=== PATIENT | female | born 1970 | race Caucasian/White ===

== ENCOUNTER 2016-06-15 09:48 | Emergency (ER) | payer OTHER ==
[~2016-06-15 09:48] MED LIST: BACT800T5 PO; CLIN1CAP5 PO; CLON1TAB PO; COUM6TAB PO; GABA-283 PO; NAPR500T2 PO; NEUR600T PO; NORCOTAB PO; PERCOCET PO
[2016-06-15 10:40] LABS: BASO % 0.7 % (0.0-1.0); EOS # 0.1 K/mm3 (0.0-0.50); EOS % 1.3 % (0.0-3.0); LARGE UNSTAINED CELL # 0.1 K/mm3 (0.0-0.4); LARGE UNSTAINED CELL % 0.7 % (0.0-4.0); LYMPH % 15.5 % (24.0-44.0); MEAN CORPUSCULAR HEMOGLOBIN 30.6 pg (27.0-33.0); MEAN CORPUSCULAR HGB CONC 33.5 g/dl (32.0-36.5); MEAN CORPUSCULAR VOLUME 91.4 fl (80.0-96.0); MONO # 0.3 K/mm3 (0.0-0.8); MONO % 4.2 % (0.0-5.0); NEUTROPHILS # 4.8 K/mm3 (1.8-7.7); NEUTROPHILS % 77.7 % (36.0-66.0); PLATELET COUNT, AUTOMATED 267 k/mm3 (150-450); RED CELL DISTRIBUTION WIDTH 14.5 % (11.5-14.5); WHITE BLOOD COUNT 6.2 K/mm3 (4.0-10.0)
[2016-06-15 11:04] LABS: INR 1.1
[2016-06-15 11:04] LABS: CONTROL LINE HCG INT CTR LINE PRESENT
[2016-06-15 11:13] LABS: ALKALINE PHOSPHATASE 87 U/L (45-117); ALT/SGPT 26 U/L (12-78); ANION GAP 9 MEQ/L (8-16); AST/SGOT 21 U/L (15-37); BILIRUBIN,DIRECT 0.1 MG/DL (0.0-0.2); BILIRUBIN,TOTAL 0.4 MG/DL (0.2-1.0); BLOOD UREA NITROGEN 9 MG/DL (7-18); CALCIUM LEVEL 9.5 MG/DL (8.5-10.1); CARBON DIOXIDE LEVEL 27 MEQ/L (21-32); CHLORIDE LEVEL 104 MEQ/L (98-107); CREATININE FOR GFR 0.85 MG/DL (0.55-1.02); GLOMERULAR FILTRATION RATE > 60.0 (>58); GLUCOSE, FASTING 106 MG/DL (70-105); POTASSIUM SERUM 3.8 MEQ/L (3.5-5.1); SODIUM LEVEL 140 MEQ/L (136-145)
[2016-06-15] MEDS ORDERED: ONDANSETRON 4MG/2ML VIAL (J2405) As Ordered ONE (11:34)
--- NOTE | 2016-06-15 11:43 | REP ---
PA and lateral chest 06/15/2016 Indication: Chest pain Comparison: PA and lateral chest 11 916 Findings: The cardiomediastinal silhouette is normal. The lungs are clear bilaterally. The bones and soft tissues are within normal limits. Impression no acute cardiopulmonary process or interval change Signed by Vilma Duval MD 06/15/2016 11:34 A
--- NOTE | 2016-06-15 12:11 | ECGEPIP ---
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
--- NOTE | 2016-06-15 12:27 | EDDOCDS ---
Physician Documentation [facility] Name: Becca Tatum Age: 45 yrs Sex: Female : 1970 Arrival Date: 06/15/2016 Time: 09:48 Bed 11 Private MD: NO PRIMARY PHYSICIAN, . Disposition: 06/15/16 12:10 Discharged to Home/Self Care. Impression: Epigastric pain. - Condition is Stable. - Discharge Instructions: Gastritis, Adult, [id number]-Ifka. - Prescriptions for Carafate 1 gram Oral Tablet - take 2 tablet by ORAL route every 12 hours take on an empty stomach, beginning on waking and last dose at bedtime; 100 tablet. - Medication Reconciliation, Local Pharmacy Hours form. - [facility]: [facility]; When: Call to arrange an appointment; Reason: Further diagnostic work-up, Recheck today's complaints, Continuance of care. - Problem is new. - Symptoms are unchanged. Historical: - Allergies: Toradol (Rash); Tramadol HCl (Unknown, Rash); - Home Meds: 1. Klonopin 1 mg Oral tab 1 tab 3 times per day (Last dose: 06/14/2016) 2. Neurontin 800 mg Oral tab 1 tab 3 times per day (Last dose: 06/14/2016) 3. [place] 5-325 mg Oral tab 1 tab every 4-6 hours as needed (Last dose: 06/14/2016) 4. Xarelto 20 mg oral tab 1 tab once daily (Last dose: 06/14/2016) - PMHx: Anxiety; DVT; Seizures; - PSHx: Tubal ligation; - Social history: Smoking status: Patient uses tobacco products, current every day smoker. No barriers to communication noted, The patient speaks fluent Congolese, Speaks appropriately for age. - : The pt / caregiver states he / she is on anticoagulants: Xarelto Home medication list is obtained from the patient. - Exposure Risk Screening:: None identified. 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 7 in. (170.18 cm) (R); Pain 4/10; 09:59 BP 121 / 81 (auto/); jjr 10:00 Pulse 88 MON; Pulse Ox 96% ; jjr 10:14 BP 103 / 62 (auto/); jjr 10:14 Pulse 70 MON; Pulse Ox 95% ; jjr 10:29 BP 126 / 78 (auto/); jjr 10:29 Pulse 62 MON; Resp 18; Pulse Ox 98% on R/A; jjr 10:59 BP 118 / 63 (auto/); jjr 10:59 Pulse 80 MON; Pulse Ox 98% ; jjr 11:34 BP 123 / 75 (auto/); jjr 11:34 Pulse 74 MON; Pulse Ox 97% ; jjr 11:39 Resp 18; Temp 98.2(O); jjr 12:24 BP 121 / 72; Pulse 68; Resp 18; Temp 98.4(O); Pulse Ox 98% on R/A; Pain 3/10; jjr 09:50 Body Mass Index 23.81 (68.95 kg, 170.18 cm) dem1 MDM: 09:54 ECG WITH READING ER PHYS+CARDIAG ordered. EDMS 10:19 If pt is female >10yo <50yo order UCG ordered. jjr 10:19 Undress patient appropriately for examination ordered. jjr 10:20 BMP Ordered. EDMS 10:20 CBC with Diff Ordered. EDMS 10:20 Lipase Ordered. EDMS 10:20 Liver Profile Ordered. EDMS 10:20 HCG,Serum Qualitative Ordered. EDMS 10:28 TROPONIN Ordered. EDMS 10:45 CBC with Diff Reviewed. btw 10:47 Chest, 2 View (pa\E\lat) Ordered. EDMS 10:48 Pt & Aptt Ordered. EDMS 10:53 CARDIAC INJURY PROFILE Ordered. EDMS 11:09 HCG,Serum Qualitative Reviewed. btw 11:09 Pt & Aptt Reviewed. btw 11:14 Financial registration complete. mm15 11:16 BMP Reviewed. btw 11:16 Lipase Reviewed. btw 11:16 Liver Profile Reviewed. btw 11:16 HCG,Serum Qualitative Reviewed. btw 11:16 TROPONIN Reviewed. btw 11:16 CARDIAC INJURY PROFILE Reviewed. btw 11:19 [facility] [place] Agreement was scanned into Lockbox and attached to record. mm15 11:32 Ondansetron 4 mg IVP once ordered. btw 12:09 Chest, 2 View (pa\E\lat) Reviewed. btw Administered Medications: 11:38 Drug: Ondansetron 4 mg [ondansetron HCl 2 mg/mL intravenous solution (2 mL)] Route: jjr IVP; Site: right antecubital; Signatures: Dispatcher MedHost EDMS Nelsy Granados RN RN jjr Wolfenden, Brandon, PA PA btw Kesha Stephenson RN RN dsDinora Sims mm15 The chart was reviewed and I authenticate all verbal orders and agree with the evaluation and treatment provided.Corrections: (The following items were deleted from the chart) 10:26 10:22 TROPONIN+LAB ordered. EDMS EDMS 10:53 10:47 CARDIAC INJURY PROFILE+LAB ordered. EDMS EDMS Attachments: 11:19 [facility] Payment Agreement mm15 MTDD
--- NOTE | 2016-06-15 12:27 | EDDOCDS ---
Nurse's Notes [facility] Name: Becca Tatum Age: 45 yrs Sex: Female : 1970 Arrival Date: 06/15/2016 Time: 09:48 Bed 11 Private MD: NO PRIMARY PHYSICIAN, . Diagnosis: Epigastric pain Presentation: 06/15 09:55 Presenting complaint: Patient states: epigastric pain that started this morning. Pt dsf also reports nausea no vomiting. Adult Sepsis Screening: The patient does not have new or worsening altered mentation. Patient's respiratory rate is less than 22. Systolic blood pressure is greater than 100. Patient has a qSOFA score of 0- Negative Sepsis Screen. Suicide/Homicide risk assessment- the patient denies having any suicidal and/or homicidal ideations and does not present with any other emotional, behavioral or mental health complaints. Status: Patient is not a service desk lead or dependent. Transition of care: patient was not received from another setting of care. 09:55 Acuity: CHARLY Level 3 dsf 09:55 Method Of Arrival: Walkin/Carried/Asstd dsf 10:30 Red Flag criteria, patient assessed and taken directly to a bed. kr3 Triage Assessment: 09:57 General: Appears in no apparent distress, Behavior is appropriate for age, cooperative. dsf Pain: Location: epigastric area Pain currently is 4 out of 10 on a pain scale. HIV screening NA for this visit Offered previously. GI: Reports epigastric pain, nausea. 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 Klonopin 1 mg Oral tab 1 tab 3 times per day (Last dose: 06/14/2016) 2. Neurontin 800 mg Oral tab 1 tab 3 times per day (Last dose: 06/14/2016) 3. [place] 5-325 mg Oral tab 1 tab every 4-6 hours as needed (Last dose: 06/14/2016) 4. Xarelto 20 mg oral tab 1 tab once daily (Last dose: 06/14/2016) - PMHx: Anxiety; DVT; Seizures; - PSHx: Tubal ligation; - Social history: Smoking status: Patient uses tobacco products, current every day smoker. No barriers to communication noted, The patient speaks fluent Lithuanian, Speaks appropriately for age. - : The pt / caregiver states he / she is on anticoagulants: Xarelto Home medication list is obtained from the patient. - Exposure Risk Screening:: None identified. Screenin:52 Infection Control. dem1 12:25 Screening information is obtained from the patient. Fall risk: No risks identified. jjr Assistance ADL's: requires no assistance with activities of daily living. Abuse/DV Screen: The patient / caregiver reports he/she is: not in a situation that causes fear, pain or injury. Nutritional screening: No deficits noted. Advance Directives: There is no active DNR order. home support is adequate. Assessment: 10:32 General: Appears in no apparent distress, well nourished, well groomed, Behavior is jjr appropriate for age, vague c/o chest pain to right anterior chest intermittent since yesterday, pain increases with deep breathing. General: Reports chills for 12-24 hours. Neurological: No deficits noted. Cardiovascular: Rhythm is sinus rhythm. Respiratory: Airway is patent Respiratory effort is even, unlabored, Respiratory pattern is regular, Breath sounds are clear bilaterally. GI: Abdomen is non- distended Bowel sounds present X 4 quads. Abd is soft and non tender X 4 quads. Reports nausea. Derm: No deficits noted. 11:39 General: Appears in no apparent distress, pt reports intermittent discomfort to right jjr anterior chest, "while I was breathing in xray it felt funny on my left side" pt's main complaint is nausea and fever/chills oral temp reassessed 98.2. 12:25 General: Appears in no apparent distress, rates right anterior chest discomfort 3/10, jjr nausea decreased tolerating sips of water. Vital Signs: 09:50 BP 135 / 91; Pulse 84; Resp 18; Temp 98.2(O); Pulse Ox 99% on R/A; Weight 68.95 kg (R); dem1 Height 5 ft. 7 in. (170.18 cm) (R); Pain 4/10; 09:59 BP 121 / 81 (auto/); jjr 10:00 Pulse 88 MON; Pulse Ox 96% ; jjr 10:14 BP 103 / 62 (auto/); jjr 10:14 Pulse 70 MON; Pulse Ox 95% ; jjr 10:29 BP 126 / 78 (auto/); jjr 10:29 Pulse 62 MON; Resp 18; Pulse Ox 98% on R/A; jjr 10:59 BP 118 / 63 (auto/); jjr 10:59 Pulse 80 MON; Pulse Ox 98% ; jjr 11:34 BP 123 / 75 (auto/); jjr 11:34 Pulse 74 MON; Pulse Ox 97% ; jjr 11:39 Resp 18; Temp 98.2(O); jjr 12:24 BP 121 / 72; Pulse 68; Resp 18; Temp 98.4(O); Pulse Ox 98% on R/A; Pain 3/10; jjr 09:50 Body Mass Index 23.81 (68.95 kg, 170.18 cm) dem1 Vitals: 09:50 Log In Time: June 15, 2016 at 09:48. RN notified that patient meets Red Flag dem1 criteria. ED Course: 09:50 Patient visited by Paola Mas. dem1 09:50 NO PRIMARY PHYSICIAN, . is Private Physician. dem1 09:50 Patient moved to Waiting dem1 09:51 Patient visited by Paola Mas. dem1 09:51 Patient moved to Pre RCE dem1 09:55 Patient moved to 11 dsf 09:56 Triage Initiated dsf 10:07 EKG done. (by ED staff). Reviewed by Maren Cuellar MD. jlf 10:08 Patient visited by Facundo Ariza PCA. jlf 10:09 Patient visited by Facundo Ariza PCA. jlf 10:26 Patient visited by Facundo Ariza PCA. jlf 10:32 Inserted saline lock: 20 gauge in right antecubital area and blood collected. Labs jjr drawn. (by ED staff). Sent per order to lab. 10:34 Patient visited by Nelsy Granados RN. jjr 10:34 TROPONIN Sent. jjr 10:34 HCG,Serum Qualitative Sent. jjr 10:34 BMP Sent. jjr 10:34 CBC with Diff Sent. jjr 10:34 Lipase Sent. jjr 10:34 Liver Profile Sent. jjr 10:37 Dominik Alcocer PA is PHCP. btw 10:37 Maren Cuellar MD is Attending Physician. btw 10:37 Patient visited by Dominik Alcocer PA. btw 10:51 Patient visited by Facundo Ariza PCA. jlf 11:16 Patient visited by Facundo Ariza PCA. jlf 11:19 [facility] Payment Agreement was scanned into [employer] and attached to record. mm15 11:40 Patient visited by Nelsy Granados RN. jjr 11:51 Chest, 2 View (pa\\E\\lat) Returned. EDMS 12:06 Patient visited by Facundo Ariza PCA. jlf 12:10 [facility] is Referral Physician. btw 12:25 Discontinued lock intact, bleeding controlled, pressure dressing applied, No jjr redness/swelling at site. No procedures done that require assistance. 12:26 The patient / caregiver is instructed regarding the plan of care and ED course. jjr Administered Medications: 11:38 Drug: Ondansetron 4 mg [ondansetron HCl 2 mg/mL intravenous solution (2 mL)] Route: jjr IVP; Site: right antecubital; Order Results: Lab Order: BMP; SPEC'M 06/15/16 10:31 Test: GLUCOSE, FASTING; Value: 106; Range: 70-105; Abnormal: Above high normal; Units: MG/DL; Status: F Test: BLOOD UREA NITROGEN; Value: 9; Range: 7-18; Units: MG/DL; Status: F Test: CREATININE FOR GFR; Value: 0.85; Range: 0.55-1.02; Units: MG/DL; Status: F Test: SODIUM LEVEL; Range: 136-145; Units: MEQ/L; Status: I Test: POTASSIUM SERUM; Range: 3.5-5.1; Units: MEQ/L; Status: I Test: CHLORIDE LEVEL; Range: 98-107; Units: MEQ/L; Status: I Test: CARBON DIOXIDE LEVEL; Range: 21-32; Units: MEQ/L; Status: I Test: ANION GAP; Range: 8-16; Units: MEQ/L; Status: I Test: CALCIUM LEVEL; Range: 8.5-10.1; Units: MG/DL; Status: I Test: GLOMERULAR FILTRATION RATE; Value: > 60.0; Range: >58; Status: F Test: SODIUM LEVEL; Value: 140; Range: 136-145; Units: MEQ/L; Status: F Test: POTASSIUM SERUM; Value: 3.8; Range: 3.5-5.1; Units: MEQ/L; Status: F Test: CHLORIDE LEVEL; Value: 104; Range: 98-107; Units: MEQ/L; Status: F Test: CARBON DIOXIDE LEVEL; Value: 27; Range: 21-32; Units: MEQ/L; Status: F Test: ANION GAP; Value: 9; Range: 8-16; Units: MEQ/L; Status: F Test: CALCIUM LEVEL; Value: 9.5; Range: 8.5-10.1; Units: MG/DL; Status: F Test Note: ; Units are mL/min/1.73 m2 Chronic Kidney Disease Staging per NKF: Stage I & II GFR >=60 Normal to Mildly Decreased Stage III GFR 30-59 Moderately Decreased Stage IV GFR 15-29 Severely Decreased Stage V GFR <15 Very Little GFR Left ESRD GFR <15 on MOCCASIN SEWER Lab Order: CBC with Diff; SPEC'M 06/15/16 10:31 Test: WHITE BLOOD COUNT; Value: 6.2; Range: 4.0-10.0; Units: K/mm3; Status: F Test: RED BLOOD COUNT; Value: 4.82; Range: 4.00-5.40; Units: M/mm3; Status: F Test: HEMOGLOBIN; Value: 14.8; Range: 12.0-16.0; Units: g/dl; Status: F Test: HEMATOCRIT; Value: 44.1; Range: 36.0-47.0; Units: %; Status: F Test: MEAN CORPUSCULAR VOLUME; Value: 91.4; Range: 80.0-96.0; Units: fl; Status: F Test: MEAN CORPUSCULAR HEMOGLOBIN; Value: 30.6; Range: 27.0-33.0; Units: pg; Status: F Test: MEAN CORPUSCULAR HGB CONC; Value: 33.5; Range: 32.0-36.5; Units: g/dl; Status: F Test: RED CELL DISTRIBUTION WIDTH; Value: 14.5; Range: 11.5-14.5; Units: %; Status: F Test: PLATELET COUNT, AUTOMATED; Value: 267; Range: 150-450; Units: k/mm3; Status: F Test: NEUTROPHILS %; Value: 77.7; Range: 36.0-66.0; Abnormal: Above high normal; Units: %; Status: F Test: LYMPH %; Value: 15.5; Range: 24.0-44.0; Abnormal: Below low normal; Units: %; Status: F Test: MONO %; Value: 4.2; Range: 0.0-5.0; Units: %; Status: F Test: EOS %; Value: 1.3; Range: 0.0-3.0; Units: %; Status: F Test: BASO %; Value: 0.7; Range: 0.0-1.0; Units: %; Status: F Test: LARGE UNSTAINED CELL %; Value: 0.7; Range: 0.0-4.0; Units: %; Status: F Test: NEUTROPHILS #; Value: 4.8; Range: 1.8-7.7; Units: K/mm3; Status: F Test: LYMPH #; Value: 1.0; Range: 1.5-4.5; Abnormal: Below low normal; Units: K/mm3; Status: F Test: MONO #; Value: 0.3; Range: 0.0-0.8; Units: K/mm3; Status: F Test: EOS #; Value: 0.1; Range: 0.0-0.50; Units: K/mm3; Status: F Test: BASO #; Value: 0.0; Range: 0.0-0.2; Units: K/mm3; Status: F Test: LARGE UNSTAINED CELL #; Value: 0.1; Range: 0.0-0.4; Units: K/mm3; Status: F Lab Order: Lipase; SPEC'M 06/15/16 10:31 Test: LIPASE; Value: 152; Range: 73-393; Units: U/L; Status: F Lab Order: Liver Profile; SPEC'M 06/15/16 10:31 Test: AST/SGOT; Value: 21; Range: 15-37; Units: U/L; Status: F Test: ALT/SGPT; Value: 26; Range: 12-78; Units: U/L; Status: F Test: ALKALINE PHOSPHATASE; Value: 87; Range: 45-117; Units: U/L; Status: F Test: BILIRUBIN,TOTAL; Value: 0.4; Range: 0.2-1.0; Units: MG/DL; Status: F Test: BILIRUBIN,DIRECT; Value: 0.1; Range: 0.0-0.2; Units: MG/DL; Status: F Test: TOTAL PROTEIN; Value: 8.0; Range: 6.4-8.2; Units: GM/DL; Status: F Test: ALBUMIN; Value: 4.0; Range: 3.2-5.2; Units: GM/DL; Status: F Test: ALBUMIN/GLOBULIN RATIO; Value: 1.00; Range: 1.00-1.93; Status: F Lab Order: HCG,Serum Qualitative; SPEC'M 06/15/16 10:31 Test: HCG, SERUM QUALITATIVE; Value: NEGATIVE; Range: NEGATIVE; Status: F Lab Order: TROPONIN; SPEC'M 06/15/16 10:31 Test: TROPONIN I; Value: < 0.02; Range: < 0.10; Units: NG/ML; Status: F Test Note: ; Troponin I Reference Interval for Favorite Words LOCI: 99th Percentile= 0.00-0.045 ng/ml Risk Stratification: <= 0.10 ng/ml Decreased Risk for Adverse Clinical Events. 0.10-1.50 ng/ml Increased Risk for Adverse Clinical Events. Evaluation of additional criterion and/or repeat testing in 2-6 hours is suggested to rule out myocardial damage. >= 1.50 ng/ml Indicative of Myocardial Injury. Lab Order: Pt & Aptt; SPEC'M 06/15/16 10:30 Test: PROTHROMBIN TIME; Value: 14.3; Range: 12.3-14.5; Units: SECONDS; Status: F Test: INR; Value: 1.10; Status: F Test: PARTIAL THROMBOPLASTIN TIME; Value: 28.1; Range: 26.6-37.1; Units: SECONDS; Status: F Test Note: ; THERAPUTIC HUMAN INR VALUES INDICATIONS NORMAL RANGES PROPHYLAXIS/TREATMENT OF: VENOUS THROMBOSIS 2.0-3.0 PULMONARY EMBOLISM 2.0-3.0 PREVENTION OF SYSTEMIC EMBOLISM FROM: TISSUE HEART VALVES 2.0-3.0 ACUTE MYOCARDIAL INFARCTION 2.0-3.0 VALVULAR HEART DISEASE 2.0-3.0 ATRIAL FIBRILLATION 2.0-3.0 MECHANICAL VALVES(HIGH RISK) 2.5-3.5 RECURRENT MYOCARDIAL INFARCTION 2.5-3.5 Lab Order: CARDIAC INJURY PROFILE; SPEC'M 06/15/16 10:31 Test: CPK CREATINE PHOSPHOKINASE; Value: 64; Range: 26-192; Units: U/L; Status: F Test: CK-MB VALUE MASS; Value: 1.0; Range: 0.0-3.6; Units: NG/ML; Status: F Test: MB/CK RELATIVE INDEX; Value: 1.56; Range: < OR =4; Status: F Test Note: ; DIAGNOSIS CRITERIA MMB ng/ml Relative Index (RI) NON-AMI < or = 5 N/A [place] > 5 < or = 4 AMI > 5 > 4 Radiology Order: Chest, 2 View (pa\\E\\lat) Test: Chest, 2 View (pa\\E\\lat) REASON FOR EXAMINATION: Chest Pain; PA and lateral chest 06/15/2016; ; Indication: Chest pain; ; Comparison: PA and lateral chest 11 916; ; Findings: The cardiomediastinal silhouette is normal. The lungs are clear; bilaterally. The bones and soft tissues are within normal limits.; ; Impression no acute cardiopulmonary process or interval change; ; ; Signed by; Vilma Duval MD 06/15/2016 11:34 A; Outcome: 12:10 Discharge ordered by Provider. btw 12:25 Discharge Assessment: patient administered narcotics - no. The following High Risk jjr Discharge criteria are identified: None. Discharged to home ambulatory. Condition: stable. Discharge instructions given to patient, Instructed on discharge instructions, follow up and referral plans. medication usage, diet, Demonstrated understanding of instructions, medications, Prescriptions given X 1. No special radiology studies were completed. Property sent home with patient. 12:26 Patient left the ED. jjr Signatures: Dispatcher MedHost EDMS eNli RickettsRN RN kr3 Nelsy Granados RN RN jjr Wolfenden, Brandon, PA PA alexw Kesha Stephenson RN RN dsf Mack, Demeishia dem1 Dinora Herr mm15 Facundo Ariza, CROSS TIE MAKER CROSS TIE MAKER jlf MTDD
--- NOTE | 2016-06-17 13:27 | EDDOCDS ---
Physician Documentation [facility] Name: Becca Tatum Age: 45 yrs Sex: Female : 1970 Arrival Date: 06/15/2016 Time: 09:48 Bed 11 Private MD: NO PRIMARY PHYSICIAN, . Disposition: 06/15/16 12:10 Discharged to Home/Self Care. Impression: Epigastric pain. - Condition is Stable. - Discharge Instructions: Gastritis, Adult, [id number]-Ghio. - Prescriptions for Carafate 1 gram Oral Tablet - take 2 tablet by ORAL route every 12 hours take on an empty stomach, beginning on waking and last dose at bedtime; 100 tablet. - Medication Reconciliation, Local Pharmacy Hours form. - [facility]; When: Call to arrange an appointment; Reason: Further diagnostic work-up, Recheck today's complaints, Continuance of care. - Problem is new. - Symptoms are unchanged. Historical: - Allergies: Toradol (Rash); Tramadol HCl (Unknown, Rash); - Home Meds: 1. Klonopin 1 mg Oral tab 1 tab 3 times per day (Last dose: 06/14/2016) 2. Neurontin 800 mg Oral tab 1 tab 3 times per day (Last dose: 06/14/2016) 3. [place] 5-325 mg Oral tab 1 tab every 4-6 hours as needed (Last dose: 06/14/2016) 4. Xarelto 20 mg oral tab 1 tab once daily (Last dose: 06/14/2016) - PMHx: Anxiety; DVT; Seizures; - PSHx: Tubal ligation; - Social history: Smoking status: Patient uses tobacco products, current every day smoker. No barriers to communication noted, The patient speaks fluent Colombian, Speaks appropriately for age. - : The pt / caregiver states he / she is on anticoagulants: Xarelto Home medication list is obtained from the patient. - Exposure Risk Screening:: None identified. 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 7 in. (170.18 cm) (R); Pain 4/10; 09:59 BP 121 / 81 (auto/); jjr 10:00 Pulse 88 MON; Pulse Ox 96% ; jjr 10:14 BP 103 / 62 (auto/); jjr 10:14 Pulse 70 MON; Pulse Ox 95% ; jjr 10:29 BP 126 / 78 (auto/); jjr 10:29 Pulse 62 MON; Resp 18; Pulse Ox 98% on R/A; jjr 10:59 BP 118 / 63 (auto/); jjr 10:59 Pulse 80 MON; Pulse Ox 98% ; jjr 11:34 BP 123 / 75 (auto/); jjr 11:34 Pulse 74 MON; Pulse Ox 97% ; jjr 11:39 Resp 18; Temp 98.2(O); jjr 12:24 BP 121 / 72; Pulse 68; Resp 18; Temp 98.4(O); Pulse Ox 98% on R/A; Pain 3/10; jjr 09:50 Body Mass Index 23.81 (68.95 kg, 170.18 cm) dem1 MDM: 09:54 ECG WITH READING ER PHYS+CARDIAG ordered. EDMS 10:19 If pt is female >10yo <50yo order UCG ordered. jjr 10:19 Undress patient appropriately for examination ordered. jjr 10:20 BMP Ordered. EDMS 10:20 CBC with Diff Ordered. EDMS 10:20 Lipase Ordered. EDMS 10:20 Liver Profile Ordered. EDMS 10:20 HCG,Serum Qualitative Ordered. EDMS 10:28 TROPONIN Ordered. EDMS 10:45 CBC with Diff Reviewed. btw 10:47 Chest, 2 View (pa\E\lat) Ordered. EDMS 10:48 Pt & Aptt Ordered. EDMS 10:53 CARDIAC INJURY PROFILE Ordered. EDMS 11:09 HCG,Serum Qualitative Reviewed. btw 11:09 Pt & Aptt Reviewed. btw 11:14 Financial registration complete. mm15 11:16 BMP Reviewed. btw 11:16 Lipase Reviewed. btw 11:16 Liver Profile Reviewed. btw 11:16 HCG,Serum Qualitative Reviewed. btw 11:16 TROPONIN Reviewed. btw 11:16 CARDIAC INJURY PROFILE Reviewed. btw 11:19 [facility] Payment Agreement was scanned into linkedü and attached to record. mm15 11:32 Ondansetron 4 mg IVP once ordered. btw 12:09 Chest, 2 View (pa\E\lat) Reviewed. btw 06/16 08:01 T-Sheet-- Draft Copy was scanned into linkedü and attached to record. gb 13:04 ECG/EKG was scanned into [employer] and attached to record. gb Administered Medications: 06/15 11:38 Drug: Ondansetron 4 mg [ondansetron HCl 2 mg/mL intravenous solution (2 mL)] Route: jjr IVP; Site: right antecubital; Signatures: Dispatcher [employer] EDMS Renate Miner, Jasvir Reg Nelsy Morel RN RN jjr Wolfenden, Brandon, PA PA btw Kesha StephensonRN RN dsf Dinora Herr mm15 The chart was reviewed and I authenticate all verbal orders and agree with the evaluation and treatment provided.Corrections: (The following items were deleted from the chart) 10:26 10:22 TROPONIN+LAB ordered. EDMS EDMS 10:53 10:47 CARDIAC INJURY PROFILE+LAB ordered. EDMS EDMS Attachments: 11:19 [facility] Payment Agreement mm15 06/16 08:01 T-Sheet-- Draft Copy gb 13:04 ECG/EKG gb Chart Complete MTDD
--- NOTE | 2016-06-17 13:27 | EDDOCDS ---
Physician Documentation [facility] Name: Becca Tatum Age: 45 yrs Sex: Female : 1970 Arrival Date: 06/15/2016 Time: 09:48 Bed 11 Private MD: NO PRIMARY PHYSICIAN, . Disposition: 06/15/16 12:10 Discharged to Home/Self Care. Impression: Epigastric pain. - Condition is Stable. - Discharge Instructions: Gastritis, Adult, [id number]. - Prescriptions for Carafate 1 gram Oral Tablet - take 2 tablet by ORAL route every 12 hours take on an empty stomach, beginning on waking and last dose at bedtime; 100 tablet. - Medication Reconciliation, Local Pharmacy Hours form. - [facility] up: [facility]; When: Call to arrange an appointment; Reason: Further diagnostic work-up, Recheck today's complaints, Continuance of care. - Problem is new. - Symptoms are unchanged. Historical: - Allergies: Toradol (Rash); Tramadol HCl (Unknown, Rash); - Home Meds: 1. Klonopin 1 mg Oral tab 1 tab 3 times per day (Last dose: 06/14/2016) 2. Neurontin 800 mg Oral tab 1 tab 3 times per day (Last dose: 06/14/2016) 3. [place] 5-325 mg Oral tab 1 tab every 4-6 hours as needed (Last dose: 06/14/2016) 4. Xarelto 20 mg oral tab 1 tab once daily (Last dose: 06/14/2016) - PMHx: Anxiety; DVT; Seizures; - PSHx: Tubal ligation; - Social history: Smoking status: Patient uses tobacco products, current every day smoker. No barriers to communication noted, The patient speaks fluent Indian, Speaks appropriately for age. - : The pt / caregiver states he / she is on anticoagulants: Xarelto Home medication list is obtained from the patient. - Exposure Risk Screening:: None identified. 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 7 in. (170.18 cm) (R); Pain 4/10; 09:59 BP 121 / 81 (auto/); jjr 10:00 Pulse 88 MON; Pulse Ox 96% ; jjr 10:14 BP 103 / 62 (auto/); jjr 10:14 Pulse 70 MON; Pulse Ox 95% ; jjr 10:29 BP 126 / 78 (auto/); jjr 10:29 Pulse 62 MON; Resp 18; Pulse Ox 98% on R/A; jjr 10:59 BP 118 / 63 (auto/); jjr 10:59 Pulse 80 MON; Pulse Ox 98% ; jjr 11:34 BP 123 / 75 (auto/); jjr 11:34 Pulse 74 MON; Pulse Ox 97% ; jjr 11:39 Resp 18; Temp 98.2(O); jjr 12:24 BP 121 / 72; Pulse 68; Resp 18; Temp 98.4(O); Pulse Ox 98% on R/A; Pain 3/10; jjr 09:50 Body Mass Index 23.81 (68.95 kg, 170.18 cm) dem1 MDM: 09:54 ECG WITH READING ER PHYS+CARDIAG ordered. EDMS 10:19 If pt is female >10yo <50yo order UCG ordered. jjr 10:19 Undress patient appropriately for examination ordered. jjr 10:20 BMP Ordered. EDMS 10:20 CBC with Diff Ordered. EDMS 10:20 Lipase Ordered. EDMS 10:20 Liver Profile Ordered. EDMS 10:20 HCG,Serum Qualitative Ordered. EDMS 10:28 TROPONIN Ordered. EDMS 10:45 CBC with Diff Reviewed. btw 10:47 Chest, 2 View (pa\E\lat) Ordered. EDMS 10:48 Pt & Aptt Ordered. EDMS 10:53 CARDIAC INJURY PROFILE Ordered. EDMS 11:09 HCG,Serum Qualitative Reviewed. btw 11:09 Pt & Aptt Reviewed. btw 11:14 Financial registration complete. mm15 11:16 BMP Reviewed. btw 11:16 Lipase Reviewed. btw 11:16 Liver Profile Reviewed. btw 11:16 HCG,Serum Qualitative Reviewed. btw 11:16 TROPONIN Reviewed. btw 11:16 CARDIAC INJURY PROFILE Reviewed. btw 11:19 [facility] [place] Agreement was scanned into [employer] and attached to record. mm15 11:32 Ondansetron 4 mg IVP once ordered. btw 12:09 Chest, 2 View (pa\E\lat) Reviewed. btw 06/16 08:01 T-Sheet-- Draft Copy was scanned into [employer] and attached to record. gb 13:04 ECG/EKG was scanned into [employer] and attached to record. gb Administered Medications: 06/15 11:38 Drug: Ondansetron 4 mg [ondansetron HCl 2 mg/mL intravenous solution (2 mL)] Route: jjr IVP; Site: right antecubital; Signatures: Dispatcher [employer] EDMS Renate Miner, Jasvir Reg Nelsy Morel RN RN jjr Wolfenden, Brandon, PA PA btw Kesha StephensonRN RN dsf Dinora Herr mm15 The chart was reviewed and I authenticate all verbal orders and agree with the evaluation and treatment provided.Corrections: (The following items were deleted from the chart) 10:26 10:22 TROPONIN+LAB ordered. EDMS EDMS 10:53 10:47 CARDIAC INJURY PROFILE+LAB ordered. EDMS EDMS Attachments: 11:19 [facility] [place] Agreement mm15 06/16 08:01 T-Sheet-- Draft Copy gb 13:04 ECG/EKG gb Chart Complete MTDD
--- NOTE | 2016-06-17 13:28 | EDDOCDS ---
Nurse's Notes [facility] Name: Olivia Tatum Age: 45 yrs Sex: Female : 1970 Arrival Date: 06/15/2016 Time: 09:48 Bed 11 Private MD: NO PRIMARY PHYSICIAN, . Diagnosis: Epigastric pain Presentation: 06/15 09:55 Presenting complaint: Patient states: epigastric pain that started this morning. Pt dsf also reports nausea no vomiting. Adult Sepsis Screening: The patient does not have new or worsening altered mentation. Patient's respiratory rate is less than 22. Systolic blood pressure is greater than 100. Patient has a qSOFA score of 0- Negative Sepsis Screen. Suicide/Homicide risk assessment- the patient denies having any suicidal and/or homicidal ideations and does not present with any other emotional, behavioral or mental health complaints. Status: Patient is not a central service supply distributor or dependent. Transition of care: patient was not received from another setting of care. 09:55 Acuity: CHARLY Level 3 dsf 09:55 Method Of Arrival: Walkin/Carried/Asstd dsf 10:30 Red Flag criteria, patient assessed and taken directly to a bed. kr3 Triage Assessment: 09:57 General: Appears in no apparent distress, Behavior is appropriate for age, cooperative. dsf Pain: Location: epigastric area Pain currently is 4 out of 10 on a pain scale. HIV screening NA for this visit Offered previously. GI: Reports epigastric pain, nausea. 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 Klonopin 1 mg Oral tab 1 tab 3 times per day (Last dose: 06/14/2016) 2. Neurontin 800 mg Oral tab 1 tab 3 times per day (Last dose: 06/14/2016) 3. [place] 5-325 mg Oral tab 1 tab every 4-6 hours as needed (Last dose: 06/14/2016) 4. Xarelto 20 mg oral tab 1 tab once daily (Last dose: 06/14/2016) - PMHx: Anxiety; DVT; Seizures; - PSHx: Tubal ligation; - Social history: Smoking status: Patient uses tobacco products, current every day smoker. No barriers to communication noted, The patient speaks fluent Swedish, Speaks appropriately for age. - : The pt / caregiver states he / she is on anticoagulants: Xarelto Home medication list is obtained from the patient. - Exposure Risk Screening:: None identified. Screenin:52 Infection Control. dem1 12:25 Screening information is obtained from the patient. Fall risk: No risks identified. jjr Assistance ADL's: requires no assistance with activities of daily living. Abuse/DV Screen: The patient / caregiver reports he/she is: not in a situation that causes fear, pain or injury. Nutritional screening: No deficits noted. Advance Directives: There is no active DNR order. home support is adequate. Assessment: 10:32 General: Appears in no apparent distress, well nourished, well groomed, Behavior is jjr appropriate for age, vague c/o chest pain to right anterior chest intermittent since yesterday, pain increases with deep breathing. General: Reports chills for 12-24 hours. Neurological: No deficits noted. Cardiovascular: Rhythm is sinus rhythm. Respiratory: Airway is patent Respiratory effort is even, unlabored, Respiratory pattern is regular, Breath sounds are clear bilaterally. GI: Abdomen is non- distended Bowel sounds present X 4 quads. Abd is soft and non tender X 4 quads. Reports nausea. Derm: No deficits noted. 11:39 General: Appears in no apparent distress, pt reports intermittent discomfort to right jjr anterior chest, "while I was breathing in xray it felt funny on my left side" pt's main complaint is nausea and fever/chills oral temp reassessed 98.2. 12:25 General: Appears in no apparent distress, rates right anterior chest discomfort 3/10, jjr nausea decreased tolerating sips of water. Vital Signs: 09:50 BP 135 / 91; Pulse 84; Resp 18; Temp 98.2(O); Pulse Ox 99% on R/A; Weight 68.95 kg (R); dem1 Height 5 ft. 7 in. (170.18 cm) (R); Pain 4/10; 09:59 BP 121 / 81 (auto/); jjr 10:00 Pulse 88 MON; Pulse Ox 96% ; jjr 10:14 BP 103 / 62 (auto/); jjr 10:14 Pulse 70 MON; Pulse Ox 95% ; jjr 10:29 BP 126 / 78 (auto/); jjr 10:29 Pulse 62 MON; Resp 18; Pulse Ox 98% on R/A; jjr 10:59 BP 118 / 63 (auto/); jjr 10:59 Pulse 80 MON; Pulse Ox 98% ; jjr 11:34 BP 123 / 75 (auto/); jjr 11:34 Pulse 74 MON; Pulse Ox 97% ; jjr 11:39 Resp 18; Temp 98.2(O); jjr 12:24 BP 121 / 72; Pulse 68; Resp 18; Temp 98.4(O); Pulse Ox 98% on R/A; Pain 3/10; jjr 09:50 Body Mass Index 23.81 (68.95 kg, 170.18 cm) dem1 Vitals: 09:50 Log In Time: June 15, 2016 at 09:48. RN notified that patient meets Red Flag dem1 criteria. ED Course: 09:50 Patient visited by Paola Mas. dem1 09:50 NO PRIMARY PHYSICIAN, . is Private Physician. dem1 09:50 Patient moved to Waiting dem1 09:51 Patient visited by Paola Mas. dem1 09:51 Patient moved to Pre RCE dem1 09:55 Patient moved to 11 dsf 09:56 Triage Initiated dsf 10:07 EKG done. (by ED staff). Reviewed by Maren Cuellar MD. jlf 10:08 Patient visited by Facundo Ariza PCA. jlf 10:09 Patient visited by Facundo Ariza PCA. jlf 10:26 Patient visited by Facundo Ariza PCA. jlf 10:32 Inserted saline lock: 20 gauge in right antecubital area and blood collected. Labs jjr drawn. (by ED staff). Sent per order to lab. 10:34 Patient visited by Nelsy Granados RN. jjr 10:34 TROPONIN Sent. jjr 10:34 HCG,Serum Qualitative Sent. jjr 10:34 BMP Sent. jjr 10:34 CBC with Diff Sent. jjr 10:34 Lipase Sent. jjr 10:34 Liver Profile Sent. jjr 10:37 Dominik Alcocer PA is PHCP. btw 10:37 Maren Cuellar MD is Attending Physician. btw 10:37 Patient visited by Dominik Alcocer PA. btw 10:51 Patient visited by Facundo Ariza PCA. jlf 11:16 Patient visited by Facundo Ariza PCA. jlf 11:19 [facility] Payment Agreement was scanned into [employer] and attached to record. mm15 11:40 Patient visited by Nelsy Granados RN. jjr 11:51 Chest, 2 View (pa\\E\\lat) Returned. EDMS 12:06 Patient visited by Facundo Ariza PCA. jlf 12:10 [facility] is Referral Physician. btw 12:25 Discontinued lock intact, bleeding controlled, pressure dressing applied, No jjr redness/swelling at site. No procedures done that require assistance. 12:26 The patient / caregiver is instructed regarding the plan of care and ED course. jjr 12:30 EKG-ADULT Returned. EDMS 06/16 08:01 T-Sheet-- Draft Copy was scanned into [employer] and attached to record. gb 13:04 ECG/EKG was scanned into [employer] and attached to record. gb Administered Medications: 06/15 11:38 Drug: Ondansetron 4 mg [ondansetron HCl 2 mg/mL intravenous solution (2 mL)] Route: jjr IVP; Site: right antecubital; Order Results: Lab Order: BMP; SPEC'M 06/15/16 10:31 Test: GLUCOSE, FASTING; Value: 106; Range: 70-105; Abnormal: Above high normal; Units: MG/DL; Status: F Test: BLOOD UREA NITROGEN; Value: 9; Range: 7-18; Units: MG/DL; Status: F Test: CREATININE FOR GFR; Value: 0.85; Range: 0.55-1.02; Units: MG/DL; Status: F Test: SODIUM LEVEL; Range: 136-145; Units: MEQ/L; Status: I Test: POTASSIUM SERUM; Range: 3.5-5.1; Units: MEQ/L; Status: I Test: CHLORIDE LEVEL; Range: 98-107; Units: MEQ/L; Status: I Test: CARBON DIOXIDE LEVEL; Range: 21-32; Units: MEQ/L; Status: I Test: ANION GAP; Range: 8-16; Units: MEQ/L; Status: I Test: CALCIUM LEVEL; Range: 8.5-10.1; Units: MG/DL; Status: I Test: GLOMERULAR FILTRATION RATE; Value: > 60.0; Range: >58; Status: F Test: SODIUM LEVEL; Value: 140; Range: 136-145; Units: MEQ/L; Status: F Test: POTASSIUM SERUM; Value: 3.8; Range: 3.5-5.1; Units: MEQ/L; Status: F Test: CHLORIDE LEVEL; Value: 104; Range: 98-107; Units: MEQ/L; Status: F Test: CARBON DIOXIDE LEVEL; Value: 27; Range: 21-32; Units: MEQ/L; Status: F Test: ANION GAP; Value: 9; Range: 8-16; Units: MEQ/L; Status: F Test: CALCIUM LEVEL; Value: 9.5; Range: 8.5-10.1; Units: MG/DL; Status: F Test Note: ; Units are mL/min/1.73 m2 Chronic Kidney Disease Staging per NKF: Stage I & II GFR >=60 Normal to Mildly Decreased Stage III GFR 30-59 Moderately Decreased Stage IV GFR 15-29 Severely Decreased Stage V GFR <15 Very Little GFR Left ESRD GFR <15 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 Lab Order: CBC with Diff; SPEC'M 06/15/16 10:31 Test: WHITE BLOOD COUNT; Value: 6.2; Range: 4.0-10.0; Units: K/mm3; Status: F Test: RED BLOOD COUNT; Value: 4.82; Range: 4.00-5.40; Units: M/mm3; Status: F Test: HEMOGLOBIN; Value: 14.8; Range: 12.0-16.0; Units: g/dl; Status: F Test: HEMATOCRIT; Value: 44.1; Range: 36.0-47.0; Units: %; Status: F Test: MEAN CORPUSCULAR VOLUME; Value: 91.4; Range: 80.0-96.0; Units: fl; Status: F Test: MEAN CORPUSCULAR HEMOGLOBIN; Value: 30.6; Range: 27.0-33.0; Units: pg; Status: F Test: MEAN CORPUSCULAR HGB CONC; Value: 33.5; Range: 32.0-36.5; Units: g/dl; Status: F Test: RED CELL DISTRIBUTION WIDTH; Value: 14.5; Range: 11.5-14.5; Units: %; Status: F Test: PLATELET COUNT, AUTOMATED; Value: 267; Range: 150-450; Units: k/mm3; Status: F Test: NEUTROPHILS %; Value: 77.7; Range: 36.0-66.0; Abnormal: Above high normal; Units: %; Status: F Test: LYMPH %; Value: 15.5; Range: 24.0-44.0; Abnormal: Below low normal; Units: %; Status: F Test: MONO %; Value: 4.2; Range: 0.0-5.0; Units: %; Status: F Test: EOS %; Value: 1.3; Range: 0.0-3.0; Units: %; Status: F Test: BASO %; Value: 0.7; Range: 0.0-1.0; Units: %; Status: F Test: LARGE UNSTAINED CELL %; Value: 0.7; Range: 0.0-4.0; Units: %; Status: F Test: NEUTROPHILS #; Value: 4.8; Range: 1.8-7.7; Units: K/mm3; Status: F Test: LYMPH #; Value: 1.0; Range: 1.5-4.5; Abnormal: Below low normal; Units: K/mm3; Status: F Test: MONO #; Value: 0.3; Range: 0.0-0.8; Units: K/mm3; Status: F Test: EOS #; Value: 0.1; Range: 0.0-0.50; Units: K/mm3; Status: F Test: BASO #; Value: 0.0; Range: 0.0-0.2; Units: K/mm3; Status: F Test: LARGE UNSTAINED CELL #; Value: 0.1; Range: 0.0-0.4; Units: K/mm3; Status: F Lab Order: Lipase; SPEC'M 06/15/16 10:31 Test: LIPASE; Value: 152; Range: 73-393; Units: U/L; Status: F Lab Order: Liver Profile; SPEC'M 06/15/16 10:31 Test: AST/SGOT; Value: 21; Range: 15-37; Units: U/L; Status: F Test: ALT/SGPT; Value: 26; Range: 12-78; Units: U/L; Status: F Test: ALKALINE PHOSPHATASE; Value: 87; Range: 45-117; Units: U/L; Status: F Test: BILIRUBIN,TOTAL; Value: 0.4; Range: 0.2-1.0; Units: MG/DL; Status: F Test: BILIRUBIN,DIRECT; Value: 0.1; Range: 0.0-0.2; Units: MG/DL; Status: F Test: TOTAL PROTEIN; Value: 8.0; Range: 6.4-8.2; Units: GM/DL; Status: F Test: ALBUMIN; Value: 4.0; Range: 3.2-5.2; Units: GM/DL; Status: F Test: ALBUMIN/GLOBULIN RATIO; Value: 1.00; Range: 1.00-1.93; Status: F Lab Order: HCG,Serum Qualitative; SPEC'M 06/15/16 10:31 Test: HCG, SERUM QUALITATIVE; Value: NEGATIVE; Range: NEGATIVE; Status: F Lab Order: TROPONIN; SPEC'M 06/15/16 10:31 Test: TROPONIN I; Value: < 0.02; Range: < 0.10; Units: NG/ML; Status: F Test Note: ; Troponin I Reference Interval for Idea2 LOCI: 99th Percentile= 0.00-0.045 ng/ml Risk Stratification: <= 0.10 ng/ml Decreased Risk for Adverse Clinical Events. 0.10-1.50 ng/ml Increased Risk for Adverse Clinical Events. Evaluation of additional criterion and/or repeat testing in 2-6 hours is suggested to rule out myocardial damage. >= 1.50 ng/ml Indicative of Myocardial Injury. Lab Order: Pt & Aptt; SPEC'M 06/15/16 10:30 Test: PROTHROMBIN TIME; Value: 14.3; Range: 12.3-14.5; Units: SECONDS; Status: F Test: INR; Value: 1.10; Status: F Test: PARTIAL THROMBOPLASTIN TIME; Value: 28.1; Range: 26.6-37.1; Units: SECONDS; Status: F Test Note: ; THERAPUTIC HUMAN INR VALUES INDICATIONS NORMAL RANGES PROPHYLAXIS/TREATMENT OF: VENOUS THROMBOSIS 2.0-3.0 PULMONARY EMBOLISM 2.0-3.0 PREVENTION OF SYSTEMIC EMBOLISM FROM: TISSUE HEART VALVES 2.0-3.0 ACUTE MYOCARDIAL INFARCTION 2.0-3.0 VALVULAR HEART DISEASE 2.0-3.0 ATRIAL FIBRILLATION 2.0-3.0 MECHANICAL VALVES(HIGH RISK) 2.5-3.5 RECURRENT MYOCARDIAL INFARCTION 2.5-3.5 Lab Order: CARDIAC INJURY PROFILE; SPEC'M 06/15/16 10:31 Test: CPK CREATINE PHOSPHOKINASE; Value: 64; Range: 26-192; Units: U/L; Status: F Test: CK-MB VALUE MASS; Value: 1.0; Range: 0.0-3.6; Units: NG/ML; Status: F Test: MB/CK RELATIVE INDEX; Value: 1.56; Range: < OR =4; Status: F Test Note: ; DIAGNOSIS CRITERIA MMB ng/ml Relative Index (RI) NON-AMI < or = 5 N/A [place]ONE > 5 < or = 4 AMI > 5 > 4 Radiology Order: EKG-ADULT Test: EKG-ADULT REASON FOR EXAMINATION: Chest Pain; Stationary ECG Study; [facility] - ED; ; Test Date: 2016-06-15; Pat Name: OLIVIA TATUM Department:; Room: -; 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 The lungs are clear; bilaterally. The bones and soft tissues are within normal limits.; ; Impression no acute cardiopulmonary process or interval change; ; ; Signed by; Vilma Duval MD 06/15/2016 11:34 A; Outcome: 12:10 Discharge ordered by Provider. bt 12:25 Discharge Assessment: patient administered narcotics - no. The following High Risk jjr Discharge criteria are identified: None. Discharged to home ambulatory. Condition: stable. Discharge instructions given to patient, Instructed on discharge instructions, follow up and referral plans. medication usage, diet, Demonstrated understanding of instructions, medications, Prescriptions given X 1. No special radiology studies were completed. Property sent home with patient. 12:26 Patient left the ED. jjr Signatures: Dispatcher [employer] EDMS Renate Miner, Neli Herzog,RN RN kr3 Nelsy Granados, RN RN jjDominik Multani PA PA btw Kesha StephensonRN RN Paola Arizmendi1 Dinora Herr mm15 Facundo Ariza, CLINICAL INFORMATICS DIRECTOR CLINICAL INFORMATICS DIRECTOR jlf Chart Complete MTDD
== END 2016-06-15 12:26 | disposition home or self-care (01) ==
LOC: M ED 09:48
DX: K29.70 Gastritis, unspecified, without bleeding (principal); R10.13 Epigastric pain; F41.9 Anxiety disorder, unspecified; R56.9 Unspecified convulsions; Z86.718 Personal history of other venous thrombosis and embolism; Z72.0 Tobacco use; Z79.01 Long term (current) use of anticoagulants; Z79.899 Other long term (current) drug therapy; Z88.5 Allergy status to narcotic agent

== ENCOUNTER 2016-06-20 14:52 | Emergency (ER) | payer OTHER ==
--- NOTE | 2016-06-20 15:54 | REP ---
Clinical: Acute abdominal pain. Comparison: 11/04/2015. Findings: Lung bases clear. Liver, spleen, pancreas, collapsed gallbladder, bilateral adrenal glands and kidneys are normal. The enteric system is without obstruction or acute inflammatory process and a normal terminal ileum and appendix are identified in the right lower quadrant. Pelvis demonstrates normal bladder and age-appropriate uterus/adnexa. No intraperitoneal or retroperitoneal adenopathy. No pelvic fluid or ascites. No free air. Abdominal aorta without aneurysm. Surrounding musculoskeletal structures appear intact. Impression: No acute intra-abdominal or pelvic pathology appreciated. Signed by Everett Taveras MD 06/20/2016 03:46 P
[2016-06-20] MEDS ORDERED: ONDANSETRON 4MG/2ML VIAL (J2405) As Ordered ONE (15:56)
[2016-06-20 16:07] LABS: BASO # 0.1 K/mm3 (0.0-0.2); BASO % 2.1 % (0.0-1.0); EOS # 0.1 K/mm3 (0.0-0.50); LARGE UNSTAINED CELL # 0.1 K/mm3 (0.0-0.4); LARGE UNSTAINED CELL % 1.3 % (0.0-4.0); LYMPH # 2.3 K/mm3 (1.5-4.5); LYMPH % 33.2 % (24.0-44.0); MEAN CORPUSCULAR HEMOGLOBIN 30.9 pg (27.0-33.0); MEAN CORPUSCULAR HGB CONC 33.9 g/dl (32.0-36.5); MEAN CORPUSCULAR VOLUME 91.2 fl (80.0-96.0); MONO # 0.4 K/mm3 (0.0-0.8); NEUTROPHILS # 3.7 K/mm3 (1.8-7.7); NEUTROPHILS % 55.4 % (36.0-66.0); PLATELET COUNT, AUTOMATED 221 k/mm3 (150-450); RED CELL DISTRIBUTION WIDTH 14.5 % (11.5-14.5); WHITE BLOOD COUNT 6.6 K/mm3 (4.0-10.0)
[2016-06-20 16:18] LABS: INR 0.98
[2016-06-20 16:29] LABS: ALBUMIN 3.7 GM/DL (3.2-5.2); ALBUMIN/GLOBULIN RATIO 1.03 (1.00-1.93); ALKALINE PHOSPHATASE 77 U/L (45-117); ALT/SGPT 21 U/L (12-78); AMYLASE 69 U/L (25-115); ANION GAP 8 MEQ/L (8-16); AST/SGOT 12 U/L (15-37); BILIRUBIN,DIRECT < 0.1 MG/DL (0.0-0.2); BILIRUBIN,TOTAL 0.3 MG/DL (0.2-1.0); BLOOD UREA NITROGEN 9 MG/DL (7-18); CALCIUM LEVEL 9.3 MG/DL (8.5-10.1); CARBON DIOXIDE LEVEL 30 MEQ/L (21-32); CHLORIDE LEVEL 106 MEQ/L (98-107); CREATININE FOR GFR 0.82 MG/DL (0.55-1.02); GLOMERULAR FILTRATION RATE > 60.0 (>58); GLUCOSE, FASTING 99 MG/DL (70-105); POTASSIUM SERUM 3.8 MEQ/L (3.5-5.1); SODIUM LEVEL 144 MEQ/L (136-145); TOTAL PROTEIN 7.3 GM/DL (6.4-8.2)
--- NOTE | 2016-06-20 17:00 | EDDOCDS ---
Nurse's Notes [facility] Name: Becca Tatum Age: 46 yrs Sex: Female : 1970 Arrival Date: 06/20/2016 Time: 14:52 Bed I3 / M3 Private MD: Unknown Pcp Diagnosis: Malaise and fatigue;Abdominal and pelvic pain Presentation: 06/20 14:57 Presenting complaint: Patient states: Patient states was here on the 5th and patient hs1 states that she feels a lot sicker and that she doesn't feel right and that something is wrong. Patient states she didn't follow up with [facility] and is concerned now that because she "over did it" on New Years and drank a lot and is on Xarelto and now is having bloody stool this morning. Adult Sepsis Screening: The patient does not have new or worsening altered mentation. Patient's respiratory rate is less than 22. Systolic blood pressure is greater than 100. Patient has a qSOFA score of 0- Negative Sepsis Screen. Suicide/Homicide risk assessment- the patient denies having any suicidal and/or homicidal ideations and does not present with any other emotional, behavioral or mental health complaints. Status: Patient is not a consulting services associate or dependent. Transition of care: patient was not received from another setting of care. 14:57 Acuity: CHARLY Level 3 hs1 14:57 Method Of Arrival: Walkin/Carried/Asstd hs1 Triage Assessment: 15:01 General: Appears in no apparent distress, Behavior is cooperative. Pain: Location: hs1 back, diaphragm and xyphoid area Pain currently is 3 out of 10 on a pain scale. HIV screening NA for this visit Offered previously. Neurological: No deficits noted. GI: Reports bloody stools Denies nausea. Derm: Skin is pink, warm & dry. normal. 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 acetaminophen 500 mg Oral tab 2 tabs every 6 hours (Last dose: 06/20/2016 09:00) 2. Xarelto 20 mg oral tab 1 tab once daily (Last dose: 06/20/2016 14:00) 3. Klonopin 1 mg Oral tab 1 tab 3 times per day (Last dose: 06/19/2016 15:00) 4. Neurontin 800 mg Oral tab 1 tab 3 times per day (Last dose: 06/20/2016 08:00) 5. [place] 5-325 mg Oral tab 1 tab every 4-6 hours as needed (Last dose: 06/18/2016) 6. Carafate 1 gram Oral tab (Last dose: 06/20/2016 07:00) - PMHx: Anxiety; DVT; Seizures; - PSHx: Tubal ligation; - Social history: Smoking status: Patient uses tobacco products, light tobacco smoker. No barriers to communication noted, The patient speaks fluent Namibian, Speaks appropriately for age. - Family history: Not pertinent. - : The pt / caregiver states he / she is not on anticoagulants. Home medication list is obtained from the patient, Unable to Verify Home Med List with the patient / caregiver. - Exposure Risk Screening:: None identified. Screenin:09 Screening information is obtained from the patient. Fall risk: No risks identified. mcp Assistance ADL's: requires no assistance with activities of daily living. Abuse/DV Screen: The patient / caregiver reports he/she is: not in a situation that causes fear, pain or injury. Nutritional screening: No deficits noted. Advance Directives: There is no active DNR order. home support is adequate. Assessment: 16:08 General: Appears uncomfortable, Behavior is cooperative. Pain: Location: epigastric mcp area Pain currently is 4 out of 10 on a pain scale. Neurological: No deficits noted. Respiratory: Airway is patent Respiratory effort is even, unlabored. GI: Abdomen is flat, non- distended Bowel sounds present X 4 quads. Abd is soft X 4 quads Reports bloody stools epigastric pain. Derm: Skin is pink, warm & dry. 16:40 General: Appears in no apparent distress, Behavior is appropriate for age, cooperative. jmb Neurological: Level of Consciousness is awake, alert, obeys commands, Oriented to person, place, time. Respiratory: Airway is patent Respiratory effort is even, unlabored, Respiratory pattern is regular, symmetrical. 16:57 General: Patient instructed on discharge instructions. Patient asked if there were any jmb questions regarding discharge, patient stated no. IV discontinued per hospital policy. Patient signed discharge instructions. Patient discharged in stable condition. . Vital Signs: 14:54 BP 100 / 68; Pulse 101; Resp 18 S; Temp 97.3(O); Pulse Ox 99% on R/A; Weight 68.04 kg dd6 (R); Height 5 ft. 7 in. (170.18 cm) (R); 16:57 BP 106 / 58; Pulse 88; Resp 18; Temp 98.2(O); Pulse Ox 98% on R/A; Pain 3/10; jmb 14:54 Body Mass Index 23.49 (68.04 kg, 170.18 cm) dd6 Vitals: 14:54 Log In Time: June 20, 2016 at 14:52. dd6 ED Course: 14:53 Patient visited by Inocencio Salguero PCA. dd6 14:53 Patient moved to Waiting dd6 14:54 Unknown Pcp is Private Physician. dd6 14:54 Patient moved to Pre RCE dd6 14:59 Triage Initiated hs1 15:04 Patient moved to Triage 2 ms18 15:11 [facility] ke 15:11 Patient visited by Cezar Conway FNP. ke 15:11 Patient visited by Cezar Conway FNP. ke 15:30 Patient moved to I3 / M3 ms18 15:42 Patient visited by Cezar Conway FNP. 15:55 Amylase Sent. [facility] 15:55 Basic Metabolic Profile Sent. [facility] 15:55 CBC with Diff Sent. mcp 15:55 Lipase Sent. mcp 15:55 Liver Profile Sent. mcp 15:55 Prothrombin Time Profile\\E\\INR Sent. [facility] 15:57 [facility] Payment Agreement was scanned into [employer] and attached to record. gjb 16:04 Patient visited by Cezar Conway FNP. ke 16:09 The patient / caregiver is instructed regarding the plan of care and ED course. Patient mcp has correct armband on for positive identification. Placed in gown. Bed in low position. Call light in reach. 16:09 Warm blanket given. [facility] 16:10 Patient visited by Mirian Barron RN. [facility] 16:10 Inserted saline lock: 20 gauge in right antecubital area and blood collected. The [facility] patient tolerated the procedure well. Labs drawn. (by ED staff). Sent per order to lab. 16:13 CT ABD & PELVIS: No Contrast Returned. EDMS 16:40 Patient visited by Lance England RN. jmb 16:42 [facility] is Referral Physician. ke 16:57 Discontinued lock intact, bleeding controlled, pressure dressing applied, No jmb redness/swelling at site. No procedures done that require assistance. Administered Medications: 16:00 Drug: NS 0.9% 1000 ml [sodium chloride 0.9 % intravenous solution] Route: IV; Rate: mcp bolus; Site: right antecubital; 16:00 Drug: Ondansetron 4 mg [ondansetron HCl 2 mg/mL intravenous solution (2 mL)] Route: mcp IVP; Site: right antecubital; Order Results: Lab Order: Amylase; SPEC'M 06/20/16 15:45 Test: AMYLASE; Value: 69; Range: 25-115; Units: U/L; Status: F Lab Order: Basic Metabolic Profile; SPEC'M 06/20/16 15:45 Test: GLUCOSE, FASTING; Value: 99; Range: 70-105; Units: MG/DL; Status: F Test: BLOOD UREA NITROGEN; Value: 9; Range: 7-18; Units: MG/DL; Status: F Test: CREATININE FOR GFR; Value: 0.82; Range: 0.55-1.02; Units: MG/DL; Status: F Test: GLOMERULAR FILTRATION RATE; Value: > 60.0; Range: >58; Status: F Test: SODIUM LEVEL; Value: 144; Range: 136-145; Units: MEQ/L; Status: F Test: POTASSIUM SERUM; Value: 3.8; Range: 3.5-5.1; Units: MEQ/L; Status: F Test: CHLORIDE LEVEL; Value: 106; Range: 98-107; Units: MEQ/L; Status: F Test: CARBON DIOXIDE LEVEL; Value: 30; Range: 21-32; Units: MEQ/L; Status: F Test: ANION GAP; Value: 8; Range: 8-16; Units: MEQ/L; Status: F Test: CALCIUM LEVEL; Value: 9.3; Range: 8.5-10.1; Units: MG/DL; Status: F Test Note: ; Units are mL/min/1.73 m2 Chronic Kidney Disease Staging per NKF: Stage I & II GFR >=60 Normal to Mildly Decreased Stage III GFR 30-59 Moderately Decreased Stage IV GFR 15-29 Severely Decreased Stage V GFR <15 Very Little GFR Left ESRD GFR <15 on CERTIFIED PERSONAL FINANCE COUNSELOR Lab Order: CBC with Diff; SPEC'M 06/20/16 15:45 Test: WHITE BLOOD COUNT; Value: 6.6; Range: 4.0-10.0; Units: K/mm3; Status: F Test: RED BLOOD COUNT; Value: 4.46; Range: 4.00-5.40; Units: M/mm3; Status: F Test: HEMOGLOBIN; Value: 13.8; Range: 12.0-16.0; Units: g/dl; Status: F Test: HEMATOCRIT; Value: 40.7; Range: 36.0-47.0; Units: %; Status: F Test: MEAN CORPUSCULAR VOLUME; Value: 91.2; Range: 80.0-96.0; Units: fl; Status: F Test: MEAN CORPUSCULAR HEMOGLOBIN; Value: 30.9; Range: 27.0-33.0; Units: pg; Status: F Test: MEAN CORPUSCULAR HGB CONC; Value: 33.9; Range: 32.0-36.5; Units: g/dl; Status: F Test: RED CELL DISTRIBUTION WIDTH; Value: 14.5; Range: 11.5-14.5; Units: %; Status: F Test: PLATELET COUNT, AUTOMATED; Value: 221; Range: 150-450; Units: k/mm3; Status: F Test: NEUTROPHILS %; Value: 55.4; Range: 36.0-66.0; Units: %; Status: F Test: LYMPH %; Value: 33.2; Range: 24.0-44.0; Units: %; Status: F Test: MONO %; Value: 6.0; Range: 0.0-5.0; Abnormal: Above high normal; Units: %; Status: F Test: EOS %; Value: 2.0; Range: 0.0-3.0; Units: %; Status: F Test: BASO %; Value: 2.1; Range: 0.0-1.0; Abnormal: Above high normal; Units: %; Status: F Test: LARGE UNSTAINED CELL %; Value: 1.3; Range: 0.0-4.0; Units: %; Status: F Test: NEUTROPHILS #; Value: 3.7; Range: 1.8-7.7; Units: K/mm3; Status: F Test: LYMPH #; Value: 2.3; Range: 1.5-4.5; Units: K/mm3; Status: F Test: MONO #; Value: 0.4; Range: 0.0-0.8; Units: K/mm3; Status: F Test: EOS #; Value: 0.1; Range: 0.0-0.50; Units: K/mm3; Status: F Test: BASO #; Value: 0.1; Range: 0.0-0.2; Units: K/mm3; Status: F Test: LARGE UNSTAINED CELL #; Value: 0.1; Range: 0.0-0.4; Units: K/mm3; Status: F Lab Order: Lipase; SPEC' 06/20/16 15:45 Test: LIPASE; Value: 195; Range: 73-393; Units: U/L; Status: F Lab Order: Liver Profile; [facility]' 06/20/16 15:45 Test: AST/SGOT; Value: 12; Range: 15-37; Abnormal: Below low normal; Units: U/L; Status: F Test: ALT/SGPT; Value: 21; Range: 12-78; Units: U/L; Status: F Test: ALKALINE PHOSPHATASE; Value: 77; Range: 45-117; Units: U/L; Status: F Test: BILIRUBIN,TOTAL; Value: 0.3; Range: 0.2-1.0; Units: MG/DL; Status: F Test: BILIRUBIN,DIRECT; Value: < 0.1; Range: 0.0-0.2; Units: MG/DL; Status: F Test: TOTAL PROTEIN; Value: 7.3; Range: 6.4-8.2; Units: GM/DL; Status: F Test: ALBUMIN; Value: 3.7; Range: 3.2-5.2; Units: GM/DL; Status: F Test: ALBUMIN/GLOBULIN RATIO; Value: 1.03; Range: 1.00-1.93; Status: F Lab Order: Prothrombin Time Profile\\E\\INR; SPEC' 06/20/16 15:45 Test: PROTHROMBIN TIME; Value: 13.1; Range: 12.3-14.5; Units: SECONDS; Status: F Test: INR; Value: 0.98; Status: F Test Note: ; THERAPUTIC HUMAN INR VALUES INDICATIONS NORMAL RANGES PROPHYLAXIS/TREATMENT OF: VENOUS THROMBOSIS 2.0-3.0 PULMONARY EMBOLISM 2.0-3.0 PREVENTION OF SYSTEMIC EMBOLISM FROM: TISSUE HEART VALVES 2.0-3.0 ACUTE MYOCARDIAL INFARCTION 2.0-3.0 VALVULAR HEART DISEASE 2.0-3.0 ATRIAL FIBRILLATION 2.0-3.0 MECHANICAL VALVES(HIGH RISK) 2.5-3.5 RECURRENT MYOCARDIAL INFARCTION 2.5-3.5 Radiology Order: CT ABD & PELVIS: No Contrast Test: CT ABD & PELVIS: No Contrast REASON FOR EXAMINATION: Abdomen Pain; Clinical: Acute abdominal pain.; ; Comparison: 11/04/2015.; ; Findings:; Lung bases clear.; ; Liver, spleen, pancreas, collapsed gallbladder, bilateral adrenal glands and; kidneys are normal. The enteric system is without obstruction or acute; inflammatory process and a normal terminal ileum and appendix are identified in; the right lower quadrant. Pelvis demonstrates normal bladder and age-appropriate; uterus/adnexa. No intraperitoneal or retroperitoneal adenopathy. No pelvic; fluid or ascites. No free air. Abdominal aorta without aneurysm. Surrounding; musculoskeletal structures appear intact.; ; Impression:; No acute intra-abdominal or pelvic pathology appreciated.; ; ; Signed by; Everett Taveras MD 06/20/2016 03:46 P; Outcome: 16:42 Discharge ordered by Provider. ke 16:57 Discharge Assessment: Patient awake, alert and oriented x 3. No cognitive and/or jmb functional deficits noted. Patient verbalized understanding of disposition instructions. Patient awake and alert. obeys commands, Oriented to person, place and time. Patient verbalized understanding of disposition instructions. Patient has no functional deficits. patient administered narcotics - no. The following High Risk Discharge criteria are identified: None. Discharged to home ambulatory. Condition: stable Condition: improved. Discharge instructions given to patient, Instructed on discharge instructions, follow up and referral plans. medication usage, Demonstrated understanding of instructions, medications, Pt was receptive of discharge instructions/ teaching. Prescriptions given X 1. CT Study completed. Property sent home with patient. 16:59 Patient left the ED. jmb Signatures: Dispatcher [employer] Mirian Cole, RN RN mcp Cezar Conway, FUR GRADER FUR GRADER ke Inocencio Salguero, ARMATURE INSPECTOR ARMATURE INSPECTOR dd6 Lorin Guzmán, RN RN hs1 Lance England,RN RN lumab Lilly WashingtonRN RN ms18 Nia Salomon MTDD
--- NOTE | 2016-06-20 17:00 | EDDOCDS ---
Physician Documentation [facility] Name: Becca Tatum Age: 46 yrs Sex: Female : 1970 Arrival Date: 06/20/2016 Time: 14:52 Bed I3 / M3 Private MD: Unknown Pcp Disposition: 06/20/16 16:42 Discharged to Home/Self Care. Impression: Malaise and fatigue, Abdominal and pelvic pain. - Condition is Stable. - Discharge Instructions: Abdominal Pain, Adult, Fatigue. - Prescriptions for Zofran 4 mg Oral Tablet - take 1 tablet by ORAL route 4 times per day As needed; 10 tablet. - Medication Reconciliation, Local Pharmacy Hours form. - [facility]; When: Call to arrange an appointment; Reason: Continuance of care. - Problem is an ongoing problem. - Symptoms are unchanged. Historical: - Allergies: Toradol (Rash); Tramadol HCl (Unknown, Rash); - Home Meds: 1. acetaminophen 500 mg Oral tab 2 tabs every 6 hours (Last dose: 06/20/2016 09:00) 2. Xarelto 20 mg oral tab 1 tab once daily (Last dose: 06/20/2016 14:00) 3. Klonopin 1 mg Oral tab 1 tab 3 times per day (Last dose: 06/19/2016 15:00) 4. Neurontin 800 mg Oral tab 1 tab 3 times per day (Last dose: 06/20/2016 08:00) 5. [place] 5-325 mg Oral tab 1 tab every 4-6 hours as needed (Last dose: 06/18/2016) 6. Carafate 1 gram Oral tab (Last dose: 06/20/2016 07:00) - PMHx: Anxiety; DVT; Seizures; - PSHx: Tubal ligation; - Social history: Smoking status: Patient uses tobacco products, light tobacco smoker. No barriers to communication noted, The patient speaks fluent Cambodian, Speaks appropriately for age. - Family history: Not pertinent. - : The pt / caregiver states he / she is not on anticoagulants. Home medication list is obtained from the patient, Unable to Verify Home Med List with the patient / caregiver. - Exposure Risk Screening:: None identified. 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 7 in. (170.18 cm) (R); 16:57 BP 106 / 58; Pulse 88; Resp 18; Temp 98.2(O); Pulse Ox 98% on R/A; Pain 3/10; jmb 14:54 Body Mass Index 23.49 (68.04 kg, 170.18 cm) dd6 MDM: 15:27 NS 0.9% 1000 ml IV at bolus once ordered. ke 15:27 Ondansetron 4 mg IVP once ordered. ke 15:27 IV Saline Lock ordered. ke 15:27 Undress patient appropriately for examination ordered. ke 15:28 Amylase Ordered. EDMS 15:28 Basic Metabolic Profile Ordered. EDMS 15:28 CBC with Diff Ordered. EDMS 15:28 Lipase Ordered. EDMS 15:28 Liver Profile Ordered. EDMS 15:28 Prothrombin Time Profile\E\INR Ordered. EDMS 15:29 CT ABD & PELVIS: No Contrast Ordered. EDMS 15:29 NOTHING BY MOUTH+DIET ordered. EDMS 15:56 Financial registration complete. gjb 15:57 [facility] [place] Payment Agreement was scanned into [employer] and attached to record. gjb 16:40 CBC with Diff Reviewed. ke 16:40 Liver Profile Reviewed. ke 16:40 Amylase Reviewed. ke 16:40 Basic Metabolic Profile Reviewed. ke 16:40 Lipase Reviewed. ke 16:40 Prothrombin Time Profile\E\INR Reviewed. ke 16:40 CT ABD & PELVIS: No Contrast Reviewed. ke Administered Medications: 16:00 Drug: NS 0.9% 1000 ml [sodium chloride 0.9 % intravenous solution] Route: IV; Rate: mcp bolus; Site: right antecubital; 16:00 Drug: Ondansetron 4 mg [ondansetron HCl 2 mg/mL intravenous solution (2 mL)] Route: mcp IVP; Site: right antecubital; Signatures: Dispatcher [employer] EDMS Cezar Conway, PROFESSOR OF FOREST PLANNING PROFESSOR OF FOREST PLANNING Lorin Andino RN RN hsLance Bragg RN RN jmb Beck, Gabriela gjb Peters, Mary RN mcp The chart was reviewed and I authenticate all verbal orders and agree with the evaluation and treatment provided.Attachments: 15:57 [facility] [place] Payment Agreement gjb MTDD
--- NOTE | 2016-06-22 18:00 | EDDOCDS ---
Physician Documentation [facility] Name: Becca Tatum Age: 46 yrs Sex: Female : 1970 Arrival Date: 06/20/2016 Time: 14:52 Bed I3 / M3 Private MD: Unknown Pcp Disposition: 06/20/16 16:42 Discharged to Home/Self Care. Impression: Malaise and fatigue, Abdominal and pelvic pain. - Condition is Stable. - Discharge Instructions: Abdominal Pain, Adult, Fatigue. - Prescriptions for Zofran 4 mg Oral Tablet - take 1 tablet by ORAL route 4 times per day As needed; 10 tablet. - Medication Reconciliation, Local Pharmacy Hours form. - [facility]; When: Call to arrange an appointment; Reason: Continuance of care. - Problem is an ongoing problem. - Symptoms are unchanged. Historical: - Allergies: Toradol (Rash); Tramadol HCl (Unknown, Rash); - Home Meds: 1. acetaminophen 500 mg Oral tab 2 tabs every 6 hours (Last dose: 06/20/2016 09:00) 2. Xarelto 20 mg oral tab 1 tab once daily (Last dose: 06/20/2016 14:00) 3. Klonopin 1 mg Oral tab 1 tab 3 times per day (Last dose: 06/19/2016 15:00) 4. Neurontin 800 mg Oral tab 1 tab 3 times per day (Last dose: 06/20/2016 08:00) 5. [place] 5-325 mg Oral tab 1 tab every 4-6 hours as needed (Last dose: 06/18/2016) 6. Carafate 1 gram Oral tab (Last dose: 06/20/2016 07:00) - PMHx: Anxiety; DVT; Seizures; - PSHx: Tubal ligation; - Social history: Smoking status: Patient uses tobacco products, light tobacco smoker. No barriers to communication noted, The patient speaks fluent Liberian, Speaks appropriately for age. - Family history: Not pertinent. - : The pt / caregiver states he / she is not on anticoagulants. Home medication list is obtained from the patient, Unable to Verify Home Med List with the patient / caregiver. - Exposure Risk Screening:: None identified. 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 7 in. (170.18 cm) (R); 16:57 BP 106 / 58; Pulse 88; Resp 18; Temp 98.2(O); Pulse Ox 98% on R/A; Pain 3/10; jmb 14:54 Body Mass Index 23.49 (68.04 kg, 170.18 cm) dd6 MDM: 15:27 NS 0.9% 1000 ml IV at bolus once ordered. ke 15:27 Ondansetron 4 mg IVP once ordered. ke 15:27 IV Saline Lock ordered. ke 15:27 Undress patient appropriately for examination ordered. ke 15:28 Amylase Ordered. EDMS 15:28 Basic Metabolic Profile Ordered. EDMS 15:28 CBC with Diff Ordered. EDMS 15:28 Lipase Ordered. EDMS 15:28 Liver Profile Ordered. EDMS 15:28 Prothrombin Time Profile\E\INR Ordered. EDMS 15:29 CT ABD & PELVIS: No Contrast Ordered. EDMS 15:29 NOTHING BY MOUTH+DIET ordered. EDMS 15:56 Financial registration complete. b 15:57 [facility] Payment Agreement was scanned into [employer] and attached to record. gjb 16:40 CBC with Diff Reviewed. ke 16:40 Liver Profile Reviewed. ke 16:40 Amylase Reviewed. ke 16:40 Basic Metabolic Profile Reviewed. ke 16:40 Lipase Reviewed. ke 16:40 Prothrombin Time Profile\E\INR Reviewed. ke 16:40 CT ABD & PELVIS: No Contrast Reviewed. ke 06/21 11:53 T-Sheet-- Draft Copy was scanned into [employer] and attached to record. gb Administered Medications: 06/20 16:00 Drug: NS 0.9% 1000 ml [sodium chloride 0.9 % intravenous solution] Route: IV; Rate: mcp bolus; Site: right antecubital; 16:00 Drug: Ondansetron 4 mg [ondansetron HCl 2 mg/mL intravenous solution (2 mL)] Route: mcp IVP; Site: right antecubital; Signatures: Dispatcher [employer] EDMS Renate Miner, Reg Reg Cezar Ibarra, [employer]BILE PLANT OPERATORS Lorin Payne RN RN hs1 Lance England RN RN Nia Morgan Mary RN mcp The chart was reviewed and I authenticate all verbal orders and agree with the evaluation and treatment provided.Attachments: 15:57 [facility] Payment Agreement gjb 06/21 11:53 T-Sheet-- Draft Copy gb Chart Complete MTDD
--- NOTE | 2016-06-22 18:00 | EDDOCDS ---
Nurse's Notes [facility] Name: Becca Tatum Age: 46 yrs Sex: Female : 1970 Arrival Date: 06/20/2016 Time: 14:52 Bed I3 / M3 Private MD: Unknown Pcp Diagnosis: Malaise and fatigue;Abdominal and pelvic pain Presentation: 06/20 14:57 Presenting complaint: Patient states: Patient states was here on the 5th and patient hs1 states that she feels a lot sicker and that she doesn't feel right and that something is wrong. Patient states she didn't follow up with [facility] and is concerned now that because she "over did it" on New Years and drank a lot and is on Xarelto and now is having bloody stool this morning. Adult Sepsis Screening: The patient does not have new or worsening altered mentation. Patient's respiratory rate is less than 22. Systolic blood pressure is greater than 100. Patient has a qSOFA score of 0- Negative Sepsis Screen. Suicide/Homicide risk assessment- the patient denies having any suicidal and/or homicidal ideations and does not present with any other emotional, behavioral or mental health complaints. Status: Patient is not a family service caseworker or dependent. Transition of care: patient was not received from another setting of care. 14:57 Acuity: CHARLY Level 3 hs1 14:57 Method Of Arrival: Walkin/Carried/Asstd hs1 Triage Assessment: 15:01 General: Appears in no apparent distress, Behavior is cooperative. Pain: Location: hs1 back, diaphragm and xyphoid area Pain currently is 3 out of 10 on a pain scale. HIV screening NA for this visit Offered previously. Neurological: No deficits noted. GI: Reports bloody stools Denies nausea. Derm: Skin is pink, warm & dry. normal. 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 acetaminophen 500 mg Oral tab 2 tabs every 6 hours (Last dose: 06/20/2016 09:00) 2. Xarelto 20 mg oral tab 1 tab once daily (Last dose: 06/20/2016 14:00) 3. Klonopin 1 mg Oral tab 1 tab 3 times per day (Last dose: 06/19/2016 15:00) 4. Neurontin 800 mg Oral tab 1 tab 3 times per day (Last dose: 06/20/2016 08:00) 5. [place] 5-325 mg Oral tab 1 tab every 4-6 hours as needed (Last dose: 06/18/2016) 6. Carafate 1 gram Oral tab (Last dose: 06/20/2016 07:00) - PMHx: Anxiety; DVT; Seizures; - PSHx: Tubal ligation; - Social history: Smoking status: Patient uses tobacco products, light tobacco smoker. No barriers to communication noted, The patient speaks fluent Slovak, Speaks appropriately for age. - Family history: Not pertinent. - : The pt / caregiver states he / she is not on anticoagulants. Home medication list is obtained from the patient, Unable to Verify Home Med List with the patient / caregiver. - Exposure Risk Screening:: None identified. Screenin:09 Screening information is obtained from the patient. Fall risk: No risks identified. mcp Assistance ADL's: requires no assistance with activities of daily living. Abuse/DV Screen: The patient / caregiver reports he/she is: not in a situation that causes fear, pain or injury. Nutritional screening: No deficits noted. Advance Directives: There is no active DNR order. home support is adequate. Assessment: 16:08 General: Appears uncomfortable, Behavior is cooperative. Pain: Location: epigastric mcp area Pain currently is 4 out of 10 on a pain scale. Neurological: No deficits noted. Respiratory: Airway is patent Respiratory effort is even, unlabored. GI: Abdomen is flat, non- distended Bowel sounds present X 4 quads. Abd is soft X 4 quads Reports bloody stools epigastric pain. Derm: Skin is pink, warm & dry. 16:40 General: Appears in no apparent distress, Behavior is appropriate for age, cooperative. jmb Neurological: Level of Consciousness is awake, alert, obeys commands, Oriented to person, place, time. Respiratory: Airway is patent Respiratory effort is even, unlabored, Respiratory pattern is regular, symmetrical. 16:57 General: Patient instructed on discharge instructions. Patient asked if there were any jmb questions regarding discharge, patient stated no. IV discontinued per hospital policy. Patient signed discharge instructions. Patient discharged in stable condition. . Vital Signs: 14:54 BP 100 / 68; Pulse 101; Resp 18 S; Temp 97.3(O); Pulse Ox 99% on R/A; Weight 68.04 kg dd6 (R); Height 5 ft. 7 in. (170.18 cm) (R); 16:57 BP 106 / 58; Pulse 88; Resp 18; Temp 98.2(O); Pulse Ox 98% on R/A; Pain 3/10; jmb 14:54 Body Mass Index 23.49 (68.04 kg, 170.18 cm) dd6 Vitals: 14:54 Log In Time: June 20, 2016 at 14:52. dd6 ED Course: 14:53 Patient visited by Inocencio Salguero PCA. dd6 14:53 Patient moved to Waiting dd6 14:54 Unknown Pcp is Private Physician. dd6 14:54 Patient moved to Pre RCE dd6 14:59 Triage Initiated hs1 15:04 Patient moved to Triage 2 ms18 15:11 [facility] Conway F[facility]. ke 15:11 Patient visited by Cezar Conway FNP. ke 15:11 Patient visited by Cezar Conway FNP. ke 15:30 Patient moved to I3 / M3 ms18 15:42 Patient visited by Cezar Conway FNP. 15:55 Amylase Sent. [facility] 15:55 Basic Metabolic Profile Sent. [facility] 15:55 CBC with Diff Sent. mcp 15:55 Lipase Sent. mcp 15:55 Liver Profile Sent. mcp 15:55 Prothrombin Time Profile\\E\\INR Sent. [facility] 15:57 [facility] [place] Payment Agreement was scanned into [employer] and attached to record. gjb 16:04 Patient visited by Cezar Conway FNP. ke 16:09 The patient / caregiver is instructed regarding the plan of care and ED course. Patient mcp has correct armband on for positive identification. Placed in gown. Bed in low position. Call light in reach. 16:09 Warm blanket given. [facility] 16:10 Patient visited by Mirian Barron RN. [facility] 16:10 Inserted saline lock: 20 gauge in right antecubital area and blood collected. The [facility] patient tolerated the procedure well. Labs drawn. (by ED staff). Sent per order to lab. 16:13 CT ABD & PELVIS: No Contrast Returned. EDMS 16:40 Patient visited by Lance England RN. jmb 16:42 [facility] is Referral Physician. ke 16:57 Discontinued lock intact, bleeding controlled, pressure dressing applied, No jmb redness/swelling at site. No procedures done that require assistance. 06/21 11:53 T-Sheet-- Draft Copy was scanned into [employer] and attached to record. gb Administered Medications: 06/20 16:00 Drug: NS 0.9% 1000 ml [sodium chloride 0.9 % intravenous solution] Route: IV; Rate: mcp bolus; Site: right antecubital; 16:00 Drug: Ondansetron 4 mg [ondansetron HCl 2 mg/mL intravenous solution (2 mL)] Route: mcp IVP; Site: right antecubital; Order Results: Lab Order: Amylase; SPEC'M 06/20/16 15:45 Test: AMYLASE; Value: 69; Range: 25-115; Units: U/L; Status: F Lab Order: Basic Metabolic Profile; SPEC'M 06/20/16 15:45 Test: GLUCOSE, FASTING; Value: 99; Range: 70-105; Units: MG/DL; Status: F Test: BLOOD UREA NITROGEN; Value: 9; Range: 7-18; Units: MG/DL; Status: F Test: CREATININE FOR GFR; Value: 0.82; Range: 0.55-1.02; Units: MG/DL; Status: F Test: GLOMERULAR FILTRATION RATE; Value: > 60.0; Range: >58; Status: F Test: SODIUM LEVEL; Value: 144; Range: 136-145; Units: MEQ/L; Status: F Test: POTASSIUM SERUM; Value: 3.8; Range: 3.5-5.1; Units: MEQ/L; Status: F Test: CHLORIDE LEVEL; Value: 106; Range: 98-107; Units: MEQ/L; Status: F Test: CARBON DIOXIDE LEVEL; Value: 30; Range: 21-32; Units: MEQ/L; Status: F Test: ANION GAP; Value: 8; Range: 8-16; Units: MEQ/L; Status: F Test: CALCIUM LEVEL; Value: 9.3; Range: 8.5-10.1; Units: MG/DL; Status: F Test Note: ; Units are mL/min/1.73 m2 Chronic Kidney Disease Staging per NKF: Stage I & II GFR >=60 Normal to Mildly Decreased Stage III GFR 30-59 Moderately Decreased Stage IV GFR 15-29 Severely Decreased Stage V GFR <15 Very Little GFR Left ESRD GFR <15 on OFFSET LITHOGRAPHIC PRESS SETTER Lab Order: CBC with Diff; MONIE 06/20/16 15:45 Test: WHITE BLOOD COUNT; Value: 6.6; Range: 4.0-10.0; Units: K/mm3; Status: F Test: RED BLOOD COUNT; Value: 4.46; Range: 4.00-5.40; Units: M/mm3; Status: F Test: HEMOGLOBIN; Value: 13.8; Range: 12.0-16.0; Units: g/dl; Status: F Test: HEMATOCRIT; Value: 40.7; Range: 36.0-47.0; Units: %; Status: F Test: MEAN CORPUSCULAR VOLUME; Value: 91.2; Range: 80.0-96.0; Units: fl; Status: F Test: MEAN CORPUSCULAR HEMOGLOBIN; Value: 30.9; Range: 27.0-33.0; Units: pg; Status: F Test: MEAN CORPUSCULAR HGB CONC; Value: 33.9; Range: 32.0-36.5; Units: g/dl; Status: F Test: RED CELL DISTRIBUTION WIDTH; Value: 14.5; Range: 11.5-14.5; Units: %; Status: F Test: PLATELET COUNT, AUTOMATED; Value: 221; Range: 150-450; Units: k/mm3; Status: F Test: NEUTROPHILS %; Value: 55.4; Range: 36.0-66.0; Units: %; Status: F Test: LYMPH %; Value: 33.2; Range: 24.0-44.0; Units: %; Status: F Test: MONO %; Value: 6.0; Range: 0.0-5.0; Abnormal: Above high normal; Units: %; Status: F Test: EOS %; Value: 2.0; Range: 0.0-3.0; Units: %; Status: F Test: BASO %; Value: 2.1; Range: 0.0-1.0; Abnormal: Above high normal; Units: %; Status: F Test: LARGE UNSTAINED CELL %; Value: 1.3; Range: 0.0-4.0; Units: %; Status: F Test: NEUTROPHILS #; Value: 3.7; Range: 1.8-7.7; Units: K/mm3; Status: F Test: LYMPH #; Value: 2.3; Range: 1.5-4.5; Units: K/mm3; Status: F Test: MONO #; Value: 0.4; Range: 0.0-0.8; Units: K/mm3; Status: F Test: EOS #; Value: 0.1; Range: 0.0-0.50; Units: K/mm3; Status: F Test: BASO #; Value: 0.1; Range: 0.0-0.2; Units: K/mm3; Status: F Test: LARGE UNSTAINED CELL #; Value: 0.1; Range: 0.0-0.4; Units: K/mm3; Status: F Lab Order: Lipase; SPEC'M 06/20/16 15:45 Test: LIPASE; Value: 195; Range: 73-393; Units: U/L; Status: F Lab Order: Liver Profile; SPEC'M 06/20/16 15:45 Test: AST/SGOT; Value: 12; Range: 15-37; Abnormal: Below low normal; Units: U/L; Status: F Test: ALT/SGPT; Value: 21; Range: 12-78; Units: U/L; Status: F Test: ALKALINE PHOSPHATASE; Value: 77; Range: 45-117; Units: U/L; Status: F Test: BILIRUBIN,TOTAL; Value: 0.3; Range: 0.2-1.0; Units: MG/DL; Status: F Test: BILIRUBIN,DIRECT; Value: < 0.1; Range: 0.0-0.2; Units: MG/DL; Status: F Test: TOTAL PROTEIN; Value: 7.3; Range: 6.4-8.2; Units: GM/DL; Status: F Test: ALBUMIN; Value: 3.7; Range: 3.2-5.2; Units: GM/DL; Status: F Test: ALBUMIN/GLOBULIN RATIO; Value: 1.03; Range: 1.00-1.93; Status: F Lab Order: Prothrombin Time Profile\\E\\INR; SPEC'M 06/20/16 15:45 Test: PROTHROMBIN TIME; Value: 13.1; Range: 12.3-14.5; Units: SECONDS; Status: F Test: INR; Value: 0.98; Status: F Test Note: ; THERAPUTIC HUMAN INR VALUES INDICATIONS NORMAL RANGES PROPHYLAXIS/TREATMENT OF: VENOUS THROMBOSIS 2.0-3.0 PULMONARY EMBOLISM 2.0-3.0 PREVENTION OF SYSTEMIC EMBOLISM FROM: TISSUE HEART VALVES 2.0-3.0 ACUTE MYOCARDIAL INFARCTION 2.0-3.0 VALVULAR HEART DISEASE 2.0-3.0 ATRIAL FIBRILLATION 2.0-3.0 MECHANICAL VALVES(HIGH RISK) 2.5-3.5 RECURRENT MYOCARDIAL INFARCTION 2.5-3.5 Radiology Order: CT ABD & PELVIS: No Contrast Test: CT ABD & PELVIS: No Contrast REASON FOR EXAMINATION: Abdomen Pain; Clinical: Acute abdominal pain.; ; Comparison: 11/04/2015.; ; Findings:; Lung bases clear.; ; Liver, spleen, pancreas, collapsed gallbladder, bilateral adrenal glands and; kidneys are normal. The enteric system is without obstruction or acute; inflammatory process and a normal terminal ileum and appendix are identified in; the right lower quadrant. Pelvis demonstrates normal bladder and age-appropriate; uterus/adnexa. No intraperitoneal or retroperitoneal adenopathy. No pelvic; fluid or ascites. No free air. Abdominal aorta without aneurysm. Surrounding; musculoskeletal structures appear intact.; ; Impression:; No acute intra-abdominal or pelvic pathology appreciated.; ; ; Signed by; Everett Taveras MD 06/20/2016 03:46 P; Outcome: 16:42 Discharge ordered by Provider. ke 16:57 Discharge Assessment: Patient awake, alert and oriented x 3. No cognitive and/or jmb functional deficits noted. Patient verbalized understanding of disposition instructions. Patient awake and alert. obeys commands, Oriented to person, place and time. Patient verbalized understanding of disposition instructions. Patient has no functional deficits. patient administered narcotics - no. The following High Risk Discharge criteria are identified: None. Discharged to home ambulatory. Condition: stable Condition: improved. Discharge instructions given to patient, Instructed on discharge instructions, follow up and referral plans. medication usage, Demonstrated understanding of instructions, medications, Pt was receptive of discharge instructions/ teaching. Prescriptions given X 1. CT Study completed. Property sent home with patient. 16:59 Patient left the ED. christiane Signatures: Dispatcher [employer] EDMirian Triana, RN RN Renate Forrest, Jasvir Reg Cezar Ibarra, CORN HUSKER MACHINE OPERATOR CORN HUSKER MACHINE OPERATOR Inocencio Oconnor, PAWEL CAN TOP SETTER dd6 Lorin Guzmán RN RN hs1 Lance EnglandRN RN Lilly Marshall RN RN ms18 Nia Salomon Chart Complete MTDD
--- NOTE | 2016-06-22 18:00 | EDDOCDS ---
Physician Documentation [facility] Name: Becca Tatum Age: 46 yrs Sex: Female : 1970 Arrival Date: 06/20/2016 Time: 14:52 Bed I3 / M3 Private MD: Unknown Pcp Disposition: 06/20/16 16:42 Discharged to Home/Self Care. Impression: Malaise and fatigue, Abdominal and pelvic pain. - Condition is Stable. - Discharge Instructions: Abdominal Pain, Adult, Fatigue. - Prescriptions for Zofran 4 mg Oral Tablet - take 1 tablet by ORAL route 4 times per day As needed; 10 tablet. - Medication Reconciliation, Local Pharmacy Hours form. - [facility]; When: Call to arrange an appointment; Reason: Continuance of care. - Problem is an ongoing problem. - Symptoms are unchanged. Historical: - Allergies: Toradol (Rash); Tramadol HCl (Unknown, Rash); - Home Meds: 1. acetaminophen 500 mg Oral tab 2 tabs every 6 hours (Last dose: 06/20/2016 09:00) 2. Xarelto 20 mg oral tab 1 tab once daily (Last dose: 06/20/2016 14:00) 3. Klonopin 1 mg Oral tab 1 tab 3 times per day (Last dose: 06/19/2016 15:00) 4. Neurontin 800 mg Oral tab 1 tab 3 times per day (Last dose: 06/20/2016 08:00) 5. [place] 5-325 mg Oral tab 1 tab every 4-6 hours as needed (Last dose: 06/18/2016) 6. Carafate 1 gram Oral tab (Last dose: 06/20/2016 07:00) - PMHx: Anxiety; DVT; Seizures; - PSHx: Tubal ligation; - Social history: Smoking status: Patient uses tobacco products, light tobacco smoker. No barriers to communication noted, The patient speaks fluent Portuguese, Speaks appropriately for age. - Family history: Not pertinent. - : The pt / caregiver states he / she is not on anticoagulants. Home medication list is obtained from the patient, Unable to Verify Home Med List with the patient / caregiver. - Exposure Risk Screening:: None identified. 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 7 in. (170.18 cm) (R); 16:57 BP 106 / 58; Pulse 88; Resp 18; Temp 98.2(O); Pulse Ox 98% on R/A; Pain 3/10; jmb 14:54 Body Mass Index 23.49 (68.04 kg, 170.18 cm) dd6 MDM: 15:27 NS 0.9% 1000 ml IV at bolus once ordered. ke 15:27 Ondansetron 4 mg IVP once ordered. ke 15:27 IV Saline Lock ordered. ke 15:27 Undress patient appropriately for examination ordered. ke 15:28 Amylase Ordered. EDMS 15:28 Basic Metabolic Profile Ordered. EDMS 15:28 CBC with Diff Ordered. EDMS 15:28 Lipase Ordered. EDMS 15:28 Liver Profile Ordered. EDMS 15:28 Prothrombin Time Profile\E\INR Ordered. EDMS 15:29 CT ABD & PELVIS: No Contrast Ordered. EDMS 15:29 NOTHING BY MOUTH+DIET ordered. EDMS 15:56 Financial registration complete. b 15:57 [facility] Payment Agreement was scanned into [employer] and attached to record. gjb 16:40 CBC with Diff Reviewed. ke 16:40 Liver Profile Reviewed. ke 16:40 Amylase Reviewed. ke 16:40 Basic Metabolic Profile Reviewed. ke 16:40 Lipase Reviewed. ke 16:40 Prothrombin Time Profile\E\INR Reviewed. ke 16:40 CT ABD & PELVIS: No Contrast Reviewed. ke 06/21 11:53 T-Sheet-- Draft Copy was scanned into [employer] and attached to record. gb Administered Medications: 06/20 16:00 Drug: NS 0.9% 1000 ml [sodium chloride 0.9 % intravenous solution] Route: IV; Rate: mcp bolus; Site: right antecubital; 16:00 Drug: Ondansetron 4 mg [ondansetron HCl 2 mg/mL intravenous solution (2 mL)] Route: mcp IVP; Site: right antecubital; Signatures: Dispatcher [employer] EDMS Renate Miner, Reg Reg Cezar Ibarra, LEAD MILITARY ANALYST Lorin Payne RN RN hs1 Lance England RN RN Nia Morgan Mary RN mcp The chart was reviewed and I authenticate all verbal orders and agree with the evaluation and treatment provided.Attachments: 15:57 [facility] Payment Agreement gjb 06/21 11:53 T-Sheet-- Draft Copy gb Chart Complete MTDD
== END 2016-06-20 16:59 | disposition home or self-care (01) ==
LOC: M ED 14:52
DX: R53.81 Other malaise (principal); R53.83 Other fatigue; R10.9 Unspecified abdominal pain; F41.9 Anxiety disorder, unspecified; G40.909 Epilepsy, unspecified, not intractable, without status epilepticus; Z86.718 Personal history of other venous thrombosis and embolism; F17.210 Nicotine dependence, cigarettes, uncomplicated; Z79.01 Long term (current) use of anticoagulants; Z79.899 Other long term (current) drug therapy; Z79.1 Long term (current) use of non-steroidal anti-inflammatories (NSAID); Z88.8 Allergy status to other drugs, medicaments and biological substances

== ENCOUNTER → 2016-07-13 | Outpatient (REF) | payer OTHER | LOC: M SFHCPLAZ 16:51 | PROVIDERS: ATTEND Student in an Organized Health Care Education/Training Program | DX: R30.0 Dysuria (principal) ==

== ENCOUNTER 2016-07-17 16:56 | Emergency (ER) | payer OTHER ==
--- NOTE | 2016-07-17 17:48 | EDDOCDS ---
Nurse's Notes [facility] Name: Becca Tatum Age: 46 yrs Sex: Female : 1970 Arrival Date: 07/17/2016 Time: 16:56 Bed TR7 Private MD: NO PRIMARY PHYSICIAN, . Diagnosis: Fall (on) (from) other stairs and steps;Contusion of right knee;Contusion of left forearm;Encounter for issue of repeat prescription Presentation: 07/17 17:08 Presenting complaint: Patient states: states "I had an anxiety seizure and fell down ml6 the steps 2 days ago", c/o pain in right knee and left forearm. Adult Sepsis Screening: The patient does not have new or worsening altered mentation. Patient's respiratory rate is less than 22. Systolic blood pressure is greater than 100. Patient has a qSOFA score of 0- Negative Sepsis Screen. Suicide/Homicide risk assessment- the patient denies having any suicidal and/or homicidal ideations and does not present with any other emotional, behavioral or mental health complaints. Status: Patient is not a human services professional or dependent. Transition of care: patient was not received from another setting of care. 17:08 Acuity: CHARLY Level 4 ml6 17:08 Method Of Arrival: Walkin/Carried/Asstd ml6 Triage Assessment: 17:12 General: Appears in no apparent distress, Behavior is flat. Pain: Location: right knee ml6 Pain currently is 5 out of 10 on a pain scale. Pain does not radiate. HIV screening NA for this visit Offered previously. Neurological: No deficits noted. Cardiovascular: No deficits noted. Capillary refill < 3 seconds is brisk in bilateral fingers toes. Respiratory: No deficits noted. GI: No deficits noted. 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 Klonopin 1 mg Oral tab 1 tab 3 times per day ran out 1.5 weeks ORAL THERAPIST 2. [place] 5-325 mg Oral tab 1 tab every 4-6 hours as needed (Last dose: 07/15/2016) 3. acetaminophen 500 mg Oral tab 2 tabs every 6 hours (Last dose: 07/17/2016 15:00) 4. Carafate 1 gram Oral tab (Last dose: 07/17/2016 07:00) 5. Neurontin 800 mg Oral tab 1 tab 3 times per day (Last dose: 07/17/2016 15:00) 6. Xarelto 20 mg oral tab 1 tab once daily (Last dose: 07/17/2016 08:00) - PMHx: Anxiety; DVT; anxiety seizures; - PSHx: Tubal ligation; - Social history: Smoking status: Patient uses tobacco products, heavy tobacco smoker. No barriers to communication noted, Speaks appropriately for age. - Family history: Not pertinent. - : The pt / caregiver states he / she is not on anticoagulants. Home medication list is obtained from the patient. - Exposure Risk Screening:: None identified. Screenin:59 Infection Control. dem1 17:23 Screening information is obtained from the patient. Fall risk: No risks identified. js13 Assistance ADL's: requires no assistance with activities of daily living. Abuse/DV Screen: The patient / caregiver reports he/she is: not in a situation that causes fear, pain or injury. Nutritional screening: No deficits noted. Advance Directives: There is no active DNR order. home support is adequate. Vital Signs: 16:57 BP 112 / 70; Pulse 87; Resp 18; Temp 97.8(T); Pulse Ox 99% on R/A; Weight 70.76 kg; dem1 Height 5 ft. 7 in. (170.18 cm); Pain 0/10; 16:57 Body Mass Index 24.43 (70.76 kg, 170.18 cm) [facility] Vitals: 16:57 Log In Time: July 17, 2016 at 16:50. [facility] ED Course: 16:56 Patient visited by Paola Mas. dem1 16:56 Patient moved to Waiting dem1 16:57 NO PRIMARY PHYSICIAN, . is Private Physician. dem1 16:59 Patient visited by Paola Mas. dem1 16:59 Patient moved to Pre RCE dem1 17:10 Triage Initiated ml6 17:20 Patient moved to Triage 2 js13 17:23 The patient / caregiver is instructed regarding the plan of care and ED course. js13 17:33 Harjit Riley PA-C is PHCP. cc10 17:33 Tres Gaviria MD is Attending Physician. cc10 17:33 Patient visited by Harjit Riley PA-C. cc10 17:33 Patient visited by Harjit Riley PA-C. cc10 17:38 No IV's were initiated during this patient's visit. No procedures done that require kiel assistance. 17:39 [facility] is Referral Physician. cc10 17:47 Patient moved to TR7 ar3 Order Results: There are currently no results for this order. Outcome: 17:38 Discharge Assessment: Patient awake, alert and oriented x 3. No cognitive and/or [facility] functional deficits noted. Patient verbalized understanding of disposition instructions. patient administered narcotics - no. The following High Risk Discharge criteria are identified: None. Discharged to home ambulatory. Condition: stable Condition: improved. Discharge instructions given to patient, Instructed on discharge instructions, follow up and referral plans. medication usage, Demonstrated understanding of instructions, medications, Pt was receptive of discharge instructions/ teaching. Prescriptions given X 1. No special radiology studies were completed. Property :Personal belongings accompany Pt. 17:40 Discharge ordered by Provider. cc10 17:47 Patient left the ED. js13 Signatures: Christian Smith, RN RN ml6 Shasha Lira, DRYCLEANER DRYCLEANER ar3 Paola Mas dem1 Kavya Galindo,RN RN js13 Harjit Riley PA-C PA-C cc MTDD
--- NOTE | 2016-07-17 17:48 | EDDOCDS ---
Physician Documentation [facility] Name: Becca Tatum Age: 46 yrs Sex: Female : 1970 Arrival Date: 07/17/2016 Time: 16:56 Bed TR7 Private MD: NO PRIMARY PHYSICIAN, . Disposition: 07/17/16 17:40 Discharged to Home/Self Care. Impression: Fall (on) (from) other stairs and steps, Contusion of right knee, Contusion of left forearm, Encounter for issue of repeat prescription. - Condition is Stable. - Discharge Instructions: Contusion, Medicine Refill at the Emergency Department. - Prescriptions for Klonopin 1 mg Oral Tablet - take 1 tablet by ORAL route 3 times per day As needed MDD: 3 tabs; 18 tablet. - Medication Reconciliation, Local Pharmacy Hours form. - [facility] up: [facility]; When: Call to arrange an appointment; Reason: Recheck today's complaints, Continuance of care, To establish care. - Problem is an ongoing problem. - Symptoms are unchanged. Historical: - Allergies: Toradol (Rash); Tramadol HCl (Unknown, Rash); - Home Meds: 1. 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 [place] 5-325 mg Oral tab 1 tab every 4-6 hours as needed (Last dose: 07/15/2016) 3. acetaminophen 500 mg Oral tab 2 tabs every 6 hours (Last dose: 07/17/2016 15:00) 4. Carafate 1 gram Oral tab (Last dose: 07/17/2016 07:00) 5. Neurontin 800 mg Oral tab 1 tab 3 times per day (Last dose: 07/17/2016 15:00) 6. Xarelto 20 mg oral tab 1 tab once daily (Last dose: 07/17/2016 08:00) - PMHx: Anxiety; DVT; anxiety seizures; - PSHx: Tubal ligation; - Social history: Smoking status: Patient uses tobacco products, heavy tobacco smoker. No barriers to communication noted, Speaks appropriately for age. - Family history: Not pertinent. - : The pt / caregiver states he / she is not on anticoagulants. Home medication list is obtained from the patient. - Exposure Risk Screening:: None identified. 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 7 in. (170.18 cm); Pain 0/10; 16:57 Body Mass Index 24.43 (70.76 kg, 170.18 cm) dem1 Signatures: Christian Smith RN RN ml6 Kavya Galindo RN RN js13 Harjit Riley, PA-C PA-C cc10 MTDD
[2016-07-18] MEDS ORDERED: METAL LOCK LOOP XX ONE (04:39)
--- NOTE | 2016-07-19 18:48 | EDDOCDS ---
Nurse's Notes [facility] Name: Becca Tatum Age: 46 yrs Sex: Female : 1970 Arrival Date: 07/17/2016 Time: 16:56 Bed TR7 Private MD: NO PRIMARY PHYSICIAN, . Diagnosis: Fall (on) (from) other stairs and steps;Contusion of right knee;Contusion of left forearm;Encounter for issue of repeat prescription Presentation: 07/17 17:08 Presenting complaint: Patient states: states "I had an anxiety seizure and fell down ml6 the steps 2 days ago", c/o pain in right knee and left forearm. Adult Sepsis Screening: The patient does not have new or worsening altered mentation. Patient's respiratory rate is less than 22. Systolic blood pressure is greater than 100. Patient has a qSOFA score of 0- Negative Sepsis Screen. Suicide/Homicide risk assessment- the patient denies having any suicidal and/or homicidal ideations and does not present with any other emotional, behavioral or mental health complaints. Status: Patient is not a field services manager or dependent. Transition of care: patient was not received from another setting of care. 17:08 Acuity: CHARLY Level 4 ml6 17:08 Method Of Arrival: Walkin/Carried/Asstd ml6 Triage Assessment: 17:12 General: Appears in no apparent distress, Behavior is flat. Pain: Location: right knee ml6 Pain currently is 5 out of 10 on a pain scale. Pain does not radiate. HIV screening NA for this visit Offered previously. Neurological: No deficits noted. Cardiovascular: No deficits noted. Capillary refill < 3 seconds is brisk in bilateral fingers toes. Respiratory: No deficits noted. GI: No deficits noted. 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 [place] 5-325 mg Oral tab 1 tab every 4-6 hours as needed (Last dose: 07/15/2016) 3. acetaminophen 500 mg Oral tab 2 tabs every 6 hours (Last dose: 07/17/2016 15:00) 4. Carafate 1 gram Oral tab (Last dose: 07/17/2016 07:00) 5. Neurontin 800 mg Oral tab 1 tab 3 times per day (Last dose: 07/17/2016 15:00) 6. Xarelto 20 mg oral tab 1 tab once daily (Last dose: 07/17/2016 08:00) - PMHx: Anxiety; DVT; anxiety seizures; - PSHx: Tubal ligation; - Social history: Smoking status: Patient uses tobacco products, heavy tobacco smoker. No barriers to communication noted, Speaks appropriately for age. - Family history: Not pertinent. - : The pt / caregiver states he / she is not on anticoagulants. Home medication list is obtained from the patient. - Exposure Risk Screening:: None identified. Screenin:59 Infection Control. dem1 17:23 Screening information is obtained from the patient. Fall risk: No risks identified. js13 Assistance ADL's: requires no assistance with activities of daily living. Abuse/DV Screen: The patient / caregiver reports he/she is: not in a situation that causes fear, pain or injury. Nutritional screening: No deficits noted. Advance Directives: There is no active DNR order. home support is adequate. Vital Signs: 16:57 BP 112 / 70; Pulse 87; Resp 18; Temp 97.8(T); Pulse Ox 99% on R/A; Weight 70.76 kg; dem1 Height 5 ft. 7 in. (170.18 cm); Pain 0/10; 16:57 Body Mass Index 24.43 (70.76 kg, 170.18 cm) [facility] Vitals: 16:57 Log In Time: July 17, 2016 at 16:50. [facility] ED Course: 16:56 Patient visited by Paola Mas. dem1 16:56 Patient moved to Waiting dem1 16:57 NO PRIMARY PHYSICIAN, . is Private Physician. dem1 16:59 Patient visited by Paola Mas. dem1 16:59 Patient moved to Pre RCE dem1 17:10 Triage Initiated ml6 17:20 Patient moved to Triage 2 js13 17:23 The patient / caregiver is instructed regarding the plan of care and ED course. js13 17:33 Harjit Riley PA-C is PHCP. cc10 17:33 Ters Gaviria MD is Attending Physician. cc10 17:33 Patient visited by Harjit Riley PA-C. cc10 17:33 Patient visited by Harjit Riley PA-C. [facility] 17:38 No IV's were initiated during this patient's visit. No procedures done that require citlalli assistance. 17:39 [facility] is Referral Physician. cc10 17:47 Patient moved to 7 ar3 18:07 [facility] Payment Agreement was scanned into [employer] and attached to record. nikko 07/18 12:31 T-Sheet-- Draft Copy was scanned into [employer] and attached to record. gb Order Results: There are currently no results for this order. Outcome: 02 17:38 Discharge Assessment: Patient awake, alert and oriented x 3. No cognitive and/or js13 functional deficits noted. Patient verbalized understanding of disposition instructions. patient administered narcotics - no. The following High Risk Discharge criteria are identified: None. Discharged to home ambulatory. Condition: stable Condition: improved. Discharge instructions given to patient, Instructed on discharge instructions, follow up and referral plans. medication usage, Demonstrated understanding of instructions, medications, Pt was receptive of discharge instructions/ teaching. Prescriptions given X 1. No special radiology studies were completed. Property :Personal belongings accompany Pt. 17:40 Discharge ordered by Provider. cc 17:47 Patient left the ED. js13 Signatures: Renate Miner, Reg Reg Christian Coello, RN RN ml6 Shasha Lira, IT SECURITY CONSULTING DIRECTOR IT SECURITY CONSULTING DIRECTOR ar3 Chace, Carmeloia dem1 Kavya Galindo RN RN js13 Harjit Riley PA-C PA-C [facility] Nia Salomon [facility] Chart Complete MTDD
--- NOTE | 2016-07-19 18:48 | EDDOCDS ---
Physician Documentation [facility] Name: Becca Tatum Age: 46 yrs Sex: Female : 1970 Arrival Date: 07/17/2016 Time: 16:56 Bed TR7 Private MD: NO PRIMARY PHYSICIAN, . Disposition: 07/17/16 17:40 Discharged to Home/Self Care. Impression: Fall (on) (from) other stairs and steps, Contusion of right knee, Contusion of left forearm, Encounter for issue of repeat prescription. - Condition is Stable. - Discharge Instructions: Contusion, Medicine Refill at the Emergency Department. - Prescriptions for Klonopin 1 mg Oral Tablet - take 1 tablet by ORAL route 3 times per day As needed MDD: 3 tabs; 18 tablet. - Medication Reconciliation, Local Pharmacy Hours form. - Follow up: [facility]; When: Call to arrange an appointment; Reason: Recheck today's complaints, Continuance of care, To establish care. - Problem is an ongoing problem. - Symptoms are unchanged. Historical: - Allergies: Toradol (Rash); Tramadol HCl (Unknown, Rash); - Home Meds: 1. 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 [place] 5-325 mg Oral tab 1 tab every 4-6 hours as needed (Last dose: 07/15/2016) 3. acetaminophen 500 mg Oral tab 2 tabs every 6 hours (Last dose: 07/17/2016 15:00) 4. Carafate 1 gram Oral tab (Last dose: 07/17/2016 07:00) 5. Neurontin 800 mg Oral tab 1 tab 3 times per day (Last dose: 07/17/2016 15:00) 6. Xarelto 20 mg oral tab 1 tab once daily (Last dose: 07/17/2016 08:00) - PMHx: Anxiety; DVT; anxiety seizures; - PSHx: Tubal ligation; - Social history: Smoking status: Patient uses tobacco products, heavy tobacco smoker. No barriers to communication noted, Speaks appropriately for age. - Family history: Not pertinent. - : The pt / caregiver states he / she is not on anticoagulants. Home medication list is obtained from the patient. - Exposure Risk Screening:: None identified. 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 7 in. (170.18 cm); Pain 0/10; 16:57 Body Mass Index 24.43 (70.76 kg, 170.18 cm) dem1 MDM: 18:07 [facility] Payment Agreement was scanned into [employer] and attached to record. [facility] 18: Financial registration complete. gjb 07/18 12:31 T-Sheet-- Draft Copy was scanned into [employer] and attached to record. gb Signatures: Renate Miner, Reg Reg gb Christian Smith, RN RN ml6 Kavya GalindoRN RN js13 Harjit Riley, PA-C PA-C cc10 Nia Salomon [facility] The chart was reviewed and I authenticate all verbal orders and agree with the evaluation and treatment provided.Attachments: 07/17 18:07 [facility] Payment Agreement [facility] 07/18 12:31 T-Sheet-- Draft Copy gb Chart Complete MTDD
--- NOTE | 2016-07-19 18:48 | EDDOCDS ---
Physician Documentation [facility] Name: Becca Tatum Age: 46 yrs Sex: Female : 1970 Arrival Date: 07/17/2016 Time: 16:56 Bed TR7 Private MD: NO PRIMARY PHYSICIAN, . Disposition: 07/17/16 17:40 Discharged to Home/Self Care. Impression: Fall (on) (from) other stairs and steps, Contusion of right knee, Contusion of left forearm, Encounter for issue of repeat prescription. - Condition is Stable. - Discharge Instructions: Contusion, Medicine Refill at the Emergency Department. - Prescriptions for Klonopin 1 mg Oral Tablet - take 1 tablet by ORAL route 3 times per day As needed MDD: 3 tabs; 18 tablet. - Medication Reconciliation, Local Pharmacy Hours form. - Follow up: [facility]; When: Call to arrange an appointment; Reason: Recheck today's complaints, Continuance of care, To establish care. - Problem is an ongoing problem. - Symptoms are unchanged. Historical: - Allergies: Toradol (Rash); Tramadol HCl (Unknown, Rash); - Home Meds: 1. 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 [place] 5-325 mg Oral tab 1 tab every 4-6 hours as needed (Last dose: 07/15/2016) 3. acetaminophen 500 mg Oral tab 2 tabs every 6 hours (Last dose: 07/17/2016 15:00) 4. Carafate 1 gram Oral tab (Last dose: 07/17/2016 07:00) 5. Neurontin 800 mg Oral tab 1 tab 3 times per day (Last dose: 07/17/2016 15:00) 6. Xarelto 20 mg oral tab 1 tab once daily (Last dose: 07/17/2016 08:00) - PMHx: Anxiety; DVT; anxiety seizures; - PSHx: Tubal ligation; - Social history: Smoking status: Patient uses tobacco products, heavy tobacco smoker. No barriers to communication noted, Speaks appropriately for age. - Family history: Not pertinent. - : The pt / caregiver states he / she is not on anticoagulants. Home medication list is obtained from the patient. - Exposure Risk Screening:: None identified. 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 7 in. (170.18 cm); Pain 0/10; 16:57 Body Mass Index 24.43 (70.76 kg, 170.18 cm) dem1 MDM: 18:07 [facility] Payment Agreement was scanned into [employer] and attached to record. [facility] 18: Financial registration complete. gjb 07/18 12:31 T-Sheet-- Draft Copy was scanned into [employer] and attached to record. gb Signatures: Renate Miner, Reg Reg gb Christian Smith, RN RN ml6 Kavya GalindoRN RN js13 Harjit Riley, PA-C PA-C cc10 Nia Salomon [facility] The chart was reviewed and I authenticate all verbal orders and agree with the evaluation and treatment provided.Attachments: 07/17 18:07 [facility] Payment Agreement [facility] 07/18 12:31 T-Sheet-- Draft Copy gb Chart Complete MTDD
== END 2016-07-17 17:47 | disposition home or self-care (01) ==
LOC: M ED 16:56
DX: S50.12XA Contusion of left forearm, initial encounter (principal); S80.01XA Contusion of right knee, initial encounter; Z76.0 Encounter for issue of repeat prescription; W10.9XXA Fall (on) (from) unspecified stairs and steps, initial encounter; Y92.9 Unspecified place or not applicable; Y93.9 Activity, unspecified; Y99.9 Unspecified external cause status; F41.9 Anxiety disorder, unspecified; F44.5 Conversion disorder with seizures or convulsions; I82.90 Acute embolism and thrombosis of unspecified vein; Z72.0 Tobacco use; Z79.02 Long term (current) use of antithrombotics/antiplatelets; Z79.899 Other long term (current) drug therapy; Z88.5 Allergy status to narcotic agent; Z88.6 Allergy status to analgesic agent

== ENCOUNTER 2016-07-25 12:47 | Emergency (ER) | payer OTHER ==
--- NOTE | 2016-07-25 14:56 | EDDOCDS ---
Physician Documentation [facility] Name: Becca Tatum Age: 46 yrs Sex: Female : 1970 Arrival Date: 07/25/2016 Time: 12:47 Bed TR7 Private MD: [facility] Disposition: 07/25/16 14:36 Discharged to Home/Self Care. Impression: Pain in right knee - chronic, Encounter for issue of repeat prescription. - Condition is Stable. - Discharge Instructions: Medicine Refill at the Emergency Department, Knee Pain. - Prescriptions for Klonopin 1 mg Oral Tablet - take 1 tablet by ORAL route 3 times per day As needed MDD: 3 tabs; 15 tablet. - Medication Reconciliation form. - Follow up: [facility]; When: Call to arrange an appointment; Reason: Recheck today's complaints, Continuance of care. Follow up: [facility]; When: Call to arrange an appointment; Reason: Wound/Symptom Recheck, Recheck today's complaints, Continuance of care. - Problem is chronic. - Symptoms are unchanged. Historical: - Allergies: Toradol (Rash); Tramadol HCl (Unknown, Rash); - Home Meds: 1. Klonopin 1 mg Oral tab 1 tab 3 times per day needs refill 2. Xarelto 20 mg oral tab 1 tab once daily 3. Neurontin 800 mg Oral tab 1 tab 3 times per day 4. [place] 5-325 mg Oral tab 1 tab twice a day as needed - PMHx: Anxiety; anxiety seizures; DVT; - PSHx: Tubal ligation; - Social history: Smoking status: Patient uses tobacco products, current every day smoker. No barriers to communication noted, The patient speaks fluent Maltese, Speaks appropriately for age. - Family history: Not pertinent. - : The pt / caregiver states he / she is on anticoagulants: Xarelto Home medication list is obtained from the patient. - Exposure Risk Screening:: None identified. 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 7 in. (170.18 cm) (R); Pain 02/18; 12:49 Body Mass Index 24.12 (69.85 kg, 170.18 cm) ct3 MDM: 14:33 Financial registration complete. Signatures: Sheila Juan, RN RN [facility] Rolando Squires, Reg Reg Chacha Lee RN RN [facility] Harjit Riley, PA-C PA-C cc10 MTDD
--- NOTE | 2016-07-25 14:56 | EDDOCDS ---
Nurse's Notes [facility] Name: Becca Tatum Age: 46 yrs Sex: Female : 1970 Arrival Date: 07/25/2016 Time: 12:47 Bed TR7 Private MD: [facility] Diagnosis: Pain in right knee-chronic;Encounter for issue of repeat prescription Presentation: 07/25 12:52 Presenting complaint: Patient states: seen here last week for knee pain- getting worse. srm lump is getting bigger pain going up her leg. harder to bend her knee. has appt august 14 with PMD. Presenting complaint: Patient states: no injury. Adult Sepsis Screening: The patient does not have new or worsening altered mentation. Patient's respiratory rate is less than 22. Systolic blood pressure is greater than 100. Patient has a qSOFA score of 0- Negative Sepsis Screen. Suicide/Homicide risk assessment- the patient denies having any suicidal and/or homicidal ideations and does not present with any other emotional, behavioral or mental health complaints. 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 Transition of care: patient was not received from another setting of care. 12:52 Acuity: CHARLY Level 4 srm 12:52 Method Of Arrival: Walkin/Carried/Asstd srm 12:57 Presenting complaint: Patient states: needs refill of clonazepam. srm Triage Assessment: 12:56 General: Appears in no apparent distress, Behavior is appropriate for age, cooperative. srm Pain: Pain currently is 8 out of 10 on a pain scale. HIV screening NA for this visit Offered previously. 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 Klonopin 1 mg Oral tab 1 tab 3 times per day needs refill 2. Xarelto 20 mg oral tab 1 tab once daily 3. Neurontin 800 mg Oral tab 1 tab 3 times per day 4. [place] 5-325 mg Oral tab 1 tab twice a day as needed - PMHx: Anxiety; anxiety seizures; DVT; - PSHx: Tubal ligation; - Social history: Smoking status: Patient uses tobacco products, current every day smoker. No barriers to communication noted, The patient speaks fluent Pashto, Speaks appropriately for age. - Family history: Not pertinent. - : The pt / caregiver states he / she is on anticoagulants: Xarelto Home medication list is obtained from the patient. - Exposure Risk Screening:: None identified. Screenin:51 Infection Control. ct3 14:50 Screening information is obtained from the patient. Fall risk: No risks identified. [facility] Assistance ADL's: requires no assistance with activities of daily living. Abuse/DV Screen: The patient / caregiver reports he/she is: not in a situation that causes fear, pain or injury. Nutritional screening: No deficits noted. Advance Directives: There is no active DNR order. home support is adequate. Assessment: 14:47 General: Appears in no apparent distress, comfortable, Behavior is appropriate for age, cjh cooperative, reviewed discharge instructions, encouraged and answered questions, denies further needs. 14:50 Pain: Location: right knee. Respiratory: Airway is patent Respiratory effort is even, cjh unlabored, Respiratory pattern is regular, symmetrical. Musculoskeletal: Range of motion intact in all extremities. Vital Signs: 12:49 BP 109 / 75; Pulse 96; Resp 18; Temp 98.5(O); Pulse Ox 97% on R/A; Weight 69.85 kg (R); ct3 Height 5 ft. 7 in. (170.18 cm) (R); Pain 9/10; 12:49 Body Mass Index 24.12 (69.85 kg, 170.18 cm) ct3 Vitals: 12:49 Log In Time: July 25, 2016 at 12:47. ct3 ED Course: 12:48 Patient visited by Adriana Hicks PCA. ct3 12:48 Patient moved to Waiting ct3 12:49 [facility] is Private Physician. ct3 12:50 Patient moved to Pre RCE ct3 12:54 Triage Initiated srm 13:39 Chacha Lee,RN is Primary Nurse. ar3 13:39 Neli Ricketts,[place] is Primary Nurse. ar3 13:39 Patient moved to Triage 3 ar3 14:25 [facility]. cc10 14:25 Stewart Oliver MD is Attending Physician. cc10 14:27 Patient visited by Harjit Riley PA-C. cc10 14:27 Patient visited by Harjit Riley PA-C. cc10 14:35 [facility] is Referral Physician. cc10 14:35 [facility] is Referral Physician. cc10 14:42 Patient moved to TR7 ar3 14:50 The patient / caregiver is instructed regarding the plan of care and ED course. [facility] Order Results: There are currently no results for this order. Outcome: 14:36 Discharge ordered by Provider. cc10 14:50 Discharge Assessment: Patient awake, alert and oriented x 3. No cognitive and/or [facility] functional deficits noted. Patient verbalized understanding of disposition instructions. patient administered narcotics - no. The following High Risk Discharge criteria are identified: None. Discharged to home ambulatory. Condition: good Condition: stable Condition: improved. Discharge instructions given to patient, Instructed on discharge instructions, follow up and referral plans. medication usage, Demonstrated understanding of instructions, medications, Pt was receptive of discharge instructions/ teaching. Prescriptions given X 1. No special radiology studies were completed. Property :Personal belongings accompany Pt. 14:55 Patient left the ED. [facility] Signatures: Sheila Juan, RN RN [facility] Shasha Lira, SHOTGUN SHELL REPRINTING UNIT OPERATOR SHOTGUN SHELL REPRINTING UNIT OPERATOR ar3 Adriana Hicks, SHOTGUN SHELL REPRINTING UNIT OPERATOR SHOTGUN SHELL REPRINTING UNIT OPERATOR ct3 Chacha Lee RN RN [facility] Harjit Riley PA-C PA-C [facility] Corrections: (The following items were deleted from the chart) 14:52 14:47 General: Appears in no apparent distress, comfortable, Behavior is appropriate [facility] for age, cooperative, [facility] MTDD
--- NOTE | 2016-07-27 15:56 | EDDOCDS ---
Physician Documentation [facility] Name: Becca Tatum Age: 46 yrs Sex: Female : 1970 Arrival Date: 07/25/2016 Time: 12:47 Bed TR7 Private [facility]: [facility] Disposition: 07/25/16 14:36 Discharged to Home/Self Care. Impression: Pain in right knee - chronic, Encounter for issue of repeat prescription. - Condition is Stable. - Discharge Instructions: Medicine Refill at the Emergency Department, Knee Pain. - Prescriptions for Klonopin 1 mg Oral Tablet - take 1 tablet by ORAL route 3 times per day As needed MDD: 3 tabs; 15 tablet. - Medication Reconciliation form. - [facility]; When: Call to arrange an appointment; Reason: Recheck today's complaints, Continuance of care. Follow up: [facility]; When: Call to arrange an appointment; Reason: Wound/Symptom Recheck, Recheck today's complaints, Continuance of care. - Problem is chronic. - Symptoms are unchanged. Historical: - Allergies: Toradol (Rash); Tramadol HCl (Unknown, Rash); - Home Meds: 1. Klonopin 1 mg Oral tab 1 tab 3 times per day needs refill 2. Xarelto 20 mg oral tab 1 tab once daily 3. Neurontin 800 mg Oral tab 1 tab 3 times per day 4. [place] 5-325 mg Oral tab 1 tab twice a day as needed - PMHx: Anxiety; anxiety seizures; DVT; - PSHx: Tubal ligation; - Social history: Smoking status: Patient uses tobacco products, current every day smoker. No barriers to communication noted, The patient speaks fluent [place], Speaks appropriately for age. - Family history: Not pertinent. - : The pt / caregiver states he / she is on anticoagulants: Xarelto Home medication list is obtained from the patient. - Exposure Risk Screening:: None identified. 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 7 in. (170.18 cm) (R); Pain 02/18; 12:49 Body Mass Index 24.12 (69.85 kg, 170.18 cm) ct3 MDM: 14:33 Financial registration complete. lg 15:46 [facility] Payment Agreement was scanned into [employer] and attached to record. lg 07/26 13:06 T-Sheet-- Draft Copy was scanned into [employer] and attached to record. gb Signatures: Sheila Juan, RN RN [facility] Renate Miner, Reg Reg gb Rolando Squires, Reg Reg lg Chacha Lee RN RN [facility] Harjit Riley, PA-C PA-C cc10 The chart was reviewed and I authenticate all verbal orders and agree with the evaluation and treatment provided.Attachments: 07/25 15:46 [facility] Payment Agreement lg 07/26 13:06 T-Sheet-- Draft Copy gb Chart Complete MTDD
--- NOTE | 2016-07-27 15:56 | EDDOCDS ---
Nurse's Notes [facility] Name: Becca Tatum Age: 46 yrs Sex: Female : 1970 Arrival Date: 07/25/2016 Time: 12:47 Bed TR7 Private [facility]: [facility] Diagnosis: Pain in right knee-chronic;Encounter for issue of repeat prescription Presentation: 07/25 12:52 Presenting complaint: Patient states: seen here last week for knee pain- getting worse. srm lump is getting bigger pain going up her leg. harder to bend her knee. has appt august 14 with PMD. Presenting complaint: Patient states: no injury. Adult Sepsis Screening: The patient does not have new or worsening altered mentation. Patient's respiratory rate is less than 22. Systolic blood pressure is greater than 100. Patient has a qSOFA score of 0- Negative Sepsis Screen. Suicide/Homicide risk assessment- the patient denies having any suicidal and/or homicidal ideations and does not present with any other emotional, behavioral or mental health complaints. Status: Patient is not a resident service coordinator or dependent. Transition of care: patient was not received from another setting of care. 12:52 Acuity: CHARLY Level 4 srm 12:52 Method Of Arrival: Walkin/Carried/Asstd srm 12:57 Presenting complaint: Patient states: needs refill of clonazepam. srm Triage Assessment: 12:56 General: Appears in no apparent distress, Behavior is appropriate for age, cooperative. srm Pain: Pain currently is 8 out of 10 on a pain scale. HIV screening NA for this visit Offered previously. 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 Klonopin 1 mg Oral tab 1 tab 3 times per day needs refill 2. Xarelto 20 mg oral tab 1 tab once daily 3. Neurontin 800 mg Oral tab 1 tab 3 times per day 4. [place] 5-325 mg Oral tab 1 tab twice a day as needed - PMHx: Anxiety; anxiety seizures; DVT; - PSHx: Tubal ligation; - Social history: Smoking status: Patient uses tobacco products, current every day smoker. No barriers to communication noted, The patient speaks fluent Slovenian, Speaks appropriately for age. - Family history: Not pertinent. - : The pt / caregiver states he / she is on anticoagulants: Xarelto Home medication list is obtained from the patient. - Exposure Risk Screening:: None identified. Screenin:51 Infection Control. ct3 14:50 Screening information is obtained from the patient. Fall risk: No risks identified. [facility] Assistance ADL's: requires no assistance with activities of daily living. Abuse/DV Screen: The patient / caregiver reports he/she is: not in a situation that causes fear, pain or injury. Nutritional screening: No deficits noted. Advance Directives: There is no active DNR order. home support is adequate. Assessment: 14:47 General: Appears in no apparent distress, comfortable, Behavior is appropriate for age, cjh cooperative, reviewed discharge instructions, encouraged and answered questions, denies further needs. 14:50 Pain: Location: right knee. Respiratory: Airway is patent Respiratory effort is even, cjh unlabored, Respiratory pattern is regular, symmetrical. Musculoskeletal: Range of motion intact in all extremities. Vital Signs: 12:49 BP 109 / 75; Pulse 96; Resp 18; Temp 98.5(O); Pulse Ox 97% on R/A; Weight 69.85 kg (R); ct3 Height 5 ft. 7 in. (170.18 cm) (R); Pain 9/10; 12:49 Body Mass Index 24.12 (69.85 kg, 170.18 cm) ct3 Vitals: 12:49 Log In Time: July 25, 2016 at 12:47. ct3 ED Course: 12:48 Patient visited by Adriana Hicks PCA. ct3 12:48 Patient moved to Waiting ct3 12:49 [facility] is Private Physician. ct3 12:50 Patient moved to Pre RCE ct3 12:54 Triage Initiated srm 13:39 Chacha Lee,RN is Primary Nurse. ar3 13:39 Neli Ricketts,[place] is Primary Nurse. ar3 13:39 Patient moved to Triage 3 ar3 14:25 Harjit Riley [facility] cc10 14:25 Stewart Oliver MD is Attending Physician. cc10 14:27 Patient visited by Harjit Riley PA-C. cc10 14:27 Patient visited by Harjit Riley PA-C. cc10 14:35 [facility] is Referral Physician. cc10 14:35 [facility] is Referral Physician. cc10 14:42 Patient moved to TR7 ar3 14:50 The patient / caregiver is instructed regarding the plan of care and ED course. [facility] 15:46 [facility] Payment Agreement was scanned into [employer] and attached to record. 07/26 13:06 T-Sheet-- Draft Copy was scanned into [employer] and attached to record. Order Results: There are currently no results for this order. Outcome: 07/25 14:36 Discharge ordered by Provider. [facility] 14:50 Discharge Assessment: Patient awake, alert and oriented x 3. No cognitive and/or [facility] functional deficits noted. Patient verbalized understanding of disposition instructions. patient administered narcotics - no. The following High Risk Discharge criteria are identified: None. Discharged to home ambulatory. Condition: good Condition: stable Condition: improved. Discharge instructions given to patient, Instructed on discharge instructions, follow up and referral plans. medication usage, Demonstrated understanding of instructions, medications, Pt was receptive of discharge instructions/ teaching. Prescriptions given X 1. No special radiology studies were completed. Property :Personal belongings accompany Pt. 14:55 Patient left the ED. [facility] Signatures: Sheila Juan, RN RN [facility] Renate Miner, Reg Reg gb Rolando Squires, Reg Reg lg Shasha Lira, MILIEU COORDINATOR MILIEU COORDINATOR ar3 Adriana Hicks, MILIEU COORDINATOR MILIEU COORDINATOR ct3 Chacha Lee RN RN [facility] Harjit Riley PA-C PA-C [facility] Corrections: (The following items were deleted from the chart) 14:52 14:47 General: Appears in no apparent distress, comfortable, Behavior is appropriate [facility] for age, cooperative, cjh Chart Complete MTDD
--- NOTE | 2016-07-27 15:56 | EDDOCDS ---
Physician Documentation [facility] Name: Becca Tatum Age: 46 yrs Sex: Female : 1970 Arrival Date: 07/25/2016 Time: 12:47 Bed TR7 Private [facility]: [facility] Disposition: 07/25/16 14:36 Discharged to Home/Self Care. Impression: Pain in right knee - chronic, Encounter for issue of repeat prescription. - Condition is Stable. - Discharge Instructions: Medicine Refill at the Emergency Department, Knee Pain. - Prescriptions for Klonopin 1 mg Oral Tablet - take 1 tablet by ORAL route 3 times per day As needed MDD: 3 tabs; 15 tablet. - Medication Reconciliation form. - Follow up: [facility]; When: Call to arrange an appointment; Reason: Recheck today's complaints, Continuance of care. Follow up: [facility]; When: Call to arrange an appointment; Reason: Wound/Symptom Recheck, Recheck today's complaints, Continuance of care. - Problem is chronic. - Symptoms are unchanged. Historical: - Allergies: Toradol (Rash); Tramadol HCl (Unknown, Rash); - Home Meds: 1. Klonopin 1 mg Oral tab 1 tab 3 times per day needs refill 2. Xarelto 20 mg oral tab 1 tab once daily 3. Neurontin 800 mg Oral tab 1 tab 3 times per day 4. [place] 5-325 mg Oral tab 1 tab twice a day as needed - PMHx: Anxiety; anxiety seizures; DVT; - PSHx: Tubal ligation; - Social history: Smoking status: Patient uses tobacco products, current every day smoker. No barriers to communication noted, The patient speaks fluent Bulgarian, Speaks appropriately for age. - Family history: Not pertinent. - : The pt / caregiver states he / she is on anticoagulants: Xarelto Home medication list is obtained from the patient. - Exposure Risk Screening:: None identified. 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 7 in. (170.18 cm) (R); Pain 02/18; 12:49 Body Mass Index 24.12 (69.85 kg, 170.18 cm) ct3 MDM: 14:33 Financial registration complete. lg 15:46 [facility] Payment Agreement was scanned into [employer] and attached to record. lg 07/26 13:06 T-Sheet-- Draft Copy was scanned into [employer] and attached to record. gb Signatures: Sheila Juan, RN RN [facility] Renate Miner, Reg Reg gb Rolando Squires, Reg Reg lg Chacha Lee RN RN [facility] Harjit Riley, PA-C PA-C cc10 The chart was reviewed and I authenticate all verbal orders and agree with the evaluation and treatment provided.Attachments: 07/25 15:46 [facility] Payment Agreement lg 07/26 13:06 T-Sheet-- Draft Copy gb Chart Complete MTDD
== END 2016-07-25 14:55 | disposition home or self-care (01) ==
LOC: M ED 12:47
DX: Z76.0 Encounter for issue of repeat prescription (principal); M25.561 Pain in right knee; F41.9 Anxiety disorder, unspecified; R56.9 Unspecified convulsions; Z86.718 Personal history of other venous thrombosis and embolism; Z79.899 Other long term (current) drug therapy; Z88.5 Allergy status to narcotic agent; F17.210 Nicotine dependence, cigarettes, uncomplicated

== ENCOUNTER 2016-07-28 13:37 | Emergency (ER) | payer OTHER ==
--- NOTE | 2016-07-28 15:45 | EDDOCDS ---
Physician Documentation [facility] Name: Becca Tatum Age: 46 yrs Sex: Female : 1970 Arrival Date: 07/28/2016 Time: 13:37 Bed TR8 Private MD: [facility] [place] - Adults Disposition: 07/28/16 15:29 Discharged to Home/Self Care. Impression: Pain in right knee - chronic, NO REFILLS GIVEN ON OPIATE MEDICATIONS, Anxiety disorder due to known physiological condition - NO REFILLS GIVEN ON CONTROLLED SUBSTANCES REQUESTED. - Condition is Stable. - Discharge Instructions: Chronic Pain, Generalized Anxiety Disorder. - Prescriptions for Hydroxyzine HCl 50 mg Oral Tablet - take 1 tablet by ORAL route every 8 hours As needed; 20 tablet. Medrol (Jesús) 4 mg Oral Tablets, Dose Pack - take 1 Pack by ORAL route as directed - follow package instructions; 1 packet. - Medication Reconciliation, Local Pharmacy Hours form. - Follow up: [facility]; When: Call to arrange an appointment; Reason: Further diagnostic work-up, Recheck today's complaints, Continuance of care. - Problem is chronic. - Symptoms are unchanged. Historical: - Allergies: Tramadol HCl (Unknown, Rash); Toradol (Rash); - Home Meds: 1. Klonopin 1 mg Oral tab 1 tab 3 times per day needs refill 2. Neurontin 800 mg Oral tab 1 tab 3 times per day 3. [place] 5-325 mg Oral tab 1 tab three times a day as needed (Last dose: 07/28/2016 09:00) 4. Xarelto 20 mg oral tab 1 tab once daily 5. Tylenol 500 mg Oral three times a day - PMHx: Anxiety; anxiety seizures; DVT; - PSHx: Tubal ligation; - Social history: Smoking status: Patient uses tobacco products, heavy tobacco smoker. No barriers to communication noted, The patient speaks fluent Sinhala, Speaks appropriately for age. - Family history: Not pertinent. - : The pt / caregiver states he / she is on anticoagulants: Xarelto Home medication list is obtained from [employer] import data. - Exposure Risk Screening:: None identified. Vital Signs: 07/28 13:40 BP 126 / 79; Pulse 86; Resp 18 S; Temp 97.6(O); Pulse Ox 100% on R/A; Weight 70.76 kg / gr2 156 lbs (R); Height 5 ft. 7 in. (170.18 cm) (R); Pain 4/10; 15:30 BP 125 / 90; Pulse 68; Resp 18; Temp 98.; Pulse Ox 98% ; ttb 13:40 Body Mass Index 24.43 (70.76 kg, 170.18 cm) gr2 MDM: 14:17 Financial registration complete. 14:45 [facility] Payment Agreement was scanned into [employer] and attached to record. Signatures: Rolando Squires, Reg Reg lg Ana Garcia,RN RN ck1 Dominik Alcocer PA PA btw Adalgisa Norton, RN RN ttb The chart was reviewed and I authenticate all verbal orders and agree with the evaluation and treatment provided.Attachments: 14:45 [facility] Payment Agreement lg MTDD
--- NOTE | 2016-07-28 15:45 | EDDOCDS ---
Nurse's Notes [facility] Name: Becca Tatum Age: 46 yrs Sex: Female : 1970 Arrival Date: 07/28/2016 Time: 13:37 Bed TR8 Private MD: [facility] - [facility] Diagnosis: Pain in right knee-chronic, NO REFILLS GIVEN ON OPIATE MEDICATIONS;Anxiety disorder due to known physiological condition-NO REFILLS GIVEN ON CONTROLLED SUBSTANCES REQUESTED Presentation: 07/28 13:46 Presenting complaint: Patient states: Here for recheck of urine because it was ck1 "contaminated" at Dr. Curran's office, chronic right knee pain, needs refill of pain medication. Adult Sepsis Screening: The patient does not have new or worsening altered mentation. Patient's respiratory rate is less than 22. Systolic blood pressure is greater than 100. Patient has a qSOFA score of 0- Negative Sepsis Screen. Suicide/Homicide risk assessment- the patient denies having any suicidal and/or homicidal ideations and does not present with any other emotional, behavioral or mental health complaints. 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 Transition of care: patient was received from a primary care office; Dr. Curran. 13:46 Method Of Arrival: Walkin/Carried/Asstd ck1 13:46 Acuity: CHARLY Level 4 ck1 Triage Assessment: 13:50 General: Appears in no apparent distress, comfortable, Behavior is appropriate for age, ck1 cooperative. Pain: Location: right knee Pain currently is 8 out of 10 on a pain scale. HIV screening NA for this visit Offered previously. Neurological: Level of Consciousness is awake, alert, obeys commands, Oriented to person, place, time. Respiratory: Respiratory effort is unlabored, Respiratory pattern is regular, symmetrical. Derm: Skin is intact, is healthy with good turgor, Skin is pink, warm & dry. Musculoskeletal: Circulation, motion, and sensation intact Range of motion intact in all extremities. Historical: - Allergies: Tramadol HCl (Unknown, Rash); Toradol (Rash); - Home Meds: 1. Klonopin 1 mg Oral tab 1 tab 3 times per day needs refill 2. Neurontin 800 mg Oral tab 1 tab 3 times per day 3. [place] 5-325 mg Oral tab 1 tab three times a day as needed (Last dose: 07/28/2016 09:00) 4. Xarelto 20 mg oral tab 1 tab once daily 5. Tylenol 500 mg Oral three times a day - PMHx: Anxiety; anxiety seizures; DVT; - PSHx: Tubal ligation; - Social history: Smoking status: Patient uses tobacco products, heavy tobacco smoker. No barriers to communication noted, The patient speaks fluent Albanian, Speaks appropriately for age. - Family history: Not pertinent. - : The pt / caregiver states he / she is on anticoagulants: Xarelto Home medication list is obtained from [employer] import data. - Exposure Risk Screening:: None identified. Screenin:43 Screening information is obtained from the patient. Fall risk: No risks identified. ttb Assistance ADL's: requires no assistance with activities of daily living. Abuse/DV Screen: The patient / caregiver reports he/she is: not in a situation that causes fear, pain or injury. Nutritional screening: No deficits noted. Advance Directives: Currently, there is no health care proxy. home support is adequate. Assessment: 15:04 General: Appears in no apparent distress, slender, Behavior is drowsy, quiet. ttb Neurological: Level of Consciousness is awake, alert. Musculoskeletal: Range of motion intact in all extremities. pt able to ambulate without diff. 15:43 General: Appears in no apparent distress, well nourished, well groomed, Behavior is ttb cooperative, pleasant, quiet. Neurological: Level of Consciousness is awake, alert, Oriented to person, place, time. Cardiovascular: Chest pain is denied. Respiratory: No deficits noted. Airway is patent Denies cough, shortness of breath. Vital Signs: 13:40 BP 126 / 79; Pulse 86; Resp 18 S; Temp 97.6(O); Pulse Ox 100% on R/A; Weight 70.76 kg gr2 (R); Height 5 ft. 7 in. (170.18 cm) (R); Pain 4/10; 15:30 BP 125 / 90; Pulse 68; Resp 18; Temp 98.; Pulse Ox 98% ; ttb 13:40 Body Mass Index 24.43 (70.76 kg, 170.18 cm) gr2 Vitals: 13:40 Log In Time: July 28, 2016 at 13:40. gr2 ED Course: 13:39 Patient visited by Evelina Granados. gr2 13:39 Patient moved to Waiting gr2 13:40 [facility] is Private Physician. gr2 13:42 Patient visited by Evelina Granados. gr2 13:42 Patient moved to Pre RCE gr2 13:48 Triage Initiated ck1 13:58 Patient moved to Triage 1 ck1 14:03 Dominik Alcocer PA is PHCP. btw 14:03 Maren Cuellar MD is Attending Physician. btw 14:03 Patient visited by Dominik Alcocer PA. btw 14:45 [facility] Payment Agreement was scanned into [employer] and attached to record. lg 14:56 Patient moved to PR1 / 25 ttb 15:04 Patient visited by Adalgisa Norton RN. ttb 15:27 [facility] is Referral Physician. btw 15:41 Patient moved to TR8 ttb 15:43 The patient / caregiver is instructed regarding the plan of care and ED course. Patient ttb has correct armband on for positive identification. 15:43 No IV's were initiated during this patient's visit. No procedures done that require ttb assistance. Order Results: There are currently no results for this order. Outcome: 15:29 Discharge ordered by Provider. btw 15:43 Discharge Assessment: Patient awake, alert and oriented x 3. No cognitive and/or ttb functional deficits noted. Patient verbalized understanding of disposition instructions. Patient awake and alert. patient administered narcotics - no. The following High Risk Discharge criteria are identified: None. Discharged to home ambulatory. Condition: good Condition: stable Condition: improved. Discharge instructions given to patient, Instructed on discharge instructions, follow up and referral plans. medication usage, Demonstrated understanding of instructions, medications, Pt was receptive of discharge instructions/ teaching. Prescriptions given X 2. No special radiology studies were completed. Property :Personal belongings accompany Pt. 15:44 Patient left the ED. ttb Signatures: Rolando Squires, Jasvir Reg Ana Carpenter RN RN ck1 Dominik Alcocer PA PA btw Adalgisa Norton RN RN ttb Evelina Granados gr2 MTDD
--- NOTE | 2016-07-30 16:45 | EDDOCDS ---
Nurse's Notes [facility] Name: Becca Tatum Age: 46 yrs Sex: Female : 1970 Arrival Date: 07/28/2016 Time: 13:37 Bed TR8 Private MD: [facility] - Adults Diagnosis: Pain in right knee-chronic, NO REFILLS GIVEN ON OPIATE MEDICATIONS;Anxiety disorder due to known physiological condition-NO REFILLS GIVEN ON CONTROLLED SUBSTANCES REQUESTED Presentation: 07/28 13:46 Presenting complaint: Patient states: Here for recheck of urine because it was ck1 "contaminated" at Dr. Curran's office, chronic right knee pain, needs refill of pain medication. Adult Sepsis Screening: The patient does not have new or worsening altered mentation. Patient's respiratory rate is less than 22. Systolic blood pressure is greater than 100. Patient has a qSOFA score of 0- Negative Sepsis Screen. Suicide/Homicide risk assessment- the patient denies having any suicidal and/or homicidal ideations and does not present with any other emotional, behavioral or mental health complaints. 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 Transition of care: patient was received from a primary care office; Dr. Curran. 13:46 Method Of Arrival: Walkin/Carried/Asstd ck1 13:46 Acuity: CHARLY Level 4 ck1 Triage Assessment: 13:50 General: Appears in no apparent distress, comfortable, Behavior is appropriate for age, ck1 cooperative. Pain: Location: right knee Pain currently is 8 out of 10 on a pain scale. HIV screening NA for this visit Offered previously. Neurological: Level of Consciousness is awake, alert, obeys commands, Oriented to person, place, time. Respiratory: Respiratory effort is unlabored, Respiratory pattern is regular, symmetrical. Derm: Skin is intact, is healthy with good turgor, Skin is pink, warm & dry. Musculoskeletal: Circulation, motion, and sensation intact Range of motion intact in all extremities. Historical: - Allergies: Tramadol HCl (Unknown, Rash); Toradol (Rash); - Home Meds: 1. Klonopin 1 mg Oral tab 1 tab 3 times per day needs refill 2. Neurontin 800 mg Oral tab 1 tab 3 times per day 3. Sharon 5-325 mg Oral tab 1 tab three times a day as needed (Last dose: 07/28/2016 09:00) 4. Xarelto 20 mg oral tab 1 tab once daily 5. Tylenol 500 mg Oral three times a day - PMHx: Anxiety; anxiety seizures; DVT; - PSHx: Tubal ligation; - Social history: Smoking status: Patient uses tobacco products, heavy tobacco smoker. No barriers to communication noted, The patient speaks fluent Lao, Speaks appropriately for age. - Family history: Not pertinent. - : The pt / caregiver states he / she is on anticoagulants: Xarelto Home medication list is obtained from [employer] import data. - Exposure Risk Screening:: None identified. Screenin:43 Screening information is obtained from the patient. Fall risk: No risks identified. ttb Assistance ADL's: requires no assistance with activities of daily living. Abuse/DV Screen: The patient / caregiver reports he/she is: not in a situation that causes fear, pain or injury. Nutritional screening: No deficits noted. Advance Directives: Currently, there is no health care proxy. home support is adequate. Assessment: 15:04 General: Appears in no apparent distress, slender, Behavior is drowsy, quiet. ttb Neurological: Level of Consciousness is awake, alert. Musculoskeletal: Range of motion intact in all extremities. pt able to ambulate without diff. 15:43 General: Appears in no apparent distress, well nourished, well groomed, Behavior is ttb cooperative, pleasant, quiet. Neurological: Level of Consciousness is awake, alert, Oriented to person, place, time. Cardiovascular: Chest pain is denied. Respiratory: No deficits noted. Airway is patent Denies cough, shortness of breath. Vital Signs: 13:40 BP 126 / 79; Pulse 86; Resp 18 S; Temp 97.6(O); Pulse Ox 100% on R/A; Weight 70.76 kg gr2 (R); Height 5 ft. 7 in. (170.18 cm) (R); Pain 4/10; 15:30 BP 125 / 90; Pulse 68; Resp 18; Temp 98.; Pulse Ox 98% ; ttb 13:40 Body Mass Index 24.43 (70.76 kg, 170.18 cm) gr2 Vitals: 13:40 Log In Time: July 28, 2016 at 13:40. gr2 ED Course: 13:39 Patient visited by Evelina Granados. gr2 13:39 Patient moved to Waiting gr2 13:40 [facility] is Private Physician. gr2 13:42 Patient visited by Evelina Granados. gr2 13:42 Patient moved to Pre RCE gr2 13:48 Triage Initiated ck1 13:58 Patient moved to Triage 1 ck1 14:03 Dominik Alcocer PA is PHCP. btw 14:03 Maren Cuellar MD is Attending Physician. btw 14:03 Patient visited by Dominik Alcocer PA. btw 14:45 [facility] Payment Agreement was scanned into [employer] and attached to record. lg 14:56 Patient moved to PR1 / 25 ttb 15:04 Patient visited by Adalgisa Norton RN. ttb 15:27 [facility] is Referral Physician. btw 15:41 Patient moved to TR8 ttb 15:43 The patient / caregiver is instructed regarding the plan of care and ED course. Patient ttb has correct armband on for positive identification. 15:43 No IV's were initiated during this patient's visit. No procedures done that require ttb assistance. 07/29 11:04 T-Sheet-- Draft Copy was scanned into [employer] and attached to record. gb 11:04 Other: DRUG UTILIZATION REPORT was scanned into [employer] and attached to record. gb Order Results: There are currently no results for this order. Outcome: 07/28 15:29 Discharge ordered by Provider. btw 15:43 Discharge Assessment: Patient awake, alert and oriented x 3. No cognitive and/or ttb functional deficits noted. Patient verbalized understanding of disposition instructions. Patient awake and alert. patient administered narcotics - no. The following High Risk Discharge criteria are identified: None. Discharged to home ambulatory. Condition: good Condition: stable Condition: improved. Discharge instructions given to patient, Instructed on discharge instructions, follow up and referral plans. medication usage, Demonstrated understanding of instructions, medications, Pt was receptive of discharge instructions/ teaching. Prescriptions given X 2. No special radiology studies were completed. Property :Personal belongings accompany Pt. 15:44 Patient left the ED. ttb Signatures: Renate Miner, Reg Reg gb Rolando Squires, Reg Reg lg Ana Garcia RN RN ck1 Dominik Alcocer PA PA btw Adalgisa Norton RN RN ttb Evelina Granados gr2 Chart Complete MTDD
--- NOTE | 2016-07-30 16:45 | EDDOCDS ---
Physician Documentation [facility] Name: Becca Tatum Age: 46 yrs Sex: Female : 1970 Arrival Date: 07/28/2016 Time: 13:37 Bed TR8 Private MD: [facility] [place] - Adults Disposition: 07/28/16 15:29 Discharged to Home/Self Care. Impression: Pain in right knee - chronic, NO REFILLS GIVEN ON OPIATE MEDICATIONS, Anxiety disorder due to known physiological condition - NO REFILLS GIVEN ON CONTROLLED SUBSTANCES REQUESTED. - Condition is Stable. - Discharge Instructions: Chronic Pain, Generalized Anxiety Disorder. - Prescriptions for Hydroxyzine HCl 50 mg Oral Tablet - take 1 tablet by ORAL route every 8 hours As needed; 20 tablet. Medrol (Jesús) 4 mg Oral Tablets, Dose Pack - take 1 Pack by ORAL route as directed - follow package instructions; 1 packet. - Medication Reconciliation, Local Pharmacy Hours form. - Follow up: [facility]; When: Call to arrange an appointment; Reason: Further diagnostic work-up, Recheck today's complaints, Continuance of care. - Problem is chronic. - Symptoms are unchanged. Historical: - Allergies: Tramadol HCl (Unknown, Rash); Toradol (Rash); - Home Meds: 1. Klonopin 1 mg Oral tab 1 tab 3 times per day needs refill 2. Neurontin 800 mg Oral tab 1 tab 3 times per day 3. [place] 5-325 mg Oral tab 1 tab three times a day as needed (Last dose: 07/28/2016 09:00) 4. Xarelto 20 mg oral tab 1 tab once daily 5. Tylenol 500 mg Oral three times a day - PMHx: Anxiety; anxiety seizures; DVT; - PSHx: Tubal ligation; - Social history: Smoking status: Patient uses tobacco products, heavy tobacco smoker. No barriers to communication noted, The patient speaks fluent Ukrainian, Speaks appropriately for age. - Family history: Not pertinent. - : The pt / caregiver states he / she is on anticoagulants: Xarelto Home medication list is obtained from [employer] import data. - Exposure Risk Screening:: None identified. Vital Signs: 07/28 13:40 BP 126 / 79; Pulse 86; Resp 18 S; Temp 97.6(O); Pulse Ox 100% on R/A; Weight 70.76 kg / gr2 156 lbs (R); Height 5 ft. 7 in. (170.18 cm) (R); Pain 4/10; 15:30 BP 125 / 90; Pulse 68; Resp 18; Temp 98.; Pulse Ox 98% ; ttb 13:40 Body Mass Index 24.43 (70.76 kg, 170.18 cm) gr2 MDM: 14:17 Financial registration complete. lg 14:45 [facility] Payment Agreement was scanned into [employer] and attached to record. lg 07/29 11:04 T-Sheet-- Draft Copy was scanned into [employer] and attached to record. gb 11:04 Other: DRUG UTILIZATION REPORT was scanned into [employer] and attached to record. gb Signatures: Renate Miner, Reg Reg gb Rolando Squires, Reg Reg lg Ana Garcia,RN RN ck1 Dominik Alcocer PA PA btw Adalgisa Norton, RN RN ttb The chart was reviewed and I authenticate all verbal orders and agree with the evaluation and treatment provided.Attachments: 07/28 14:45 [facility] Payment Agreement lg 07/29 11:04 T-Sheet-- Draft Copy gb Chart Complete MTDD
--- NOTE | 2016-07-30 16:45 | EDDOCDS ---
Physician Documentation [facility] Name: Becca Tatum Age: 46 yrs Sex: Female : 1970 Arrival Date: 07/28/2016 Time: 13:37 Bed TR8 Private MD: [facility] [place] - Adults Disposition: 07/28/16 15:29 Discharged to Home/Self Care. Impression: Pain in right knee - chronic, NO REFILLS GIVEN ON OPIATE MEDICATIONS, Anxiety disorder due to known physiological condition - NO REFILLS GIVEN ON CONTROLLED SUBSTANCES REQUESTED. - Condition is Stable. - Discharge Instructions: Chronic Pain, Generalized Anxiety Disorder. - Prescriptions for Hydroxyzine HCl 50 mg Oral Tablet - take 1 tablet by ORAL route every 8 hours As needed; 20 tablet. Medrol (Jesús) 4 mg Oral Tablets, Dose Pack - take 1 Pack by ORAL route as directed - follow package instructions; 1 packet. - Medication Reconciliation, Local Pharmacy Hours form. - Follow up: [facility]; When: Call to arrange an appointment; Reason: Further diagnostic work-up, Recheck today's complaints, Continuance of care. - Problem is chronic. - Symptoms are unchanged. Historical: - Allergies: Tramadol HCl (Unknown, Rash); Toradol (Rash); - Home Meds: 1. Klonopin 1 mg Oral tab 1 tab 3 times per day needs refill 2. Neurontin 800 mg Oral tab 1 tab 3 times per day 3. [place] 5-325 mg Oral tab 1 tab three times a day as needed (Last dose: 07/28/2016 09:00) 4. Xarelto 20 mg oral tab 1 tab once daily 5. Tylenol 500 mg Oral three times a day - PMHx: Anxiety; anxiety seizures; DVT; - PSHx: Tubal ligation; - Social history: Smoking status: Patient uses tobacco products, heavy tobacco smoker. No barriers to communication noted, The patient speaks fluent Chinese, Speaks appropriately for age. - Family history: Not pertinent. - : The pt / caregiver states he / she is on anticoagulants: Xarelto Home medication list is obtained from [employer] import data. - Exposure Risk Screening:: None identified. Vital Signs: 07/28 13:40 BP 126 / 79; Pulse 86; Resp 18 S; Temp 97.6(O); Pulse Ox 100% on R/A; Weight 70.76 kg / gr2 156 lbs (R); Height 5 ft. 7 in. (170.18 cm) (R); Pain 4/10; 15:30 BP 125 / 90; Pulse 68; Resp 18; Temp 98.; Pulse Ox 98% ; ttb 13:40 Body Mass Index 24.43 (70.76 kg, 170.18 cm) gr2 MDM: 14:17 Financial registration complete. lg 14:45 [facility] Payment Agreement was scanned into [employer] and attached to record. lg 07/29 11:04 T-Sheet-- Draft Copy was scanned into [employer] and attached to record. gb 11:04 Other: DRUG UTILIZATION REPORT was scanned into [employer] and attached to record. gb Signatures: Renate Miner, Reg Reg gb Rolando Squires, Reg Reg lg Ana Garcia,RN RN ck1 Dominik Alcocer PA PA btw Adalgisa Norton, RN RN ttb The chart was reviewed and I authenticate all verbal orders and agree with the evaluation and treatment provided.Attachments: 07/28 14:45 [facility] Payment Agreement lg 07/29 11:04 T-Sheet-- Draft Copy gb Chart Complete MTDD
== END 2016-07-28 15:44 | disposition home or self-care (01) ==
LOC: M ED 13:37
DX: G89.29 Other chronic pain (principal); F41.9 Anxiety disorder, unspecified; Z72.0 Tobacco use; Z79.01 Long term (current) use of anticoagulants; Z86.718 Personal history of other venous thrombosis and embolism; Z79.891 Long term (current) use of opiate analgesic; Z79.899 Other long term (current) drug therapy; Z88.5 Allergy status to narcotic agent

== ENCOUNTER → 2016-08-14 | Outpatient (REF) | payer OTHER | LOC: M LAB REF 16:36 | PROVIDERS: ATTEND Nurse Practitioner Family | DX: R39.11 Hesitancy of micturition (principal); Z13.9 Encounter for screening, unspecified ==

== ENCOUNTER → 2016-08-15 | Outpatient (CLI) | payer OTHER ==
[2016-08-15 13:41] LABS: BASO % 0.6 % (0.0-1.0); EOS # 0.2 K/mm3 (0.0-0.50); EOS % 3.7 % (0.0-3.0); LARGE UNSTAINED CELL # 0.1 K/mm3 (0.0-0.4); LARGE UNSTAINED CELL % 2.4 % (0.0-4.0); LYMPH # 2.1 K/mm3 (1.5-4.5); LYMPH % 34.8 % (24.0-44.0); MEAN CORPUSCULAR HEMOGLOBIN 31.1 pg (27.0-33.0); MEAN CORPUSCULAR HGB CONC 33.4 g/dl (32.0-36.5); MONO # 0.3 K/mm3 (0.0-0.8); MONO % 4.6 % (0.0-5.0); NEUTROPHILS # 3.2 K/mm3 (1.8-7.7); NEUTROPHILS % 53.8 % (36.0-66.0); PLATELET COUNT, AUTOMATED 265 k/mm3 (150-450); RED CELL DISTRIBUTION WIDTH 13.6 % (11.5-14.5); WHITE BLOOD COUNT 5.9 K/mm3 (4.0-10.0)
[2016-08-15 14:18] LABS: ALBUMIN 3.5 GM/DL (3.2-5.2); ALBUMIN/GLOBULIN RATIO 0.95 (1.00-1.93); ALKALINE PHOSPHATASE 106 U/L (45-117); ALT/SGPT 22 U/L (12-78); ANION GAP 8 MEQ/L (8-16); AST/SGOT 24 U/L (15-37); BILIRUBIN,TOTAL 0.3 MG/DL (0.2-1.0); BLOOD UREA NITROGEN 7 MG/DL (7-18); CALCIUM LEVEL 8.8 MG/DL (8.5-10.1); CARBON DIOXIDE LEVEL 25 MEQ/L (21-32); CHLORIDE LEVEL 106 MEQ/L (98-107); CHOLESTEROL LEVEL 200 MG/DL (<200); CREATININE FOR GFR 0.85 MG/DL (0.55-1.02); GLOMERULAR FILTRATION RATE > 60.0 (>58); GLUCOSE, FASTING 125 MG/DL (70-105); POTASSIUM SERUM 4.2 MEQ/L (3.5-5.1); SODIUM LEVEL 139 MEQ/L (136-145); TOTAL PROTEIN 7.2 GM/DL (6.4-8.2); TRIGLYCERIDES LEVEL 137 MG/DL (<150)
[2016-08-15 14:26] LABS: HIV SCRN NEGATIVE (NEGATIVE)
[2016-08-15 14:27] LABS: CONTROL LINE INT CTR LINE PRESENT; HIV SCRN1 NEGATIVE (NEGATIVE)
== END ==
LOC: M LAB 13:00
PROVIDERS: ATTEND Nurse Practitioner Family
DX: Z13.9 Encounter for screening, unspecified (principal); Z13.29 Encounter for screening for other suspected endocrine disorder; F41.1 Generalized anxiety disorder; I27.82 Chronic pulmonary embolism; R39.11 Hesitancy of micturition

== ENCOUNTER → 2016-09-04 | Outpatient (REF) | payer OTHER | LOC: M SMT 17:17 | PROVIDERS: ATTEND Nurse Practitioner Women's Health | DX: R31.29 Other microscopic hematuria (principal) ==

== ENCOUNTER 2016-09-15 20:34 | Observation (INO) | payer OTHER ==
[~2016-09-15] VITALS: Ht 165.1 cm; Wt 71.3 kg
[2016-09-15] MEDS ORDERED: XARE20TA PO (20:44)
[2016-09-15] MEDS ORDERED: NS 1,000 ML IV ONE (21:00)
[2016-09-15 21:05] LABS: BASO % 0.4 % (0.0-1.0); EOS # 0.2 K/mm3 (0.0-0.50); LARGE UNSTAINED CELL # 0.2 K/mm3 (0.0-0.4); LYMPH # 2.5 K/mm3 (1.5-4.5); LYMPH % 33.6 % (24.0-44.0); MEAN CORPUSCULAR HEMOGLOBIN 31.7 pg (27.0-33.0); MEAN CORPUSCULAR HGB CONC 32.8 g/dl (32.0-36.5); MEAN CORPUSCULAR VOLUME 96.5 fl (80.0-96.0); MONO # 0.4 K/mm3 (0.0-0.8); MONO % 4.8 % (0.0-5.0); NEUTROPHILS # 4.2 K/mm3 (1.8-7.7); NEUTROPHILS % 56.2 % (36.0-66.0); PLATELET COUNT, AUTOMATED 217 k/mm3 (150-450); WHITE BLOOD COUNT 7.6 K/mm3 (4.0-10.0)
[2016-09-15 21:09] LABS: CONTROL LINE HCG INT CTR LINE PRESENT
[2016-09-15 21:17] LABS: ALBUMIN 3.6 GM/DL (3.2-5.2); ALBUMIN/GLOBULIN RATIO 1.09 (1.00-1.93); ALKALINE PHOSPHATASE 96 U/L (45-117); ALT/SGPT 23 U/L (12-78); ANION GAP 3 MEQ/L (8-16); AST/SGOT 24 U/L (15-37); BILIRUBIN,DIRECT < 0.1 MG/DL (0.0-0.2); BILIRUBIN,TOTAL 0.1 MG/DL (0.2-1.0); BLOOD UREA NITROGEN 12 MG/DL (7-18); CALCIUM LEVEL 8.7 MG/DL (8.5-10.1); CARBON DIOXIDE LEVEL 32 MEQ/L (21-32); CHLORIDE LEVEL 105 MEQ/L (98-107); CREATININE FOR GFR 0.77 MG/DL (0.55-1.02); GLOMERULAR FILTRATION RATE > 60.0 (>58); GLUCOSE, FASTING 143 MG/DL (70-105); POTASSIUM SERUM 3.9 MEQ/L (3.5-5.1); SODIUM LEVEL 140 MEQ/L (136-145); TOTAL PROTEIN 6.9 GM/DL (6.4-8.2)
[2016-09-15 21:23] LABS: ABG BASE EXCESS 1.4 (-2.0-2.0); ABG HCO3 26.4 MEQ/L (22.0-26.0); ABG PARTIAL PRESSURE CO2 43.1 mmHg (35.0-45.0); ABG STANDARD HCO3 25.6 MEQ/L (22.0-26.0); ABG TOTAL CO2 27.7 MEQ/L (22.0-29.0); ABG pH (ARTERIAL) 7.405 UNITS (7.350-7.450)
[2016-09-15] MEDS ORDERED: BISACODYL 10 MG SUPP PR PRN (23:30)
[2016-09-15] MEDS ORDERED: ONDANSETRON 4MG/2ML VIAL (J2405) IV PRN (23:30)
[2016-09-15] MEDS ORDERED: ACETAMINOPHEN 500 MG TAB PO PRN (23:45)
[2016-09-15] MEDS ORDERED: CLON1TAB PO (23:55)
[2016-09-15] MEDS ORDERED: HYDR-3713 PO (23:55)
[2016-09-16] VITALS: BP 115/56
[2016-09-16 00:05] LABS: METHADONE URINE NEGATIVE (NEGATIVE)
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
[2016-09-16 04:00] VITALS: BP 99/58
[2016-09-16 06:21] LABS: BASO % 0.3 % (0.0-1.0); EOS # 0.2 K/mm3 (0.0-0.50); EOS % 3.2 % (0.0-3.0); LARGE UNSTAINED CELL # 0.1 K/mm3 (0.0-0.4); LARGE UNSTAINED CELL % 1.5 % (0.0-4.0); LYMPH # 2.3 K/mm3 (1.5-4.5); LYMPH % 34.4 % (24.0-44.0); MEAN CORPUSCULAR HEMOGLOBIN 31.8 pg (27.0-33.0); MEAN CORPUSCULAR HGB CONC 33.3 g/dl (32.0-36.5); MEAN CORPUSCULAR VOLUME 95.5 fl (80.0-96.0); MONO # 0.5 K/mm3 (0.0-0.8); MONO % 7.4 % (0.0-5.0); NEUTROPHILS # 3.4 K/mm3 (1.8-7.7); NEUTROPHILS % 53.1 % (36.0-66.0); PLATELET COUNT, AUTOMATED 214 k/mm3 (150-450); RED CELL DISTRIBUTION WIDTH 13.4 % (11.5-14.5); WHITE BLOOD COUNT 6.4 K/mm3 (4.0-10.0)
[2016-09-16 07:04] LABS: ALBUMIN 2.9 GM/DL (3.2-5.2); ALKALINE PHOSPHATASE 80 U/L (45-117); ALT/SGPT 22 U/L (12-78); ANION GAP 6 MEQ/L (8-16); AST/SGOT 20 U/L (15-37); BILIRUBIN,TOTAL 0.2 MG/DL (0.2-1.0); BLOOD UREA NITROGEN 10 MG/DL (7-18); CALCIUM LEVEL 8.2 MG/DL (8.5-10.1); CARBON DIOXIDE LEVEL 27 MEQ/L (21-32); CHLORIDE LEVEL 111 MEQ/L (98-107); CREATININE FOR GFR 0.75 MG/DL (0.55-1.02); GLOMERULAR FILTRATION RATE > 60.0 (>58); GLUCOSE, FASTING 114 MG/DL (70-105); POTASSIUM SERUM 3.8 MEQ/L (3.5-5.1); SODIUM LEVEL 144 MEQ/L (136-145); TOTAL PROTEIN 5.8 GM/DL (6.4-8.2)
[2016-09-16 08:00] VITALS: BP 102/62
--- NOTE | 2016-09-16 08:38 | ECGEPIP ---
Stationary ECG Study [facility] - ED Test Date: 2016-09-15 Pat Name: OLIVIA DUMAS Department: Room: [place] [address] Gender: F Professional Services Specialist: gabby : 1970 Requested By: ONEIL Vizcaino Order Number: [id number] Reading MD: June Pedroza Measurements Intervals [place] Rate: 50 P: MT: 0 QRS: 1 QRSD: 93 T: 53 QT: 459 QTc: 420 Interpretive Statements SUPRAVENTRICULAR BRADYCARDIA ABNORMAL RHYTHM ECG NSTTW ABNORMALITY INCREASED RATE 06/15/16 Electronically Signed On 09-16-2016 8:38:27 EDT by June Pedroza
[2016-09-16] MEDS: SENOKOT S TAB PO SCH ×2 (08:44→20:46)
[2016-09-16] MEDS: PANTOPRAZOLE 40MG TAB (PROTONIX) PO SCH (08:44)
--- NOTE | 2016-09-16 08:54 | REP ---
AP PORTABLE CHEST: 09/15/2016. Comparison: 06/15/2016. Clinical history: Drug overdose. Findings. Lungs are well inflated and without infiltrate, effusion, atelectasis or mass. The heart, mediastinal and hilar contours are normal. Airway intact. The bony thorax shows no focal lesion. Impression: 1. Negative portable chest for any acute finding. Signed by Emerson Bush MD 09/16/2016 08:17 P
[2016-09-16] MEDS ORDERED: GABAPENTIN 300 MG CAP PO SCH (09:00)
[2016-09-16 12:00] VITALS: BP 114/61
--- NOTE | 2016-09-16 12:15 | IPNPDOC ---
Text Note Date of Service The patient was seen on 09/16/16. NOTE Subjective: States she feels well once to go home. Denies chest pain/possible/ palpitations. Objective: Vitals: (see below) General: No acute distress, laying comfortably in bed. HEENT: Moist mucous membranes. Neck: No JVD or lymphadenopathy Cardiac: RRR, No murmurs Pulm: Clear to auscultation b/l. No wheezing, rhonchi Abd: NT/ND + BS Ext: No edema or cyanosis Neuro: Strength 5/5 BUE and BLE. CN 2-12 intact. AAO x 3 Not suicidal or homicidal. No hallucinations. Labs (see below) Images: CXR 09/15/16 Impression: 1. Negative portable chest for any acute finding. Assessment/Plan 1. Drug overdose- Klonopin, approximately 50 tablets from Sunday to Sunday. Questionable intentional suicide. We'll have psychiatric evaluation. Patient is less lethargic today, is answering questions appropriately. We'll continue one-to-one observation until cleared by psychiatry. 2. Sinus bradycardia- likely secondary to recent overdose. We'll continue to monitor in telemetry. 3. History of DVT on Xarelto 4. History of anxiety/depression 5. History of alcohol and opiate abuse 6. History of neuropathy 7. History of seizures 8. History of psoriasis 9. History of overactive bladder DVT prophy: Xarelto VS,Fishbone, I+O VS, Fishbone, I+O Laboratory Tests 09/15/16 20:42 Red Blood Count 4.25, Mean Corpuscular Volume 96.5 H, Mean Corpuscular Hemoglobin 31.7, Mean Corpuscular Hemoglobin Concent 32.8, Red Cell Distribution Width 13.0, Neutrophils (%) (Auto) 56.2, Lymphocytes (%) (Auto) 33.6, Monocytes (%) (Auto) 4.8, Eosinophils (%) (Auto) 3.0, Basophils (%) (Auto ) 0.4, Neutrophils # (Auto) 4.2, Lymphocytes # (Auto) 2.5, Monocytes # (Auto) 0.4, Eosinophils # (Auto) 0.2, Basophils # (Auto) 0.0 09/16/16 06:13 Red Blood Count 3.83 L, Mean Corpuscular Volume 95.5, Mean Corpuscular Hemoglobin 31.8, Mean Corpuscular Hemoglobin Concent 33.3, Red Cell Distribution Width 13.4, Neutrophils (%) (Auto) 53.1, Lymphocytes (%) (Auto) 34.4, Monocytes (%) (Auto) 7.4 H, Eosinophils (%) (Auto) 3.2 H, Basophils (%) ( Auto) 0.3, Neutrophils # (Auto) 3.4, Lymphocytes # (Auto) 2.3, Monocytes # (Auto ) 0.5, Eosinophils # (Auto) 0.2, Basophils # (Auto) 0.0, Calcium Level 8.2 L, Aspartate Amino Transf (AST/SGOT) 20, Alanine Aminotransferase (ALT/SGPT) 22, Alkaline Phosphatase 80, Total Bilirubin 0.2 #, Total Protein 5.8 L, Albumin 2.9 L Vital Signs Date Time Temp Pulse Resp B/P Pulse Ox O2 Delivery O2 Flow Rate FiO2 09/16/16 08:00 97.3 60 16 102/62 99 Room Air I&O- Last 24 Hours up to 6 AM 09/16/16 06:00 Intake Total 240 ml Balance 240 ml HANNAH COULTER MD Sep 16, 2016 12:15
[2016-09-16 14:45] VITALS: BP 128/71
[2016-09-16] MEDS ORDERED: RIVAROXABAN 20 MG TAB (XARELTO) PO SCH (18:00)
[2016-09-16 20:00] VITALS: BP 131/72
[2016-09-17] VITALS: BP 120/65
[2016-09-17 04:00] VITALS: BP 109/66
[2016-09-17 06:01] LABS: BASO % 0.5 % (0.0-1.0); EOS # 0.2 K/mm3 (0.0-0.50); EOS % 2.9 % (0.0-3.0); LARGE UNSTAINED CELL # 0.1 K/mm3 (0.0-0.4); LARGE UNSTAINED CELL % 2.1 % (0.0-4.0); LYMPH # 2.3 K/mm3 (1.5-4.5); LYMPH % 41.3 % (24.0-44.0); MEAN CORPUSCULAR HEMOGLOBIN 31.7 pg (27.0-33.0); MEAN CORPUSCULAR HGB CONC 32.7 g/dl (32.0-36.5); MEAN CORPUSCULAR VOLUME 96.8 fl (80.0-96.0); MONO # 0.4 K/mm3 (0.0-0.8); MONO % 6.7 % (0.0-5.0); NEUTROPHILS # 2.5 K/mm3 (1.8-7.7); NEUTROPHILS % 46.5 % (36.0-66.0); PLATELET COUNT, AUTOMATED 211 k/mm3 (150-450); RED CELL DISTRIBUTION WIDTH 13.5 % (11.5-14.5); WHITE BLOOD COUNT 5.4 K/mm3 (4.0-10.0)
[2016-09-17 06:17] LABS: ALBUMIN 3.2 GM/DL (3.2-5.2); ALBUMIN/GLOBULIN RATIO 0.84 (1.00-1.93); ALKALINE PHOSPHATASE 87 U/L (45-117); ALT/SGPT 24 U/L (12-78); ANION GAP 5 MEQ/L (8-16); AST/SGOT 29 U/L (15-37); BILIRUBIN,TOTAL 0.3 MG/DL (0.2-1.0); BLOOD UREA NITROGEN 8 MG/DL (7-18); CARBON DIOXIDE LEVEL 30 MEQ/L (21-32); CHLORIDE LEVEL 107 MEQ/L (98-107); CREATININE FOR GFR 0.83 MG/DL (0.55-1.02); GLOMERULAR FILTRATION RATE > 60.0 (>58); GLUCOSE, FASTING 90 MG/DL (70-105); POTASSIUM SERUM 4.1 MEQ/L (3.5-5.1); SODIUM LEVEL 142 MEQ/L (136-145)
--- NOTE | 2016-09-17 08:30 | CR ---
DATE OF CONSULTATION: 09/16/2016 HISTORY OF PRESENT ILLNESS: I was asked to see this 46-year-old woman who was admitted after she presented to the emergency room stating that she was not feeling well for a couple of days and she decided to take 50 to 60 Klonopin pills 1 mg each and she stated, "to make myself feel better." The patient was denying that it was a suicidal attempt; however, Dr. Walter informed me that he spoke with the patient's mother. The patient's mother was concerned because apparently the patient's boyfriend told her that her overdose of Klonopin was a suicidal attempt, this what the patient had told him. The patient is very angry and tells me that this person is not even her boyfriend and she says that it was not a suicidal attempt. However, she is not able to explain to me how her taking 50 to 60 pills of Klonopin was not a dangerous act, whether it was an intentional suicidal attempt or not. She is not very cooperative with the interview and basically keeps interjecting that it was not a suicidal attempt and that she cannot understand why I feel she needs to go to the psychiatric unit. She was denying that she is feeling depressed. She is denying any stressors and at this point I feel she is just minimizing everything and not a reliable historian. PAST PSYCHIATRIC HISTORY: She did say that she has never been in a psychiatric unit before and that she has never done outpatient psychiatric treatment. She told me that the Klonopin is prescribed by her primary care provider. Apparently, she is supposed to be on Klonopin 1 mg three times a day. She says that it is prescribed for anxiety. Actually, she stated, "it is for my anxiety seizures." The patient does have a history of seizures. She says that she has never made any suicidal attempts in the past. FAMILY HISTORY: She denies any psychiatric history or suicides in the family. ABUSE HISTORY: She denies any history of any physical or sexual abuse. SUBSTANCE ABUSE HISTORY: She really minimizes how much she drinks. She does not think that this is a problem for her. She does say that 10 to 12 years ago she had been abusing opiates and she states that it took awhile, but she denies using any drugs at this point. Her toxicology was negative for any drugs other than benzodiazepine. MEDICAL HISTORY: The patient has a history of hepatitis C, seizure disorder, neuropathy, psoriasis, overactive bladder or urinary tract symptoms. MENTAL STATUS EXAMINATION: She is alert and oriented times three. She is sitting in bed. She was pretty irritated and angry throughout. She was guarded. She is not a good historian. There is no formal thought disorder noted. She stated that her mood was fine. Affect was labile. She is not psychotic. She is denying being suicidal, but I think that she is minimizing her symptoms. She is denying being homicidal. Concentration is fair. Memory intact. Insight and judgment poor. DIAGNOSES: 1. Suicidal attempt. 2. Unspecified anxiety disorder. 3. Rule out unspecified depressive disorder. 4. Status post overdose on Klonopin. 5. History of opioid use disorder, severe, in remission. 6. Rule out alcohol abuse disorder. TREATMENT RECOMMENDATIONS: At this point, although the patient denies it, I suspect that her overdose of Klonopin, which was very severe based on the number of pills that she took that this was indeed a suicidal attempt. Therefore, once the patient is medically stable, she should be transferred to the psychiatric unit for further evaluation and stabilization.
[2016-09-17] MEDS: SENOKOT S TAB PO SCH (09:00)
[2016-09-17] MEDS: PANTOPRAZOLE 40MG TAB (PROTONIX) PO SCH (09:00)
[2016-09-17] MEDS ORDERED: GABA-283 PO (12:20)
[2016-09-17] MEDS ORDERED: HYDR-3719 PO (12:20)
[2016-09-17] MEDS ORDERED: CLON1TAB PO (12:20)
--- NOTE | 2016-09-17 14:31 | DS.PDOC ---
Discharge Summary General Date of Admission Sep 15, 2016 at 23:24 Date of Discharge Sep 17, 2016 at 11:30 Attending Physician: HANNAH COULTER MD Specialist/Consultants Involve: Shirlene Ramirez Discharge Summary PROCEDURES PERFORMED DURING STAY: None. ADMITTING/DISCHARGE DIAGNOSES: 1. Klonopin overdose; suicide attempt 2. Sinus bradycardia 3. History of DVT on Xarelto 4. History of anxiety/depression 5. History of alcohol and opiate abuse 6. History of neuropathy 7. History of seizures 8. History of psoriasis 9. History of overactive bladder COMPLICATIONS/CHIEF COMPLAINT: Benzodiazepine O/D Of Undetermined Intent. HISTORY OF PRESENT ILLNESS/HOSPITAL COURSE: . Is a 46-year-old female past medical history of anxiety, depression, alcohol and opiate abuse who presents after being found unresponsive by EMS. Patient states she was having myalgias, malaise, nasal congestion, chills and feeling as if she had the flow and states that she was taking Klonopin for that. Apparently she had taken 50-60 Klonopin pills in less than 48 hours. Her friend states that says she went to sleep the day before and was okay, and believed that she had gone to sleep. The history was initially incomplete, as the patient was very lethargic upon presentation. Patient was also noted to be bradycardic. When the patient's became more alert, she denied any suicide attempt, however I did speak to the patient's mother who states that she had told her boyfriend that she wanted to . The nurses had noted that the patient was also hiding pills from home while coming up to the telemetry unit. I spoke to the patient' s mother and she is in agrees that the patient needs help, and agrees that the patient needs to be admitted to the inpatient mental health unit given her suicide attempt. Dr. Fernandes has evaluated the patient and noted that the patient did have a suicide attempt, and will be taking care to the inpatient mental health unit for further evaluation. The patient's did have a few episodes of sinus bradycardia while sleeping however the patient is asymptomatic. CE were negative. The patient's heart rate has significantly improved since her admission. This may be secondary to a combination of the Klonopin as well as the gabapentin that the patient had taken. These have both since been discontinued. DISCHARGE MEDICATIONS: Please see below. ALLERGIES: Please see below. PHYSICAL EXAMINATION ON DISCHARGE: General: No acute distress, laying comfortably in bed. HEENT: Moist mucous membranes. Neck: No JVD or lymphadenopathy Cardiac: RRR, No murmurs Pulm: Clear to auscultation b/l. No wheezing, rhonchi Abd: NT/ND + BS Ext: No edema or cyanosis Neuro: Strength 5/5 BUE and BLE. CN 2-12 intact. AAO x 3 No hallucinations. LABORATORY DATA: Please see below. IMAGING: CXR 09/17/16 Impression: 1. Negative portable chest for any acute finding. PROGNOSIS: Good ACTIVITY: As tolerated. DIET: As tolerated DISCHARGE PLAN/DISPOSITION: [facility] [place]. DISCHARGE INSTRUCTIONS: 1. Follow-up with PCP in 1-2 weeks after being discharged from [facility]. DISCHARGE CONDITION: Stable. TIME SPENT ON DISCHARGE: Greater than 30 minutes. Vital Signs/I&Os Vital Signs Date Time Temp Pulse Resp B/P Pulse Ox O2 Delivery O2 Flow Rate FiO2 09/17/16 04:00 98.7 53 20 109/66 95 Room Air I&O- Last 24 Hours up to 6 AM 09/17/16 06:00 Intake Total 960 ml Output Total 1375 ml Balance -415 ml Laboratory Data Labs 24H Laboratory Tests 2 09/17/16 05:22: Blood Urea Nitrogen 8, Creatinine 0.83, Sodium Level 142, Potassium Level 4.1, Chloride Level 107, Carbon Dioxide Level 30, Calcium Level 9.0, Aspartate Amino Transf (AST/SGOT) 29, Alanine Aminotransferase (ALT/SGPT) 24, Alkaline Phosphatase 87, Total Bilirubin 0.3, Total Protein 7.0#, Albumin 3.2, Albumin/ Globulin Ratio 0.84L, Anion Gap 5L, White Blood Count 5.4, Red Blood Count 4.05 , Hemoglobin 12.8, Hematocrit 39.2, Mean Corpuscular Volume 96.8H, Mean Corpuscular Hemoglobin 31.7, Mean Corpuscular Hemoglobin Concent 32.7, Red Cell Distribution Width 13.5, Platelet Count 211, Neutrophils (%) (Auto) 46.5, Lymphocytes (%) (Auto) 41.3, Monocytes (%) (Auto) 6.7H, Eosinophils (%) (Auto) 2.9, Basophils (%) (Auto) 0.5, Neutrophils # (Auto) 2.5, Lymphocytes # (Auto) 2.3, Monocytes # (Auto) 0.4, Eosinophils # (Auto) 0.2, Basophils # (Auto) 0.0, Glomerular Filtration Rate > 60.0, Large Unclassified Cells # 0.1, Large Unclassified Cells % 2.1 09/17/16 10:18: Creatine Kinase MB 1.0, Creatine Kinase MB Relative Index 1.61, Total Creatine Kinase 62, Troponin I < 0.02 CBC/BMP Laboratory Tests 09/17/16 05:22 Calcium Level 9.0, Aspartate Amino Transf (AST/SGOT) 29, Alanine Aminotransferase (ALT/SGPT) 24, Alkaline Phosphatase 87, Total Bilirubin 0.3, Total Protein 7.0 #, Albumin 3.2, Red Blood Count 4.05, Mean Corpuscular Volume 96.8 H, Mean Corpuscular Hemoglobin 31.7, Mean Corpuscular Hemoglobin Concent 32.7, Red Cell Distribution Width 13.5, Neutrophils (%) (Auto) 46.5, Lymphocytes (%) (Auto) 41.3, Monocytes (%) (Auto) 6.7 H, Eosinophils (%) (Auto) 2.9, Basophils (%) (Auto) 0.5, Neutrophils # (Auto) 2.5, Lymphocytes # (Auto) 2.3, Monocytes # (Auto) 0.4, Eosinophils # (Auto) 0.2, Basophils # (Auto) 0.0 Microbiology Microbiology 09/17/16 Respiratory Virus Panel (PCR) ([facility]) - Final, Complete 09/16/16 Influenza Virus Type A Antigen - Final, Complete 09/16/16 Influenza Virus Type B Antigen - Final, Complete Discharge Medications Scheduled Clonazepam (Clonazepam) 1 Mg Tab 1 MG PO TID ANXIETY (Reported) Gabapentin (Gabapentin) 400 Mg Cap 600 MG PO QID SEIZURES (Reported) Rivaroxaban (Xarelto) 20 Mg Tab 20 MG PO DAILY (Reported) Scheduled PRN Acetaminophen/Hydrocodone (Hydrocodone/Acetaminophen 10-325 mg) 1 Tab Tab 1 TAB PO TIDP PRN PRN PAIN (Reported) Allergies Coded Allergies: Ketorolac Tromethamine (Verified Allergy, Mild, rash, 02/03/15) Tramadol (Verified Allergy, Unknown, 09/15/16) HANNAH COULTER MD Sep 17, 2016 14:31
--- NOTE | 2016-09-17 20:25 | ECGEPIP ---
Stationary ECG Study [facility] Test Date: 2016-09-16 Pat Name: OLIVIA DUMAS Department: Room: [place] [address] Gender: F Abstract Manager: verónica : 1970 Requested By: HANNAH COULTER Order Number: [id number] Reading MD: Mingo Pierre Measurements Intervals Clements Rate: 54 P: 32 SC: 199 QRS: -4 QRSD: 87 T: 51 QT: 442 QTc: 421 Interpretive Statements SINUS BRADYCARDIA LOW QRS VOLTAGE IN PRECORDIAL LEADS SIMILAR 09/15/16 BUT FOR LOWER VOLTAGE Electronically Signed On 09-17-2016 20:25:32 EDT by Mingo Pierre
== END 2016-09-17 11:30 ==
LOC: EDBD 20:34 → M ED 21:20 → M ED INP 23:24 → M PCU 09-16 14:42
PROVIDERS: ADMIT Internal Medicine Nephrology; ATTEND Internal Medicine
DX: T42.4X2A Poisoning by benzodiazepines, intentional self-harm, initial encounter (principal); T14.91 Suicide attempt; R00.1 Bradycardia, unspecified; B18.2 Chronic viral hepatitis C; Z86.73 Personal history of transient ischemic attack (TIA), and cerebral infarction without residual deficits; Z79.02 Long term (current) use of antithrombotics/antiplatelets; F41.9 Anxiety disorder, unspecified; F32.9 Major depressive disorder, single episode, unspecified; F10.10 Alcohol abuse, uncomplicated; F11.10 Opioid abuse, uncomplicated; N32.81 Overactive bladder; G40.909 Epilepsy, unspecified, not intractable, without status epilepticus; L40.8 Other psoriasis; F17.210 Nicotine dependence, cigarettes, uncomplicated; Z79.899 Other long term (current) drug therapy; Z88.8 Allergy status to other drugs, medicaments and biological substances

== ENCOUNTER 2016-09-17 11:38 | Inpatient (IN) | payer OTHER ==
[~2016-09-17] VITALS: Ht 167.6 cm; Wt 68.9 kg
[~2016-09-17 11:38] MED LIST changes: +HYDR-3713 PO; +XARE20TA PO
[2016-09-17 11:57] VITALS: BP 122/64
[2016-09-17] MEDS ORDERED: GABA-283 PO (12:20)
[2016-09-17] MEDS ORDERED: CLON1TAB PO (12:20)
[2016-09-17] MEDS ORDERED: HYDR-3719 PO (12:20)
[2016-09-17] MEDS ORDERED: MOM 30ML SUSPENSION UDC PO PRN (13:15)
[2016-09-17] MEDS ORDERED: ACETAMINOPHEN TAB 650MG DOSE (2X325MG) PO PRN (13:15)
[2016-09-17] MEDS ORDERED: MAALOX 30 ML SUSP *UDC PO PRN (13:15)
[2016-09-17] MEDS ORDERED: traZODone 50 MG TAB PO PRN (13:15)
[2016-09-17] MEDS: NORCO, ANEXSIA 5/325MG TABLET (HYDROcodone/ACETAMINOPHEN) PO PRN ×2 (14:13→21:44)
[2016-09-17] MEDS: FLUoxetine 20 MG CAP PO SCH (15:17)
[2016-09-17] MEDS: clonazePAM 0.5 MG TAB PO SCH ×2 (15:17→21:44)
[2016-09-17] MEDS: GABAPENTIN 300 MG CAP PO SCH ×2 (17:23→21:43)
[2016-09-17 18:00] VITALS: BP 117/62
[2016-09-17] MEDS: RIVAROXABAN 20 MG TAB (XARELTO) PO SCH (18:01)
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
[2016-09-18 06:36] VITALS: BP 100/50
[2016-09-18] MEDS: NORCO, ANEXSIA 5/325MG TABLET (HYDROcodone/ACETAMINOPHEN) PO PRN ×3 (07:05→20:41)
[2016-09-18] MEDS: NICOTINE 21MG/24HR 1 EA TRANSDERMAL TD SCH (07:52)
[2016-09-18] MEDS: GABAPENTIN 300 MG CAP PO SCH ×4 (07:55→20:40)
[2016-09-18] MEDS: clonazePAM 0.5 MG TAB PO SCH ×3 (07:55→20:40)
[2016-09-18] MEDS: FLUoxetine 20 MG CAP PO SCH (07:55)
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
[2016-09-18] MEDS: RIVAROXABAN 20 MG TAB (XARELTO) PO SCH (17:53)
[2016-09-18 18:00] VITALS: BP 113/71
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
[2016-09-19] MEDS: NORCO, ANEXSIA 5/325MG TABLET (HYDROcodone/ACETAMINOPHEN) PO PRN ×3 (06:05→20:44)
[2016-09-19 06:11] VITALS: BP 113/66
[2016-09-19] MEDS: NICOTINE 21MG/24HR 1 EA TRANSDERMAL TD SCH (08:10)
[2016-09-19] MEDS: GABAPENTIN 300 MG CAP PO SCH ×4 (08:10→20:34)
[2016-09-19] MEDS: clonazePAM 0.5 MG TAB PO SCH ×2 (08:10→20:34)
[2016-09-19] MEDS: FLUoxetine 20 MG CAP PO SCH (08:10)
--- NOTE | 2016-09-19 12:57 | IPNPDOC ---
[facility] Progress Note Progress Note DATE OF SERVICE: 09/19/16 HISTORY: Patient was transferred from the medical floor after receiving treatment post overdose on 50-60 Klonopin tablets, patient denies ever experiencing suicidal ideation, denies that overdose was a suicide attempt. Patient reports improvement in symptoms of anxiety and depression, denies suicidal and homicidal ideation, denies audiovisual hallucinations, and denies urge to engage in self-injurious behavior. Patient has been taking Prozac which was recently restarted and indicates medication is helping to lower anxiety and improve mood, denies medication side effects. Patient denies increased anxiety as a result of Klonopin taper and states she remains in agreement with tapering off medication in preparation for discharge. Patient indicates she was being prescribed Klonopin for symptoms of anxiety, notes she restarted Klonopin approximately 30 days ago and had not been taking Klonopin for 7 months prior to restart. Patient states, "I have not been taking Klonopin for any medical reason, it had nothing to do with my seizures and I haven't had a seizure in over a year even when I wasn't taking the Klonopin." Patient adds she has abruptly discontinued klonopin in the past with no adverse effects. Patient states she is being prescribed gabapentin to address seizure disorder. Patient denies challenges with sleep, indicates appetite, concentration and focus are normal. Patient reports energy level remains low. Patient has been attending groups, denies physical pain and presents with no signs of acute distress at time of interaction. I-Stop review completed 09/19/16 VITAL SIGNS: See below. NEW TEST RESULTS: No new results. PAST MEDICAL/SURGICAL HISTORY: History of deep vein thrombosis of the upper extremity, currently on Xarelto, chronic hepatitis, history of seizure disorder I'm a history of neuropathy, history of psoriasis, overactive bladder. Tubal ligation 1999, section 2, left knee surgery. Labs on admission indicate low anion gap, AGR, elevated MCV, mono %, basophils, LDL cholesterol, hep C index, HCV RNA 09/17/16 EKG sinus bradycardia low QRS voltage in precordial leads similar 09/15/16 but for lower voltage, sinus bradycardia at a rate of 54. UDS positive for benzodiazepines on admission to medical floor HCV negative CURRENT MEDICATIONS: See below. MENTAL STATUS EXAMINATION: General appearance: Patient is a 46-year-old, mother of 6 children, who is dressed in hospital clothing, exhibits adequate personal hygiene, is engageable but evasive, ambulates with steady gait, appears stated age. Speech: Of normal rate, rhythm, volume, spontaneous. Thought processes: Linear, logical, clear, goal-directed. Thought content: Logical, no paranoia noted. Abstract reasoning and computation: Requires further evaluation. Description of associations: Intact. Description of abnormal or psychotic thoughts: Denies suicidal or homicidal ideation, denies audiovisual hallucinations, does not appear to be responding to internal stimuli, exhibits no bizarre or paranoid ideation, denies preoccupation with violence or obsessions. Judgment: Poor. Insight: Limited Orientation: 3. Recent and remote memory: Appears intact. Attention span and concentration: Within normal limits. Fund of knowledge: Adequate. Mood: "Okay, I really wasn't trying to kill myself." Patient appears less anxious and less depressed, no mood lability noted Affect: Blunted, brightens 2, congruent. DIAGNOSES: Unspecified mood disorder, alcohol use disorder, rule out anxiety disorder, rule out depressive disorder, history of opioid use disorder, severe, in remission, status post suicide attempt ASSESSMENT: Patient is 46-year-old female who is a transfer from the medical floor status post overdose on Klonopin. Patient continues to minimize events which led to current hospitalization, denies that she has ever been suicidal and that overdose on Klonopin was intentional or suicide attempt. Patient remains evasive, superficially compliant, minimizes symptoms. Patient is visible at times, is observed to be resting in room at other times, has been attending unit programming, engaging with select peers. Patient has been restarted on Prozac, indicates she has taken in past with good effect, indicates she feels her mood is improving. Patient remains in agreement with benzodiazepine taper, adds she has taken hydroxyzine in the past to address symptoms of anxiety with good effect, states she is being prescribed gabapentin for seizure. Will monitor patient response to medications and monitor for side effects, will evaluate patient safety and discharge readiness. Patient remains on seizure precautions. Patient today states she plans to discharge to home with mother, is agreeable to participating in outpatient behavioral health services including psychotherapy and medication management through [facility]. MANAGEMENT PLAN: Continue Prozac 20 mg po q am. Initiate med trial hydroxyzine 25 mg po q 6 hours PRN anxiety. Continue Klonopin taper and reduce to 0.5 mg po BID with plan to discontinue med Maintain safety precautions Patient to attend groups and participate in unit programming to develop coping strategies Engage patient in discharge planning process and arrange meeting with support system to ensure safe discharge planning when appropriate Patient to follow up with PCM upon discharge TIME SPENT: 35 minutes. Vital Signs Vital Signs Date Time Temp Pulse Resp B/P Pulse Ox O2 Delivery O2 Flow Rate FiO2 09/19/16 06:35 18 09/19/16 06:11 98.2 77 113/66 09/17/16 11:57 99 Room Air Current Medications Current Medications Acetaminophen (Tylenol Tab) 650 mg Q6HP PRN PO HEADACHE or DISCOMFORT; Start at 13:15; Stop 10/17/16 at 13:14 Acetaminophen/ Hydrocodone Bitart ([place], Anexsia 5/325) 1 tab TIDP PRN PO PAIN Last administered on 09/19/16 06:05; Start 09/17/16 at 13:15; Stop at 13:14 Al Hydrox/Mg Hydrox/Simethicone (Mylanta) 30 ml Q4HP PRN PO HEARTBURN/ INDIGESTION; Start 09/17/16 at 13:15; Stop 10/17/16 at 13:14 Clonazepam (KlonoPIN) 0.5 mg BID PO Last administered on 09/19/16 08:10; Start 09/18/16 at 21:00; Stop 09/25/16 at 20:59 Clonazepam (KlonoPIN) 0.5 mg TID PO Last administered on 09/18/16 16:13; Start 09/17/16 at 16:00; Stop 09/18/16 at 20:34; Status DC Duloxetine HCl (Cymbalta) 30 mg QHS PO ; Start 09/19/16 at 21:00; Stop 10/19/16 at 20:59; Status Cancel Fluoxetine HCl (PROzac) 20 mg QAM PO Last administered on 09/19/16 08:10; Start 09/19/16 at 09:00; Stop 10/19/16 at 08:59 Fluoxetine HCl (PROzac) 20 mg QAM PO Last administered on 09/18/16 07:55; Start 09/17/16 at 09:00; Stop 09/18/16 at 15:42; Status DC Gabapentin (Neurontin) 600 mg QID PO Last administered on 09/19/16 12:10; Start 09/17/16 at 17:00; Stop 10/17/16 at 16:59 Magnesium Hydroxide (Milk Of Magnesia) 30 ml DAILYPRN PRN PO CONSTIPATION; Start 09/17/16 at 13:15; Stop 10/17/16 at 13:14 Nicotine (Nicoderm Cq 21mg) 1 patch DAILY TD Last administered on 09/19/16 08: 10; Start 09/18/16 at 09:00; Stop 10/18/16 at 08:59 Rivaroxaban (Xarelto) 20 mg DAILY@18 PO Last administered on 09/18/16 17:53; Start 09/17/16 at 18:00; Stop 09/24/16 at 17:59 Trazodone HCl (Desyrel) 50 mg QHSP PRN PO INSOMNIA; Start 09/17/16 at 13:15; Stop 10/17/16 at 13:14 Allergies Coded Allergies: Ketorolac Tromethamine (Verified Allergy, Mild, rash, 02/03/15) Tramadol (Verified Allergy, Unknown, 09/15/16) Carmela Bishop Sep 19, 2016 12:57
[2016-09-19] MEDS: hydrOXYzine 25 MG TAB PO PRN ×2 (16:10→23:45)
[2016-09-19] MEDS: RIVAROXABAN 20 MG TAB (XARELTO) PO SCH (17:40)
[2016-09-19 18:00] VITALS: BP 110/70
[2016-09-19] MEDS ORDERED: DULoxetine 30 MG CAP (CYMBALTA) PO SCH (21:00)
[2016-09-19] MEDS ORDERED: clonazePAM 0.5 MG TAB PO SCH (21:00)
[2016-09-20 06:31] VITALS: BP 110/61
[2016-09-20] MEDS: GABAPENTIN 300 MG CAP PO SCH ×4 (08:14→20:35)
[2016-09-20] MEDS: FLUoxetine 20 MG CAP PO SCH (08:14)
[2016-09-20] MEDS: NICOTINE 21MG/24HR 1 EA TRANSDERMAL TD SCH (08:15)
[2016-09-20] MEDS: NORCO, ANEXSIA 5/325MG TABLET (HYDROcodone/ACETAMINOPHEN) PO PRN ×2 (08:20→16:11)
[2016-09-20] MEDS: hydrOXYzine 25 MG TAB PO PRN (16:10)
[2016-09-20] MEDS: RIVAROXABAN 20 MG TAB (XARELTO) PO SCH (17:47)
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
[2016-09-20] MEDS: clonazePAM 0.5 MG TAB PO SCH (20:35)
[2016-09-21] MEDS: hydrOXYzine 25 MG TAB PO PRN (00:02)
[2016-09-21 06:26] VITALS: BP 111/67
[2016-09-21] MEDS: NORCO, ANEXSIA 5/325MG TABLET (HYDROcodone/ACETAMINOPHEN) PO PRN ×3 (08:28→20:17)
[2016-09-21] MEDS: FLUoxetine 20 MG CAP PO SCH (08:29)
[2016-09-21] MEDS: NICOTINE 21MG/24HR 1 EA TRANSDERMAL TD SCH (08:29)
[2016-09-21] MEDS: GABAPENTIN 300 MG CAP PO SCH ×4 (08:29→20:16)
[2016-09-21] MEDS ORDERED: FLUO20CA9 PO (13:22)
[2016-09-21] MEDS ORDERED: HYDR25T PO (13:22)
[2016-09-21] MEDS: RIVAROXABAN 20 MG TAB (XARELTO) PO SCH (17:46)
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
[2016-09-21 18:00] VITALS: BP 120/78
[2016-09-22 06:11] VITALS: BP 109/56
[2016-09-22] MEDS: FLUoxetine 20 MG CAP PO SCH (07:37)
[2016-09-22] MEDS: GABAPENTIN 300 MG CAP PO SCH (07:37)
[2016-09-22] MEDS: NORCO, ANEXSIA 5/325MG TABLET (HYDROcodone/ACETAMINOPHEN) PO PRN (07:38)
[2016-09-22] MEDS: NICOTINE 21MG/24HR 1 EA TRANSDERMAL TD SCH (07:39)
[2016-09-22] MEDS ORDERED: HYDR-3713 PO (08:57)
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
== END 2016-09-22 09:30 | disposition home or self-care (01) | DRG 753 ==
LOC: M PSY 11:38
PROVIDERS: ADMIT Psychiatry & Neurology Psychiatry; ATTEND Psychiatry & Neurology Psychiatry
DX: F39 Unspecified mood [affective] disorder (principal); G40.909 Epilepsy, unspecified, not intractable, without status epilepticus; K73.9 Chronic hepatitis, unspecified; F41.9 Anxiety disorder, unspecified; Z79.899 Other long term (current) drug therapy; Z88.8 Allergy status to other drugs, medicaments and biological substances; F10.10 Alcohol abuse, uncomplicated; L40.8 Other psoriasis; Z86.718 Personal history of other venous thrombosis and embolism; G60.9 Hereditary and idiopathic neuropathy, unspecified

== ENCOUNTER → 2016-11-08 | Outpatient (REF) | payer OTHER ==
[~2016-11-08] MED LIST changes: +FLUO20CA9 PO; +HYDR-3719 PO; +HYDR25T PO
== END ==
LOC: M LAB REF 12:46
PROVIDERS: ATTEND Nurse Practitioner Family
DX: F11.20 Opioid dependence, uncomplicated (principal)

== ENCOUNTER 2016-11-21 21:29 | Emergency (ER) | payer OTHER ==
[~2016-11-21] VITALS: Ht 170.2 cm; Wt 74.5 kg
[2016-11-21 21:30] VITALS: BP 133/90
[2016-11-21] MEDS ORDERED: KLON1TAB PO ×2 (21:39→23:53)
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
[2016-11-21] MEDS ORDERED: XARE20TA PO (23:58)
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
== END 2016-11-22 | disposition home or self-care (01) ==
LOC: M ED 22:50
DX: S09.90XA Unspecified injury of head, initial encounter (principal); Y04.0XXA Assault by unarmed brawl or fight, initial encounter; Y92.019 Unspecified place in single-family (private) house as the place of occurrence of the external cause; Y93.9 Activity, unspecified; Y99.9 Unspecified external cause status; F44.5 Conversion disorder with seizures or convulsions; F17.200 Nicotine dependence, unspecified, uncomplicated; Z86.718 Personal history of other venous thrombosis and embolism; Z79.01 Long term (current) use of anticoagulants

== ENCOUNTER 2017-01-13 12:37 | Emergency (ER) | payer OTHER ==
[~2017-01-13] VITALS: Ht 170.2 cm; Wt 71.8 kg
[2017-01-13 12:37] VITALS: BP 153/82
[~2017-01-13 12:37] MED LIST changes: +CLIN150C14 PO; -CLIN1CAP5 PO; +FLUO20CA19 PO; -FLUO20CA9 PO; +HYDR-3363 PO; -HYDR25T PO; +KLON1TAB PO; -NAPR500T2 PO; +NAPR500T3 PO
[2017-01-13 15:07] LABS: INR 0.91
[2017-01-13] MEDS ORDERED: ZOLO25TA PO (16:00)
[2017-04-17] MEDS ORDERED: SUBO8MIS SL (14:20)
[2017-04-17] MEDS ORDERED: GABA-283 PO (14:20)
== END 2017-01-13 16:09 | disposition left against medical advice (07) ==
LOC: M ED 12:37
DX: Z76.0 Encounter for issue of repeat prescription (principal); Z53.21 Procedure and treatment not carried out due to patient leaving prior to being seen by health care provider; F44.5 Conversion disorder with seizures or convulsions; F41.9 Anxiety disorder, unspecified; Z86.718 Personal history of other venous thrombosis and embolism; F17.200 Nicotine dependence, unspecified, uncomplicated; K92.9 Disease of digestive system, unspecified; N93.9 Abnormal uterine and vaginal bleeding, unspecified; Z86.19 Personal history of other infectious and parasitic diseases; M79.9 Soft tissue disorder, unspecified; F32.9 Major depressive disorder, single episode, unspecified; Z86.14 Personal history of Methicillin resistant Staphylococcus aureus infection; Z79.02 Long term (current) use of antithrombotics/antiplatelets; Z79.899 Other long term (current) drug therapy; Z88.6 Allergy status to analgesic agent; Z88.5 Allergy status to narcotic agent

== ENCOUNTER 2017-01-21 16:12 | Emergency (ER) | payer OTHER ==
[~2017-01-21] VITALS: Ht 167.6 cm; Wt 70.6 kg
[~2017-01-21 16:12] MED LIST changes: +ZOLO25TA PO
[2017-01-21 16:13] VITALS: BP 113/67
[2017-01-21] MEDS ORDERED: KLON1TAB PO (17:03)
[2017-01-21] MEDS ORDERED: XARE20TA PO (17:03)
[2017-04-17] MEDS ORDERED: SUBO8MIS SL (14:20)
[2017-04-17] MEDS ORDERED: GABA-283 PO (14:20)
[2017-04-19] MEDS ORDERED: CELE20TA PO (12:39)
[2017-04-19] MEDS ORDERED: TRAZO50TA PO (12:39)
[2017-04-19] MEDS ORDERED: CLON1TAB PO ×2 (13:15→14:49)
[2017-04-19] MEDS ORDERED: NEUR800T PO (13:21)
[2017-04-19] MEDS ORDERED: HYDR-3713 PO ×2 (13:27→14:55)
[2017-04-19] MEDS ORDERED: CITA20TA4 PO (14:47)
[2017-04-19] MEDS ORDERED: GABA800T PO (14:51)
[2017-04-19] MEDS ORDERED: TRAZ50TA11 PO (14:53)
== END 2017-01-21 17:10 | disposition home or self-care (01) ==
LOC: M ED 16:12
DX: F41.9 Anxiety disorder, unspecified (principal); Z76.0 Encounter for issue of repeat prescription; R56.9 Unspecified convulsions; Z86.718 Personal history of other venous thrombosis and embolism; F17.200 Nicotine dependence, unspecified, uncomplicated; Z79.899 Other long term (current) drug therapy; Z88.5 Allergy status to narcotic agent; Z88.6 Allergy status to analgesic agent

== ENCOUNTER 2017-01-24 20:39 | Emergency (ER) | payer OTHER ==
[~2017-01-24] VITALS: Ht 170.2 cm; Wt 71.3 kg
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
[2017-01-25 00:25] VITALS: BP 124/68
[2017-04-17] MEDS ORDERED: SUBO8MIS SL (14:20)
[2017-04-17] MEDS ORDERED: GABA-283 PO (14:20)
[2017-04-19] MEDS ORDERED: TRAZO50TA PO (12:39)
[2017-04-19] MEDS ORDERED: CELE20TA PO (12:39)
[2017-04-19] MEDS ORDERED: CLON1TAB PO ×2 (13:15→14:49)
[2017-04-19] MEDS ORDERED: NEUR800T PO (13:21)
[2017-04-19] MEDS ORDERED: HYDR-3713 PO ×2 (13:27→14:55)
[2017-04-19] MEDS ORDERED: CITA20TA4 PO (14:47)
[2017-04-19] MEDS ORDERED: GABA800T PO (14:51)
[2017-04-19] MEDS ORDERED: TRAZ50TA11 PO (14:53)
== END 2017-01-25 00:24 | disposition home or self-care (01) ==
LOC: EDBD 20:39 → M ED 20:39
DX: S00.93XA Contusion of unspecified part of head, initial encounter (principal); F32.9 Major depressive disorder, single episode, unspecified; W50.0XXA Accidental hit or strike by another person, initial encounter; Y92.9 Unspecified place or not applicable; Y99.9 Unspecified external cause status; Y93.9 Activity, unspecified; Z86.718 Personal history of other venous thrombosis and embolism; Z88.8 Allergy status to other drugs, medicaments and biological substances; Z79.899 Other long term (current) drug therapy

== ENCOUNTER 2017-01-28 16:53 | Emergency (ER) | payer OTHER ==
[~2017-01-28] VITALS: Ht 170.2 cm; Wt 70.9 kg
[2017-01-28] MEDS ORDERED: ACETAMINOPHEN 325 MG TAB PO ONE (18:30)
[2017-01-28] MEDS ORDERED: ONDANSETRON 4 MG ORAL DISINTEGRATING TAB (S0181) PO ONE (18:30)
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
[2017-01-28 19:24] VITALS: BP 116/72
[2017-01-28] MEDS ORDERED: KEFL500C17 PO (19:25)
[2017-01-28] MEDS ORDERED: ZOFR4TAB3 PO (19:25)
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
[2017-04-17] MEDS ORDERED: GABA-283 PO (14:20)
[2017-04-17] MEDS ORDERED: SUBO8MIS SL (14:20)
[2017-04-19] MEDS ORDERED: TRAZO50TA PO (12:39)
[2017-04-19] MEDS ORDERED: CELE20TA PO (12:39)
[2017-04-19] MEDS ORDERED: CLON1TAB PO ×2 (13:15→14:49)
[2017-04-19] MEDS ORDERED: NEUR800T PO (13:21)
[2017-04-19] MEDS ORDERED: HYDR-3713 PO ×2 (13:27→14:55)
[2017-04-19] MEDS ORDERED: CITA20TA4 PO (14:47)
[2017-04-19] MEDS ORDERED: GABA800T PO (14:51)
[2017-04-19] MEDS ORDERED: TRAZ50TA11 PO (14:53)
== END 2017-01-28 19:46 | disposition home or self-care (01) ==
LOC: M ED 16:53
DX: S00.93XA Contusion of unspecified part of head, initial encounter (principal); S80.212A Abrasion, left knee, initial encounter; S00.91XA Abrasion of unspecified part of head, initial encounter; F17.210 Nicotine dependence, cigarettes, uncomplicated; Y04.2XXA Assault by strike against or bumped into by another person, initial encounter; Y92.410 Unspecified street and highway as the place of occurrence of the external cause; Y99.9 Unspecified external cause status; Y93.9 Activity, unspecified; Z88.5 Allergy status to narcotic agent; Z88.8 Allergy status to other drugs, medicaments and biological substances; Z79.899 Other long term (current) drug therapy

== ENCOUNTER 2017-04-29 20:56 | Emergency (ER) | payer OTHER ==
[~2017-04-29] VITALS: Ht 170.2 cm; Wt 66.4 kg
[~2017-04-29 20:56] MED LIST changes: +CELE20TA PO; +CITA20TA4 PO; +GABA800T PO; +KEFL500C17 PO; +NEUR800T PO; +SUBO8MIS SL; +TRAZ50TA11 PO; +TRAZO50TA PO; +ZOFR4TAB3 PO
[2017-04-29 20:57] VITALS: BP 112/67
[2017-04-29] MEDS ORDERED: XARE20TA PO (21:05)
[2017-04-29] MEDS ORDERED: LIDOCAINE 1% MDV 20ML VIAL SC ONE (22:30)
[2017-04-29] MEDS ORDERED: KEFL500C17 PO (23:13)
[2017-04-29] MEDS ORDERED: CEPHALEXIN 500 MG CAP PO ONE (23:15)
== END 2017-04-29 23:42 | disposition home or self-care (01) ==
LOC: M ED 20:56
DX: S61.211A Laceration without foreign body of left index finger without damage to nail, initial encounter (principal); Z72.0 Tobacco use; W26.0XXA Contact with knife, initial encounter; Y92.099 Unspecified place in other non-institutional residence as the place of occurrence of the external cause; Y93.89 Activity, other specified; Y99.9 Unspecified external cause status

== ENCOUNTER → 2017-05-14 | Outpatient (CLI) | payer OTHER ==
[2017-05-14 19:57] LABS: ALBUMIN/GLOBULIN RATIO 0.91 (1.00-1.93); ALKALINE PHOSPHATASE 118 U/L (45-117); ALT/SGPT 34 U/L (12-78); ANION GAP 6 MEQ/L (8-16); AST/SGOT 25 U/L (7-37); BILIRUBIN,TOTAL 0.3 MG/DL (0.2-1.0); BLOOD UREA NITROGEN 9 MG/DL (7-18); CARBON DIOXIDE LEVEL 30 MEQ/L (21-32); CHLORIDE LEVEL 102 MEQ/L (98-107); CREATININE FOR GFR 0.82 MG/DL (0.55-1.02); GLOMERULAR FILTRATION RATE > 60.0 (>58); GLUCOSE, FASTING 96 MG/DL (70-105); POTASSIUM SERUM 4.7 MEQ/L (3.5-5.1); SODIUM LEVEL 138 MEQ/L (136-145); TOTAL PROTEIN 8.4 GM/DL (6.4-8.2)
[2017-05-14 20:02] LABS: MEAN CORPUSCULAR HEMOGLOBIN 30.8 pg (27.0-33.0); MEAN CORPUSCULAR HGB CONC 34.1 g/dl (32.0-36.5); MEAN CORPUSCULAR VOLUME 90.2 fl (80.0-96.0); PLATELET COUNT, AUTOMATED 275 10^3/uL (150-450); RED CELL DISTRIBUTION WIDTH 14.2 % (11.5-14.5); WHITE BLOOD COUNT 9.1 10^3/uL (4.0-10.0)
--- NOTE | 2017-05-15 08:41 | ECGEPIP ---
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 Leftward axis. Within normal limits Electronically Signed On 05-15-2017 8:41:26 EST by Gerhard Deleon
== END ==
LOC: M LAB 18:17
PROVIDERS: ATTEND Family Medicine
DX: F11.20 Opioid dependence, uncomplicated (principal)

== ENCOUNTER 2017-08-27 13:13 | Emergency (ER) | payer OTHER | END 2017-08-27 15:45 | disposition home or self-care (01) | LOC: M ED 13:13 | DX: Z76.0 Encounter for issue of repeat prescription (principal); R56.9 Unspecified convulsions; H61.22 Impacted cerumen, left ear; B19.20 Unspecified viral hepatitis C without hepatic coma; F41.9 Anxiety disorder, unspecified; F32.9 Major depressive disorder, single episode, unspecified; Z86.718 Personal history of other venous thrombosis and embolism; F19.10 Other psychoactive substance abuse, uncomplicated; Z88.5 Allergy status to narcotic agent; Z79.899 Other long term (current) drug therapy | CPT/HCPCS: 99283 ==

== ENCOUNTER 2017-09-03 15:19 | Emergency (ER) | payer OTHER | END 2017-09-03 18:18 | disposition home or self-care (01) | LOC: M ED 15:19 | DX: Z76.0 Encounter for issue of repeat prescription (principal); S80.01XA Contusion of right knee, initial encounter; W19.XXXA Unspecified fall, initial encounter; Y92.89 Other specified places as the place of occurrence of the external cause; G40.909 Epilepsy, unspecified, not intractable, without status epilepticus; F17.210 Nicotine dependence, cigarettes, uncomplicated; Z88.5 Allergy status to narcotic agent; Z79.899 Other long term (current) drug therapy | CPT/HCPCS: 99283 ==

== ENCOUNTER 2017-09-05 15:24 | Emergency (ER) | payer OTHER ==
[2017-09-05] MEDS: NS 1,000 ML IV (15:37)
[2017-09-05 15:47] LABS: BEDSIDE GLUCOSE 155 MG/DL (70-105)
[2017-09-05 16:07] LABS: VENOUS BASE EXCESS 0.9 (-2.0-2.0); VENOUS HCO3 27.2 MEQ/L (23.0-27.0); VENOUS O2 SATURATION 96.9 % (60.0-80.0); VENOUS PARTIAL PRESSURE CO2 49.7 mmHg (38.0-50.0); VENOUS PARTIAL PRESSURE O2 90.3 mmHg (30.0-50.0); VENOUS PH 7.356 UNITS (7.330-7.430); VENOUS STANDARD HCO3 25.3 MEQ/L; VENOUS TOTAL CO2 28.7 MEQ/L (24.0-28.0)
[2017-09-05 16:13] LABS: BASO % 0.4 % (0.0-1.0); EOS # 0.3 10^3/uL (0.0-0.50); EOS % 3.3 % (0.0-3.0); HEMATOCRIT 37.7 % (36.0-47.0); HEMOGLOBIN 12.8 g/dl (12.0-16.0); IMMATURE GRANULOCYTE % 0.8 % (0-3.0); LYMPH # 2.8 10^3/uL (1.5-4.5); LYMPH % 29.2 % (24.0-44.0); MEAN CORPUSCULAR HEMOGLOBIN 31.9 pg (27.0-33.0); MONO # 0.6 10^3/uL (0.0-0.8); MONO % 6.3 % (0.0-5.0); NEUTROPHILS # 5.8 10^3/uL (1.8-7.7); PLATELET COUNT, AUTOMATED 252 10^3/uL (150-450); RED BLOOD COUNT 4.01 10^6/uL (4.00-5.40); RED CELL DISTRIBUTION WIDTH 14.2 % (11.5-14.5); WHITE BLOOD COUNT 9.7 10^3/uL (4.0-10.0)
[2017-09-05 16:28] LABS: CONTROL LINE HCG INT CTR LINE PRESENT; HCG, SERUM QUALITATIVE NEGATIVE (NEGATIVE)
[2017-09-05 16:33] LABS: OSMOLALITY SERUM 294 MOSM/KG (275-295)
[2017-09-05 16:44] LABS: ALBUMIN 3.4 GM/DL (3.2-5.2); ALBUMIN/GLOBULIN RATIO 0.89 (1.00-1.93); ALKALINE PHOSPHATASE 109 U/L (45-117); ALT/SGPT 34 U/L (12-78); ANION GAP 6 MEQ/L (8-16); AST/SGOT 34 U/L (7-37); BILIRUBIN,DIRECT < 0.1 MG/DL (0.0-0.2); BILIRUBIN,TOTAL 0.2 MG/DL (0.2-1.0); BLOOD UREA NITROGEN 9 MG/DL (7-18); CALCIUM LEVEL 8.7 MG/DL (8.5-10.1); CARBON DIOXIDE LEVEL 28 MEQ/L (21-32); CHLORIDE LEVEL 107 MEQ/L (98-107); CPK CREATINE PHOSPHOKINASE 94 U/L (26-192); CREATININE FOR GFR 0.77 MG/DL (0.55-1.30); GLOMERULAR FILTRATION RATE > 60.0 (>58); GLUCOSE, FASTING 124 MG/DL (70-100); SODIUM LEVEL 141 MEQ/L (136-145); THYROID STIMULATING HORMONE 0.655 uIU/ML (0.358-3.740); TOTAL PROTEIN 7.2 GM/DL (6.4-8.2)
[2017-09-05 16:53] LABS: ACETAMINOPHEN LEVEL < 2.0 UG/ML (10.0-30.0); ETHYL ALCOHOL (ETHANOL) < 0.003 % (0.000-0.010)
[2017-09-05 17:05] LABS: AMPHETAMINES LEVEL URINE NEGATIVE (NEGATIVE); BARBITURATES URINE NEGATIVE (NEGATIVE); BENZODIAZEPINES URINE POSITIVE (NEGATIVE); CANNABINOIDS URINE NEGATIVE (NEGATIVE); COCAINE METABOLITE URINE NEGATIVE (NEGATIVE); METHADONE URINE POSITIVE (NEGATIVE); OPIATES URINE NEGATIVE (NEGATIVE); PHENCYCLIDINE URINE NEGATIVE (NEGATIVE)
== END 2017-09-05 22:05 | disposition home or self-care (01) ==
LOC: M ED 15:24
DX: R41.82 Altered mental status, unspecified (principal); F32.9 Major depressive disorder, single episode, unspecified; F19.10 Other psychoactive substance abuse, uncomplicated; Z86.718 Personal history of other venous thrombosis and embolism; Z86.19 Personal history of other infectious and parasitic diseases; Z79.899 Other long term (current) drug therapy; Z88.5 Allergy status to narcotic agent
CPT/HCPCS: 70450

== ENCOUNTER 2017-09-25 16:25 | Emergency (ER) | payer OTHER | END 2017-09-25 18:16 | disposition home or self-care (01) | LOC: M ED 16:25 | DX: Z76.0 Encounter for issue of repeat prescription (principal); S50.02XA Contusion of left elbow, initial encounter; W19.XXXA Unspecified fall, initial encounter; Y92.89 Other specified places as the place of occurrence of the external cause; F41.9 Anxiety disorder, unspecified; F44.5 Conversion disorder with seizures or convulsions; F19.10 Other psychoactive substance abuse, uncomplicated; F32.9 Major depressive disorder, single episode, unspecified; K75.9 Inflammatory liver disease, unspecified; Z86.718 Personal history of other venous thrombosis and embolism; F17.200 Nicotine dependence, unspecified, uncomplicated; Z88.5 Allergy status to narcotic agent; Z79.899 Other long term (current) drug therapy | CPT/HCPCS: 99283 ==

== ENCOUNTER 2017-10-25 11:30 | Emergency (ER) | payer OTHER | END 2017-10-25 14:00 | disposition home or self-care (01) | LOC: M ED 11:30 | DX: Z76.0 Encounter for issue of repeat prescription (principal); F41.9 Anxiety disorder, unspecified; F17.200 Nicotine dependence, unspecified, uncomplicated; Z88.5 Allergy status to narcotic agent; Z79.899 Other long term (current) drug therapy | CPT/HCPCS: 99283 ==

== ENCOUNTER 2017-12-28 19:30 | Emergency (ER) | payer OTHER | END 2017-12-28 21:10 | disposition home or self-care (01) | LOC: M ED 19:30 | DX: Z76.5 Malingerer [conscious simulation] (principal); F11.23 Opioid dependence with withdrawal; B19.20 Unspecified viral hepatitis C without hepatic coma; Z79.899 Other long term (current) drug therapy; Z88.5 Allergy status to narcotic agent; F17.210 Nicotine dependence, cigarettes, uncomplicated | CPT/HCPCS: 99282 ==

== ENCOUNTER 2018-03-20 14:36 | Emergency (ER) | payer MEDICAID, SELFPAY, OTHER ==
[2018-03-20] MEDS: NORCO, ANEXSIA 5/325MG TABLET (HYDROcodone/ACETAMINOPHEN) PO (16:12)
== END 2018-03-20 16:55 | disposition home or self-care (01) ==
LOC: M ED 14:36
DX: Z76.0 Encounter for issue of repeat prescription (principal); S20.212A Contusion of left front wall of thorax, initial encounter; W01.198A Fall on same level from slipping, tripping and stumbling with subsequent striking against other object, initial encounter; Y92.89 Other specified places as the place of occurrence of the external cause; R56.9 Unspecified convulsions; F33.9 Major depressive disorder, recurrent, unspecified; Z79.899 Other long term (current) drug therapy; Z88.5 Allergy status to narcotic agent; F17.210 Nicotine dependence, cigarettes, uncomplicated
CPT/HCPCS: 71101

== ENCOUNTER 2018-04-22 10:11 | Emergency (ER) | payer MEDICAID ==
[2018-04-22 11:16] LABS: BASO % 0.5 % (0.0-1.0); EOS # 0.1 10^3/uL (0.0-0.50); EOS % 1.2 % (0.0-3.0); HEMOGLOBIN 14.7 g/dl (12.0-15.5); IMMATURE GRANULOCYTE % 0.5 % (0-3.0); LYMPH # 1.8 10^3/uL (1.5-4.5); LYMPH % 20.5 % (24.0-44.0); MEAN CORPUSCULAR HEMOGLOBIN 31.9 pg (27.0-33.0); MEAN CORPUSCULAR HGB CONC 34.2 g/dl (32.0-36.5); MEAN CORPUSCULAR VOLUME 93.3 fl (80.0-96.0); MONO # 0.4 10^3/uL (0.0-0.8); MONO % 4.4 % (0.0-5.0); NEUTROPHILS # 6.3 10^3/uL (1.8-7.7); NEUTROPHILS % 72.9 % (36.0-66.0); PLATELET COUNT, AUTOMATED 227 10^3/uL (150-450); RED BLOOD COUNT 4.61 10^6/uL (4.00-5.40); RED CELL DISTRIBUTION WIDTH 13.3 % (11.5-14.5); WHITE BLOOD COUNT 8.6 10^3/uL (4.0-10.0)
[2018-04-22 11:33] LABS: ERYTHROCYTE SEDIMENTATION RATE 12 mm/hr (0-20)
[2018-04-22 11:44] LABS: ALBUMIN 3.4 GM/DL (3.2-5.2); ALBUMIN/GLOBULIN RATIO 0.85 (1.00-1.93); ALKALINE PHOSPHATASE 127 U/L (45-117); ALT/SGPT 49 U/L (12-78); ANION GAP 7 MEQ/L (8-16); AST/SGOT 45 U/L (7-37); BILIRUBIN,DIRECT 0.1 MG/DL (0.0-0.2); BILIRUBIN,TOTAL 0.3 MG/DL (0.2-1.0); BLOOD UREA NITROGEN 6 MG/DL (7-18); C REACTIVE PROTEIN QUANTITATIV 0.32 MG/DL (0.00-0.30); CALCIUM LEVEL 8.5 MG/DL (8.5-10.1); CARBON DIOXIDE LEVEL 27 MEQ/L (21-32); CHLORIDE LEVEL 103 MEQ/L (98-107); GLOMERULAR FILTRATION RATE > 60.0 (>58); GLUCOSE, FASTING 119 MG/DL (70-100); POTASSIUM SERUM 3.9 MEQ/L (3.5-5.1); SODIUM LEVEL 137 MEQ/L (136-145); TOTAL PROTEIN 7.4 GM/DL (6.4-8.2)
== END 2018-04-22 12:40 | disposition home or self-care (01) ==
LOC: M ED 10:11
DX: Z76.0 Encounter for issue of repeat prescription (principal); I80.8 Phlebitis and thrombophlebitis of other sites; F44.5 Conversion disorder with seizures or convulsions; F41.9 Anxiety disorder, unspecified; F32.9 Major depressive disorder, single episode, unspecified; F19.10 Other psychoactive substance abuse, uncomplicated; R91.8 Other nonspecific abnormal finding of lung field; Z86.718 Personal history of other venous thrombosis and embolism; Z72.0 Tobacco use; Z79.899 Other long term (current) drug therapy; Z88.5 Allergy status to narcotic agent
CPT/HCPCS: 93971

== ENCOUNTER 2018-05-15 18:44 | Emergency (ER) | payer OTHER, MEDICAID ==
[2018-05-15 19:36] LABS: BEDSIDE GLUCOSE 137 MG/DL (70-105)
[2018-05-15 19:42] LABS: BASO % 0.3 % (0.0-1.0); EOS # 0.3 10^3/uL (0.0-0.50); EOS % 2.9 % (0.0-3.0); HEMATOCRIT 39.4 % (36.0-47.0); HEMOGLOBIN 13.4 g/dl (12.0-15.5); IMMATURE GRANULOCYTE % 0.6 % (0-3.0); LYMPH # 3.1 10^3/uL (1.5-4.5); LYMPH % 35.5 % (24.0-44.0); MEAN CORPUSCULAR HEMOGLOBIN 32.1 pg (27.0-33.0); MEAN CORPUSCULAR VOLUME 94.3 fl (80.0-96.0); MONO # 0.7 10^3/uL (0.0-0.8); MONO % 7.7 % (0.0-5.0); NEUTROPHILS # 4.7 10^3/uL (1.8-7.7); PLATELET COUNT, AUTOMATED 195 10^3/uL (150-450); RED BLOOD COUNT 4.18 10^6/uL (4.00-5.40); RED CELL DISTRIBUTION WIDTH 13.2 % (11.5-14.5); WHITE BLOOD COUNT 8.8 10^3/uL (4.0-10.0)
[2018-05-15 20:01] LABS: AMMONIA 33 uMOL/L (<32)
[2018-05-15 20:12] LABS: ALBUMIN 3.3 GM/DL (3.2-5.2); ALBUMIN/GLOBULIN RATIO 0.92 (1.00-1.93); ALKALINE PHOSPHATASE 109 U/L (45-117); ALT/SGPT 48 U/L (12-78); ANION GAP 6 MEQ/L (8-16); AST/SGOT 48 U/L (7-37); BILIRUBIN,DIRECT < 0.1 MG/DL (0.0-0.2); BILIRUBIN,TOTAL 0.2 MG/DL (0.2-1.0); BLOOD UREA NITROGEN 5 MG/DL (7-18); CALCIUM LEVEL 8.6 MG/DL (8.5-10.1); CARBON DIOXIDE LEVEL 28 MEQ/L (21-32); CHLORIDE LEVEL 105 MEQ/L (98-107); CPK CREATINE PHOSPHOKINASE 125 U/L (26-192); CREATININE FOR GFR 0.75 MG/DL (0.55-1.30); GLOMERULAR FILTRATION RATE > 60.0 (>58); GLUCOSE, FASTING 123 MG/DL (70-100); MB/CK RELATIVE INDEX 1.36 (< OR =4); POTASSIUM SERUM 4.1 MEQ/L (3.5-5.1); SODIUM LEVEL 139 MEQ/L (136-145); THYROID STIMULATING HORMONE 0.883 uIU/ML (0.358-3.740); TOTAL PROTEIN 6.9 GM/DL (6.4-8.2); TROPONIN I < 0.02 NG/ML (< 0.10)
== END 2018-05-15 21:12 | disposition home or self-care (01) ==
LOC: M ED 18:44
DX: F44.5 Conversion disorder with seizures or convulsions (principal); Z88.5 Allergy status to narcotic agent; Z79.891 Long term (current) use of opiate analgesic; Z79.899 Other long term (current) drug therapy
CPT/HCPCS: 71045

== ENCOUNTER 2018-05-30 17:56 | Emergency (ER) | payer MEDICAID | END 2018-05-30 22:14 | disposition home or self-care (01) | LOC: M ED 17:56 | DX: M25.522 Pain in left elbow (principal); F41.1 Generalized anxiety disorder; Z86.718 Personal history of other venous thrombosis and embolism | CPT/HCPCS: 93971 ==

== ENCOUNTER 2018-06-07 13:28 | Emergency (ER) | payer MEDICAID ==
[~2018-06-07] VITALS: Ht 170.2 cm; Wt 77.3 kg
[2018-06-07 13:28] VITALS: BP 128/71
[~2018-06-07 13:28] MED LIST changes: -CLON1TAB PO; +CLON1TAB8 PO; +CLON2TAB7 PO; +DEBR6.5S4 AS; -GABA-283 PO; +GABA-843; +GABA-845 PO; +GABA600T4 PO; -GABA800T PO; +GABA800T4 PO; +METH10CO PO; +METH40TA PO; +NAPR-885 PO; -NAPR500T3 PO; +TRAZ-160 PO; -TRAZ50TA11 PO; +ZOFR4TAB14 PO; -ZOFR4TAB3 PO; +methadone
== END 2018-06-07 15:40 | disposition left against medical advice (07) ==
LOC: M ED 13:28
DX: Z53.29 Procedure and treatment not carried out because of patient's decision for other reasons (principal)

== ENCOUNTER 2018-06-12 11:57 | Emergency (ER) | payer MEDICAID ==
[2018-06-12] MEDS ORDERED: SUBO8MIS (12:07)
[2018-06-12] MEDS ORDERED: CLON1TAB8 (12:07)
[2018-06-12] MEDS ORDERED: NS 1,000 ML IV ONE (12:30)
[2018-06-12 13:32] LABS: VENOUS BASE EXCESS 0.7 (-2.0-2.0); VENOUS HCO3 27.3 MEQ/L (23.0-27.0); VENOUS O2 SATURATION 97.9 % (60.0-80.0); VENOUS PARTIAL PRESSURE CO2 51.9 mmHg (38.0-50.0); VENOUS PARTIAL PRESSURE O2 110.5 mmHg (30.0-50.0); VENOUS PH 7.339 UNITS (7.330-7.430); VENOUS STANDARD HCO3 25.1 MEQ/L; VENOUS TOTAL CO2 28.9 MEQ/L (24.0-28.0)
[2018-06-12 13:42] LABS: BASO % 0.6 % (0.0-1.0); EOS # 0.3 10^3/uL (0.0-0.50); EOS % 4.4 % (0.0-3.0); HEMATOCRIT 35.7 % (36.0-47.0); LYMPH # 2.6 10^3/uL (1.5-4.5); LYMPH % 36.5 % (24.0-44.0); MEAN CORPUSCULAR HEMOGLOBIN 32.1 pg (27.0-33.0); MEAN CORPUSCULAR HGB CONC 33.6 g/dl (32.0-36.5); MEAN CORPUSCULAR VOLUME 95.5 fl (80.0-96.0); MONO # 0.8 10^3/uL (0.0-0.8); MONO % 11.6 % (0.0-5.0); NEUTROPHILS # 3.2 10^3/uL (1.8-7.7); NEUTROPHILS % 46.5 % (36.0-66.0); PLATELET COUNT, AUTOMATED 211 10^3/uL (150-450); RED BLOOD COUNT 3.74 10^6/uL (4.00-5.40)
[2018-06-12 14:06] LABS: OSMOLALITY SERUM 293 MOSM/KG (275-295)
[2018-06-12 14:12] LABS: ACETAMINOPHEN LEVEL < 2.0 UG/ML (10.0-30.0); ALBUMIN 2.8 GM/DL (3.2-5.2); ALT/SGPT 43 U/L (12-78); BILIRUBIN,DIRECT < 0.1 MG/DL (0.0-0.2); BILIRUBIN,TOTAL 0.1 MG/DL (0.2-1.0); BLOOD UREA NITROGEN 8 MG/DL (7-18); CALCIUM LEVEL 7.6 MG/DL (8.5-10.1); CARBON DIOXIDE LEVEL 29 MEQ/L (21-32); CHLORIDE LEVEL 108 MEQ/L (98-107); CPK CREATINE PHOSPHOKINASE 92 U/L (26-192); CREATININE FOR GFR 0.69 MG/DL (0.55-1.30); ETHYL ALCOHOL (ETHANOL) < 0.003 % (0.000-0.010); GLOMERULAR FILTRATION RATE > 60.0 (>58); GLUCOSE, FASTING 93 MG/DL (70-100); POTASSIUM SERUM 4.5 MEQ/L (3.5-5.1); SALICYLATE LEVEL 2.5 MG/DL (5.0-30.0); SODIUM LEVEL 141 MEQ/L (136-145); THYROID STIMULATING HORMONE 0.735 uIU/ML (0.358-3.740); TOTAL PROTEIN 6.1 GM/DL (6.4-8.2)
[2018-06-12 14:26] LABS: HCG, SERUM QUALITATIVE NEGATIVE (NEGATIVE)
[2018-06-12 15:24] LABS: AMPHETAMINES LEVEL URINE NEGATIVE (NEGATIVE); BARBITURATES URINE NEGATIVE (NEGATIVE); BENZODIAZEPINES URINE POSITIVE (NEGATIVE); CANNABINOIDS URINE NEGATIVE (NEGATIVE); COCAINE METABOLITE URINE NEGATIVE (NEGATIVE); METHADONE URINE POSITIVE (NEGATIVE); OPIATES URINE NEGATIVE (NEGATIVE); PHENCYCLIDINE URINE NEGATIVE (NEGATIVE)
[2018-06-12 19:00] VITALS: BP 127/80
--- NOTE | 2018-06-12 20:22 | ECGEPIP ---
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
--- NOTE | 2018-06-12 20:27 | ECGEPIP ---
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
== END 2018-06-12 19:15 | disposition home or self-care (01) ==
LOC: M ED 11:57 → EDBD 11:57 → M ED 19:15
DX: F19.10 Other psychoactive substance abuse, uncomplicated (principal); F32.9 Major depressive disorder, single episode, unspecified; F41.9 Anxiety disorder, unspecified; B19.20 Unspecified viral hepatitis C without hepatic coma; Z86.718 Personal history of other venous thrombosis and embolism; F17.200 Nicotine dependence, unspecified, uncomplicated; Z88.5 Allergy status to narcotic agent; Z79.899 Other long term (current) drug therapy
CPT/HCPCS: 36415; 80048; 80076; 80307; 82550; 82803; 83930; 84443; 84703; 85025; 93005; 93041; 96360; 96361; 99285; G0480

== ENCOUNTER → 2018-06-26 | Outpatient (CLI) | payer MEDICAID ==
[~2018-06-26] MED LIST changes: +CLON1TAB8; +SUBO8MIS
[2018-06-26 11:32] LABS: HEMOGLOBIN 13.6 g/dl (12.0-15.5); MEAN CORPUSCULAR VOLUME 94.1 fl (80.0-96.0); PLATELET COUNT, AUTOMATED 199 10^3/uL (150-450); RED BLOOD COUNT 4.25 10^6/uL (4.00-5.40); WHITE BLOOD COUNT 7.5 10^3/uL (4.0-10.0)
[2018-06-26 12:34] LABS: ALBUMIN 3.4 GM/DL (3.2-5.2); ALT/SGPT 54 U/L (12-78); BILIRUBIN,TOTAL 0.2 MG/DL (0.2-1.0); BLOOD UREA NITROGEN 11 MG/DL (7-18); CALCIUM LEVEL 8.9 MG/DL (8.5-10.1); CARBON DIOXIDE LEVEL 27 MEQ/L (21-32); CHLORIDE LEVEL 104 MEQ/L (98-107); CHOLESTEROL LEVEL 180 MG/DL (<200); CREATININE FOR GFR 0.93 MG/DL (0.55-1.30); GLOMERULAR FILTRATION RATE > 60.0 (>51); GLUCOSE, FASTING 82 MG/DL (70-100); HDL CHOLESTEROL 48 MG/DL (>40); LDL CHOLESTEROL 107 MG/DL (<100); NON-HDL-C 132 MG/DL; POTASSIUM SERUM 4.4 MEQ/L (3.5-5.1); SODIUM LEVEL 140 MEQ/L (136-145); TOTAL PROTEIN 7.3 GM/DL (6.4-8.2); TRIGLYCERIDES LEVEL 127 MG/DL (<150)
== END ==
LOC: M LAB 10:58
DX: F41.9 Anxiety disorder, unspecified (principal)

== ENCOUNTER 2018-07-19 15:35 | Emergency (ER) | payer MEDICAID, OTHER ==
[~2018-07-19] VITALS: Ht 170.2 cm; Wt 81.8 kg
[~2018-07-19 15:35] MED LIST changes: -SUBO8MIS
[2018-07-19 15:36] VITALS: BP 133/63
[2018-07-19] MEDS ORDERED: CYCLOBENZAPRINE 10 MG TAB PO ONE (16:15)
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
[2018-07-19] MEDS ORDERED: CYCL10TA PO ×2 (17:10→17:34)
== END 2018-07-19 17:37 | disposition home or self-care (01) ==
LOC: M ED 15:35
DX: S80.01XA Contusion of right knee, initial encounter (principal); X58.XXXA Exposure to other specified factors, initial encounter; Y92.9 Unspecified place or not applicable; Y93.9 Activity, unspecified; Y99.9 Unspecified external cause status; M62.830 Muscle spasm of back; Z86.718 Personal history of other venous thrombosis and embolism; Z72.0 Tobacco use; Z79.899 Other long term (current) drug therapy; Z88.5 Allergy status to narcotic agent

== ENCOUNTER 2018-08-09 23:35 | Emergency (ER) | payer MEDICAID, OTHER ==
[~2018-08-09] VITALS: Ht 170.2 cm; Wt 77.3 kg
[~2018-08-09 23:35] MED LIST changes: +CYCL10TA PO; +SUBO8MIS
[2018-08-10] MEDS ORDERED: NORCO, ANEXSIA 5/325MG TABLET (HYDROcodone/ACETAMINOPHEN) PO ONE (00:30)
[2018-08-10 04:42] VITALS: BP 101/60
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
== END 2018-08-10 04:50 | disposition home or self-care (01) ==
LOC: M ED 23:35
DX: S10.93XA Contusion of unspecified part of neck, initial encounter (principal); Y04.8XXA Assault by other bodily force, initial encounter; Y07.03 Male partner, perpetrator of maltreatment and neglect; Y92.018 Other place in single-family (private) house as the place of occurrence of the external cause; Z79.891 Long term (current) use of opiate analgesic; Z88.5 Allergy status to narcotic agent; F17.210 Nicotine dependence, cigarettes, uncomplicated

== ENCOUNTER → 2018-08-22 | Outpatient (REF) | payer OTHER ==
[2018-08-23 11:14] LABS: HEPATITIS B SURFACE ANTIBODY NEGATIVE (POSITIVE); HEPATITIS B SURFACE ANTIGEN NEGATIVE (NEGATIVE); HIV 1&2 SCREEN CENTAUR NEGATIVE (NEGATIVE)
[2018-08-27 08:06] LABS: HEPATITIS A IgG TOTAL Positive (Negative); HEPATITIS B CORE ANTIBODY IGG Negative (Negative)
[2018-08-28 00:07] LABS: HEPATITIS C QUANTITATION 87090 IU/mL (.); HEPATITIS C VIRUS GENOTYPE 1b (.)
== END ==
LOC: M SFHCPLAZ 08:39
PROVIDERS: ATTEND Internal Medicine Infectious Disease
DX: B18.2 Chronic viral hepatitis C (principal)

== ENCOUNTER 2018-08-28 14:45 | Outpatient (RCR) | payer OTHER ==
[~2018-08-28 14:45] MED LIST changes: -SUBO8MIS
[2018-09-05] MEDS ORDERED: GABA800T4 PO (12:10)
[2018-09-05] MEDS ORDERED: CLON1TAB8 PO (12:10)
[2018-09-05] MEDS ORDERED: SUBO8MIS SL (20:19)
[2018-09-05] MEDS ORDERED: MAVY1TAB PO (20:19)
[2018-09-05] MEDS ORDERED: IBUP1TAB6 PO (20:19)
[2018-09-09] MEDS ORDERED: NICO14PA TD (10:47)
[2018-09-09] MEDS ORDERED: CLON1TAB8 PO (10:47)
[2018-09-09] MEDS ORDERED: GABA-845 PO (10:47)
[2018-09-09] MEDS ORDERED: MIRT15TA3 PO (10:47)
== END 2018-09-08 | disposition home or self-care (01) ==
LOC: M PT 14:45
PROVIDERS: ATTEND Obstetrics & Gynecology
DX: R68.84 Jaw pain (principal); Z87.898 Personal history of other specified conditions

== ENCOUNTER 2018-09-05 12:03 | Inpatient (IN) | payer OTHER ==
[~2018-09-05] VITALS: Ht 170.2 cm; Wt 77.7 kg
[2018-09-05] MEDS ORDERED: CLON1TAB8 PO (12:10)
[2018-09-05] MEDS ORDERED: GABA800T4 PO (12:10)
[2018-09-05 13:49] LABS: HEMATOCRIT 41.4 % (36.0-47.0); HEMOGLOBIN 14.4 g/dl (12.0-15.5); MEAN CORPUSCULAR HEMOGLOBIN 32.2 pg (27.0-33.0); MEAN CORPUSCULAR HGB CONC 34.8 g/dl (32.0-36.5); MEAN CORPUSCULAR VOLUME 92.6 fl (80.0-96.0); PLATELET COUNT, AUTOMATED 237 10^3/uL (150-450); RED BLOOD COUNT 4.47 10^6/uL (4.00-5.40); WHITE BLOOD COUNT 7.5 10^3/uL (4.0-10.0)
[2018-09-05 14:22] LABS: ALBUMIN 3.7 GM/DL (3.2-5.2); ALT/SGPT 23 U/L (12-78); BILIRUBIN,DIRECT 0.1 MG/DL (0.0-0.2); BILIRUBIN,TOTAL 0.4 MG/DL (0.2-1.0); BLOOD UREA NITROGEN 9 MG/DL (7-18); CALCIUM LEVEL 9.2 MG/DL (8.5-10.1); CARBON DIOXIDE LEVEL 27 MEQ/L (21-32); CHLORIDE LEVEL 105 MEQ/L (98-107); CREATININE FOR GFR 0.88 MG/DL (0.55-1.30); GLOMERULAR FILTRATION RATE > 60.0 (>51); GLUCOSE, FASTING 96 MG/DL (70-100); POTASSIUM SERUM 4.3 MEQ/L (3.5-5.1); SALICYLATE LEVEL 4.6 MG/DL (5.0-30.0); SODIUM LEVEL 138 MEQ/L (136-145); THYROID STIMULATING HORMONE 0.624 uIU/ML (0.358-3.740); TOTAL PROTEIN 7.5 GM/DL (6.4-8.2)
[2018-09-05 14:23] LABS: ACETAMINOPHEN LEVEL < 2.0 UG/ML (10.0-30.0); ETHYL ALCOHOL (ETHANOL) < 0.003 % (0.000-0.010)
[2018-09-05 14:23] LABS: AMPHETAMINES LEVEL URINE NEGATIVE (NEGATIVE); BARBITURATES URINE NEGATIVE (NEGATIVE); BENZODIAZEPINES URINE POSITIVE (NEGATIVE); CANNABINOIDS URINE NEGATIVE (NEGATIVE); COCAINE METABOLITE URINE NEGATIVE (NEGATIVE); METHADONE URINE NEGATIVE (NEGATIVE); OPIATES URINE NEGATIVE (NEGATIVE); PHENCYCLIDINE URINE NEGATIVE (NEGATIVE)
[2018-09-05 14:33] LABS: HCG, SERUM QUALITATIVE NEGATIVE (NEGATIVE)
[2018-09-05] MEDS ORDERED: BUPRENORPHINE/NALOXONE 8-2MG SUBLINGUAL TABLET(SUBOXONE) SL ONE (15:00)
[2018-09-05] MEDS ORDERED: clonazePAM 1 MG TAB PO ONE (15:00)
[2018-09-05] MEDS ORDERED: GABAPENTIN 400 MG CAP PO ONE (15:00)
[2018-09-05] MEDS ORDERED: traZODone 50 MG TAB PO PRN (18:00)
[2018-09-05] MEDS ORDERED: ACETAMINOPHEN TAB 650MG DOSE (2X325MG) PO PRN (18:00)
[2018-09-05] MEDS ORDERED: MOM 30ML SUSPENSION UDC PO PRN (18:00)
[2018-09-05] MEDS ORDERED: MAALOX 30 ML SUSP *UDC PO PRN (18:00)
[2018-09-05] MEDS ORDERED: IBUP1TAB6 PO (20:19)
[2018-09-05] MEDS ORDERED: MAVY1TAB PO (20:19)
[2018-09-05] MEDS ORDERED: SUBO8MIS SL (20:19)
[2018-09-05 23:38] VITALS: BP 122/65
[2018-09-06 06:35] VITALS: BP 124/71
[2018-09-06] MEDS: clonazePAM 1 MG TAB PO SCH ×3 (09:00→21:35)
[2018-09-06] MEDS: GABAPENTIN 400 MG CAP PO SCH ×3 (09:00→21:36)
[2018-09-06] MEDS: BUPRENORPHINE/NALOXONE 8-2MG SUBLINGUAL TABLET(SUBOXONE) SL SCH ×2 (09:00→16:35)
[2018-09-06] MEDS ORDERED: IBUPROFEN 600 MG TAB PO PRN (09:45)
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
[2018-09-06 18:00] VITALS: BP 107/61
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
[2018-09-07 06:31] VITALS: BP 119/70
[2018-09-07] MEDS: clonazePAM 1 MG TAB PO SCH ×3 (08:40→20:23)
[2018-09-07] MEDS: GABAPENTIN 400 MG CAP PO SCH ×3 (08:40→20:23)
[2018-09-07] MEDS: BUPRENORPHINE/NALOXONE 8-2MG SUBLINGUAL TABLET(SUBOXONE) SL SCH ×2 (09:10→16:54)
--- NOTE | 2018-09-07 13:22 | MHIPNPDOC ---
[facility] Progress Note Progress Note DATE OF SERVICE: 09/07/18 HISTORY: See HPI. Interval history: Agrees to have EKG. Today patient states that she is physically and mentally "okay" and more "stable", more "energetic". She has been socializing on the unit and going to groups. Says that she wakes up in the middle of the night and has trouble sleeping through the night. Says trazodone and Seroquel have not worked for her in the past, agreeable to trying mirtazapine 15 mg PO nightly for sleep/mood. Says she has an appointment with Dr. Galindo on the 09 of September for Suboxone, and PCP appointment with Dr. Greene September 12. Has been going to groups and appetite is "good'. Says she is able to eat okay despite jaw pain 10/18. Denies side effects of medications. VITAL SIGNS: See below. NEW TEST RESULTS: see below CURRENT MEDICATIONS: See below. MENTAL STATUS EXAMINATION: Patient is a 48-year old female, who is in nad, a/ox4, in casual clothes, dark hair, calm, collected. Speech: Is normal Language skills are intact Thought processes including: linear, logical Thought content: poor sleep. Abstract reasoning, and computation: intact Description of associations: intact Description of abnormal or psychotic thoughts: Denies Judgment: improving Insight: improving Orientation: x4 Recent and remote memory: intact Attention span and concentration: good Language: kyrgyz Fund of knowledge: average Mood: "okay, stable"Affect: euthymic, full range, does smile DIAGNOSES: 1. Unspecified Depressive Disorder 2. Acute stress disorder 2. Opiate use disorder 3. Cocaine use disorder by history 4. Benzodiazepine use disorder ASSESSMENT: Denies SI/HI/AVH. Denies side effects of her medications. Reports feels safe on unit, mood is "okay". MANAGEMENT PLAN: Continue medications including gabapentin 800 tid for anxiety, clonazepam 1 mg TID (plan to taper down if agreeable), suboxone 8/2mg SL 1x daily. Started mirtazapine 15 PO QHS for sleep/mood. Ordered EKG to screen. TIME SPENT: 10 minutes. Vital Signs Vital Signs Date Time Temp Pulse Resp B/P (MAP) Pulse Ox O2 Delivery O2 Flow Rate FiO2 09/07/18 06:31 98.5 58 12 119/70 (86) 3/28/19 12:04 96 Room Air Current Medications Current Medications Acetaminophen (Tylenol Tab) 650 mg Q6HP PRN PO HEADACHE or DISCOMFORT; Start 09/05/18 at 18:00 Al Hydrox/Mg Hydrox/Simethicone (Mylanta) 30 ml Q4HP PRN PO HEARTBURN/INDIGESTION; Start 09/05/18 at 18:00 Buprenorphine/ Naloxone (Suboxone 8/2mg) 1 tab DAILY@1700 SL Last administered on 09/06/18at 16:35; Start 09/06/18 at 17:00 Buprenorphine/ Naloxone (Suboxone 8/2mg) 1.5 tab DAILY SL Last administered on 09/07/18at 09:10; Start 09/06/18 at 09:00 Clonazepam (KlonoPIN) 1 mg TID PO Last administered on 09/07/18at 08:40; Start 09/06/18 at 09:00 Gabapentin (Neurontin) 800 mg TID PO Last administered on 09/07/18at 08:40; Start 09/06/18 at 09:00 Home Med (Med Rec Complete!) ASDIRECTED XX ; Start 09/05/18 at 20:30; Stop 08/10 01/27 at 20:30; Status DC Ibuprofen (Advil) 600 mg QIDP PRN PO PAIN; Start 09/06/18 at 09:45 Magnesium Hydroxide (Milk Of Magnesia) 30 ml DAILYPRN PRN PO CONSTIPATION; Start 09/05/18 at 18:00 Nicotine (Nicoderm Cq 14mg) 1 patch DAILY TD ; Start 09/07/18 at 09:00 Trazodone HCl (Desyrel) 50 mg QHSP PRN PO INSOMNIA; Start 09/05/18 at 18:00 Allergies Coded Allergies: tramadol (Verified Allergy, Unknown, 09/05/18) rash PRISCILLA GELLER PGY-1 Sep 07, 2018 13:15
[2018-09-07] MEDS: NICOTINE 14 MG/24 HR TRANSDERMAL TD SCH (13:29)
[2018-09-07 18:38] VITALS: BP 137/74
[2018-09-07] MEDS: MIRTAZAPINE 15 MG TAB PO SCH ×2 (20:23→20:25)
[2018-09-08] MEDS: MIRTAZAPINE 15 MG TAB PO SCH ×2 (03:18→20:34)
[2018-09-08 06:31] VITALS: BP 104/57
[2018-09-08] MEDS: NICOTINE 14 MG/24 HR TRANSDERMAL TD SCH (09:00)
[2018-09-08] MEDS: clonazePAM 1 MG TAB PO SCH ×3 (09:03→20:34)
[2018-09-08] MEDS: GABAPENTIN 400 MG CAP PO SCH ×3 (09:04→20:34)
[2018-09-08] MEDS: BUPRENORPHINE/NALOXONE 8-2MG SUBLINGUAL TABLET(SUBOXONE) SL SCH ×2 (09:55→17:24)
--- NOTE | 2018-09-08 09:55 | MHIPNPDOC ---
[facility] Progress Note Progress Note DATE OF SERVICE: 09/08/18 HISTORY: See HPI. Interval history: Reports she feels the same as yesterday. Denies any physical complaints other than sore jaw, which does not bother her too much (is able to eat without significant pain). Was seen in social milieu and is attending groups. VITAL SIGNS: See below. NEW TEST RESULTS: see below CURRENT MEDICATIONS: See below. MENTAL STATUS EXAMINATION: Patient is a 48-year old female, who is in nad, a/ox4, in casual clothes, dark hair, calm, collected. Speech: Is normal Language skills are intact Thought processes including: linear, logical Thought content: poor sleep. Abstract reasoning, and computation: intact Description of associations: intact Description of abnormal or psychotic thoughts: Denies Judgment: improving Insight: improving Orientation: x4 Recent and remote memory: intact Attention span and concentration: good Language: slovak Fund of knowledge: average Mood: "good"Affect: euthymic, full range, does smile DIAGNOSES: 1. Unspecified Depressive Disorder 2. Acute stress disorder 2. Opiate use disorder 3. Cocaine use disorder by history 4. Benzodiazepine use disorder ASSESSMENT: Denies SI/HI/AVH. Denies side effects of her medications. Reports feels safe on unit, mood is "good". She is calm cooperative and attends groups. Reports "good" sleep with mirtazapine. MANAGEMENT PLAN: Continue medications including gabapentin 800 tid for anxiety, clonazepam 1 mg TID (plan to taper down if agreeable), suboxone 8/2mg SL 1x daily. Continue mirtazapine 15 PO QHS for sleep/mood. EKG read pending. TIME SPENT: 10 minutes. Vital Signs Vital Signs Date Time Temp Pulse Resp B/P (MAP) Pulse Ox O2 Delivery O2 Flow Rate FiO2 09/08/18 06:31 98.1 53 12 104/57 (73) 09/05/18 12:04 96 Room Air Current Medications Current Medications Acetaminophen (Tylenol Tab) 650 mg Q6HP PRN PO HEADACHE or DISCOMFORT; Start at 18:00 Al Hydrox/Mg Hydrox/Simethicone (Mylanta) 30 ml Q4HP PRN PO HEARTBURN/INDIGESTION; Start 09/05/18 at 18:00 Buprenorphine/ Naloxone (Suboxone 8/2mg) 1 tab DAILY@1700 SL Last administered on 09/07/18at 16:54; Start 09/06/18 at 17:00 Buprenorphine/ Naloxone (Suboxone 8/2mg) 1.5 tab DAILY SL Last administered on 09/07/18at 09:10; Start 09/06/18 at 09:00 Clonazepam (KlonoPIN) 1 mg TID PO Last administered on 09/08/18at 09:03; Start 09/06/18 at 09:00 Gabapentin (Neurontin) 800 mg TID PO Last administered on 09/08/18at 09:04; Start 09/06/18 at 09:00 Home Med (Med Rec Complete!) ASDIRECTED XX ; Start 09/05/18 at 20:30; Stop 09/05/18 at 20:30; Status DC Ibuprofen (Advil) 600 mg QIDP PRN PO PAIN; Start 09/06/18 at 09:45 Magnesium Hydroxide (Milk Of Magnesia) 30 ml DAILYPRN PRN PO CONSTIPATION; Start 09/05/18 at 18:00 Mirtazapine (Remeron) 15 mg QPM PO Last administered on 09/08/18at 03:18; Start 09/07/18 at 21:00 Nicotine (Nicoderm Cq 14mg) 1 patch DAILY TD Last administered on 09/07/18at 13:29; Start 09/07/18 at 09:00 Trazodone HCl (Desyrel) 50 mg QHSP PRN PO INSOMNIA; Start 09/05/18 at 18:00; Stop 09/07/18 at 13:10; Status DC Allergies Coded Allergies: tramadol (Verified Allergy, Unknown, 09/05/18) rash PRISCILLA GELLER PGY-1 Sep 08, 2018 09:55
[2018-09-08 18:29] VITALS: BP 111/73
--- NOTE | 2018-09-08 22:58 | ECGEPIP ---
Stationary ECG Study [facility] Test Date: 2018-09-07 Pat Name: OLIVIA DUMAS Department: Room: [place] [address] Gender: F Lead Network Architect: DENNY : 1970 Requested By: PRISCILLA GELLER PGY-1 Order Number: [id number] Reading MD: Victorino Tilley Measurements Intervals [place] Rate: 48 P: 48 AR: 168 QRS: 1 QRSD: 81 T: 58 QT: 435 QTc: 390 Interpretive Statements SINUS BRADYCARDIA MOST RECENT TRACING ON 06/12/2018 AT 18:05:56 P.M.. NO SIGNIFICANT CHANGES BUT NOW NORMAL AR INTERVAL Electronically Signed On 09-08-2018 22:57:56 EDT by Victorino Tilley
[2018-09-09 06:45] VITALS: BP 146/72
[2018-09-09] MEDS: clonazePAM 1 MG TAB PO SCH (08:25)
[2018-09-09] MEDS: GABAPENTIN 400 MG CAP PO SCH (08:25)
[2018-09-09] MEDS: BUPRENORPHINE/NALOXONE 8-2MG SUBLINGUAL TABLET(SUBOXONE) SL SCH (08:26)
[2018-09-09] MEDS: NICOTINE 14 MG/24 HR TRANSDERMAL TD SCH (08:26)
[2018-09-09] MEDS ORDERED: GABA-845 PO (10:47)
[2018-09-09] MEDS ORDERED: MIRT15TA3 PO (10:47)
[2018-09-09] MEDS ORDERED: CLON1TAB8 PO (10:47)
[2018-09-09] MEDS ORDERED: NICO14PA TD (10:47)
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
== END 2018-09-09 12:25 | disposition home or self-care (01) | DRG 754 ==
LOC: M ED 12:03 → M ED INP 17:47 → M PSY 23:07
PROVIDERS: ADMIT Psychiatry & Neurology Psychiatry; ATTEND Psychiatry & Neurology Psychiatry
DX: F32.9 Major depressive disorder, single episode, unspecified (principal); G40.909 Epilepsy, unspecified, not intractable, without status epilepticus; R45.851 Suicidal ideations; F43.9 Reaction to severe stress, unspecified; F11.90 Opioid use, unspecified, uncomplicated; F15.90 Other stimulant use, unspecified, uncomplicated; F14.11 Cocaine abuse, in remission; Z79.899 Other long term (current) drug therapy; Z88.8 Allergy status to other drugs, medicaments and biological substances; J45.909 Unspecified asthma, uncomplicated; B18.2 Chronic viral hepatitis C; Z86.718 Personal history of other venous thrombosis and embolism

== ENCOUNTER 2018-10-01 10:45 | Outpatient (RCR) | payer OTHER ==
[~2018-10-01 10:45] MED LIST changes: -CITA20TA4 PO; +CITA20TA6 PO; +HYDR-3715 PO; +IBUP1TAB6 PO; +MAVY1TAB PO; +MIRT15TA3 PO; +NICO14PA TD; -NORCOTAB PO
[2018-10-04] MEDS ORDERED: MAVY1TAB PO (16:16)
[2018-10-04] MEDS ORDERED: PRED20TA PO (17:35)
[2018-10-04] MEDS ORDERED: VIST50CA PO (17:35)
== END 2018-10-08 ==
LOC: M PT 10:45
PROVIDERS: ATTEND Obstetrics & Gynecology
DX: M54.2 Cervicalgia (principal); M54.6 Pain in thoracic spine; G89.29 Other chronic pain; R68.84 Jaw pain

== ENCOUNTER 2018-10-04 14:35 | Emergency (ER) | payer OTHER ==
[~2018-10-04] VITALS: Ht 170.2 cm; Wt 77.3 kg
[2018-10-04] MEDS ORDERED: MAVY1TAB PO (16:16)
[2018-10-04] MEDS ORDERED: VIST50CA PO (17:35)
[2018-10-04] MEDS ORDERED: PRED20TA PO (17:35)
[2018-10-04] MEDS ORDERED: predniSONE 20 MG TAB PO ONE (17:45)
[2018-10-04] MEDS ORDERED: hydrOXYzine 50 MG TAB PO ONE (17:45)
[2018-10-04 17:52] VITALS: BP 124/73
== END 2018-10-04 17:57 | disposition home or self-care (01) ==
LOC: M ED 14:35
DX: L50.9 Urticaria, unspecified (principal); B19.20 Unspecified viral hepatitis C without hepatic coma; Z72.0 Tobacco use; Z79.899 Other long term (current) drug therapy; Z88.5 Allergy status to narcotic agent

== ENCOUNTER → 2018-10-14 | Outpatient (REF) | payer OTHER ==
[~2018-10-14] MED LIST changes: +PRED20TA PO; +VIST50CA PO
== END ==
LOC: M SFHCPLAZ 15:29
PROVIDERS: ATTEND Family Medicine
DX: R63.5 Abnormal weight gain (principal)

== ENCOUNTER → 2018-11-01 | Outpatient (REF) | payer OTHER ==
[2018-11-01 13:41] LABS: ALBUMIN 3.7 GM/DL (3.2-5.2); BILIRUBIN,DIRECT 0.1 MG/DL (0.0-0.2); BILIRUBIN,TOTAL 0.4 MG/DL (0.2-1.0); TOTAL PROTEIN 7.6 GM/DL (6.4-8.2)
[2018-11-01 13:47] LABS: FREE T4 1.11 NG/DL (0.76-1.46); THYROID STIMULATING HORMONE 0.751 uIU/ML (0.358-3.740)
[2018-11-06 14:11] LABS: HEPATITIS C QUANTITATION HCV Not Detected IU/mL (.)
== END ==
LOC: M SFHCPLAZ 11:04
PROVIDERS: ATTEND Family Medicine
DX: B18.2 Chronic viral hepatitis C (principal); R63.5 Abnormal weight gain

== ENCOUNTER 2018-12-05 23:31 | Emergency (ER) | payer OTHER ==
[~2018-12-05] VITALS: Ht 170.2 cm; Wt 78.6 kg
[~2018-12-05 23:31] MED LIST changes: -TRAZ-160 PO; +TRAZ-252 PO; +TRAZ1TAB10 PO; -TRAZO50TA PO
[2018-12-05 23:32] VITALS: BP 130/76
[2018-12-06] MEDS ORDERED: BACT800T5 PO (02:06)
[2018-12-06] MEDS ORDERED: BACTRIM 160MG/800MG DS TAB PO ONE (02:15)
[2018-12-06] MEDS ORDERED: KETOROLAC TROMETHAMINE 10 MG TAB PO ONE (02:15)
== END 2018-12-06 02:13 | disposition home or self-care (01) ==
LOC: M ED 23:31
DX: L02.412 Cutaneous abscess of left axilla (principal); R56.9 Unspecified convulsions; Z86.718 Personal history of other venous thrombosis and embolism; Z79.899 Other long term (current) drug therapy; Z79.891 Long term (current) use of opiate analgesic; Z88.5 Allergy status to narcotic agent; F17.210 Nicotine dependence, cigarettes, uncomplicated

== ENCOUNTER 2019-04-01 19:40 | Emergency (ER) | payer OTHER ==
[~2019-04-01] VITALS: Ht 170.2 cm; Wt 76.4 kg
[2019-04-01 19:41] VITALS: BP 133/80
== END 2019-04-01 20:50 | disposition left against medical advice (07) ==
LOC: M ED 19:40
DX: Z53.21 Procedure and treatment not carried out due to patient leaving prior to being seen by health care provider (principal)

== ENCOUNTER 2019-04-09 18:05 | Emergency (ER) | payer OTHER ==
[~2019-04-09] VITALS: Ht 170.2 cm; Wt 84.2 kg
[2019-04-09] MEDS ORDERED: PREG150C (18:19)
[2019-04-09] MEDS ORDERED: LYRI150C PO (20:05)
[2019-04-09] MEDS ORDERED: CLON1TAB17 PO (20:05)
[2019-04-09 20:09] VITALS: BP 132/66
== END 2019-04-09 20:12 | disposition home or self-care (01) ==
LOC: M ED 18:05
DX: H04.559 Acquired stenosis of unspecified nasolacrimal duct (principal); Z76.0 Encounter for issue of repeat prescription; F17.200 Nicotine dependence, unspecified, uncomplicated; Z98.51 Tubal ligation status; Z88.8 Allergy status to other drugs, medicaments and biological substances

== ENCOUNTER 2019-07-14 15:33 | Inpatient (IN) | payer MEDICAID, OTHER ==
[~2019-07-14] VITALS: Ht 170.2 cm; Wt 83.5 kg
[~2019-07-14 15:33] MED LIST changes: +CLON1TAB17 PO; +LYRI150C PO; +PREG150C
[2019-07-14 16:51] LABS: HEMATOCRIT 43.5 % (36.0-47.0); HEMOGLOBIN 14.3 g/dl (12.0-15.5); MEAN CORPUSCULAR HEMOGLOBIN 30.4 pg (27.0-33.0); MEAN CORPUSCULAR HGB CONC 32.9 g/dl (32.0-36.5); MEAN CORPUSCULAR VOLUME 92.4 fl (80.0-96.0); PLATELET COUNT, AUTOMATED 252 10^3/uL (150-450); RED BLOOD COUNT 4.71 10^6/uL (4.00-5.40); WHITE BLOOD COUNT 7.3 10^3/uL (4.0-10.0)
[2019-07-14 17:32] LABS: ACETAMINOPHEN LEVEL < 2.0 UG/ML (10.0-30.0); ALBUMIN 3.7 GM/DL (3.2-5.2); ALT/SGPT 15 U/L (12-78); BILIRUBIN,DIRECT < 0.1 MG/DL (0.0-0.2); BILIRUBIN,TOTAL 0.2 MG/DL (0.2-1.0); BLOOD UREA NITROGEN 6 MG/DL (7-18); CALCIUM LEVEL 9.2 MG/DL (8.5-10.1); CARBON DIOXIDE LEVEL 30 MEQ/L (21-32); CHLORIDE LEVEL 104 MEQ/L (98-107); CREATININE FOR GFR 0.98 MG/DL (0.55-1.30); ETHYL ALCOHOL (ETHANOL) < 0.003 % (0.000-0.010); GLOMERULAR FILTRATION RATE > 60.0 (>51); GLUCOSE, FASTING 88 MG/DL (70-100); POTASSIUM SERUM 4.1 MEQ/L (3.5-5.1); SALICYLATE LEVEL 4.7 MG/DL (5.0-30.0); SODIUM LEVEL 139 MEQ/L (136-145); TOTAL PROTEIN 7.8 GM/DL (6.4-8.2)
[2019-07-14 19:10] LABS: AMPHETAMINES LEVEL URINE NEGATIVE (NEGATIVE); BARBITURATES URINE NEGATIVE (NEGATIVE); BENZODIAZEPINES URINE POSITIVE (NEGATIVE); CANNABINOIDS URINE NEGATIVE (NEGATIVE); COCAINE METABOLITE URINE NEGATIVE (NEGATIVE); METHADONE URINE NEGATIVE (NEGATIVE); OPIATES URINE NEGATIVE (NEGATIVE); PHENCYCLIDINE URINE NEGATIVE (NEGATIVE)
[2019-07-14] MEDS ORDERED: GABA600T4 PO (19:17)
[2019-07-14] MEDS ORDERED: CLON1TAB17 PO (19:17)
[2019-07-14] MEDS ORDERED: BUPR8SUB SL ×2 (19:17)
[2019-07-14] MEDS ORDERED: PREG100CA PO (19:17)
[2019-07-14] MEDS ORDERED: traZODone 50 MG TAB PO PRN (20:15)
[2019-07-14] MEDS ORDERED: MAALOX 30 ML SUSP *UDC PO PRN (20:15)
[2019-07-14] MEDS ORDERED: NICOTINE 21MG/24HR 1 EA TRANSDERMAL TD PRN (20:15)
[2019-07-14] MEDS ORDERED: GABAPENTIN 300 MG CAP PO ONE (20:15)
[2019-07-14] MEDS ORDERED: ACETAMINOPHEN TAB 650MG DOSE (2X325MG) PO PRN (20:15)
[2019-07-14] MEDS ORDERED: PREGABALIN 100 MG CAP (LYRICA) PO ONE (20:15)
[2019-07-14] MEDS ORDERED: MOM 30ML SUSPENSION UDC PO PRN (20:15)
[2019-07-14] MEDS ORDERED: SERTRALINE HCL 50 MG TAB PO ONE (21:00)
[2019-07-14 21:31] VITALS: BP 132/75
[2019-07-15 06:17] VITALS: BP 118/64
[2019-07-15] MEDS ORDERED: PREGABALIN 100 MG CAP (LYRICA) PO SCH (09:00)
[2019-07-15] MEDS ORDERED: CETIRIZINE (ZyrTEC) 10 MG TAB PO ONE (09:45)
[2019-07-15] MEDS: clonazePAM 1 MG TAB PO SCH ×3 (09:47→21:06)
[2019-07-15] MEDS: GABAPENTIN 300 MG CAP PO SCH ×4 (09:48→21:06)
[2019-07-15 09:58] LABS: BASO % 0.5 % (0.0-1.0); EOS # 0.3 10^3/uL (0.0-0.5); EOS % 4.7 % (0.0-3.0); HEMATOCRIT 42.9 % (36.0-47.0); LYMPH # 2.3 10^3/uL (1.5-5.0); LYMPH % 37.6 % (24.0-44.0); MEAN CORPUSCULAR HEMOGLOBIN 30.2 pg (27.0-33.0); MEAN CORPUSCULAR HGB CONC 32.6 g/dl (32.0-36.5); MEAN CORPUSCULAR VOLUME 92.7 fl (80.0-96.0); MONO # 0.5 10^3/uL (0.0-0.8); MONO % 7.4 % (0.0-5.0); NEUTROPHILS # 3.1 10^3/uL (1.5-8.5); NEUTROPHILS % 49.5 % (36.0-66.0); PLATELET COUNT, AUTOMATED 254 10^3/uL (150-450); RED BLOOD COUNT 4.63 10^6/uL (4.00-5.40); WHITE BLOOD COUNT 6.2 10^3/uL (4.0-10.0)
[2019-07-15] MEDS: BUPRENORPHINE/NALOXONE 8-2MG SUBLINGUAL TABLET(SUBOXONE) SL SCH ×2 (10:00→15:34)
[2019-07-15 10:21] LABS: ERYTHROCYTE SEDIMENTATION RATE 33 mm/hr (0-30)
[2019-07-15] MEDS: DICLOFENAC EPOLAMINE 1.3 % PATCH TOP SCH ×2 (10:29→21:07)
[2019-07-15] MEDS: FLUTICASONE PROP 0.05% NASAL SPRAY 16 GM (FLONASE) NARES SCH ×2 (10:29→21:05)
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
[2019-07-15] MEDS ORDERED: FLUoxetine 20 MG CAP PO ONE (11:45)
[2019-07-15] MEDS: NICOTINE POLACRILEX 2 MG GUM PO PRN (11:57)
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
[2019-07-15 16:06] VITALS: BP 118/72
[2019-07-16 07:24] VITALS: BP 144/84
[2019-07-16] MEDS: CETIRIZINE (ZyrTEC) 10 MG TAB PO SCH (08:26)
[2019-07-16] MEDS: GABAPENTIN 300 MG CAP PO SCH ×4 (08:26→20:46)
[2019-07-16] MEDS: FLUoxetine 20 MG CAP PO SCH (08:26)
[2019-07-16] MEDS: FLUTICASONE PROP 0.05% NASAL SPRAY 16 GM (FLONASE) NARES SCH ×2 (08:26→21:00)
[2019-07-16] MEDS: clonazePAM 1 MG TAB PO SCH ×3 (08:26→20:45)
[2019-07-16] MEDS: NICOTINE POLACRILEX 2 MG GUM PO PRN ×2 (08:28→17:53)
[2019-07-16] MEDS: BUPRENORPHINE/NALOXONE 8-2MG SUBLINGUAL TABLET(SUBOXONE) SL SCH ×2 (08:50→16:04)
[2019-07-16] MEDS: DICLOFENAC EPOLAMINE 1.3 % PATCH TOP SCH ×2 (10:05→20:46)
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
[2019-07-16 16:28] VITALS: BP 104/62
[2019-07-17 06:18] VITALS: BP 110/63
[2019-07-17] MEDS: FLUTICASONE PROP 0.05% NASAL SPRAY 16 GM (FLONASE) NARES SCH ×2 (08:21→20:36)
[2019-07-17] MEDS: CETIRIZINE (ZyrTEC) 10 MG TAB PO SCH (08:21)
[2019-07-17] MEDS: DICLOFENAC EPOLAMINE 1.3 % PATCH TOP SCH ×2 (08:21→20:37)
[2019-07-17] MEDS: BUPRENORPHINE/NALOXONE 8-2MG SUBLINGUAL TABLET(SUBOXONE) SL SCH ×2 (08:21→16:27)
[2019-07-17] MEDS: FLUoxetine 20 MG CAP PO SCH (08:21)
[2019-07-17] MEDS: clonazePAM 1 MG TAB PO SCH ×3 (08:21→20:35)
[2019-07-17] MEDS: GABAPENTIN 300 MG CAP PO SCH ×4 (08:21→20:35)
[2019-07-17] MEDS: NICOTINE POLACRILEX 2 MG GUM PO PRN ×2 (08:25→18:16)
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
[2019-07-17 18:36] VITALS: BP 112/58
[2019-07-18 06:03] VITALS: BP 123/62
[2019-07-18] MEDS: clonazePAM 1 MG TAB PO SCH (08:18)
[2019-07-18] MEDS: FLUTICASONE PROP 0.05% NASAL SPRAY 16 GM (FLONASE) NARES SCH (08:18)
[2019-07-18] MEDS: FLUoxetine 20 MG CAP PO SCH (08:18)
[2019-07-18] MEDS: DICLOFENAC EPOLAMINE 1.3 % PATCH TOP SCH (08:18)
[2019-07-18] MEDS: GABAPENTIN 300 MG CAP PO SCH (08:18)
[2019-07-18] MEDS: CETIRIZINE (ZyrTEC) 10 MG TAB PO SCH (08:18)
[2019-07-18] MEDS: BUPRENORPHINE/NALOXONE 8-2MG SUBLINGUAL TABLET(SUBOXONE) SL SCH (08:29)
[2019-07-18] MEDS ORDERED: GABA600T4 PO (08:41)
[2019-07-18] MEDS ORDERED: TRAZ-252 PO (08:41)
[2019-07-18] MEDS ORDERED: FLUO20CA19 PO (08:41)
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
[2019-07-18] MEDS: NICOTINE POLACRILEX 2 MG GUM PO PRN (08:46)
== END 2019-07-18 11:00 | disposition home or self-care (01) | DRG 754 ==
LOC: M ED 15:33 → M ED INP 20:12 → EEVIPCON 20:12 → M PSY 20:59
PROVIDERS: ADMIT Psychiatry & Neurology Psychiatry; ATTEND Psychiatry & Neurology Psychiatry
DX: F32.9 Major depressive disorder, single episode, unspecified (principal); F43.10 Post-traumatic stress disorder, unspecified; F11.20 Opioid dependence, uncomplicated; F14.20 Cocaine dependence, uncomplicated; F13.20 Sedative, hypnotic or anxiolytic dependence, uncomplicated; Z91.5 Personal history of self-harm; Z63.0 Problems in relationship with spouse or partner; Z63.79 Other stressful life events affecting family and household; Z79.899 Other long term (current) drug therapy; Z88.8 Allergy status to other drugs, medicaments and biological substances; F19.21 Other psychoactive substance dependence, in remission; I80.8 Phlebitis and thrombophlebitis of other sites; B18.2 Chronic viral hepatitis C; R56.9 Unspecified convulsions; F41.9 Anxiety disorder, unspecified; G62.9 Polyneuropathy, unspecified; J45.909 Unspecified asthma, uncomplicated; L40.9 Psoriasis, unspecified; F10.20 Alcohol dependence, uncomplicated; F17.200 Nicotine dependence, unspecified, uncomplicated; Z81.8 Family history of other mental and behavioral disorders; Z81.1 Family history of alcohol abuse and dependence; Z91.410 Personal history of adult physical and sexual abuse; G89.29 Other chronic pain; M54.5 Low back pain; R30.0 Dysuria

== ENCOUNTER 2019-09-11 02:50 | Emergency (ER) | payer MEDICAID, OTHER ==
[~2019-09-11 02:50] MED LIST changes: +BUPR8SUB SL; -FLUO20CA19 PO; +FLUO20CA22 PO; +PREG100CA PO
[2019-09-11] MEDS ORDERED: AUGM500T34 PO (03:19)
[2019-09-11 03:26] VITALS: BP 120/63
[2019-09-11] MEDS ORDERED: AUGMENTIN 875 MG TAB PO ONE (03:30)
== END 2019-09-11 03:27 | disposition home or self-care (01) ==
LOC: M ED 02:50 → EDBD 02:50 → M ED 03:27
DX: J32.9 Chronic sinusitis, unspecified (principal); F33.9 Major depressive disorder, recurrent, unspecified; B19.20 Unspecified viral hepatitis C without hepatic coma; F19.10 Other psychoactive substance abuse, uncomplicated; Z79.899 Other long term (current) drug therapy; Z88.5 Allergy status to narcotic agent; F17.210 Nicotine dependence, cigarettes, uncomplicated

== ENCOUNTER 2019-09-14 18:17 | Inpatient (IN) | payer MEDICAID, OTHER ==
[~2019-09-14] VITALS: Ht 167.6 cm; Wt 79.7 kg
[~2019-09-14 18:17] MED LIST changes: +AUGM500T34 PO
[2019-09-14] MEDS ORDERED: CHARCOAL ACTIVATED LIQUID 25 GM/120 ML BTL As Ordered ONE (18:23)
[2019-09-14] MEDS ORDERED: CHARCOAL ACTIVATED LIQUID 25 GM/120 ML BTL PO ONE (18:30)
[2019-09-14] MEDS ORDERED: NS 1,000 ML IV ONE (18:30)
--- NOTE | 2019-09-14 19:09 | ECGEPIP ---
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
[2019-09-14 19:17] LABS: VENOUS BASE EXCESS -1.7 (-2.0-2.0); VENOUS HCO3 22.9 MEQ/L (23.0-27.0); VENOUS O2 SATURATION 97.7 % (60.0-80.0); VENOUS PARTIAL PRESSURE CO2 38.7 mmHg (38.0-50.0); VENOUS TOTAL CO2 24.1 MEQ/L (24.0-28.0)
[2019-09-14 19:29] LABS: BASO % 0.4 % (0.0-1.0); EOS # 0.2 10^3/uL (0.0-0.5); EOS % 2.2 % (0.0-3.0); HEMATOCRIT 41.1 % (36.0-47.0); LYMPH # 2.7 10^3/uL (1.5-5.0); LYMPH % 30.3 % (24.0-44.0); MEAN CORPUSCULAR HEMOGLOBIN 30.9 pg (27.0-33.0); MEAN CORPUSCULAR HGB CONC 34.1 g/dl (32.0-36.5); MEAN CORPUSCULAR VOLUME 90.7 fl (80.0-96.0); MONO # 0.7 10^3/uL (0.0-0.8); MONO % 7.5 % (0.0-5.0); NEUTROPHILS # 5.3 10^3/uL (1.5-8.5); NEUTROPHILS % 59.2 % (36.0-66.0); PLATELET COUNT, AUTOMATED 244 10^3/uL (150-450); RED BLOOD COUNT 4.53 10^6/uL (4.00-5.40); WHITE BLOOD COUNT 8.9 10^3/uL (4.0-10.0)
[2019-09-14 20:09] LABS: ACETAMINOPHEN LEVEL < 2.0 UG/ML (10.0-30.0); ALBUMIN 3.7 GM/DL (3.2-5.2); ALT/SGPT 31 U/L (12-78); BILIRUBIN,DIRECT < 0.1 MG/DL (0.0-0.2); BILIRUBIN,TOTAL 0.6 MG/DL (0.2-1.0); BLOOD UREA NITROGEN 9 MG/DL (7-18); CALCIUM LEVEL 8.9 MG/DL (8.5-10.1); CARBON DIOXIDE LEVEL 26 MEQ/L (21-32); CHLORIDE LEVEL 105 MEQ/L (98-107); CPK CREATINE PHOSPHOKINASE 964 U/L (26-192); CREATININE FOR GFR 0.81 MG/DL (0.55-1.30); ETHYL ALCOHOL (ETHANOL) < 0.003 % (0.000-0.010); GLOMERULAR FILTRATION RATE > 60.0 (>51); GLUCOSE, FASTING 124 MG/DL (70-100); POTASSIUM SERUM 4.3 MEQ/L (3.5-5.1); SALICYLATE LEVEL 4.3 MG/DL (5.0-30.0); SODIUM LEVEL 137 MEQ/L (136-145); THYROID STIMULATING HORMONE 0.503 uIU/ML (0.358-3.740); TOTAL PROTEIN 7.9 GM/DL (6.4-8.2)
[2019-09-14 20:16] LABS: OSMOLALITY SERUM 298 MOSM/KG (275-295)
[2019-09-14 20:25] LABS: AMPHETAMINES LEVEL URINE NEGATIVE (NEGATIVE); BARBITURATES URINE NEGATIVE (NEGATIVE); BENZODIAZEPINES URINE POSITIVE (NEGATIVE); CANNABINOIDS URINE NEGATIVE (NEGATIVE); COCAINE METABOLITE URINE NEGATIVE (NEGATIVE); METHADONE URINE NEGATIVE (NEGATIVE); OPIATES URINE NEGATIVE (NEGATIVE); PHENCYCLIDINE URINE NEGATIVE (NEGATIVE)
[2019-09-15] MEDS ORDERED: traZODone 50 MG TAB PO PRN (01:30)
[2019-09-15] MEDS ORDERED: MAALOX 30 ML SUSP *UDC PO PRN (01:30)
[2019-09-15] MEDS ORDERED: MOM 30ML SUSPENSION UDC PO PRN (01:30)
[2019-09-15] MEDS ORDERED: ACETAMINOPHEN TAB 650MG DOSE (2X325MG) PO PRN (01:30)
[2019-09-15] MEDS ORDERED: PREG100CA PO (02:04)
[2019-09-15] MEDS ORDERED: AUGM500T34 PO (02:04)
[2019-09-15] MEDS ORDERED: GABA800T4 PO (02:04)
[2019-09-15] MEDS ORDERED: NICO4GUM29 PO (02:04)
[2019-09-15] MEDS ORDERED: FLUO20CA20 PO (02:04)
[2019-09-15] MEDS ORDERED: HYDR-3363 PO (02:04)
[2019-09-15 03:18] VITALS: BP 120/73
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
[2019-09-15] MEDS: hydrOXYzine 25 MG TAB PO SCH ×3 (11:22→20:06)
[2019-09-15] MEDS: PREGABALIN 100 MG CAP (LYRICA) PO SCH ×3 (11:23→20:03)
[2019-09-15] MEDS: BUPRENORPHINE/NALOXONE 8-2MG SUBLINGUAL TABLET(SUBOXONE) SL SCH (11:24)
[2019-09-15] MEDS: GABAPENTIN 400 MG CAP PO SCH ×3 (11:25→20:06)
[2019-09-15] MEDS: NICOTINE POLACRILEX 2 MG GUM PO PRN ×2 (11:26→13:28)
[2019-09-15] MEDS ORDERED: NICOTINE POLACRILEX 2 MG GUM PO SCH (13:00)
--- NOTE | 2019-09-15 14:56 | HPEPDOC ---
General Date of Admission Sep 15, 2019 at 01:18 Date of Service: Sep 15, 2019 Chief Complaint The patient is a 49-year-old female admitted with a reason for visit of Unspecified Depressive Disorder. Source: Patient Exam Limitations: No limitations History of Present Illness 49 year old female PMHx major depression, polysubstance abuse admitted to the [facility]. Patient is awake and alert, answering questions appropriately. Denies chest pain/pressure, N/V/D, abdominal pain, shortness of breath, cough, fever/chills, urinary complaints. Does complaint of recent history of episodic shortness of breath, lasting for a few minutes to an hour, no associated symptoms. Home Medications Scheduled Amoxicillin/Potassium Clav (Augmentin 500-125 Tablet) 1 Each Tablet, 1 TAB PO BID, (Reported) HAS NOT TAKEN ANY YET, ORDERED 09/11/2019 Buprenorphine HCl (Buprenorphine HCl) 8 Mg Tab.subl, 24 MG SL QAM, (Reported) ACTIVE RX NOT FOUND FOR THIS, PATIENT STATES SHE TOOK YESTERDAY Clonazepam (Clonazepam) 1 Mg Tab.rapdis, 1 MG PO TID, (Reported) Fluoxetine Hcl (Fluoxetine HCl) 20 Mg Capsule, 20 MG PO DAILY, (Reported) Gabapentin (Gabapentin) 800 Mg Tablet, 800 MG PO TID, (Reported) Hydroxyzine HCl (Hydroxyzine HCl) 25 Mg Tablet, 25 MG PO TID, (Reported) Nicotine Polacrilex (Nicotine Gum) 4 Mg Gum, 4 MG PO QID, (Reported) Pregabalin (Lyrica) 100 Mg Capsule, 100 MG PO TID, (Reported) Allergies Coded Allergies: naloxone (Verified Allergy, Mild, RASH, 07/14/19) tramadol (Verified Allergy, Mild, RASH, 07/14/19) Past Medical History Medical History depression polysubstance abuse A-FIB/CHADSVASC A-FIB History Current/History of A-Fib/PAF?: No Review of Systems Constitutional: Denies: Chills, Fever, Night Sweats Eyes: Denies: Pain, Vision change ENT: Denies: Head Aches, Ear Pain, Dysphagia Skin: Denies: Rash, Lesions, Breakdown Pulmonary: Denies: Dyspnea, Cough Cardiovascular: Denies: Chest Pain, Palpitations, Orthopnea, Paroxysmal Noc. Dyspnea, Lt Headedness Gastrointestinal: Denies: Nausea, Vomiting, Abdominal Pain, Diarrhea Genitourinary: Denies: Dysuria, Frequency, Incontinence, Retention Hematologic: Denies: Bruising, Bleeding Excessively Musculoskeletal: Denies: Neck Pain, Back Pain, Joint Pain, Muscle Pain, Spasms Neurological: Denies: Weakness, Numbness, Change in speech, Confusion Psych: Reports: Mood Normal; Denies: Depression, Memory Issues Physical Examination General Exam: Positive: Alert, No Acute Distress Eye Exam: Positive: PERRLA, Conjunctiva & lids normal, EOMI; Negative: Sclera icteric ENT Exam: Positive: Atraumatic, Mucous membr. moist/pink, Pharynx Normal Neck Exam: Positive: Supple; Negative: JVD, thyromegaly Chest Exam: Positive: Clear to auscultation, Normal air movement Heart Exam: Positive: Rate Normal, Regular Rhythm, Normal S1, Normal S2; Negative: Murmurs, Rubs Telemetry: Positive: No significant arrhythmia Abdomen Exam: Positive: Normal bowel sounds, Soft; Negative: Tenderness, Hepatospenomegaly Extremity Exam: Positive: Normal pulses; Negative: Clubbing, Cyanosis, Edema Skin Exam: Positive: Nl turgor and temperature; Negative: Breakdown, Lesion Neuro Exam: Positive: Normal Gait, Normal Speech, Cranial Nerves 3-12 NL, Reflexes 2+ Psych Exam: Positive: Mental status NL, Mood NL, Oriented x 3 Vital Signs Vital Signs Date Time Temp Pulse Resp B/P (MAP) Pulse Ox O2 Delivery O2 Flow Rate FiO2 09/15/19 03:18 97.8 65 16 120/73 (89) 96 Room Air 09/14/19 22:30 2.0 Laboratory Data Labs 24H Laboratory Tests 2 09/14/19 19:08: Immature Granulocyte % (Auto) 0.4, Neutrophils (%) (Auto) 59.2, Lymphocytes (%) (Auto) 30.3, Monocytes (%) (Auto) 7.5H, Eosinophils (%) (Auto) 2.2, Basophils (%) (Auto) 0.4, Neutrophils # (Auto) 5.3, Lymphocytes # (Auto) 2.7, Monocytes # (Auto) 0.7, Eosinophils # (Auto) 0.2, Basophils # (Auto) 0.0, Nucleated Red Blood Cells % (auto) 0.0, Blood Gas Bicarbonate Standard 23.0, Venous Blood pH 7 .390, Venous Blood Partial Pressure CO2 38.7, Venous Blood Partial Pressure O2 105.0H, Venous Blood Total Carbon Dioxide 24.1, Venous Blood HCO3 22.9L, Venous Blood Oxygen Saturation 97.7H, Venous Blood Base Excess -1.7, Anion Gap 6L, Glomerular Filtration Rate > 60.0, Osmolality 298H, Calcium Level 8.9, Total Bilirubin 0.6, Direct Bilirubin < 0.1, Aspartate Amino Transf (AST/SGOT) 60H, Alanine Aminotransferase (ALT/SGPT) 31, Alkaline Phosphatase 97, Total Creatine Kinase 964H, Total Protein 7.9, Albumin 3.7, Albumin/Globulin Ratio 0.88L, Thyroid Stimulating Hormone (TSH) 0.503, Salicylates Level 4.3L, Urine Opiates Screen NEGATIVE, Urine Methadone Screen NEGATIVE, Acetaminophen Level < 2.0L, Urine Barbiturates Screen NEGATIVE, Urine Phencyclidine Screen NEGATIVE, Urine Amphetamines Screen NEGATIVE, Urine Benzodiazepines Screen POSITIVEH, Urine Cocaine Metabolite Screen NEGATIVE, Urine Cannabinoids Screen NEGATIVE, Ethyl Alcohol Level < 0.003 09/14/19 19:19: Bedside Glucose (Misc Panel) 157H 09/15/19 02:09: Total Creatine Kinase 636H CBC/BMP Laboratory Tests 09/14/19 19:08 Assessment/Plan 1. major depressive episode - management as per psych 2. episodic SOB - unclear etiology, currently asymptomatic. - anxiety related? - monitor for now. Thank you for this consultation, we will sign off for now, please reconsult as needed. Plan / VTE VTE Prophylaxis Ordered?: No CYRIL DAVID MD Sep 15, 2019 14:56
[2019-09-15] MEDS ORDERED: clonazePAM 0.5 MG TAB PO SCH (21:00)
[2019-09-15 21:01] VITALS: BP 118/63
[2019-09-16 06:01] VITALS: BP 140/65
[2019-09-16] MEDS: GABAPENTIN 400 MG CAP PO SCH (08:04)
[2019-09-16] MEDS: PREGABALIN 100 MG CAP (LYRICA) PO SCH (08:17)
[2019-09-16] MEDS: BUPRENORPHINE/NALOXONE 8-2MG SUBLINGUAL TABLET(SUBOXONE) SL SCH (08:17)
[2019-09-16] MEDS: hydrOXYzine 25 MG TAB PO SCH (08:26)
[2019-09-16] MEDS: NICOTINE POLACRILEX 2 MG GUM PO PRN (08:35)
--- NOTE | 2019-09-16 09:09 | MHDSPDOC ---
[facility] Discharge Summary Discharge Summary DATE OF ADMISSION: Sep 15, 2019 at 01:18 DATE OF DISCHARGE: 09/16/19 Discharge Becca Tatum MRN: N/A Date of : N/A Date of Service: 09/16/2019 Diagnoses Unspecified depressive disorder. Rule out malingering versus adjustment versus substance use. Opioid use disorder, severe. Benzodiazepine use disorder, severe. Nicotine use disorder, moderate. Alcohol use disorder, unspecified. History of Present Illness The patient is a 49-year-old woman with a long history of substance abuse problems presents after taking more Klonopin than she has been prescribed, becoming more intoxicated, she reports she does not remember much of how she had presented as she was quite intoxicated after taking more Klonopin than prescribed for several days. She has a notable history of opioid problems treated at [facility]. She reports that she had been taking more Klonopin as she had had some stressors due to the Coronavirus crisis. The patient has a notable history of presenting after misusing her medications and has presented again. When asked about any potential changes as she has recently been here, she reports no major changes other than the aforementioned situational anxiety. She describes no changes in her trauma symptoms, anxiety and no major social changes. Consultants Involved Hospitalist/PCP screening Treatment and Progress On The Unit The patient was admitted to the inpatient mental health unit after she had overdosed/misused Klonopin. After she arrived she described that she had been misusing Klonopin and had not in fact want to hurt herself, but have become severely intoxicated making unusual statements. She was resumed on her home Prozac, Lyrica and Suboxone after the dose were verified. Patient was converted to involuntary status quickly and after discussion the patient was tapered off of her clonazepam with 0.5 mg nightly, which she tolerated well with no signs of withdrawal. The patient was informed that she will be sent with a taper as she agreed with this provider that clonazepam was not the best option for her. She did attempt to increase the amount that was given to her when she laughed and would certainly change her statement from "I feel great and ready to go" to "I don't know if I am ready to go!," a consistent pattern with this individual generally focusing on trying to get more clonazepam, we additionally destroyed her supply of clonazepam that she had been brought in with as she has a certain history of misusing it and is likely very unhelpful for her. She had no behavioral problems otherwise on the unit. Discharge Assessment 49-year-old woman with long history of substance abuse and malingering presents after misusing clonazepam. The patient at the time of discharge did not meet criteria for involuntary admission/extension due to having a normal mental status exam, fair insight into the situation, They are engaged in the discharge process, as well as being friendly and amenable in behavioral control and havent been engaging in any o bserved concerning behavior or ideation recently. They decline voluntary extension/admission at this time and must be discharged in good nick, as Im unable to make a case for holding the patient against their will. They may have historical risk factors of admissions and other interactions with psychiatry however, those are not modifiable from a clinical perspective. The patient will need to be discharged in good nick. Mental Status Examination General: Well dressed with good hygiene Speech: Spontaneous and fluid Thought processes: Linear and logical MSK: Smooth and coordinated gait, no signs of tremors or involuntary orofacial movements Thought content: Future orientated Abstract reasoning, and computation: Intact Description of associations: Intact Description of abnormal or psychotic thoughts: Denies any suicidal or homicidal ideation. Denies any auditory or visual hallucinations. Does not appear to be responding to internal stimuli. Does not appear to be endorsing any bizarre or paranoid ideation. Judgment: chronically limited Insight: chronically limited Orientation: Alert and orientated 3 Cognition: Grossly normal Recent and remote memory: Intact Attention span and concentration: Intact Fund of knowledge: Adequate Mood: "okay" Affect: Euthymic with a full range Follow Up The social work team worked during the predischarge meeting in order to evaluate for further issues of lethality address them fully before discharge. They worked on safety planning with the patient's family members in order to ensure that the patient will have a safe and effective discharge. Time Spent The amount of time spent in the coordination of care for this patient was approximately 45 minutes. Sunday Vital Signs/I&Os Vital Signs Date Time Temp Pulse Resp B/P (MAP) Pulse Ox O2 Delivery O2 Flow Rate FiO2 09/16/19 06:01 98.6 54 16 140/65 (90) 97 Room Air 09/14/19 22:30 2.0 Medications Scheduled Amoxicillin/Potassium Clav (Augmentin 500-125 Tablet) 1 Each Tablet, 1 TAB PO BID, (Reported) HAS NOT TAKEN ANY YET, ORDERED 09/11/2019 Buprenorphine HCl (Buprenorphine HCl) 8 Mg Tab.subl, 24 MG SL QAM, (Reported) ACTIVE RX NOT FOUND FOR THIS, PATIENT STATES SHE TOOK YESTERDAY Clonazepam (Clonazepam) 0.5 Mg Tablet, 0.5 MG PO QHS for taper for 7 Days, #7 take 1 tab for 4 days, then 1/2 tab 4 days until finnished Fluoxetine Hcl (Fluoxetine HCl) 20 Mg Capsule, 20 MG PO DAILY, (Reported) Hydroxyzine HCl (Hydroxyzine HCl) 25 Mg Tablet, 25 MG PO TID, (Reported) Nicotine Polacrilex (Nicotine Gum) 4 Mg Gum, 4 MG PO QID, (Reported) Pregabalin (Lyrica) 100 Mg Capsule, 100 MG PO TID, (Reported) Allergies Coded Allergies: naloxone (Verified Allergy, Mild, RASH, 07/14/19) tramadol (Verified Allergy, Mild, RASH, 07/14/19) STACEY GARCIA DO Sep 16, 2019 09:09
[2019-09-16] MEDS ORDERED: CLON0.5T2 PO (09:21)
== END 2019-09-16 11:40 | disposition home or self-care (01) | DRG 755 ==
LOC: M ED 18:17 → M ED INP 09-15 01:18 → M PSY 09-15 03:13
PROVIDERS: ADMIT Psychiatry & Neurology Psychiatry; ATTEND Psychiatry & Neurology Addiction Medicine
DX: F43.20 Adjustment disorder, unspecified (principal); F41.9 Anxiety disorder, unspecified; Z76.5 Malingerer [conscious simulation]; F17.200 Nicotine dependence, unspecified, uncomplicated; F10.10 Alcohol abuse, uncomplicated; F11.90 Opioid use, unspecified, uncomplicated; F15.90 Other stimulant use, unspecified, uncomplicated; Z79.899 Other long term (current) drug therapy; Z88.8 Allergy status to other drugs, medicaments and biological substances

== ENCOUNTER 2019-09-18 17:23 | Inpatient (IN) | payer MEDICAID, OTHER ==
[~2019-09-18] VITALS: Ht 170.2 cm; Wt 78.9 kg
[~2019-09-18 17:23] MED LIST changes: +CLON0.5T2 PO; +CYCL-707 PO; -CYCL10TA PO; +FLUO20CA20 PO; +NICO4GUM29 PO
[2019-09-18 18:58] LABS: HEMATOCRIT 44.5 % (36.0-47.0); HEMOGLOBIN 14.8 g/dl (12.0-15.5); MEAN CORPUSCULAR HGB CONC 33.3 g/dl (32.0-36.5); MEAN CORPUSCULAR VOLUME 93.1 fl (80.0-96.0); PLATELET COUNT, AUTOMATED 280 10^3/uL (150-450); RED BLOOD COUNT 4.78 10^6/uL (4.00-5.40)
[2019-09-18 19:04] LABS: AMPHETAMINES LEVEL URINE NEGATIVE (NEGATIVE); BARBITURATES URINE NEGATIVE (NEGATIVE); BENZODIAZEPINES URINE POSITIVE (NEGATIVE); CANNABINOIDS URINE NEGATIVE (NEGATIVE); COCAINE METABOLITE URINE NEGATIVE (NEGATIVE); METHADONE URINE NEGATIVE (NEGATIVE); OPIATES URINE NEGATIVE (NEGATIVE); PHENCYCLIDINE URINE NEGATIVE (NEGATIVE)
[2019-09-18 20:18] LABS: ACETAMINOPHEN LEVEL < 2.0 UG/ML (10.0-30.0); ALBUMIN 3.9 GM/DL (3.2-5.2); ALT/SGPT 25 U/L (12-78); BILIRUBIN,DIRECT 0.1 MG/DL (0.0-0.2); BILIRUBIN,TOTAL 0.3 MG/DL (0.2-1.0); BLOOD UREA NITROGEN 7 MG/DL (7-18); CALCIUM LEVEL 9.8 MG/DL (8.5-10.1); CARBON DIOXIDE LEVEL 27 MEQ/L (21-32); CHLORIDE LEVEL 103 MEQ/L (98-107); CREATININE FOR GFR 0.85 MG/DL (0.55-1.30); ETHYL ALCOHOL (ETHANOL) < 0.003 % (0.000-0.010); GLOMERULAR FILTRATION RATE > 60.0 (>51); GLUCOSE, FASTING 97 MG/DL (70-100); POTASSIUM SERUM 4.1 MEQ/L (3.5-5.1); SALICYLATE LEVEL 4.3 MG/DL (5.0-30.0); SODIUM LEVEL 136 MEQ/L (136-145); THYROID STIMULATING HORMONE 0.484 uIU/ML (0.358-3.740); TOTAL PROTEIN 8.2 GM/DL (6.4-8.2)
[2019-09-18] MEDS ORDERED: ONDANSETRON 4 MG ORAL DISINTEGRATING TAB (Q0162 PER 1MG) PO ONE (21:00)
[2019-09-18] MEDS ORDERED: CLON0.5T2 PO (22:08)
[2019-09-18] MEDS ORDERED: MAALOX 30 ML SUSP *UDC PO PRN (22:45)
[2019-09-18] MEDS ORDERED: MOM 30ML SUSPENSION UDC PO PRN (22:45)
[2019-09-18] MEDS ORDERED: ACETAMINOPHEN TAB 650MG DOSE (2X325MG) PO PRN (22:45)
[2019-09-18 23:16] VITALS: BP 140/80
[2019-09-19] MEDS: traZODone 50 MG TAB PO PRN ×2 (00:02→20:24)
[2019-09-19 06:40] VITALS: BP 140/70
[2019-09-19] MEDS ORDERED: SUBO8MIS SL (08:17)
[2019-09-19] MEDS: NICOTINE POLACRILEX 2 MG GUM PO PRN ×3 (08:34→18:38)
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
[2019-09-19] MEDS: BUPRENORPHINE/NALOXONE 8-2MG SUBLINGUAL TABLET(SUBOXONE) SL SCH (09:58)
[2019-09-19] MEDS: AUGMENTIN 500 MG TAB PO SCH ×2 (10:27→20:24)
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
[2019-09-19 16:00] VITALS: BP 141/84
[2019-09-19] MEDS ORDERED: clonazePAM 0.5 MG TAB PO SCH (21:00)
[2019-09-20 06:57] VITALS: BP 116/58
[2019-09-20] MEDS: AUGMENTIN 500 MG TAB PO SCH (08:19)
[2019-09-20] MEDS: BUPRENORPHINE/NALOXONE 8-2MG SUBLINGUAL TABLET(SUBOXONE) SL SCH (08:19)
[2019-09-20] MEDS: NICOTINE POLACRILEX 2 MG GUM PO PRN (08:21)
--- NOTE | 2019-09-20 11:48 | MHDSPDOC ---
[facility] Discharge Summary Discharge Summary DATE OF ADMISSION: Sep 18, 2019 at 22:32 DATE OF DISCHARGE: 09/20/19 Discharge Becca Tatum MRN: N/A Date of : N/A Date of Service: 09/20/2019 Diagnoses Unspecified psychotic disorder. Highly likely either malingering or substance use. Opioid use disorder, severe. Benzodiazepine use disorder, severe. Nicotine use disorder, moderate. Alcohol use disorder, unspecified. History of Present Illness The patient, a 49-year-old woman who just was discharged from our unit recently for substance induced psychosis, presents again after reportedly misusing her Suboxone, becoming distorted, and called her primary care, her primary care directed her to go to the ER to "talk to someone". She had presented stating that she was worried and anxious where she was admitted out of an abundance of caution by the on-call provider. When the patient was met with she stated that she had felt much better. She had been concerned that she might have had coronavirus, but feels now that she had not had it and that she wished to go home. She reported that she had had the moment of anxiety having difficulty adjusting to the current coronavirus quarantine measures. Consultants Involved Hospitalist/PCP screening Treatment and Progress On The Unit The patient was admitted to the inpatient unit and resumed on home medications and taper, she reported that she had "had a bad time" however she was observed with no concerning behavioral problems and generally was amenable. Attended groups at times, but otherwise didn't have any behavioral issues and asked to leave soon after presenting. Discharge Assessment 49-year-old woman with a history of significant substance use and presentations likely related to intoxication presents after becoming quite intoxicated on Suboxone and making unusual statements, admitted out of an abundance of caution. The patient at the time of discharge did not meet criteria for involuntary admission/extension due to having a normal mental status exam, fair insight into the situation, They are engaged in the discharge process, as well as being friendly and amenable in behavioral control and havent been engaging in any observed concerning behavior or ideation recently. They decline voluntary e xtension/admission at this time and must be discharged in good nick, as Im unable to make a case for holding the patient against their will. They may have historical risk factors of admissions and other interactions with psychiatry however, those are not modifiable from a clinical perspective. The patient will need to be discharged in good nick. Mental Status Examination General: Well dressed with good hygiene Speech: Spontaneous and fluid Thought processes: Linear and logical MSK: Smooth and coordinated gait, no signs of tremors or involuntary orofacial movements Thought content: Future orientated Abstract reasoning, and computation: Intact Description of associations: Intact Description of abnormal or psychotic thoughts: Denies any suicidal or homicidal ideation. Denies any auditory or visual hallucinations. Does not appear to be responding to internal stimuli. Does not appear to be endorsing any bizarre or paranoid ideation. Judgment: fair Insight: fair Orientation: Alert and orientated 3 Cognition: Grossly normal Recent and remote memory: Intact Attention span and concentration: Intact Fund of knowledge: Adequate Mood: "okay" Affect: Euthymic with a full range Follow Up The social work team worked during the predischarge meeting in order to evaluate for further issues of lethality address them fully before discharge. They worked on safety planning with the patient's family members in order to ensure that the patient will have a safe and effective discharge. Time Spent The amount of time spent in the coordination of care for this patient was approximately 45 minutes. Sunday Vital Signs/I&Os Vital Signs Date Time Temp Pulse Resp B/P (MAP) Pulse Ox O2 Delivery O2 Flow Rate FiO2 09/20/19 06:57 98.6 60 18 116/58 (77) 96 Room Air Medications Scheduled Amoxicillin/Potassium Clav (Augmentin 500-125 Tablet) 1 Each Tablet, 1 TAB PO BID, (Reported) Buprenorphine HCl/Naloxone HCl (Suboxone 8 mg-2 mg Sl Film) 1 Each Film, 2 STRIP SL DAILY for ., (Reported) RECEIVES AT [facility] Clonazepam (Clonazepam) 0.5 Mg Tablet, 0.5 MG PO ASDIRECTED, (Reported) 0.5MG AT BEDTIME FOR 4 DAYS, THEN 0.25MG AT BEDTIME FOR 4 DAYS UNTIL FINISHED Scheduled PRN Nicotine Polacrilex (Nicotine Gum) 4 Mg Gum, 4 MG PO QID PRN for SMOKING CESSATION, (Reported) Allergies Coded Allergies: naloxone (Verified Allergy, Mild, RASH, 2/3) tramadol (Verified Allergy, Mild, RASH, 2/3) STACEY GARCIA DO Sep 20, 2019 11:48
== END 2019-09-20 13:30 | disposition home or self-care (01) | DRG 751 ==
LOC: M ED 17:23 → M ED INP 22:32 → M PSY 22:55
PROVIDERS: ADMIT Psychiatry & Neurology Psychiatry; ATTEND Psychiatry & Neurology Addiction Medicine
DX: F29 Unspecified psychosis not due to a substance or known physiological condition (principal); G40.909 Epilepsy, unspecified, not intractable, without status epilepticus; F41.9 Anxiety disorder, unspecified; F11.90 Opioid use, unspecified, uncomplicated; F17.200 Nicotine dependence, unspecified, uncomplicated; F10.10 Alcohol abuse, uncomplicated; F15.90 Other stimulant use, unspecified, uncomplicated; Z76.5 Malingerer [conscious simulation]; Z79.899 Other long term (current) drug therapy; Z88.8 Allergy status to other drugs, medicaments and biological substances; J45.909 Unspecified asthma, uncomplicated; M54.5 Low back pain; L40.8 Other psoriasis

== ENCOUNTER 2019-09-22 09:35 | Emergency (ER) | payer MEDICAID, OTHER ==
[~2019-09-22] VITALS: Ht 170.2 cm; Wt 77.3 kg
[2019-09-22] MEDS ORDERED: CLON1TAB8 (10:41)
[2019-09-22 10:43] LABS: BASO % 0.3 % (0.0-1.0); EOS % 0.1 % (0.0-3.0); HEMATOCRIT 43.8 % (36.0-47.0); HEMOGLOBIN 14.9 g/dl (12.0-15.5); LYMPH # 1.1 10^3/uL (1.5-5.0); MEAN CORPUSCULAR HEMOGLOBIN 31.2 pg (27.0-33.0); MEAN CORPUSCULAR VOLUME 91.6 fl (80.0-96.0); MONO # 0.4 10^3/uL (0.0-0.8); MONO % 5.3 % (0.0-5.0); PLATELET COUNT, AUTOMATED 242 10^3/uL (150-450); RED BLOOD COUNT 4.78 10^6/uL (4.00-5.40); WHITE BLOOD COUNT 7.5 10^3/uL (4.0-10.0)
[2019-09-22] MEDS ORDERED: NS 500 ML IV ONE (11:30)
[2019-09-22 11:46] LABS: BLOOD UREA NITROGEN 8 MG/DL (7-18); CALCIUM LEVEL 10.1 MG/DL (8.5-10.1); CARBON DIOXIDE LEVEL 23 MEQ/L (21-32); CHLORIDE LEVEL 103 MEQ/L (98-107); CREATININE FOR GFR 0.87 MG/DL (0.55-1.30); GLOMERULAR FILTRATION RATE > 60.0 (>51); GLUCOSE, FASTING 110 MG/DL (70-100); SODIUM LEVEL 135 MEQ/L (136-145); THYROID STIMULATING HORMONE 0.451 uIU/ML (0.358-3.740)
[2019-09-22 12:30] VITALS: BP 139/80
--- NOTE | 2019-09-23 09:06 | ECGEPIP ---
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
== END 2019-09-22 13:11 | disposition home or self-care (01) ==
LOC: EDBD 09:35 → M ED 09:35
DX: R53.1 Weakness (principal); F17.200 Nicotine dependence, unspecified, uncomplicated; Z79.899 Other long term (current) drug therapy; Z88.5 Allergy status to narcotic agent; Z88.8 Allergy status to other drugs, medicaments and biological substances

== ENCOUNTER 2019-09-23 12:25 | Emergency (ER) | payer OTHER ==
[~2019-09-23] VITALS: Ht 170.2 cm; Wt 78.6 kg
[2019-09-23 12:27] VITALS: BP 137/85
== END 2019-09-23 13:06 | disposition home or self-care (01) ==
LOC: M ED 12:25
DX: Z04.89 Encounter for examination and observation for other specified reasons (principal); F33.9 Major depressive disorder, recurrent, unspecified; B19.20 Unspecified viral hepatitis C without hepatic coma; Z79.890 Hormone replacement therapy; Z88.5 Allergy status to narcotic agent; Z88.8 Allergy status to other drugs, medicaments and biological substances; F17.210 Nicotine dependence, cigarettes, uncomplicated

== ENCOUNTER 2019-09-23 22:46 | Emergency (ER) | payer OTHER ==
[~2019-09-23] VITALS: Ht 170.2 cm; Wt 77.2 kg
[2019-09-23] MEDS ORDERED: clonazePAM 0.5 MG TAB PO ONE (23:15)
[2019-09-24 01:17] LABS: BASO # 0.1 10^3/uL (0.0-0.2); BASO % 0.5 % (0.0-1.0); EOS # 0.1 10^3/uL (0.0-0.5); EOS % 0.7 % (0.0-3.0); HEMATOCRIT 44.3 % (36.0-47.0); HEMOGLOBIN 15.2 g/dl (12.0-15.5); LYMPH % 28.7 % (24.0-44.0); MEAN CORPUSCULAR HEMOGLOBIN 31.1 pg (27.0-33.0); MEAN CORPUSCULAR HGB CONC 34.3 g/dl (32.0-36.5); MEAN CORPUSCULAR VOLUME 90.8 fl (80.0-96.0); MONO # 1.3 10^3/uL (0.0-0.8); NEUTROPHILS # 5.9 10^3/uL (1.5-8.5); NEUTROPHILS % 56.9 % (36.0-66.0); PLATELET COUNT, AUTOMATED 207 10^3/uL (150-450); RED BLOOD COUNT 4.88 10^6/uL (4.00-5.40); WHITE BLOOD COUNT 10.3 10^3/uL (4.0-10.0)
[2019-09-24 02:14] LABS: ALT/SGPT 28 U/L (12-78); BILIRUBIN,DIRECT 0.1 MG/DL (0.0-0.2); BILIRUBIN,TOTAL 0.5 MG/DL (0.2-1.0); BLOOD UREA NITROGEN 9 MG/DL (7-18); CALCIUM LEVEL 9.4 MG/DL (8.5-10.1); CARBON DIOXIDE LEVEL 26 MEQ/L (21-32); CHLORIDE LEVEL 104 MEQ/L (98-107); CREATININE FOR GFR 0.77 MG/DL (0.55-1.30); GLOMERULAR FILTRATION RATE > 60.0 (>51); GLUCOSE, FASTING 90 MG/DL (70-100); POTASSIUM SERUM 3.7 MEQ/L (3.5-5.1); SODIUM LEVEL 140 MEQ/L (136-145); TOTAL PROTEIN 8.2 GM/DL (6.4-8.2)
[2019-09-24 03:34] LABS: ETHYL ALCOHOL (ETHANOL) < 0.003 % (0.000-0.010)
[2019-09-24 03:36] LABS: ACETAMINOPHEN LEVEL < 2.0 UG/ML (10.0-30.0); SALICYLATE LEVEL 3.4 MG/DL (5.0-30.0); THYROID STIMULATING HORMONE 0.768 uIU/ML (0.358-3.740)
--- NOTE | 2019-09-24 03:54 | REP ---
Clinical: Cough and dyspnea . Comparison: 05/15/2018 . Findings: The mediastinum and cardiac silhouette are stable and within normal limits for portable technique. The lung garrett are clear without acute consolidation, effusion, or pneumothorax. Skeletal structures are intact. Impression: No acute cardiopulmonary process appreciated. Electronically Signed by Everett Taveras MD 09/24/2019 03:46 A
[2019-09-24 09:08] LABS: AMPHETAMINES LEVEL URINE NEGATIVE (NEGATIVE); BARBITURATES URINE NEGATIVE (NEGATIVE); BENZODIAZEPINES URINE POSITIVE (NEGATIVE); CANNABINOIDS URINE NEGATIVE (NEGATIVE); COCAINE METABOLITE URINE NEGATIVE (NEGATIVE); METHADONE URINE NEGATIVE (NEGATIVE); OPIATES URINE NEGATIVE (NEGATIVE); PHENCYCLIDINE URINE NEGATIVE (NEGATIVE)
--- NOTE | 2019-09-24 11:09 | ED PDOC ---
STACEY GARCIA DO Sep 24, 2019 11:08
[2019-09-24 11:54] VITALS: BP 138/78
--- NOTE | 2019-09-24 15:08 | ECGEPIP ---
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
[2019-09-25] MEDS ORDERED: GABA800T4 PO (02:42)
== END 2019-09-24 11:56 | disposition home or self-care (01) ==
LOC: M ED 22:46 → EDBD 22:46 → M ED 09-24 11:56
DX: F23 Brief psychotic disorder (principal); F19.10 Other psychoactive substance abuse, uncomplicated; F17.210 Nicotine dependence, cigarettes, uncomplicated; Z88.5 Allergy status to narcotic agent
CPT/HCPCS: 36415; 71045; 80048; 80076; 80307; 84443; 85025; 93005; 93041; 94760; 99285; G0480

== ENCOUNTER 2019-09-24 21:02 | Inpatient (IN) | payer MEDICAID, OTHER ==
[~2019-09-24] VITALS: Ht 170.2 cm; Wt 76.6 kg
[2019-09-24] MEDS: ACETAMINOPHEN TAB 650MG DOSE (2X325MG) PO ONE ×2 (21:45→21:51)
[2019-09-24 22:00] LABS: HEMATOCRIT 43.6 % (36.0-47.0); HEMOGLOBIN 14.9 g/dl (12.0-15.5); MEAN CORPUSCULAR HEMOGLOBIN 30.8 pg (27.0-33.0); MEAN CORPUSCULAR HGB CONC 34.2 g/dl (32.0-36.5); MEAN CORPUSCULAR VOLUME 90.3 fl (80.0-96.0); PLATELET COUNT, AUTOMATED 224 10^3/uL (150-450); RED BLOOD COUNT 4.83 10^6/uL (4.00-5.40); WHITE BLOOD COUNT 8.4 10^3/uL (4.0-10.0)
[2019-09-24 22:44] LABS: ALT/SGPT 34 U/L (12-78); BILIRUBIN,TOTAL 0.6 MG/DL (0.2-1.0); BLOOD UREA NITROGEN 8 MG/DL (7-18); CALCIUM LEVEL 9.3 MG/DL (8.5-10.1); CARBON DIOXIDE LEVEL 27 MEQ/L (21-32); CHLORIDE LEVEL 102 MEQ/L (98-107); CREATININE FOR GFR 0.84 MG/DL (0.55-1.30); GLOMERULAR FILTRATION RATE > 60.0 (>51); GLUCOSE, FASTING 104 MG/DL (70-100); POTASSIUM SERUM 3.7 MEQ/L (3.5-5.1); SODIUM LEVEL 137 MEQ/L (136-145)
[2019-09-24 22:45] LABS: ACETAMINOPHEN LEVEL < 2.0 UG/ML (10.0-30.0); BILIRUBIN,DIRECT 0.2 MG/DL (0.0-0.2); ETHYL ALCOHOL (ETHANOL) < 0.003 % (0.000-0.010); SALICYLATE LEVEL 4.1 MG/DL (5.0-30.0); THYROID STIMULATING HORMONE 0.937 uIU/ML (0.358-3.740); TOTAL PROTEIN 8.4 GM/DL (6.4-8.2)
--- NOTE | 2019-09-24 22:55 | REPVR ---
PROCEDURE INFORMATION: Exam: CT Head Without Contrast Exam date and time: 09/24/2019 10:48 PM Age: 49 years old Clinical indication: Altered mental status/memory loss; Additional info: AMS TECHNIQUE: Imaging protocol: Computed tomography of the head without contrast. Radiation optimization: All CT scans at this facility use at least one of these dose optimization techniques: automated exposure control; mA and/or kV adjustment per patient size (includes targeted exams where dose is matched to clinical indication); or iterative reconstruction. COMPARISON: CT Head without contrast 08/10/2018 12:30 AM FINDINGS: Brain: Normal. No hemorrhage. Unremarkable white matter. No mass effect. Ventricles: Normal. No ventriculomegaly. Bones/joints: Unremarkable. No acute fracture. Sinuses: Visualized sinuses are unremarkable. No fluid levels. Mastoid air cells: Visualized mastoid air cells are well aerated. Soft tissues: Unremarkable. IMPRESSION: Negative noncontrast head CT which is unchanged from 08/10/2018. Electronically signed by: Emmanuel Kc On 09/24/2019 22:55:42 PM
[2019-09-25 00:43] LABS: AMPHETAMINES LEVEL URINE NEGATIVE (NEGATIVE); BARBITURATES URINE NEGATIVE (NEGATIVE); BENZODIAZEPINES URINE POSITIVE (NEGATIVE); CANNABINOIDS URINE NEGATIVE (NEGATIVE); COCAINE METABOLITE URINE NEGATIVE (NEGATIVE); METHADONE URINE NEGATIVE (NEGATIVE); OPIATES URINE NEGATIVE (NEGATIVE); PHENCYCLIDINE URINE NEGATIVE (NEGATIVE)
[2019-09-25] MEDS ORDERED: traZODone 50 MG TAB PO PRN (02:00)
[2019-09-25] MEDS ORDERED: ACETAMINOPHEN TAB 650MG DOSE (2X325MG) PO PRN (02:00)
[2019-09-25] MEDS ORDERED: NICOTINE 21MG/24HR 1 EA TRANSDERMAL TD PRN (02:00)
[2019-09-25] MEDS ORDERED: MAALOX 30 ML SUSP *UDC PO PRN (02:00)
[2019-09-25] MEDS ORDERED: MOM 30ML SUSPENSION UDC PO PRN (02:00)
[2019-09-25] MEDS ORDERED: diphenhydrAMINE 25MG CAP PO PRN (02:00)
[2019-09-25] MEDS ORDERED: GABA800T4 PO (02:42)
[2019-09-25 03:46] VITALS: BP 141/82
[2019-09-25 06:07] VITALS: BP 134/63
--- NOTE | 2019-09-25 09:12 | MHHPEPDOC ---
[facility] [place] History & Physical History and Physical DATE OF ADMISSION: Sep 25, 2019 at 01:47 LEGAL STATUS AT ADMISSION: . CHIEF COMPLAINT: . HISTORY OF PRESENT ILLNESS: Patient is a 49-year-old female, who PSYCHIATRIC REVIEW OF SYSTEMS: Affective: . Anxiety: . Trauma: . Psychosis: . Personality: . PAST PSYCHIATRIC HISTORY: Prior Psychiatric Disorder: . Outpatient Treatment: . Suicidal/Self injurious: [Denies]. Psychotropic Medication History: . ALLERGIES: Please see below. FAMILY PSYCHIATRIC HISTORY: [Denies]. SOCIAL HISTORY: Early Relations/development: . Sibling order: . Paternal relationships: . Education: . Occupational: . Legal: . Marital: . Economic: . Supports: . Abuse/trauma: . SUBSTANCE ABUSE HISTORY: . PAST MEDICAL/SURGICAL HISTORY: [None]. VITAL SIGNS: Please see below. MENTAL STATUS EXAMINATION: General appearance: Patient is a -year old female, who is . Speech: . Thought processes: . Thought content: . Abstract reasoning and computation: . Description of associations: . Description of abnormal or psychotic thoughts: . Judgment: . Insight: . Orientation: . Recent and remote memory: . Attention span and concentration: . Fund of knowledge: . Mood: "." Affect: . DIAGNOSES: 1. . 2. . 3. . ASSESSMENT: PROBLEM LIST: 1. . 2. . 3. . INITIAL TREATMENT PLAN: 1. Patient was admitted on a . 2. Complete history was obtained. 3. With patients permission, family will be contacted and database will be expanded. 4. Patients medication regimen will be reviewed and changed accordingly. 5. Patient will be provided with protected environment. 6. Patient will be treated with individual, group, and milieu therapies. 7. Patient will receive supportive psych-education. 8. Discharge planning will commence immediately. 9. Outpatient follow-up treatment will be strongly recommended. 10. The initial treatment plan will focus initially on: * Depression. * Risk for suicide. * Substance abuse. ESTIMATED LENGTH OF STAY: - DAYS. TIME SPENT COUNSELING AND COORDINATING INITIAL CARE: minutes. Vital Signs Vital Signs Date Time Temp Pulse Resp B/P (MAP) Pulse Ox O2 Delivery O2 Flow Rate FiO2 09/25/19 06:07 97.7 61 16 134/63 (86) 98 Room Air Laboratory Data 24H Labs Laboratory Tests 2 09/24/19 21:52: Nucleated Red Blood Cells % (auto) 0.0, Anion Gap 8, Glomerular Filtration Rate > 60.0, Calcium Level 9.3, Total Bilirubin 0.6, Direct Bilirubin 0.2, Aspartate Amino Transf (AST/SGOT) 46H, Alanine Aminotransferase (ALT/SGPT) 34, Alkaline Phosphatase 110, Total Protein 8.4H, Albumin 4.0, Albumin/Globulin Ratio 0.91L, Thyroid Stimulating Hormone (TSH) 0.937, Salicylates Level 4.1L, Acetaminophen Level < 2.0L, Ethyl Alcohol Level < 0.003 09/25/19 00:05: Urine Opiates Screen NEGATIVE, Urine Methadone Screen NEGATIVE, Urine Barbiturates Screen NEGATIVE, Urine Phencyclidine Screen NEGATIVE, Urine Amphetamines Screen NEGATIVE, Urine Benzodiazepines Screen POSITIVEH, Urine Cocaine Metabolite Screen NEGATIVE, Urine Cannabinoids Screen NEGATIVE CBC/BMP Laboratory Tests 09/24/19 21:52 Medications Scheduled Buprenorphine HCl/Naloxone HCl (Suboxone 8 mg-2 mg Sl Film) 1 Each Film, 2 STRIP SL DAILY, (Reported) RECEIVES AT [facility] Gabapentin (Gabapentin) 800 Mg Tablet, 800 MG PO TID, (Reported) Allergies Coded Allergies: naloxone (Verified Allergy, Mild, RASH, 07/14/19) tramadol (Verified Allergy, Mild, RASH, 07/14/19) STACEY GARCIA DO Sep 25, 2019 09:12
--- NOTE | 2019-09-25 09:43 | MHDSPDOC ---
[facility] Discharge Summary Discharge Summary DATE OF ADMISSION: Sep 25, 2019 at 01:47 DATE OF DISCHARGE: DISCHARGE DIAGNOSES: 1. . 2. . REASON FOR ADMISSION: CONSULTANTS INVOLVED: TREATMENT AND PROGRESS ON THE UNIT : . HOSPITAL COURSE: DISCHARGE ASSESSMENT: MENTAL STATUS EXAMINATION ON DISCHARGE: Patient is a -year old female, who is . Speech is . Language skills are . Thought processes including: . Thought content: . Abstract reasoning, and computation: . Description of associations: . Description of abnormal or psychotic thoughts: . Judgment: . Insight: . Orientation to . Recent and remote memory: . Attention span and concentration: . Language: . Fund of knowledge: . Mood: . Affect: . MEDICATIONS ON DISCHARGE: - for . - for . - for . PLAN/FOLLOWUP ARRANGEMENTS: . The amount of time spent in the coordination of care for this patient was approximately minutes. Vital Signs/I&Os Vital Signs Date Time Temp Pulse Resp B/P (MAP) Pulse Ox O2 Delivery O2 Flow Rate FiO2 09/25/19 06:07 97.7 61 16 134/63 (86) 98 Room Air Laboratory Data Labs 24H Laboratory Tests 2 09/24/19 21:52: Nucleated Red Blood Cells % (auto) 0.0, Anion Gap 8, Glomerular Filtration Rate > 60.0, Calcium Level 9.3, Total Bilirubin 0.6, Direct Bilirubin 0.2, Aspartate Amino Transf (AST/SGOT) 46H, Alanine Aminotransferase (ALT/SGPT) 34, Alkaline Phosphatase 110, Total Protein 8.4H, Albumin 4.0, Albumin/Globulin Ratio 0.91L, Thyroid Stimulating Hormone (TSH) 0.937, Salicylates Level 4.1L, Acetaminophen Level < 2.0L, Ethyl Alcohol Level < 0.003 09/25/19 00:05: Urine Opiates Screen NEGATIVE, Urine Methadone Screen NEGATIVE, Urine Ba rbiturates Screen NEGATIVE, Urine Phencyclidine Screen NEGATIVE, Urine Amphetamines Screen NEGATIVE, Urine Benzodiazepines Screen POSITIVEH, Urine Cocaine Metabolite Screen NEGATIVE, Urine Cannabinoids Screen NEGATIVE CBC/BMP Laboratory Tests 09/24/19 21:52 Medications Scheduled Buprenorphine HCl/Naloxone HCl (Suboxone 8 mg-2 mg Sl Film) 1 Each Film, 2 STRIP SL DAILY, (Reported) RECEIVES AT [facility] Gabapentin (Gabapentin) 800 Mg Tablet, 800 MG PO TID, (Reported) Allergies Coded Allergies: naloxone (Verified Allergy, Mild, RASH, 07/14/19) tramadol (Verified Allergy, Mild, RASH, 2) STACEY GARCIA DO Sep 25, 2019 09:43
[2019-09-25] MEDS ORDERED: DULoxetine 30 MG CAP (CYMBALTA) PO ONE (12:00)
[2019-09-25] MEDS: BUPRENORPHINE/NALOXONE 8-2MG SUBLINGUAL TABLET(SUBOXONE) SL SCH (13:30)
--- NOTE | 2019-09-25 13:44 | ECGEPIP ---
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 Small difference in QRS axis compared with 09/24/2019 at 0012 hours. Electronically Signed on 09-25-2019 13:43:54 EDT by Carlos Diaz
[2019-09-25 15:14] VITALS: BP 144/82
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
--- NOTE | 2019-09-25 20:25 | HPEPDOC ---
[facility] Medical History & Physical Date of Admission Sep 25, 2019 Date of Service: Sep 25, 2019 Attending Physician: BRYAN CANCHOLA MD History and Physical CHIEF COMPLAINT: SOB, suicidal ideation HISTORY OF PRESENT ILLNESS: 49 y.o female w/ PMH of opioid abuse and [facility] admissions is [facility] for vague somatic symptoms and fleeting thoughts of suicide. She is seen in the morning, comfortable, unable to explain what brought her to the hospital, without complaints at this time. She denies any SOB, CP, N/V/D or abdominal pain. 10 point review of system is negative except for above. PAST MEDICAL HISTORY: 1. Opiod abuse PAST SURGICAL HISTORY: 1. Tubal ligation SOCIAL HISTORY: denies smoking denies alcohol use smokes marijuana FAMILY HISTORY: negative for malignancy or heart disease ALLERGIES: Please see below. HOME MEDICATIONS: Please see below. PHYSICAL EXAMINATION: VITAL SIGNS: See below GENERAL APPEARANCE: No distress HEENT: moist mucus membranes CARDIOVASCULAR: S1, S2 LUNGS: clear to auscultations ABDOMEN: Soft, non-tender, non-distended, +BS EXTREMITIES: ROM intact NEUROLOGICAL: No focal deficits PSYCHIATRIC: Calm LABORATORY DATA: See below. IMAGING: CT head negative for acute pathology MICROBIOLOGY: Please see below. ASSESSMENT: 49 y.o female is admitted to [facility] for somatic complaints & Psychosis. PLAN: 1. Psychosis - management as per primary team Patient has no active medical complaints at this time, please re-consult as needed. Vital Signs Vital Signs Date Time Temp Pulse Resp B/P (MAP) Pulse Ox O2 Delivery O2 Flow Rate FiO2 09/25/19 15:14 98.8 90 16 144/82 (102) 09/25/19 06:07 98 Room Air Laboratory Data Labs 24H Laboratory Tests 2 09/24/19 21:52: Nucleated Red Blood Cells % (auto) 0.0, Anion Gap 8, Glomerular Filtration Rate > 60.0, Calcium Level 9.3, Total Bilirubin 0.6, Direct Bilirubin 0.2, Aspartate Amino Transf (AST/SGOT) 46H, Alanine Aminotransferase (ALT/SGPT) 34, Alkaline Phosphatase 110, Total Protein 8.4H, Albumin 4.0, Albumin/Globulin Ratio 0.91L, Thyroid Stimulating Hormone (TSH) 0.937, Salicylates Level 4.1L, Acetaminophen Level < 2.0L, Ethyl Alcohol Level < 0.003 09/25/19 00:05: Urine Opiates Screen NEGATIVE, Urine Methadone Screen NEGATIVE, Urine Barbiturates Screen NEGATIVE, Urine Phencyclidine Screen NEGATIVE, Urine Amphetamines Screen NEGATIVE, Urine Benzodiazepines Screen POSITIVEH, Urine Cocaine Metabolite Screen NEGATIVE, Urine Cannabinoids Screen NEGATIVE CBC/BMP Laboratory Tests 09/24/19 21:52 Home Medications Scheduled Buprenorphine HCl/Naloxone HCl (Suboxone 8 mg-2 mg Sl Film) 1 Each Film, 2 STRIP SL DAILY RECEIVES AT [facility] Gabapentin (Gabapentin) 800 Mg Tablet, 800 MG PO TID Allergies Coded Allergies: naloxone (Verified Allergy, Mild, RASH, 07/14/19) tramadol (Verified Allergy, Mild, RASH, 07/14/19) A-FIB/CHADSVASC A-FIB History Current/History of A-Fib/PAF?: No BRYAN CANCHOLA MD Sep 25, 2019 20:25
[2019-09-26 06:18] VITALS: BP 140/92
[2019-09-26] MEDS: BUPRENORPHINE/NALOXONE 8-2MG SUBLINGUAL TABLET(SUBOXONE) SL SCH (08:03)
[2019-09-26] MEDS: DULoxetine 30 MG CAP (CYMBALTA) PO SCH (08:03)
--- NOTE | 2019-09-26 09:09 | MHIPNPDOC ---
[facility] Progress Note Progress Note Inpatient Progress Note Becca Tatum MRN: N/A Date of : N/A Date of Service: 09/26/2019 History of Present Illness The patient a well known 49-year-old woman with a history of significant substance abuse presents again after reported paranoid thoughts and being admitted by an overabundance of caution. Interval History Patient has met with today, she was started on another medication such as Cymbalta and Abilify by the resident physician. She reported that she was doing better on it and was not having any appreciable side effects. She reports that she has been trying to go to groups, however she has had some mischievous behavior as she was digging through another patient's room yesterday. She has difficulty with boundaries and generally is difficult to manage. She reports otherwise no concerns. Review Of Systems General: Denies fever or appetite changes Cardiovascular: Denies Chest pain or palpations GI: Denies Nausea, vomiting, or bowel changes Respiratory: Denies shortness of breath or cough Neuro: Denies dizziness, tremors Derm: Denies any rashes or pruritus : Denies any dysuria or urinary problems MSK: Denies any muscle tightness or stiffness HEENT: Denies any vision changes or headaches Psychotherapy None on this visit. Vital Signs Reviewed. Mental Status Examination General: Well dressed with good hygiene Speech: Spontaneous and fluid Thought processes: Linear and logical MSK: Smooth and coordinated gait, no signs of tremors or involuntary orofacial movements Thought content: Future orientated Abstract reasoning, and computation: Intact Description of associations: Intact Description of abnormal or psychotic thoughts: Denies any suicidal or homicidal ideation. Denies any auditory or visual hallucinations. Does not appear to be responding to internal stimuli. Does not appear to be endorsing any bizarre or paranoid ideation. Judgment: Limited change. Insight: Limited change. Orientation: Alert and orientated 3 Cognition: Grossly normal Recent and remote memory: Intact Attention span and concentration: Intact Fund of knowledge: Adequate Mood: "okay" Affect: Mildly dysthymic. Diagnoses Unspecified psychotic disorder. Highly likely either malingering or substance use. Opioid use disorder, severe. Benzodiazepine use disorder, severe. Nicotine use disorder, moderate. Alcohol use disorder, unspecified. Assessment and Plan Unspecified psychotic disorder: Continue duloxetine and Abilify current dose. Opioid use disorder: Continue buprenorphine. Benzodiazepine use disorder: Tapered off, monitor for any withdrawal. Nicotine use disorder: Offer tobacco cessation products. Alcohol use disorder: Does not appear to be drinking recently. We will hold off on CIWA unless third dysregulation presence. Disposition Patient will need to be continued on a further admission or to observe and treat her, she is at multiple readmissions and thus addressing her underlying problems will likely reduce the risk of further admissions. Time Spent 15 minutes. Sunday Vital Signs Vital Signs Date Time Temp Pulse Resp B/P (MAP) Pulse Ox O2 Delivery O2 Flow Rate FiO2 09/26/19 06:18 97.2 81 18 140/92 (108) 09/25/19 06:07 98 Room Air Current Medications Current Medications Medications (Trade) Dose Ordered Sig/Romel Route PRN Reason Start Time Stop Time Status Last Admin Dose Admin Acetaminophen (Tylenol Tab) 650 mg Q6HP PRN PO HEADACHE or DISCOMFORT 09/25/19 02:00 Al Hydrox/Mg Hydrox/Simethicone (Mylanta) 30 ml Q4HP PRN PO HEARTBURN/INDIGESTION 09/25/19 02:00 Aripiprazole (AbiLIFY) 5 mg DAILY PO 09/26/19 09:00 09/26/19 08:03 Buprenorphine/ Naloxone (Suboxone 8/2mg) 2 tab DAILY SL 09/25/19 09:00 09/26/19 08:03 Clonidine HCl (Catapres) 0.1 mg BID PRN PO anxiety 09/25/19 11:15 Diphenhydramine HCl (Benadryl) 25 mg Q6HP PRN PO ANXIETY/AGITATION 09/25/19 02:00 Cancel Duloxetine HCl (Cymbalta) 30 mg DAILY PO 09/26/19 09:00 09/26/19 08:03 Home Med (Med Rec Complete!) ASDIRECTED XX 09/25/19 02:45 09/25/19 03:00 DC Magnesium Hydroxide (Milk Of Magnesia) 30 ml DAILYPRN PRN PO CONSTIPATION 09/25/19 02:00 Nicotine (Nicoderm Cq 21mg) 1 patch DAILY PRN TD Nicotine withdrawl 09/25/19 02:00 Olanzapine (ZyPREXA ZYDIS) 10 mg Q6HP PRN PO AGITATION 09/25/19 02:00 Trazodone HCl (Desyrel) 50 mg QHSP PRN PO INSOMNIA 09/25/19 02:00 Allergies Coded Allergies: naloxone (Verified Allergy, Mild, RASH, 07/14/19) tramadol (Verified Allergy, Mild, RASH, 07/14/19) STACEY GARCIA DO Sep 26, 2019 09:09
[2019-09-26 17:39] VITALS: BP 138/68
[2019-09-26] MEDS: cloNIDine 0.1 MG TAB PO PRN (20:12)
[2019-09-26 20:22] VITALS: BP 118/88
[2019-09-27 06:22] VITALS: BP 139/80
[2019-09-27] MEDS: BUPRENORPHINE/NALOXONE 8-2MG SUBLINGUAL TABLET(SUBOXONE) SL SCH (08:09)
[2019-09-27] MEDS: DULoxetine 30 MG CAP (CYMBALTA) PO SCH (08:09)
[2019-09-27 16:11] VITALS: BP 145/77
[2019-09-27] MEDS: OLANZapine ORAL DISINTEGRATING TAB 5MG PO PRN (20:52)
[2019-09-27] MEDS: cloNIDine 0.1 MG TAB PO PRN (20:52)
--- NOTE | 2019-09-27 21:19 | MHIPN ---
DATE: 09/27/2019 The patient today tells me, "I feel all right;" however, she tells me that she did not sleep that good. That at night she was still feeling like maybe somebody might hurt her, and she continues to have different sensations in her body. She says, "One day I can tell things. Another day I can't. One day I can walk. Another day I can't walk." MENTAL STATUS EXAMINATION: She is alert and oriented times three. Eye contact is fairly good. She appears to be almost confused at times. Seems to have possibly some paranoid delusions. Her mood is "all right." Affect is flat. She denies feeling suicidal or homicidal. Concentration is fair. Memory is intact. Insight and judgment are poor. She is alert and oriented times three. DIAGNOSES: 1. Unspecified psychotic disorder. 2. Opioid use disorder. 3. Sedative/hypnotic and anxiolytic use disorder unspecified. TREATMENT PLAN: We will continue to monitor this patient for what appears to be some paranoid thoughts, and we will continue to titrate her medications as indicated.
[2019-09-28 06:43] VITALS: BP 132/80
[2019-09-28] MEDS: DULoxetine 30 MG CAP (CYMBALTA) PO SCH (08:16)
[2019-09-28] MEDS: BUPRENORPHINE/NALOXONE 8-2MG SUBLINGUAL TABLET(SUBOXONE) SL SCH (08:54)
[2019-09-28 13:45] VITALS: BP 125/66
[2019-09-28 16:05] VITALS: BP 137/63
[2019-09-28 20:37] VITALS: BP 137/63
[2019-09-28] MEDS: cloNIDine 0.1 MG TAB PO PRN (20:37)
[2019-09-28] MEDS: OLANZapine ORAL DISINTEGRATING TAB 5MG PO PRN (20:37)
--- NOTE | 2019-09-29 02:32 | MHIPN ---
DATE: 09/28/2019 The patient, today, tells me, "I'm feeling better." When I asked her to elaborate, she said, "Mood-dee, I am better; I thought I was sick or someone was after me." She says she is not feeling that way any more. However, the nurse that was present advised me that that is not true, that every 20 minutes she keeps going up to staff with a different somatic complaint and thinking that she has the coronavirus. MENTAL STATUS EXAMINATION: The patient is alert. She is oriented times three. Eye contact poor. At times, she is mumbling and I have to ask her to repeat herself. Psychomotor activity is decreased. There is no formal thought disorder noted. She says that her mood is "better." Affect is flat. She denies being suicidal or homicidal. According to what the nurse says, it seems like she might still have some somatic delusions. Insight and judgment are poor. Concentration is fair. DIAGNOSES: 1. Unspecified psychotic disorder. 2. Opioid use disorder. 3. Sedative, hypnotic, and anxiolytic use disorder. TREATMENT PLAN: We will continue to monitor the patient for continued resolution of suicidal ideations and resolution of psychotic symptoms. We will continue to titrate medications as needed. We will continue to titrate medications as indicated. DARCY
[2019-09-29 06:35] VITALS: BP 113/59
[2019-09-29] MEDS: BUPRENORPHINE/NALOXONE 8-2MG SUBLINGUAL TABLET(SUBOXONE) SL SCH (09:08)
[2019-09-29] MEDS: DULoxetine 30 MG CAP (CYMBALTA) PO SCH (09:08)
[2019-09-29] MEDS ORDERED: CYMB1CAP5 PO (13:59)
[2019-09-29] MEDS ORDERED: CLONI1TA PO (13:59)
[2019-09-29] MEDS ORDERED: ABIL1TAB11 PO (13:59)
--- NOTE | 2019-09-29 19:27 | MHDSPDOC ---
[facility] Discharge Summary Discharge Summary DATE OF ADMISSION: Sep 25, 2019 at 01:47 DATE OF DISCHARGE: Sep 29, 2019 at 14:45 Discharge Diagnoses Unspecified psychotic disorder. Opioid use disorder. Benzodiazepine use disorder. Nicotine use disorder. Alcohol use disorder. History of Present Illness Becca Tatum is a 49-year-old woman with a history of polysubstance use who presents after being discharged from the ER yesterday. She had also been recently discharged from [facility] on 09/20/19. She has been presenting frequently for treatment for somatic symptoms. She has also been evaluated by psychiatry for concerns of paranoid delusions. She presented again to the ER shortly after midnight endorsing somatic symptoms such as headache and shortness of breath as well as endorsing feelings of paranoia and expressing vague suicidal comments. On evaluation, Becca has difficulty remembering the exact details of her presentation. She frequently refers back to a period of 2 weeks after being tapered off benzodiazepines, stating that she "didn't know what was real" and had worried her daughter because of that. She has a labile affect, frequently coming to tears and then reconstituting herself relatively soon afterward. She states that she has been struggling with anxiety and mood dysregulation. She states that normally when she was anxious in the past, she would use a benzodiazepine. Since she was recently tapered off of these, with her last dose being a few days ago, she states that she has no other way to cope with anxiety. Consultants Routine medical screening. Treatment and Progress Becca was started on Cymbalta, Abilify, and clonidine in addition to her preexisting medications of gabapentin and Suboxone. She reported that she was doing better on these medications and denied side effects. She reported improvement and anxiety and was ready to go home. It was decided that she would return for outpatient followup at [facility]. Discharge Assessment On the day of discharge, the patient denied any safety concerns going home and denied SI/HI/AVH/delusional thinking. The patient at the time of discharge did not meet criteria for involuntary admission/extension due to having a normal mental status exam, fair insight into the situation, They are engaged in the discharge process, as well as being friendly and amenable in behavioral control and havent been engaging in any observed concerning behavior or ideation recently. They decline voluntary extension/admission at this time and must be discharged in good nick, as Im unable to make a case for holding the patient against their will. They may have historical risk factors of admissions and other interactions with psychiatry however, those are not modifiable from a clinical perspective. The patient will need to be discharged in good inck. Physical Exam Vitals: see below General appearance: Appears staged age with good hygiene and grooming; dressed in seasonally-appropriate attire MSK: Normal Speech: WNL for rate, volume, fluency, and amount Thought process: linear Thought content: No SI/HI/AVH/delusional thinking elicited. Description of patient's judgement and insight: [id number] Mood: "Good" Affect: euthymic Follow Up Appointments The discharge planners have worked to arrange outpatient follow-up. During the pre-discharge meeting, the patient was evaluated for further issues of lethality in order to address them fully before discharge. They worked on safety planning with the patient's family members to ensure that the patient will have a safe and effective discharge. Time Spent 30 minutes, with greater than 50% spent in coordination of care and counseling. Vital Signs/I&Os Vital Signs Date Time Temp Pulse Resp B/P (MAP) Pulse Ox O2 Delivery O2 Flow Rate FiO2 09/29/19 06:35 97.8 64 14 113/59 (77) 97 Room Air Medications Scheduled Aripiprazole (Abilify) 5 Mg Tablet, 10 MG PO DAILY for mood for 7 Days, #14 Buprenorphine HCl/Naloxone HCl (Suboxone 8 mg-2 mg Sl Film) 1 Each Film, 2 STRIP SL DAILY, (Reported) RECEIVES AT [facility] Duloxetine Hcl (Cymbalta) 30 Mg Capsule.dr, 30 MG PO DAILY for mood for 7 Days, #7 Gabapentin (Gabapentin) 800 Mg Tablet, 800 MG PO TID, (Reported) Scheduled PRN Clonidine Hcl (Clonidine HCl) 0.1 Mg Tablet, 0.1 MG PO BIDP PRN for anxiety for 7 Days, #14 Allergies Coded Allergies: naloxone (Verified Allergy, Mild, RASH, 07/14/19) tramadol (Verified Allergy, Mild, RASH, 07/14/19) GME ATTESTATION GME ATTESTATION My faculty preceptor for this patient encounter was physically present during the encounter and was fully available. All aspects of the patient interview, examination, medical decision making process, and medical care plan development were reviewed and approved by the faculty preceptor. The faculty preceptor is aware and concurs with the plan as stated in the body of this note and will attest to such by his/her cosignature. YARELY GUSTAFSON MD Sep 29, 2019 19:27
== END 2019-09-29 14:45 | disposition home or self-care (01) | DRG 751 ==
LOC: M ED 21:02 → M ED INP 09-25 01:47 → M PSY 09-25 03:04
PROVIDERS: ADMIT Psychiatry & Neurology Psychiatry; ATTEND Psychiatry & Neurology Addiction Medicine
DX: F29 Unspecified psychosis not due to a substance or known physiological condition (principal); R45.851 Suicidal ideations; F11.90 Opioid use, unspecified, uncomplicated; F15.90 Other stimulant use, unspecified, uncomplicated; F10.10 Alcohol abuse, uncomplicated; F17.200 Nicotine dependence, unspecified, uncomplicated; Z79.899 Other long term (current) drug therapy; Z88.8 Allergy status to other drugs, medicaments and biological substances

== ENCOUNTER 2019-10-04 15:12 | Emergency (ER) | payer MEDICAID, OTHER ==
[~2019-10-04] VITALS: Ht 167.6 cm; Wt 77.4 kg
[~2019-10-04 15:12] MED LIST changes: +ABIL1TAB11 PO; +CLONI1TA PO; +CYMB1CAP5 PO
[2019-10-04] MEDS ORDERED: NS 1,000 ML IV ONE (15:45)
[2019-10-04] MEDS ORDERED: METOCLOPRAMIDE INJ 10MG/2ML VIAL (J2765 PER 1) IV ONE (15:45)
[2019-10-04 16:14] LABS: BASO % 0.3 % (0.0-1.0); EOS # 0.1 10^3/uL (0.0-0.5); HEMATOCRIT 39.9 % (36.0-47.0); HEMOGLOBIN 13.5 g/dl (12.0-15.5); LYMPH # 1.5 10^3/uL (1.5-5.0); LYMPH % 21.7 % (24.0-44.0); MEAN CORPUSCULAR HGB CONC 33.8 g/dl (32.0-36.5); MEAN CORPUSCULAR VOLUME 91.7 fl (80.0-96.0); MONO # 0.6 10^3/uL (0.0-0.8); MONO % 7.9 % (0.0-5.0); NEUTROPHILS # 4.8 10^3/uL (1.5-8.5); NEUTROPHILS % 68.8 % (36.0-66.0); PLATELET COUNT, AUTOMATED 227 10^3/uL (150-450); RED BLOOD COUNT 4.35 10^6/uL (4.00-5.40)
[2019-10-04 16:45] LABS: ALBUMIN 3.3 GM/DL (3.2-5.2); ALT/SGPT 26 U/L (12-78); BILIRUBIN,DIRECT < 0.1 MG/DL (0.0-0.2); BILIRUBIN,TOTAL 0.3 MG/DL (0.2-1.0); BLOOD UREA NITROGEN 9 MG/DL (7-18); CALCIUM LEVEL 9.3 MG/DL (8.5-10.1); CARBON DIOXIDE LEVEL 27 MEQ/L (21-32); CHLORIDE LEVEL 106 MEQ/L (98-107); CPK CREATINE PHOSPHOKINASE 185 U/L (26-192); CREATININE FOR GFR 0.76 MG/DL (0.55-1.30); GLOMERULAR FILTRATION RATE > 60.0 (>51); GLUCOSE, FASTING 118 MG/DL (70-100); LIPASE 83 U/L (73-393); MB/CK RELATIVE INDEX 1.62 (< OR =4); POTASSIUM SERUM 3.9 MEQ/L (3.5-5.1); SODIUM LEVEL 137 MEQ/L (136-145); THYROID STIMULATING HORMONE 0.518 uIU/ML (0.358-3.740); TOTAL PROTEIN 7.8 GM/DL (6.4-8.2); TROPONIN I < 0.02 NG/ML (< 0.10)
[2019-10-04 17:00] VITALS: BP 145/78
[2019-10-04 17:51] LABS: HCG, SERUM QUALITATIVE NEGATIVE (NEGATIVE)
[2019-10-04 18:02] LABS: ACETAMINOPHEN LEVEL < 2.0 UG/ML (10.0-30.0); ETHYL ALCOHOL (ETHANOL) < 0.003 % (0.000-0.010); SALICYLATE LEVEL 3.4 MG/DL (5.0-30.0)
--- NOTE | 2019-10-05 07:26 | REP ---
CHEST, SINGLE VIEW: There is no evidence of acute infiltrate. No pleural effusion is seen. The heart is normal in size. The mediastinal silhouette is unremarkable. The visualized osseous structures are intact. IMPRESSION: No acute pulmonary disease. Electronically Signed by Leonardo Soni MD 10/05/2019 04:50 P
--- NOTE | 2019-10-05 10:04 | ECGEPIP ---
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
== END 2019-10-04 17:45 | disposition left against medical advice (07) ==
LOC: M ED 15:12
DX: R45.851 Suicidal ideations (principal); R05 Cough; R11.0 Nausea; F41.9 Anxiety disorder, unspecified; Z86.718 Personal history of other venous thrombosis and embolism; F17.210 Nicotine dependence, cigarettes, uncomplicated; Z88.8 Allergy status to other drugs, medicaments and biological substances; Z88.5 Allergy status to narcotic agent; Z79.899 Other long term (current) drug therapy
CPT/HCPCS: 71045; 80048; 80076; 82550; 82553; 83690; 84443; 84703; 85025; 93005; 93041; 94760; 96374; 99285; G0480; J2765

== ENCOUNTER 2019-10-04 18:38 | Inpatient (IN) | payer MEDICAID, OTHER ==
[~2019-10-04] VITALS: Ht 167.6 cm; Wt 78.7 kg
[2019-10-04 20:50] LABS: AMPHETAMINES LEVEL URINE NEGATIVE (NEGATIVE); BARBITURATES URINE NEGATIVE (NEGATIVE); BENZODIAZEPINES URINE NEGATIVE (NEGATIVE); CANNABINOIDS URINE NEGATIVE (NEGATIVE); COCAINE METABOLITE URINE NEGATIVE (NEGATIVE); METHADONE URINE NEGATIVE (NEGATIVE); OPIATES URINE NEGATIVE (NEGATIVE); PHENCYCLIDINE URINE NEGATIVE (NEGATIVE)
[2019-10-04] MEDS: GABAPENTIN 100 MG CAP PO SCH (21:00)
[2019-10-04] MEDS ORDERED: ACETAMINOPHEN TAB 650MG DOSE (2X325MG) PO PRN (22:15)
[2019-10-04] MEDS ORDERED: MAALOX 30 ML SUSP *UDC PO PRN (22:15)
[2019-10-04] MEDS ORDERED: OLANZapine ORAL DISINTEGRATING TAB 5MG PO PRN (22:15)
[2019-10-04] MEDS ORDERED: MOM 30ML SUSPENSION UDC PO PRN (22:15)
[2019-10-04] MEDS ORDERED: traZODone 50 MG TAB PO PRN (22:15)
[2019-10-04 22:56] VITALS: BP 157/85
[2019-10-05 06:09] VITALS: BP 124/63
[2019-10-05] MEDS: BUPRENORPHINE/NALOXONE 8-2MG SUBLINGUAL TABLET(SUBOXONE) SL SCH (09:04)
[2019-10-05] MEDS: DULoxetine 30 MG CAP (CYMBALTA) PO SCH (09:05)
[2019-10-05] MEDS: GABAPENTIN 100 MG CAP PO SCH ×3 (09:05→20:52)
--- NOTE | 2019-10-05 10:12 | ECGEPIP ---
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
[2019-10-05 16:27] VITALS: BP 137/75
--- NOTE | 2019-10-05 17:26 | HPEPDOC ---
General Date of Admission Oct 04, 2019 at 22:13 Date of Service: Oct 05, 2019 Chief Complaint The patient is a 49-year-old female admitted with a reason for visit of Unspecified Mood Disorder. Source: Patient Exam Limitations: No limitations Timing/Duration: Day(s) Severity: Mild History of Present Illness HISTORY OF PRESENT ILLNESS: Patient is 49 years old female w/o significant past medical history, who was admitted in the hospital with depression. She denied any cardiovascular problem, breathing problem, GI problem or dysuria. He denies fever, chills, nausea, vomiting, shortness of breath, palpitations, diarrhea or dysuria Home Medications Scheduled Buprenorphine HCl/Naloxone HCl (Suboxone 8 mg-2 mg Sl Film) 1 Each Film, 2 STRIP SL DAILY, (Reported) RECEIVES AT [facility] Allergies Coded Allergies: naloxone (Verified Allergy, Mild, RASH, 07/14/19) tramadol (Verified Allergy, Mild, RASH, 07/14/19) Past Medical History Medical History depression, anxiety Family History I personally reviewed family history and found not pertinent Social History * Smoker: current smoker Alcohol: Denies Drugs: prescription drugs A-FIB/CHADSVASC A-FIB History Current/History of A-Fib/PAF?: No Current PO Anticoag Therapy: No Review of Systems Constitutional: Denies: Chills, Fever Eyes: Denies: Pain ENT: Denies: Head Aches Skin: Denies: Rash, Lesions Pulmonary: Denies: Dyspnea, Cough Cardiovascular: Denies: Chest Pain, Palpitations Gastrointestinal: Denies: Nausea, Vomiting Genitourinary: Denies: Dysuria, Frequency Hematologic: Denies: Bruising Endocrine: Denies: Polydipsia, Polyphagia Musculoskeletal: Denies: Neck Pain, Back Pain Neurological: Denies: Weakness Psych: Reports: Depression Physical Examination General Exam: Positive: Alert Eye Exam: Positive: PERRLA ENT Exam: Positive: Atraumatic Neck Exam: Positive: Supple; Negative: JVD Chest Exam: Positive: Clear to auscultation Heart Exam: Positive: Rate Normal Telemetry: Positive: No significant arrhythmia Abdomen Exam: Positive: Normal bowel sounds Extremity Exam: Negative: Clubbing, Cyanosis Skin Exam: Positive: Nl turgor and temperature Neuro Exam: Positive: Strength at 5/5 X4 ext Psych Exam: Positive: Oriented x 3 Vital Signs Vital Signs Date Time Temp Pulse Resp B/P (MAP) Pulse Ox O2 Delivery O2 Flow Rate FiO2 10/05/19 16:27 98.1 67 16 137/75 (95) 10/05/19 06:09 98 Room Air Laboratory Data Labs 24H Laboratory Tests 2 10/04/19 20:05: Urine Opiates Screen NEGATIVE, Urine Methadone Screen NEGATIVE, Urine Barbiturates Screen NEGATIVE, Urine Phencyclidine Screen NEGATIVE, Urine Amphetamines Screen NEGATIVE, Urine Benzodiazepines Screen NEGATIVE, Urine Cocaine Metabolite Screen NEGATIVE, Urine Cannabinoids Screen NEGATIVE Assessment/Plan Patient is 49 years old female w/o significant past medical history, who was admitted in the hospital with depression. She denied any cardiovascular problem, breathing problem, GI problem or dysuria. He denies fever, chills, nausea, vomiting, shortness of breath, palpitations, diarrhea or dysuria Problems (1) Depression Status: Chronic Problem Text: Treatment per psych team Plan / VTE VTE Prophylaxis Ordered?: No VTE Exclusion Mechanical Proph: Low Risk for VTE BIRGIT SOLIS DO Oct 05, 2019 17:26
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
[2019-10-06 06:26] VITALS: BP 134/59
[2019-10-06] MEDS: BUPRENORPHINE/NALOXONE 8-2MG SUBLINGUAL TABLET(SUBOXONE) SL SCH (08:32)
[2019-10-06] MEDS: DULoxetine 30 MG CAP (CYMBALTA) PO SCH (08:32)
[2019-10-06] MEDS: GABAPENTIN 100 MG CAP PO SCH (08:32)
--- NOTE | 2019-10-06 09:14 | MHDSPDOC ---
[facility] Discharge Summary Discharge Summary DATE OF ADMISSION: Oct 04, 2019 at 22:13 DATE OF DISCHARGE: 10/06/19 Discharge Becca Tatum MRN: N/A Date of : N/A Date of Service: 10/06/2019 Diagnoses Unspecified psychotic disorder. Highly likely either malingering or substance use. Opioid use disorder, severe. Benzodiazepine use disorder, severe. Nicotine use disorder, moderate. Alcohol use disorder, unspecified. History of Present Illness The patient a well known 49-year-old woman presents again after reporting concerns about coronavirus and is admitted on an abundance of caution. Consultants Involved Hospitalist/PCP screening Treatment and Progress On The Unit The patient was admitted to the inpatient mental health unit, resumed on her home medications where she subsequently stayed for only a very short time, then subsequently requested discharge with no behavioral home, no suicidal ideation and no concerning behaviors or signs of psychosis observed during . Discharge Assessment 49-year-old woman with likely manufactured psychosis versus substance-induced presents reporting symptoms. She is evaluated, resumed on her home meds and subsequently resolves, requesting discharge. The patient at the time of discharge did not meet criteria for involuntary admission/extension due to having a normal mental status exam, fair insight into the situation, They are engaged in the discharge process, as well as being friendly and amenable in behavioral control and havent been engaging in any observed concerning behavior or ideation recently. They decline voluntary extension/admission at this time and must be discharged in good nick, as Im unable to make a case for holding the patient against their will. They may have historical risk factors of admissions and other interactions with psychiatry however, those are not modifiable from a clinical perspective. The patient will need to be discharged in good nick. Mental Status Examination General: Well dressed with good hygiene Speech: Spontaneous and fluid Thought processes: Linear and logical MSK: Smooth and coordinated gait, no signs of tremors or involuntary orofacial movements Thought content: Future orientated Abstract reasoning, and computation: Intact Description of associations: Intact Description of abnormal or psychotic thoughts: Denies any suicidal or homicidal ideation. Denies any auditory or visual hallucinations. Does not appear to be responding to internal stimuli. Does not appear to be endorsing any bizarre or paranoid ideation. Judgment: chronically limited Insight: chronically limited Orientation: Alert and orientated 3 Cognition: Grossly normal Recent and remote memory: Intact Attention span and concentration: Intact Fund of knowledge: Adequate Mood: "okay" Affect: Euthymic with a full range Follow Up The social work team worked during the predischarge meeting in order to evaluate for further issues of lethality address them fully before discharge. They worked on safety planning with the patient's family members in order to ensure that the patient will have a safe and effective discharge. Time Spent The amount of time spent in the coordination of care for this patient was approximately 45 minutes. Sunday Vital Signs/I&Os Vital Signs Date Time Temp Pulse Resp B/P (MAP) Pulse Ox O2 Delivery O2 Flow Rate FiO2 10/06/19 06:26 98.6 71 14 134/59 (84) Room Air 10/05/19 06:09 98 Medications Scheduled Aripiprazole (Abilify) 5 Mg Tablet, 5 MG PO BID for mood for 7 Days, #14 Buprenorphine HCl/Naloxone HCl (Suboxone 8 mg-2 mg Sl Film) 1 Each Film, 2 STRIP SL DAILY, (Reported) RECEIVES AT [facility] Duloxetine Hcl (Cymbalta) 30 Mg Capsule.dr, 30 MG PO DAILY for mood for 7 Days, #7 Gabapentin (Gabapentin) 100 Mg Capsule, 200 MG PO TID for anxiety for 7 Days, #42 Allergies Coded Allergies: naloxone (Verified Allergy, Mild, RASH, 2/3) tramadol (Verified Allergy, Mild, RASH, 2/3) STACEY GARCIA DO Oct 06, 2019 09:14
[2019-10-06] MEDS ORDERED: GABA-1171 PO (10:13)
[2019-10-06] MEDS ORDERED: CYMB1CAP5 PO (10:13)
[2019-10-06] MEDS ORDERED: ABIL1TAB11 PO (10:13)
== END 2019-10-06 13:15 | disposition home or self-care (01) | DRG 751 ==
LOC: M ED 18:38 → M ED INP 22:13 → M PSY 22:51
PROVIDERS: ADMIT Psychiatry & Neurology Psychiatry; ATTEND Psychiatry & Neurology Addiction Medicine
DX: F29 Unspecified psychosis not due to a substance or known physiological condition (principal); F10.10 Alcohol abuse, uncomplicated; F11.90 Opioid use, unspecified, uncomplicated; F17.200 Nicotine dependence, unspecified, uncomplicated; Z76.5 Malingerer [conscious simulation]; Z79.899 Other long term (current) drug therapy; Z88.8 Allergy status to other drugs, medicaments and biological substances

== ENCOUNTER 2019-10-06 20:08 | Emergency (ER) | payer MEDICAID, OTHER ==
[~2019-10-06] VITALS: Ht 167.6 cm; Wt 77.9 kg
[2019-10-06 20:08] VITALS: BP 138/75
[~2019-10-06 20:08] MED LIST changes: +GABA-1171 PO
== END 2019-10-06 20:48 | disposition home or self-care (01) ==
LOC: M ED 20:08
DX: F41.8 Other specified anxiety disorders (principal); F17.200 Nicotine dependence, unspecified, uncomplicated; J45.909 Unspecified asthma, uncomplicated; F32.9 Major depressive disorder, single episode, unspecified; Z79.899 Other long term (current) drug therapy; Z88.5 Allergy status to narcotic agent; Z88.8 Allergy status to other drugs, medicaments and biological substances; Z86.718 Personal history of other venous thrombosis and embolism

== ENCOUNTER 2019-11-17 10:18 | Emergency (ER) | payer OTHER ==
[~2019-11-17] VITALS: Ht 167.6 cm; Wt 68.7 kg
[~2019-11-17 10:18] MED LIST changes: -COUM6TAB PO; +COUM6TAB10 PO; -NICO4GUM29 PO; +[UNRECOGNIZED DRUG - CODE] PO
[2019-11-17 11:06] LABS: HEMATOCRIT 46.4 % (36.0-47.0); HEMOGLOBIN 15.6 g/dl (12.0-15.5); MEAN CORPUSCULAR HEMOGLOBIN 30.6 pg (27.0-33.0); MEAN CORPUSCULAR HGB CONC 33.6 g/dl (32.0-36.5); MEAN CORPUSCULAR VOLUME 91.2 fl (80.0-96.0); PLATELET COUNT, AUTOMATED 270 10^3/uL (150-450); RED BLOOD COUNT 5.09 10^6/uL (4.00-5.40)
[2019-11-17 11:39] LABS: ACETAMINOPHEN LEVEL < 2.0 UG/ML (10.0-30.0); ALBUMIN 4.2 GM/DL (3.2-5.2); ALT/SGPT 20 U/L (12-78); BILIRUBIN,DIRECT 0.2 MG/DL (0.0-0.2); BILIRUBIN,TOTAL 0.4 MG/DL (0.2-1.0); BLOOD UREA NITROGEN 9 MG/DL (7-18); CALCIUM LEVEL 9.9 MG/DL (8.5-10.1); CARBON DIOXIDE LEVEL 25 MEQ/L (21-32); CHLORIDE LEVEL 107 MEQ/L (98-107); CREATININE FOR GFR 0.81 MG/DL (0.55-1.30); ETHYL ALCOHOL (ETHANOL) < 0.003 % (0.000-0.010); GLOMERULAR FILTRATION RATE > 60.0 (>51); GLUCOSE, FASTING 100 MG/DL (70-100); POTASSIUM SERUM 3.8 MEQ/L (3.5-5.1); SALICYLATE LEVEL 5.3 MG/DL (5.0-30.0); SODIUM LEVEL 140 MEQ/L (136-145); THYROID STIMULATING HORMONE 0.754 uIU/ML (0.358-3.740); TOTAL PROTEIN 8.5 GM/DL (6.4-8.2)
[2019-11-17 13:35] LABS: AMPHETAMINES LEVEL URINE NEGATIVE (NEGATIVE); BARBITURATES URINE NEGATIVE (NEGATIVE); BENZODIAZEPINES URINE NEGATIVE (NEGATIVE); CANNABINOIDS URINE NEGATIVE (NEGATIVE); COCAINE METABOLITE URINE NEGATIVE (NEGATIVE); METHADONE URINE NEGATIVE (NEGATIVE); OPIATES URINE NEGATIVE (NEGATIVE); PHENCYCLIDINE URINE NEGATIVE (NEGATIVE)
--- NOTE | 2019-11-17 13:46 | ED PDOC ---
Provider Note DATE OF CONSULTATION: 11/17/19 CONSULTATION REQUESTED BY: Dr. mendoza REASON FOR CONSULTATION: reported SI. RELEVANT HISTORY: 49-year-old woman long history malingering presents to [facility] on her own, reporting very vague suicidal thoughts, stating "I don't know" every question posed to her by the [facility] staff. The patient has presented multiple times primarily focusing on trying to get admitted would to stay for short time and request discharge. When I met with her. She reports she had no suicidal thoughts at this time and did not want to stay, she stated that she had been "stress" but declined to elaborate further on exactly what it was being incredibly vague, seemingly embarrassed to see me. PAST PSYCHIATRIC HISTORY: many multiple admissions, primarily malingering, on a number of different medications no notable suicide attempts PAST MEDICAL HISTORY: chronic obesity and comorbidities PERSONAL AND SOCIAL HISTORY: Resides in: [place] Marital Status: D Children: adult Employment: unemployed SUBSTANCE ABUSE HISTORY: significant substance use history, negative he talks today LEGAL HISTORY: drug- related . MENTAL STATUS EXAMINATION: General: fair hygiene Speech: Spontaneous and fluid Thought processes: Linear and logical Thought content: Future orientated Abstract reasoning, and computation: Intact Description of associations: Intact Description of abnormal or psychotic thoughts:Denies any suicidal or homicidal ideation. Denies any auditory or visual hallucinations. Does not appear to be responding to internal stimuli. Does not appear to be endorsing any bizarre or paranoid ideation. Judgment: chronically limited at baseline Insight: chronically limited at baseline Orientation: Alert and orientated 3 Recent and remote memory: Intact Attention span and concentration: Intact Fund of knowledge: Adequate Mood: "fine" Affect: Euthymic with a full range DIAGNOSIS: 1. Malingering. PLAN: Patient doesn't meet involuntary criteria due to currently denying any suicidal ideation, thoughts were incredibly vague on presentation patient presented by self and now declines a voluntary admission this time. The patient at the time of discharge did not meet criteria for involuntary admission/extension due to having a baseline mental status exam, baseline insight into the situation, They are engaged in the discharge process, as well as being friendly and amenable in behavioral control and havent been engaging in any observed concerning behavior or ideation during observation. They decline voluntary extension/admission at this time and must be discharged in good nick, as Im unable to make a case for holding the patient against their will. They may have historical risk factors of admissions and other interactions with psychiatry however, those are not modifiable from a clinical perspective. The patient will need to be discharged in good nick. STACEY GARCIA DO Nov 17, 2019 13:46
[2019-11-17 14:58] VITALS: BP 113/64
== END 2019-11-17 15:06 | disposition home or self-care (01) ==
LOC: M ED 10:18
DX: F32.9 Major depressive disorder, single episode, unspecified (principal); F17.200 Nicotine dependence, unspecified, uncomplicated; F19.99 Other psychoactive substance use, unspecified with unspecified psychoactive substance-induced disorder; Z88.8 Allergy status to other drugs, medicaments and biological substances
CPT/HCPCS: 36415; 80048; 80076; 80307; 84443; 85027; 99284; G0480

== ENCOUNTER 2020-02-16 13:16 | Emergency (ER) | payer OTHER ==
[~2020-02-16] VITALS: Ht 167.6 cm; Wt 64.5 kg
[2020-02-16] MEDS ORDERED: MELA5TAB7 PO (16:28)
[2020-02-16 16:33] VITALS: BP 131/69
== END 2020-02-16 16:34 | disposition home or self-care (01) ==
LOC: M ED 13:16
DX: G47.00 Insomnia, unspecified (principal); F19.10 Other psychoactive substance abuse, uncomplicated; F17.200 Nicotine dependence, unspecified, uncomplicated; F41.9 Anxiety disorder, unspecified; F32.9 Major depressive disorder, single episode, unspecified; Z91.14 Patient's other noncompliance with medication regimen; Z88.6 Allergy status to analgesic agent; Z88.8 Allergy status to other drugs, medicaments and biological substances

== ENCOUNTER 2020-05-30 18:02 | Emergency (ER) | payer OTHER ==
[~2020-05-30] VITALS: Ht 170.2 cm; Wt 74.1 kg
[~2020-05-30 18:02] MED LIST changes: +MELA5TAB7 PO
[2020-05-30 18:04] VITALS: BP 110/61
[2020-05-30] MEDS ORDERED: GABA600T4 PO (18:15)
[2020-05-30] MEDS ORDERED: BUPR1SUB35 SL (18:15)
[2020-05-30] MEDS ORDERED: CLON0.5T2 (18:25)
--- NOTE | 2020-05-30 19:51 | REP ---
INDICATION: trauma, low back pain COMPARISON: None. TECHNIQUE: AP, lateral, bilateral oblique, and coned-down views of the lumbar spine. FINDINGS: Alignment and lordosis maintained. Vertebral bodies are intact. No acute fracture/compression injury or subluxation. No obvious spondylolysis or spondylolisthesis. Age-related degenerative changes noted including facet arthropathy, endplate sclerosis and minimal disc space narrowing primarily involving L3-4 through L5-S1. IMPRESSION: Multilevel age-related changes. No acute fracture/compression injury or subluxation. <Electronically signed by Everett Taveras > 05/30/201946
[2020-05-30] MEDS ORDERED: METH1TAB40 PO (19:57)
[2020-05-30] MEDS ORDERED: clonazePAM 1 MG TAB PO ONE (20:15)
== END 2020-05-30 20:16 | disposition home or self-care (01) ==
LOC: M ED 18:02
DX: S33.5XXA Sprain of ligaments of lumbar spine, initial encounter (principal); W00.0XXA Fall on same level due to ice and snow, initial encounter; Y92.9 Unspecified place or not applicable; Y93.9 Activity, unspecified; Y99.9 Unspecified external cause status; M51.37 Other intervertebral disc degeneration, lumbosacral region; M51.36 Other intervertebral disc degeneration, lumbar region; F17.200 Nicotine dependence, unspecified, uncomplicated; Z88.6 Allergy status to analgesic agent; Z79.899 Other long term (current) drug therapy

== ENCOUNTER 2020-06-01 19:33 | Emergency (ER) | payer OTHER ==
[~2020-06-01] VITALS: Ht 167.6 cm; Wt 72.9 kg
[~2020-06-01 19:33] MED LIST changes: +BUPR1SUB35 SL; +CLON0.5T2; +METH1TAB40 PO
--- NOTE | 2020-06-01 21:51 | REPVR ---
PROCEDURE INFORMATION: Exam: XR Left Tibia and Fibula Exam date and time: 06/01/2020 9:19 PM Age: 49 years old Clinical indication: Pain; Lower leg; Left; Additional info: Left lower leg; ? Trauma TECHNIQUE: Imaging protocol: XR Left tibia and fibula. Views: 2 views. COMPARISON: CR Knee, complete 07/19/2018 4:15 PM FINDINGS: Bones/joints: There is a subtle acute fracture of the left lateral tibial plateau without significant displacement. Cortical step-offs are noted along the posterior and lateral aspect of the lateral tibial plateau. There are marginal spurs arising from the periphery of the medial compartment of the left knee. There is a left knee joint effusion. The alignment of the left knee joint and left tibiotalar joint are maintained. There is a plantar calcaneal spur at the origin of the left plantar fascia. Soft tissues: There is a spur arising from the superior pole of the patella at the insertion of the left quadriceps tendon, which is compatible with a left quadriceps enthesopathy. IMPRESSION: Acute fracture of the left lateral tibial plateau without significant displacement. Electronically signed by: Stalin Bourne On 06/01/2020 21:51:16 PM
[2020-06-01] MEDS ORDERED: ACETAMINOPHEN 325 MG TAB PO ONE (23:00)
--- NOTE | 2020-06-01 23:52 | REPVR ---
PROCEDURE INFORMATION: Exam: CT Left Lower Extremity Without Contrast; Lower Leg Exam date and time: 06/01/2020 10:15 PM Age: 49 years old Clinical indication: Pain; Lower leg; Left; Additional info: Further evaluate lle pain; Tibial plateau fracture? TECHNIQUE: Imaging protocol: CT of the Left lower extremity without contrast was performed. Exam focused on the lower leg. Radiation optimization: All CT scans at this facility use at least one of these dose optimization techniques: automated exposure control; mA and/or kV adjustment per patient size (includes targeted exams where dose is matched to clinical indication); or iterative reconstruction. COMPARISON: CR Tibia, Fibula lower leg LEFT 06/01/2020 9:11 PM FINDINGS: Bones/joints: The left medial and lateral tibial plateaus are intact. There is irregularity of the cortex of the posterior and lateral aspect of the left lateral tibial plateau, which is likely degenerative in nature. The subtle radiolucencies that can be seen in the lateral tibial plateau in the left tibia and fibula x-rays on 06/01/2020 likely represented prominent trabecular markings. The left tibia and fibula are intact. There is a small left knee joint effusion. There are marginal spurs arising from the medial compartment of the left knee. There are no bony destructive changes. Soft tissues: There is edema in the subcutaneous tissues along the anterolateral aspect of the left ankle. No drainable soft tissue fluid collection or soft tissue gas is noted. IMPRESSION: 1. No fracture or dislocation of the left tibia or fibula. Intact left lateral tibial plateau. 2. Soft tissue edema in the subcutaneous tissues along the anterolateral aspect of the left ankle. 3. Small left knee joint effusion. Electronically signed by: Stalin Bourne On 06/01/2020 23:52:30 PM
[2020-06-02 00:11] VITALS: BP 144/71
== END 2020-06-02 00:14 | disposition home or self-care (01) ==
LOC: M ED 19:33
DX: S82.145A Nondisplaced bicondylar fracture of left tibia, initial encounter for closed fracture (principal); Y04.8XXA Assault by other bodily force, initial encounter; Y92.9 Unspecified place or not applicable; Y93.9 Activity, unspecified; Y99.9 Unspecified external cause status; M25.462 Effusion, left knee; Z87.718 Personal history of other specified (corrected) congenital malformations of genitourinary system; F19.10 Other psychoactive substance abuse, uncomplicated; F17.200 Nicotine dependence, unspecified, uncomplicated; Z88.6 Allergy status to analgesic agent; Z79.899 Other long term (current) drug therapy

== ENCOUNTER 2020-08-03 08:24 | Inpatient (IN) | payer MEDICAID, OTHER ==
[~2020-08-03] VITALS: Ht 167.6 cm; Wt 72.1 kg
[~2020-08-03 08:24] MED LIST changes: -CLIN150C14 PO; +CLIN150C15 PO; +GABA-282; -GABA-843; +METH-1164 PO; -METH1TAB40 PO
--- OUTSIDE RECORDS SUMMARY | 2020-08-03 08:29 | CCD | Continuity of Care Document ---
Author Author [facility] Organization Unknown Address [address] [facility], [facility] [address] [place] [address] Phone [phone] Care Team Providers Care [employer] Hog Operator Name Role Phone Arely Licona AUTM [phone] June Pedroza MD AUTM Problems Description No Active Problems Social History Type Date Description Comments Sex Unknown ETOH Use Denies alcohol use Tobacco Use Start: Unknown Patient is a current smoker, smo kes every day Allergies, Adverse Reactions, Alerts Active Allergies Reaction Severity Comments Date Toradol 07/28/2016 Ketorolac Tromethamine 06/02 Inactive Allergies NKDA 02/16/2015 Medications Active Medications SIG Qnty Indications Ordering Provide r Date Naproxen 500mg Tablets 1 by mouth twice a day 60tabs Srini Beebe MD 06/25/2020 Gabapentin 600mg Tablets Unknown Suboxone 8-2mg Film Buprenorp brigitte tid Unknown History Medications Tizanidine HCL 4mg Capsules 1 by mouth three times a day 90caps Srinivasan Gary MD 06/08/2020 - 2020 Medrol 4mg Tablets dose marleny, take as directed on sheet 1tabs S80.12xA Srini Beebe MD 06/02/2020 - 2020 Immunizations Description No Information Available Vital Signs Date Vital Result Comment 06/25/2020 5:02pm Body Temperature 97.6 F 06/02/2020 4:01pm Body Temperature 96.6 F Height 67 inches 5'7" Weight 140.00 lb BMI (Body Mass Index) 21.9 kg/m2 Results Description No Information Available Procedures Description No Information Available Medical Devices Description No Information Available Encounters Type Date Location Provider Dx Diagnosis Office Visit 06/25/2020 5:00p [place] Gatito Gross S80.12xD Contusion of left lower leg, subsequent encounter Office Visit 06/02/2020 3:45p [place] Gatito Gross S80.12xA Contusion of left lower leg, initial encounter Assessments Date Code Description Provider 06/25/2020 S80.12xD Contusion of left lower leg, sub sequent encounter Gatito Gross 06/02/2020 S80.12xA Contusion of left lower leg, ini tial encounter Gatito Gross 06/02/2020 S80.12xA Contusion of left lower leg, ini tial encounter Lazaro Staton PCyndie Plan of Treatment No Information Available Functional Status Description No Information Available Mental Status Description No Information Available Referrals Description No Information Available
--- OUTSIDE RECORDS SUMMARY | 2020-08-03 08:30 | CCD | Continuity of Care Document ---
Author Author Becca ROUSSEAU NP Organization Unknown Address [address] [place] [address] Phone [phone] Problems Active Problems Provider Date Body mass index 25-29 - overweight Echo Yadav NP Onse t: 05/13/2019 Anxiety state Echo Yadav NP Onset: 05/13/2019 Tobacco user Echo Yadav NP Onset: 05/13/2019 Continuous opioid dependence Echo Yadav NP Onset: 08/2018 Chronic hepatitis C Echo Yadav NP Onset: 2019 Social History Type Date Description Comments Sex Unknown Tobacco Use Start: Unknown Light tobacco smoker (10 or fewe r cigarettes/day) ETOH Use Denies alcohol use Tobacco Use Start: Unknown Light tobacco smoker (10 or fewe r cigarettes/day) Smoking Status Reviewed: 06/24/19 Light tobacco smoker (10 or fewer cigarettes/day) Allergies, Adverse Reactions, Alerts Active Allergies Reaction Severity Comments Date Seasonal 10/28/2018 Bactrim Diarrhea, Hives Moderate 12/24/2018 Ketorolac Tromethamine 04/02 Naloxone 06/09/2020 Medications Active Medications SIG Qnty Indications Ordering Provide r Date Buprenorphine HCL 8mg Tablets Sub 3 tab under tongue daily as directed. xh [id number] 42tabs F11.20 Brooklynn Rousseau NP 06/09/2020 History Medications Buprenorphine Hydrochloride/Naloxone Hyd rochloride 8-2mg Film 3 sl every day [id number] 63units F11.20 Brooklynn Rousseau NP 05/20/2020 - 06/09/2020 Immunizations Description No Information Available Vital Signs Date Vital Result Comment 07/24/2019 12:51pm Weight 184.50 lb Heart Rate 75 /min BP Systolic 120 mmHg BP Diastolic 78 mmHg Height 67 inches 5'7" O2 % [facility]C Oximetry 98 % [place] Body Weight 135 lb BMI (Body Mass Index) 28.9 kg/m2 06/24/2019 9:20am Weight 187.00 lb Heart Rate 70 /min BP Systolic 118 mmHg BP Diastolic 76 mmHg Height 67 inches 5'7" O2 % BldC Oximetry 98 % [place] Body Weight 135 lb BMI (Body Mass Index) 29.3 kg/m2 Results Test Acquired Date Facility Test Result H/L Range Note Drugs of Abuse w/o THC-[facility] 03/24/2020 [facility] Amphetamines,Urine NEGATIVE <1000 ng/mL 1 Barbiturates,Urine NEGATIVE <200 ng/mL Benzodiazepines, Urine POSITIVE Abnormal <200 ng/mL Bupernorphrine/Norbu,Urine POSITIVE Abnormal <10 ng/mL Cocaine Metabolites,Urine NEGATIVE <300 ng/mL Methadone,Urine NEGATIVE <300 ng/mL Opiates,Urine NEGATIVE <300 ng/mL Oxycodone,Urine NEGATIVE <100 ng/mL Phencyclidine,Urine NEGATIVE <25 ng/mL Chlamydia & GC, Dna-[facility] 03/24/2020 [facility] Chlamydia NOT DETECTED Not Detected GC NOT DETECTED Not Detected Benzodiapene-Urine RL 03/24/2020 [facility] Diazepam,Urine <20 2 Nordiazepam,Urine <20 3 Oxazepam,Urine <20 4 Temazepam,Urine <20 5 Lorazepam,Urine <20 6 Alprazolam,Urine 517 7 [facility] Alprazolam 398 8 Clonazepam,Urine <5 9 7 Aminoclonazepam U <5 10 Midazolam,Urine <20 11 Chlordiazepoxide <20 12 [facility] [place] Midazolam <20 13 Buprenorphine & Metabolite -Urine 03/24/2020 [facility]ren[facility] Ur 3 ng/mL 14 Norbuprenorphine Ur 47 ng/mL Buprenorphine Glucu 41 15 Norbupr Glucuronide 143 16 Naloxone,Urine <100 ng/mL 17 1 TEST FOR BUPRENORPHINE 2 Unit: ng/mL Cutoff: 20 ng/mL 3 Unit: ng/mL Cutoff: 20 ng/mL 4 Unit: ng/mL Cutoff: 20 ng/mL 5 Unit: ng/mL Cutoff: 20 ng/mL 6 Unit: ng/mL Cutoff: 20 ng/mL 7 Unit: ng/mL Consistent with use of a drug containing alprazolam, such as Xanax. Cutoff: 5 ng/mL 8 Unit: ng/mL Alprazolam metabolite; consistent with use of a drug containing alprazolam, such as Xanax. Cutoff: 5 ng/mL 9 Unit: ng/mL Cutoff: 5 ng/mL 10 Unit: ng/mL Cutoff: 5 ng/mL 11 Unit: ng/mL Cutoff: 20 ng/mL 12 Unit: ng/mL Cutoff: 20 ng/mL 13 Unit: ng/mL Cutoff: 20 ng/mL INTERPRETIVE INFORMATION: Benzodiazepines, Urine, Quantitative Methodology: Quantitative Liquid Chromatography-Tandem Mass Spectrometry For medical purposes only; not valid for forensic use. Identification of specific drug(s) taken by specimen donor is problematic due to common metabolites, some of which are prescription drugs themselves. The absence of expected drug(s) and/or drug metabolite(s) may indicate non-compliance, inappropriate timing of specimen collection relative to drug administration, poor drug absorption, diluted/adulterated urine, or limitations of testing. The concentration value must be greater than or equal to the cutoff to be reported as positive. Interpretive questions should be directed to the laboratory. Test developed and characteristics determined by [facility]. See Compliance Statement B: [email or web address] [facility]/CS Performed By: [facility] [address] [place] [address] Multifold Operator: Madelyn Avelar MD Unless otherwise specified, testing performed by [facility] [employer] [address] [place] [id number] INTERPRETIVE INFORMATION: Bu prenorphine and Metabolites, Urine, Quantitative Methodology: Quantitative Liquid Chromatography-Tandem Mass Spectrometry Positive cutoff: Buprenorphine 2 ng/mL Norbuprenorphine 2 ng/mL Buprenorphine glucuronide 5 ng/mL Norbuprenorphine glucuronide 5 ng/mL Naloxone 100 ng/mL For medical purposes only; not valid for forensic use. The presence of metabolite(s) without parent drug is common and may indicate use of parent drug during the prior week. Naloxone is included to detect addition of a naloxone-containing drug directly into the urine. The absence of expected drug(s) and/or drug metabolite(s) may indicate non-compliance, inappropriate timing of specimen collection relative to drug administration, poor drug absorption, diluted/adulterated urine, or limitations of testing. The concentration value must be greater than or equal to the cutoff to be reported as positive. Interpretive questions should be directed to the laboratory. Test developed and characteristics determined by [facility]. See Compliance Statement B: [email or web address] 15 Unit: ng/mL Consistent with use of a buprenorphine-containing drug. Glucuronide concentrations are semi-quantitative. 16 Unit: ng/mL 17 Performed By: [facility] [address] [place] [address] Multifold Operator: Madelyn Avelar MD Unless otherwise specified, testing performed by [facility] [address] [address] Procedures Description No Information Available Medical Devices Description No Information Available Encounters Type Date Location Provider Dx Diagnosis Office Visit 06/23/2020 8:40a [facility] Brookylnn oRusseau NP F11.20 Opioid dependence, uncomplicated F41.9 Anxiety disorder, unspecifie d Office Visit 06/09/2020 8:40a [facility] Brooklynn Rousseau NP F11.20 Opioid dependence, uncomplicated F41.9 Anxiety disorder, unspecifie d Office Visit 05/20/2020 1:20p [facility] Brooklynn Rousseau NP F11.20 Opioid dependence, uncomplicated F41.9 Anxiety disorder, unspecifie d Office Visit 03/24/2020 3:20p [facility] Brooklynn Rousseau NP F11.20 Opioid dependence, uncomplicated F41.9 Anxiety disorder, unspecifie d Z20.2 Contact w and exposure to in fect w a sexl mode of transmiss Assessments Date Code Description Provider 06/23/2020 F11.20 Opioid dependence, uncomplicated Brooklynn Rousseau NP 06/23/2020 F41.9 Anxiety disorder, unspecified Brooklynn Prieto NP 06/09/2020 F11.20 Opioid dependence, uncomplicated Brooklynn Rousseau NP 06/09/2020 F41.9 Anxiety disorder, unspecified Brooklynn Prieto NP 05/20/2020 F11.20 Opioid dependence, uncomplicated Brooklynn Rousseau NP 05/20/2020 F41.9 Anxiety disorder, unspecified Brooklynn Prieto NP 03/24/2020 F11.20 Opioid dependence, uncomplicated Brooklynn Rousseau NP 03/24/2020 F41.9 Anxiety disorder, unspecified Brooklynn Prieto NP 03/24/2020 Z20.2 Contact with and (jung spected) exposure to infections with a predominantly sexual mode of transmission Brooklynn Rousseau NP 03/24/2020 F11.20 Opioid dependence, uncomplicated [facility] 03/24/2020 Z20.2 Contact w and exposure to infect w a sexl mode of transmiss [facility] Plan of Treatment Future Appointment(s):* 07/07/2020 10:20 am - Brooklynn Rousseau NP at [facility] 06/23/2020 - Brooklynn Rousseau NP* F11.20 Opioid dependence, uncomplicated* Comments: * I spent 15 minutes discussing the goals of therapy, short term bridge, expectation of no use, weekly visit, weekly urines, and engage in therapy. Stressed the need to come to the appointments, use coping skills, and not use any recreational drugs. Plan: continue counseling at [facility], should know date of MAT at next visit.Urine toxicity screen from previous visit reviewed. She will have UDS at [facility] lab near her.Patient states that 24 mg of Suboxone is helping to avoid use of opioids. My recommendation is to continue on same dose for 14 days. 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 * F41.9 Anxiety disorder, unspecified* Comments:* Recommended to follow up with her counselor at [facility]. Encouraged use of relaxation and other coping skills. Reports that she is no longer taking benzos. Functional Status Description No Information Available Mental Status Description No Information Available Referrals Description No Information Available
--- OUTSIDE RECORDS SUMMARY | 2020-08-03 08:30 | CCD ---
Author Author [facility] Organization [facility] Address Unknown Phone Unavailable Care Team Providers Care Mainframe Programmer Analyst Name Role Phone Aviva Juarez Unavailable PROBLEMS Type Condition ICD9-CM Code PDE10-BX Code Onset Dates Condition S tatus SNOMED Code Notes Problem Left-sided tinnitus H93.12 Active 524757990780 6 Problem Tobacco dependence F17.200 Active 38640194 Problem Psychogenic nonepileptic seizure F44.5 Active 266418284 Problem Other chronic pain G89.29 Active 90512154 Problem Anxiety F41.9 Active 41794903 Problem Major depression with psychotic features F32.3 Active 081217594 ALLERGIES Allergen (clinical drug ingredient) Drug/Non Drug Allergy do cumented on EMR Reaction Allergy Type Onset Date Status toradol rash Non Drug Allergy Active ENCOUNTERS from 1968 to 2020-06-21 Encounter Location Date Provider Diagnosis [address] [address] Jun, Avivaroberto uJarez Other chronic pain G89.29 IMMUNIZATIONS No Information SOCIAL HISTORY Tobacco Use: Social History Observation Description Date Details (start date - stop date) Current Smoker Sex Assigned At : Social History Observation Description Sex Assigned At Unknown Tobacco Use/Smoking Question Answer Notes Are you a current smoker How many cigarettes a day do you smoke? 5 or less How often do you smoke cigarettes? every day REASON FOR REFERRAL No Information VITAL SIGNS No information MEDICATIONS Medication SIG (Take, Route, Frequency, Duration) Notes Start Da te End Date Status Gabapentin 600 MG 1 tablet Orally three times a day for 90 day(s ) Jun, Active PROCEDURES No Information RESULTS No Results REASON FOR VISIT rx MEDICAL (GENERAL) HISTORY Type Description Date Medical History depression/anxiety Medical History hx of seizure Medical History narcotic abuse historical (10 years ago) Surgical History tubal 2016 Hospitalization History [facility] 09/15/2019 Hospitalization History [facility] 09/18/2019 Hospitalization History [facility] 09/25/2019 Hospitalization History [facility] 10/04/2019 Hospitalization History [facility] 02/2020 Goals Section No Information Health Concerns No Information MEDICAL EQUIPMENT No Information MENTAL STATUS No Information FUNCTIONAL STATUS No Information ASSESSMENTS Encounter Date Diagnosis Assessment Notes Treatment Notes Treatm ent Clinical Notes Jun, Other chronic pain (ICD-10 - G89.29) PLAN OF TREATMENT Medication Medication Name Sig Start Date Stop Date Gabapentin 600 MG 1 tablet Orally three times a day for 90 day(s ) Jun, Next Appt Details Provider Name:Padma Owusucitlaly, 2020-07-13 01:00:00 PM, [address] [place] [address], [phone], Insurance Providers Payer Name Payer Address Payer Phone Insured Name Patient Relati onship to Insured Coverage Start Date Coverage End Date [employer] MCD - [employer] MEDICAID [address] [facility] [id number] OLIVIA DUMAS
--- OUTSIDE RECORDS SUMMARY | 2020-08-03 08:30 | CCD ---
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 Active 490278539 Problem Major depression with psychotic features F32.3 Active 824553363 Problem Left-sided tinnitus H93.12 Active 142806754171 6 Problem Anxiety disorder, unspecified F41.9 Active 23 0688454 Problem Other chronic pain G89.29 Active 89896256 Problem Depression, unspecified depression type F32.9 Active 29320661 Problem Anxiety F41.9 Active 83787865 ALLERGIES Allergen (clinical drug ingredient) Drug/Non Drug Allergy do cumented on EMR Reaction Allergy Type Onset Date Status toradol rash Non Drug Allergy Active ENCOUNTERS from 1968 to 2020 Encounter Location Date Provider Diagnosis [address] [address] Jun, Aviva Juarez IMMUNIZATIONS No Information SOCIAL HISTORY Tobacco Use: Social History Observation Description Date Details (start date - stop date) Current Smoker Sex Assigned At : Social History Observation Description Sex Assigned At Unknown Tobacco Use/Smoking Question Answer Notes Are you a current smoker How many cigarettes a day do you smoke? 6-10 How often do you smoke cigarettes? every day REASON FOR REFERRAL No Information VITAL SIGNS No information MEDICATIONS Medication SIG (Take, Route, Frequency, Duration) Notes Start Da te End Date Status Neurontin 800 MG 1 tablet Orally every 8 hours for 30 day(s) Aug, Active PROCEDURES No Information RESULTS No Results REASON FOR VISIT No Information MEDICAL (GENERAL) HISTORY Type Description Date Medical History depression/anxiety Medical History hx of seizure Medical History narcotic abuse historical (10 years ago) Surgical History tubal 2016 Hospitalization History [facility] 09/15/2019 Hospitalization History [facility] 09/18/2019 Hospitalization History [facility] 09/25/2019 Hospitalization History [facility] 10/04/2019 Hospitalization History [facility] 02/2020 Goals Section No Information Health Concerns No Information MEDICAL EQUIPMENT No Information MENTAL STATUS No Information FUNCTIONAL STATUS No Information ASSESSMENTS No Information PLAN OF TREATMENT Next Appt Details Provider Name:Aviva Juarez, 2020-06-11 1 01:00:00 PM, [address] [place] [address], [phone], Insurance Providers Payer Name Payer Address Payer Phone Insured Name Patient Relati onship to Insured Coverage Start Date Coverage End Date [employer] MCD - [employer] MEDICAID [address] [facility] [id number] OLIVIA DUMAS
--- OUTSIDE RECORDS SUMMARY | 2020-08-03 08:30 | CCD | Continuity of Care Document ---
Author Author Becca ROUSSEAU NP Organization Unknown Address [address] [place] [address] Phone [phone] Problems Active Problems Provider Date Body mass [...] SIG Qnty Indications Ordering Provide r Date Gabapentin 600mg Tablets 1 by mouth three times a day 90tabs Brooklynn Rousseau NP 07/07/2020 Buprenorphine HCL 8mg Tablets Sub 3 tab under tongue daily as directed. xh [id number] 21tabs F11.20 Brooklynn Rousseau NP 06/09/2020 History Medications Buprenorphine Hydrochloride/Naloxone Hyd rochloride 8-2mg Film 3 sl every day [id number] 63units F11.20 Brooklynn Rousseau NP 05/20/2020 - 06/09/2020 Immunizations Description No Information Available Vital Signs Date Vital Result Comment 07/24/2019 12:51pm Weight 184.50 lb Heart Rate 75 /min BP Systolic 120 mmHg BP Diastolic 78 mmHg Height 67 inches 5'7" O2 % BldC Oximetry 98 % [place] Body Weight 135 lb BMI (Body Mass Index) 28.9 kg/m2 06/24/2019 9:20am Weight 187.00 lb Heart Rate 70 /min BP Systolic 118 mmHg BP Diastolic 76 mmHg Height 67 inches 5'7" O2 % BldC Oximetry 98 % [place] Body Weight 135 lb BMI (Body Mass Index) 29.3 kg/m2 Results Test Acquired Date Facility Test Result H/L Range Note Drugs of Abuse w/o THC-[facility] 03/24/2020 [facility] Amphetamines,Urine NEGATIVE <1000 ng/mL 1 Barbiturates,Urine NEGATIVE <200 ng/mL Benzodiazepines, Urine POSITIVE Abnormal <200 ng/mL Bupernorphrine/Norbu,Urine POSITIVE Abnormal <10 ng/mL Cocaine Metabolites,Urine NEGATIVE <300 ng/mL Methadone,Urine NEGATIVE <300 ng/mL Opiates,Urine NEGATIVE <300 ng/mL Oxycodone,Urine NEGATIVE <100 ng/mL Phencyclidine,Urine NEGATIVE <25 ng/mL Chlamydia & GC, Dna-[facility] 03/24/2020 [facility] Chlamydia NOT DETECTED Not Detected GC NOT DETECTED Not Detected Benz[facility]apene-Urine RL [facility],U[facility] <20 2 Nordiazepam,Urine <20 3 Oxazepam,Urine <20 4 Temazepam,Urine <20 5 Lorazepam,Urine <20 6 Alprazolam,Urine 517 7 Alpha Oh Alprazolam 398 8 Clonazepam,Urine <5 9 7 Aminoclonazepam U <5 10 Midazolam,Urine <20 11 Chlordiazepoxide <20 12 Alpha Oh Midazolam <20 13 Buprenorphine & Metabolite -Urine 03/24/2020 [facility] Buprenorphine Ur 3 ng/mL 14 Norbuprenorphine [...] laboratory. Test developed and characteristics determined by [facility]. See Compliance Statement B: [email or web address] Performed By: [facility] [address] [place] [address] Parachute Crown Sewer: Madelyn Avelar MD Unless otherwise specified, testing performed by [facility] [employer] [address] [place] [id number] 14 INTERPRETIVE INFORMATION: Bu prenorphine and Metabolites, [...] laboratory. Test developed and characteristics determined by [facility]. See Compliance Statement B: [email or web address] 15 Unit: ng/mL Consistent with use of a buprenorphine-containing drug. Glucuronide concentrations are semi-quantitative. 16 Unit: ng/mL 17 Performed By: [facility] [address] [place] [address] Parachute Crown Sewer: Madelyn Avelar MD Unless otherwise specified, testing performed by [facility] [address] [address] Procedures Description No Information Available Medical Devices Description No Information Available Encounters Type Date Location Provider Dx Diagnosis Office Visit 06/23/2020 8:40a [facility] Brooklynn Rousseau NP F11.20 Opioid dependence, uncomplicated F41.9 Anxiety disorder, unspecifie d Office Visit 06/09/2020 8:40a [facility] Brooklynn Rousseau NP F11.20 Opioid dependence, uncomplicated F41.9 Anxiety disorder, unspecifie d Office Visit 05/20/2020 1:20p [facility] Brooklynn Rousseau NP F11.20 Opioid dependence, uncomplicated F41.9 Anxiety disorder, unspecifie d Office Visit 03/24/2020 3:20p [facility] Brooklynn Rousseau NP F11.20 Opioid dependence, uncomplicated F41.9 Anxiety disorder, unspecifie d Z20.2 Contact w and exposure to in fect w a sexl mode of transmiss Assessments Date Code Description Provider 06/23/2020 F1.20 Opioid dependence, uncomplicated Brooklynn Rousseau NP 06/23/2020 [...] Rousseau NP 03/24/2020 F11.20 Opioid dependence, uncomplicated [facility] 03/24/2020 Z20.2 Contact w and exposure to infect w a sexl mode of transmiss [facility] Plan of Treatment Future Appointment(s):* 07/14/2020 9:40 am - Brooklynn Rousseau NP at [facility] 07/07/2020 - Brooklynn Rousseau NP* All * New Medication:* Gabapentin 600 mg - 1 by mouth three times a day Functional Status Description No Information Available Mental Status Description No Information Available Referrals Description No Information Available
--- OUTSIDE RECORDS SUMMARY | 2020-08-03 08:30 | CCD | Continuity of Care Document ---
Author Author Becca ROUSSEAU NP Organization Unknown Address [address] [place] [address] Phone [phone] Problems Active Problems Provider Date Body mass [...] tab under tongue daily as directed. xh [id number] 42tabs F11.20 Brooklynn Rousseau NP 06/09/2020 History Medications Buprenorphine Hydrochloride/Naloxone Hyd rochloride 8-2mg Film 3 sl every day [id number] 63units F11.20 Brooklynn Rousseau NP 05/20/2020 - 06/09/2020 Immunizations Description No Information Available Vital Signs Date Vital Result Comment 07/24/2019 12:51pm Weight 184.50 lb Heart Rate 75 /min BP Systolic 120 mmHg BP Diastolic 78 mmHg Height 67 inches 5'7" O2 % BldC Oximetry 98 % [place] [facility] Weight 135 lb BMI (Body Mass Index) 28.9 kg/m2 06/24/2019 9:20am Weight 187.00 lb Heart Rate 70 /min BP Systolic 118 mmHg BP Diastolic 76 mmHg Height 67 inches 5'7" O2 % BldC Oximetry 98 % [place] Body Weight 135 lb BMI (Body Mass Index) 29.3 kg/m2 Results Test Acquired Date Facility Test Result H/L Range Note Drugs of Abuse w/o THC-[facility] 03/24/2020 [facility] Amphetamines,Urine NEGATIVE <1000 ng/mL 1 Barbiturates,Urine NEGATIVE <200 ng/mL Benzodiazepines, Urine POSITIVE Abnormal <200 ng/mL Bupernorphrine/Norbu,Urine POSITIVE Abnormal <10 ng/mL Cocaine Metabolites,Urine NEGATIVE <300 ng/mL Methadone,Urine NEGATIVE <300 ng/mL Opiates,Urine NEGATIVE <300 ng/mL Oxycodone,Urine NEGATIVE <100 ng/mL Phencyclidine,Urine NEGATIVE <25 ng/mL Chlamydia & GC, Dna-[facility] 03/24/2020 [facility] Chlamydia NOT DETECTED Not Detected GC NOT DETECTED Not Detected Benzodiapene-Urine RL 03/24/2020 [facility] Diazepam,Urine <20 2 Nordiazepam,Urine <20 3 Oxazepam,Urine [...] laboratory. Test developed and characteristics determined by [facility]. See Compliance Statement B: [employer]/CS Performed By: [facility] [address] [place] [id number] Lure Maker: Madelyn Avelar MD Unless otherwise specified, testing performed by [facility] [address] [place] [id number] 14 INTERPRETIVE INFORMATION: Bu prenorphine and Metabolites, [...] laboratory. Test developed and characteristics determined by [facility]. See Compliance Statement B: [email or web address] 15 Unit: ng/mL Consistent with use of a buprenorphine-containing drug. Glucuronide concentrations are semi-quantitative. 16 Unit: ng/mL 17 Performed By: [email or web address] [address] [place] [address] Lure Maker: Madelyn Avelar MD Unless otherwise specified, testing performed by [facility] [address] [place] [address] Procedures Description No Information Available Medical Devices Description No Information Available Encounters Type Date Location Provider Dx Diagnosis Office Visit 05/20/2020 1:20p [facility] Brooklynn Rousseau NP F11.20 Opioid dependence, uncomplicated F41.9 Anxiety disorder, unspecifie d Office Visit 03/24/2020 3:20p [facility] Brooklynn Rousseau NP F11.20 Opioid dependence, uncomplicated F41.9 Anxiety disorder, unspecifie d Z20.2 Contact w and exposure to in fect w a sexl mode of transmiss Assessments Date Code Description Provider 05/20/2020 F11.20 Opioid dependence, uncomplicated Brooklynn Rousseau NP 05/20/2020 F41.9 Anxiety disorder, unspecified Brooklynn Prieto NP 03/24/2020 F11.20 Opioid dependence, uncomplicated Brooklynn Rousseau NP 03/24/2020 F41.9 Anxiety disorder, unspecified Brooklynn Prieto NP 03/24/2020 Z20.2 Contact with and (jung spected) exposure to infections with a predominantly sexual mode of transmission Brooklynn Rousseau NP 03/24/2020 F11.20 Opioid dependence, uncomplicated [facility] 03/24/2020 Z20.2 Contact w and exposure to infect w a sexl mode of transmiss [facility] Plan of Treatment Future Appointment(s):* 06/23/2020 8:40 am - Brooklynn Rousseau NP at [facility] 06/09/2020 - Brooklynn Rousseau NP* All * New Medication:* Buprenorphine HCL 8 mg - 3 tab under tongue daily as directed. [id number] Functional Status Description No Information Available Mental Status Description No Information Available Referrals Description No Information Available
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
--- OUTSIDE RECORDS SUMMARY | 2020-08-03 08:30 | CCD | Continuity of Care Document ---
Author Author Becca ROUSSEAU NP Organization Unknown Address [address] [place] [address] Phone [phone] Problems Active Problems Provider Date Body mass [...] tab under tongue daily as directed. [id number] 42tabs F11.20 Brooklynn Rousseau NP 06/09/2020 History Medications Buprenorphine Hydrochloride/Naloxone Hyd rochloride 8-2mg Film 3 sl every day [id number] 63units F11.20 Brooklynn Rousseau NP 05/20/2020 - 06/09/2020 Immunizations Description No Information Available Vital Signs Date Vital Result Comment 07/24/2019 12:51pm Weight 184.50 lb Heart Rate 75 /min BP Systolic 120 mmHg BP Diastolic 78 mmHg Height 67 inches 5'7" O2 % BldC Oximetry 98 % [place] Body Weight 135 lb BMI (Body Mass Index) 28.9 kg/m2 06/24/2019 9:20am Weight 187.00 lb Heart Rate 70 /min BP Systolic 118 mmHg BP Diastolic 76 mmHg Height 67 inches 5'7" O2 % BldC Oximetry 98 % [place] Body Weight 135 lb BMI (Body Mass Index) 29.3 kg/m2 Results Test Acquired Date Facility Test Result H/L Range Note Drugs of Abuse w/o THC-[facility] 03/24/2020 [facility] Amphetamines,Urine NEGATIVE <1000 ng/mL 1 Barbiturates,Urine NEGATIVE <200 ng/mL Benzodiazepines, Urine POSITIVE Abnormal <200 ng/mL Bupernorphrine/Norbu,Urine POSITIVE Abnormal <10 ng/mL Cocaine Metabolites,Urine NEGATIVE <300 ng/mL Methadone,Urine NEGATIVE <300 ng/mL Opiates,Urine NEGATIVE <300 ng/mL Oxycodone,Urine NEGATIVE <100 ng/mL Phencyclidine,Urine NEGATIVE <25 ng/mL Chlamydia & GC, Dna-[facility] 03/24/2020 [facility] Chlamydia NOT DETECTED Not Detected GC NOT DETECTED Not Detected Benzodiapene-Urine RL 03/24/2020 [facility] Diazepam,Urine <20 2 Nordiazepam,Urine <20 3 Oxazepam,Urine <20 4 Temazepam,Urine <20 5 Lorazepam,Urine <20 6 Alprazolam,Urine 517 7 [facility] Alprazolam 398 8 Clonazepam,Urine <5 9 7 Aminoclonazepam U <5 10 Midazolam,Urine <20 11 Chlordiazepoxide <20 12 [facility] Midazolam <20 13 Buprenorphine & Metabolite -[facility]/mL 14 Norbuprenorphine [...] laboratory. Test developed and characteristics determined by [facility]. See Compliance Statement B: [email or web address]/CS Performed By: [facility] [address] [place] [id number] Computer Network And Systems Engineer: Madelyn Avelar MD Unless otherwise specified, testing performed by [facility] [address] [place] [id number] 14 INTERPRETIVE INFORMATION: Bu prenorphine and Metabolites, [...] laboratory. Test developed and characteristics determined by [facility]. See Compliance Statement B: [email or web address]/CS 15 Unit: ng/mL Consistent with use of a buprenorphine-containing drug. Glucuronide concentrations are semi-quantitative. 16 Unit: ng/mL 17 Performed By: [facility] [address] [place] [address] Computer Network And Systems Engineer: Madelyn Avelar MD Unless otherwise specified, testing performed by [facility] [address] [address] Procedures Description No Information Available Medical Devices Description No Information Available Encounters Type Date Location Provider Dx Diagnosis Office Visit 06/09/2020 8:40a [facility] Brooklynn Rousseau NP F11.20 Opioid dependence, uncomplicated F41.9 Anxiety disorder, unspecifie d Office Visit 05/20/2020 1:20p [facility] Brooklynn Rousseau NP F11.20 Opioid dependence, uncomplicated F41.9 Anxiety disorder, unspecifie d Office Visit 03/24/2020 3:20p [facility] Brooklynn Rousseau NP F11.20 Opioid dependence, uncomplicated F41.9 Anxiety disorder, unspecifie d Z20.2 Contact w and exposure to in fect w a sexl mode of transmiss Assessments Date Code Description Provider 06/09/2020 F11.20 Opioid dependence, uncomplicated Brooklynn Rousseau [...] 10:20 am - Brooklynn Rousseau NP at [facility] Functional Status Description No Information Available Mental Status Description No Information Available Referrals Description No Information Available
--- OUTSIDE RECORDS SUMMARY | 2020-08-03 08:30 | CCD ---
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 515048402 Problem Major depression with psychotic features F32.3 Active 528528759 Problem Left-sided tinnitus H93.12 Active 137580299983 6 Problem Anxiety disorder, unspecified F41.9 Active 23 6390746 Problem Other chronic pain G89.29 Active 53837650 Problem Depression, unspecified depression type F32.9 Active 51110819 Problem Anxiety F41.9 Active 60359711 ALLERGIES Allergen (clinical drug ingredient) Drug/Non Drug Allergy do cumented on EMR Reaction Allergy Type Onset Date Status toradol rash Non Drug Allergy Active ENCOUNTERS from 1970 to 2020-06-14 Encounter Location Date Provider Diagnosis [address] [address] Jun, Aviva Juarez IMMUNIZATIONS No Information SOCIAL [...] Information RESULTS No Results REASON FOR VISIT 2015 form MEDICAL (GENERAL) HISTORY Type Description Date Medical History depression/anxiety Medical History hx of seizure Medical History narcotic abuse historical (10 years ago) Surgical History tubal 2016 Hospitalization History [facility] 09/15/2019 Hospitalization History [facility] 09/18/2019 Hospitalization History [facility] 09/25/2019 Hospitalization History [facility] 10/04/2019 Hospitalization History [facility] 02/2020 Goals Section No Information Health Concerns No Information MEDICAL EQUIPMENT No Information MENTAL STATUS No Information FUNCTIONAL STATUS No Information ASSESSMENTS No Information PLAN OF TREATMENT Next Appt Details Provider Name:Aviva Juarez, 2020-06-11 1 01:00:00 PM, [address] [place] [address], [phone], Insurance Providers Payer Name Payer Address Payer Phone Insured Name Patient Relati onship to Insured Coverage Start Date Coverage End Date [employer] [facility] [address] [facility] [id number] OLIVIA DUMAS
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
--- OUTSIDE RECORDS SUMMARY | 2020-08-03 08:30 | CCD | Continuity of Care Document ---
Author Author Becca MONETNEGRO P.A. Organization Unknown Address [address] [facility] [address] [place] [address] Phone [phone] Care Team Providers Care Resource Engineer Name Role Phone Arely Licona AUTM [phone] June Pedroza MD AUTM Problems Description No [...] Provider Dx Diagnosis Office Visit 06/25/2020 5:00p [place] Gatito Gross S80.12xD Contusion of left lower leg, subsequent encounter Office Visit 06/02/2020 3:45p [place] Gatito Gross S80.12xA Contusion of left lower leg, initial encounter Assessments Date Code Description Provider 06/25/2020 S80.12xD Contusion of left lower leg, sub sequent encounter Gatito Gross 06/02/2020 S80.12xA Contusion of left lower leg, ini tial encounter Gatito Gross 06/02/2020 S80.12xA Contusion of left lower leg, ini tial encounter Gatito Gross Plan of Treatment 06/25/2020 - Gatito Gross* S80.12xD Contusion of left lower leg, subsequent encounter* Follow up:* prn * All * New Medication:* Naproxen 500 mg - 1 by mouth twice a day Functional Status Description No Information Available Mental Status Description No Information Available Referrals Description No Information Available
--- OUTSIDE RECORDS SUMMARY | 2020-08-03 08:30 | CCD | Continuity of Care Document ---
Author Author Becca MONTENEGRO P.A. Organization Unknown Address [address] [facility] [address] [place] [address] Phone [phone] Care Team Providers Care Insurance Executive Name Role Phone Arely Licona AUTM [phone] June Pedroza MD AUTM Problems Description No [...] Provider Dx Diagnosis Office Visit 06/25/2020 5:00p [place] Gatito Gross S80.12xD Contusion of left lower leg, subsequent encounter Office Visit 06/02/2020 3:45p [place] Gatito Gross S80.12xA Contusion of left lower [...]
--- OUTSIDE RECORDS SUMMARY | 2020-08-03 08:30 | CCD | Continuity of Care Document ---
Author Author Becca ROUSSEAU NP Organization Unknown Address [address] [place] [address] Phone [phone] Problems Active Problems Provider Date Body mass [...] tab under tongue daily as directed. [id number] 42tabs F11.20 Brooklynn Rousseau NP 06/09/2020 History Medications Buprenorphine Hydrochloride/Naloxone Hyd rochloride 8-2mg Film 3 sl every day [id number] 63units F11.20 Brooklynn Rousseau NP 05/20/2020 - 06/09/2020 Immunizations Description No Information Available Vital Signs Date Vital Result Comment 07/24/2019 12:51pm Weight 184.50 lb Heart Rate 75 /min BP Systolic 120 mmHg BP Diastolic 78 mmHg Height 67 inches 5'7" O2 % [facility] Oximetry 98 % [place] Body Weight 135 lb BMI (Body Mass Index) 28.9 kg/m2 06/24/2019 9:20am Weight 187.00 lb Heart Rate 70 /min BP Systolic 118 mmHg BP Diastolic 76 mmHg Height 67 inches 5'7" O2 % BldC Oximetry 98 % [place] Body Weight 135 lb BMI (Body Mass Index) 29.3 kg/m2 Results Test Acquired Date Facility Test Result H/L Range Note Drugs of Abuse w/o [facility] 03/24/2020 [facility] Amphetamines,Urine NEGATIVE <1000 ng/mL 1 Barbiturates,Urine NEGATIVE <200 ng/mL Benzodiazepines, Urine POSITIVE Abnormal <200 ng/mL Bupernorphrine/Norbu,Urine POSITIVE Abnormal <10 ng/mL Cocaine Metabolites,Urine NEGATIVE <300 ng/mL Methadone,Urine NEGATIVE <300 ng/mL Opiates,Urine NEGATIVE <300 ng/mL Oxycodone,Urine NEGATIVE <100 ng/mL Phencyclidine,Urine NEGATIVE <25 ng/mL Chlamydia & GC, Dna-[facility] 03/24/2020 [facility] Chlamydia NOT DETECTED Not Detected GC NOT DETECTED Not Detected Benzodiapene-Urine RL 03/24/2020 [facility] Diazepam,Urine <20 2 Nordiazepam,Urine <20 3 Oxazepam,Urine <20 4 Temazepam,Urine <20 5 Lorazepam,Urine <20 6 Alprazolam,Urine 517 7 [facility] Alprazolam 398 8 Clonazepam,Urine <5 9 7 Aminoclonazepam U <5 10 Midazolam,Urine <20 11 Chlordiazepoxide <20 12 [facility] Midazolam <20 13 Buprenorphine & Met[facility]ite -[facility] 3 ng/mL 14 [...] laboratory. Test developed and characteristics determined by [facility]. See Compliance Statement B: [employer]/CS Performed By: [facility] [address] [place] [id number] Managed Care Director: Madelyn Avelar MD Unless otherwise specified, testing performed by [facility] [address] [place] [id number] 14 INTERPRETIVE INFORMATION: Bu prenorphine and Metabolites, [...] laboratory. Test developed and characteristics determined by [facility]. See Compliance Statement B: [facility]/CS 15 Unit: ng/mL Consistent with use of a buprenorphine-containing drug. Glucuronide concentrations are semi-quantitative. 16 Unit: ng/mL 17 Performed By: [facility] [address] [place] [address] Managed Care Director: Madelyn Avelar MD Unless otherwise specified, testing performed by [facility] [address] [address] Procedures Description No Information Available Medical Devices Description No Information Available Encounters Type Date Location Provider Dx Diagnosis Office Visit 06/09/2020 8:40a [facility] Brooklynn Rousseau NP F11.20 Opioid dependence, uncomplicated F41.9 Anxiety disorder, unspecifie d Office Visit 05/20/2020 1:20p [facility] Brooklynn Rousseau NP F11.20 Opioid dependence, uncomplicated F41.9 Anxiety disorder, unspecifie d Office Visit 03/24/2020 3:20p [facility] Brooklynn Rousseau NP F11.20 Opioid dependence, [...] 8:40 am - Brooklynn Rousseau NP at [facility] 06/09/2020 - Brooklynn Rousseau NP* F11.20 Opioid dependence, uncomplicated* New Medication:* Buprenorphine HCL 8 mg - 3 tab under tongue daily as directed. [id number] * Comments:* I spent 15 minutes discussing the goals of therapy, short term bridge, expectation of no use, weekly visit, weekly urines, and engage in therapy. Stressed the need to come to the appointments, use coping skills, and not use any recreational drugs. Plan: continue counseling at [facility], will ask about MAT at next visit.Urine toxicity screen from previous visit reviewed. She reports she had UDS at PCP, have them send results to us. Patient states that 24 mg of Suboxone is helping to avoid use of opioids. My recommendation is to continue on same dose for 14 days. Revisit 2 weeks.CASING SEWER reviewed. * F41.9 Anxiety disorder, unspecified* Comments:* Recommended to follow up with her counselor at [facility]. Encouraged use of relaxation and other coping skills. Reports that she is no longer taking benzos. Functional Status Description No Information Available Mental Status Description No Information Available Referrals Description No Information Available
--- OUTSIDE RECORDS SUMMARY | 2020-08-03 08:31 | CCD | Continuity of Care Document ---
Author Author Becca ROUSSEAU NP Organization Unknown Address [address] [place] [address] Phone [phone] Problems Active Problems Provider Date Body mass [...] Diarrhea, Hives Moderate 12/24/2018 Ketorolac Tromethamine 04/02 Medications Active Medications SIG Qnty Indications Ordering Provide r Date Buprenorphine Hydrochloride/Naloxone Hyd rochloride 8-2mg Film 3 sl every day [id number] 63units F11.20 Brooklynn Rousseau NP 05/20/2020 Immunizations Description No Information Available Vital Signs Date Vital Result Comment 07/24/2019 12:51pm Weight 184.50 lb Heart Rate 75 /min BP Systolic 120 mmHg BP Diastolic 78 mmHg Height 67 inches 5'7" O2 % BldC Oximetry 98 % [place] Body Weight 135 lb BMI (Body Mass Index) 28.9 kg/m2 06/24/2019 9:20am Weight 187.00 lb Heart Rate 70 /min BP Systolic 118 mmHg BP Diastolic 76 mmHg Height 67 inches 5'7" O2 % BldC Oximetry 98 % [place] Body Weight 135 lb BMI (Body Mass [...] <25 ng/mL Chlamydia & GC, Dna-[facility] 03/24/2020 [facility] Chlamydia NOT DETECTED Not Detected GC NOT DETECTED Not Detected [facility]ap[facility]-Urine [facility],U[facility] <20 2 Nordiazepam,Urine <20 3 Oxazepam,Urine [...] laboratory. Test developed and characteristics determined by [facility]. See Compliance Statement B: [employer]/CS Performed By: [facility] [address] [place] [address] Director Of Strategic Sourcing: Madelyn Avelar MD Unless otherwise specified, testing performed by [facility] [address] [place] [id number] INTERPRETIVE INFORMATION: Bu prenorphine and Metabolites, [...] laboratory. Test developed and characteristics determined by [facility]. See Compliance Statement B: [employer]/CS 15 Unit: ng/mL Consistent with use of a buprenorphine-containing drug. Glucuronide concentrations are semi-quantitative. 16 Unit: ng/mL 17 Performed By: [facility] [address] [place] [address] Director Of Strategic Sourcing: Madelyn Avelar MD Unless otherwise specified, testing performed by [facility] [address] [place] [address] Procedures Description No Information Available Medical Devices Description No Information Available Encounters Type Date Location Provider Dx Diagnosis Office Visit 03/24/2020 3:20p [facility] Brooklynn Rousseau NP F11.20 Opioid dependence, uncomplicated F41.9 Anxiety disorder, unspecifie d Z20.2 Contact w and exposure to in fect w a sexl mode of transmiss Assessments Date Code Description Provider 03/24/2020 F11.20 Opioid dependence, uncomplicated Brooklynn Rousseau NP 03/24/2020 F41.9 Anxiety disorder, unspecified [facility] Brooklynn bojorquez NP 03/24/2020 Z20.2 Contact with and (jung spected) exposure to infections with a predominantly sexual mode of transmission Brooklynn Rousseau NP 03/24/2020 F11.20 Opioid dependence, uncomplicated [facility] 03/24/2020 Z20.2 Contact w and exposure to infect w a sexl mode of transmiss [facility] Plan of Treatment Future Appointment(s):* 06/09/2020 8:40 am - Brooklynn Rousseau NP at [facility] 05/20/2020 - Brooklynn Rousseau NP* All * New Medication:* Buprenorphine Hydrochloride/Naloxone Hydrochloride 8-2 mg - 3 sl every day [id number] Functional Status Description No Information Available Mental Status Description No Information Available Referrals Description No Information Available
--- OUTSIDE RECORDS SUMMARY | 2020-08-03 08:31 | CCD | Continuity of Care Document ---
Author Author Becca ROUSSEAU NP Organization Unknown Address [address] [place] [id number] Phone [phone] Problems Active Problems Provider Date Body mass [...] rochloride 8-2mg Film 3 sl every day [id number] 63units F11.20 Brooklynn oRusseau NP 05/20/2020 Immunizations Description No Information Available Vital Signs Date Vital Result Comment 07/24/2019 12:51pm Weight 184.50 lb Heart Rate 75 /min BP Systolic 120 mmHg BP Diastolic 78 mmHg Height 67 inches 5'7" O2 % BldC Oximetry 98 % [place] Body Weight 135 lb BMI (Body Mass Index) 28.9 kg/m2 06/24/2019 9:20am Weight 187.00 lb Heart Rate 70 /min BP Systolic 118 mmHg BP Diastolic 76 mmHg Height 67 inches 5'7" O2 % BldC Oximetry 98 % [place] Body Weight 135 lb BMI (Body Mass [...] NOT DETECTED Not Detected [facility]ap[facility]20 2 Nordiazepam,Urine <20 3 [...] laboratory. Test developed and characteristics determined by [facility]. See Compliance Statement B: [employer] Performed By: [facility] [address] [place] [address] Learning And Development Associate: Madelyn Avelar MD Unless otherwise specified, testing performed by [facility] [address] [place] [id number] INTERPRETIVE INFORMATION: Bu prenorphine and Metabolites, [...] laboratory. Test developed and characteristics determined by [facility]. See Compliance Statement B: [employer] 15 Unit: ng/mL Consistent with use of a buprenorphine-containing drug. Glucuronide concentrations are semi-quantitative. 16 Unit: ng/mL 17 Performed By: [facility] [address] [place] [address] Learning And Development Associate: Madelyn Avelar MD Unless otherwise specified, testing performed by [facility] [employer] [address] [address] Procedures Description No Information Available Medical Devices Description No Information Available Encounters Type Date Location Provider Dx Diagnosis Office Visit 05/20/2020 1:20p [facility] Brooklynn Rousseau NP F11.20 Opioid dependence, uncomplicated F41.9 Anxiety disorder, unspecifie d Office Visit 03/24/2020 3:20p [facility] Brooklynn Rousseau NP F11.20 Opioid dependence, uncomplicated [...] 8:40 am - Brooklynn Rousseau NP at [facility] 05/20/2020 - Brooklynn Rousseau NP* F11.20 Opioid dependence, uncomplicated* New Medication:* Buprenorphine Hydrochloride/Naloxone Hydrochloride 8-2 mg - 3 sl every day [id number] * Comments:* I spent 15 minutes discussing the goals of therapy, short term bridge, expectation of no use, weekly visit, weekly urines, and engage in therapy. Stressed the need to come to the appointments, use coping skills, and not use any recreational drugs. Plan: continue counseling at [facility].Urine toxicity screen from previous visit reviewed. She will have UDS at [facility], have them send results to us. Patient states that 24 mg of Suboxone is helping to avoid use of opioids. My recommendation is to continue on same dose for 21 days. 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 * F41.9 Anxiety disorder, unspecified* Comments:* Recommended to follow up with her counselor at [facility]. Encouraged use of relaxation and other coping skills. Reports that she is no longer taking benzos. Functional Status Description No Information Available Mental Status Description No Information Available Referrals Description No Information Available
--- OUTSIDE RECORDS SUMMARY | 2020-08-03 08:31 | CCD | Continuity of Care Document ---
Author Author Becca MONTENEGRO P.A. Organization Unknown Address [address] [facility], [facility] [address] [place] [address] Phone [phone] Care Team Providers Care Senior Occupational Therapist Name Role Phone Arely Licona AUTM [phone] June Pedroza MD AUTM Problems Description No Active Problems Social History Type Date Description Comments Sex Unknown ETOH Use Denies alcohol use Tobacco Use Start: Unknown Patient is a current smoker, smo kes every day Allergies, Adverse Reactions, Alerts Active Allergies Reaction Severity Comments Date Toradol 07/28/2016 Inactive Allergies NKDA 02/16/2015 Medications Active Medications SIG Qnty Indications Ordering Provide r Date Medrol 4mg Tablets dose marleny, take as directed on sheet 1tabs S83.412A Srini Beebe MD 06/02/2020 Lidocaine 4% Cream use as directed three times a day 15gm M17.11 Juan Tate MD 08/22/2016 Gabapentin 600mg Tablets Unknown Oxycodone-Acetaminophen 5-325mg Ta blets 1- 2 q4hrs. as needed for pain Unknown 000 Xarelto 20mg Tablets every da y Unknown Clonazepam 1mg Tablets 1 by mouth twice daily Unknown Ed[place]oor 5-325mg Tablets take 1-2 tabs by mouth every 4 hours as needed pain Unknown Immunizations Description No Information Available Vital Signs Date Vital Result Comment 06/02/2020 4:01pm Body Temperature 96.6 F Height 67 inches 5'7" Weight 140.00 lb BMI (Body Mass Index) 21.9 kg/m2 07/28/2016 8:56am Body Temperature 98.4 F Height 67 inches 5'7" Weight 157.00 lb BMI (Body Mass Index) 24.6 kg/m2 Results Description No Information Available Procedures Description No Information Available Medical Devices Description No Information Available Encounters Description No Information Available Assessments Date Code Description Provider 06/02/2020 S80.02xA Contusion of left knee, initial encounter Gatito Gross 06/02/2020 S83.412A Sprain of medial col lateral ligament of left knee, initial encounter Gatito Gross Plan of Treatment 06/02/2020 - Gatito Gross* S80.02xA Contusion of left knee, initial encounter * S83.412A Sprain of medial collateral ligament of left knee, initial encounter * New Medication:* Medrol 4 mg - dose marleny, take as directed on sheet * Follow up:* f/u in 3 week lt knee mikaela with [facility] ( evening clinic) Functional Status Description No Information Available Mental Status Description No Information Available Referrals Description No Information Available
--- OUTSIDE RECORDS SUMMARY | 2020-08-03 08:32 | CCD ---
Author Author [facility] Organization [facility] Address Unknown Phone Unavailable Support Name Relationship Address Phone Celestinojessie Urrutia Next Of Kin Unknown STEPHANI DUMAS Next Of Kin [address] [place] [address] UNE, UNEMPLOYED Next Of Kin Unknown Unavailable UNE Next Of Kin Unknown Unavailable CAYUGA, RECOVERY PROG ADDICTION Next Of Kin [address] [place] [address] ANNY RAINEY Next Of Kin Unknown ROSENDA MARCUS Next Of Kin [id number] [place] [address] 0 [place] [address] Sheldon Cha MD Next Of Kin [address] [place], [place] [id number] GREG MARCUS Next Of Kin [phone] [place] [address] [place] [phone] Britney Carter MD Next Of Kin [address] [place] [address] [phone] Stephanie Delacruz Next Of Kin [address] [place] [address] [phone] UN Next Of Kin Unknown Unavailable None, Pt Per Next Of Kin - -, - - - NO, ONE Next Of Kin Unknown UNEMPLOYED Next Of Kin - -, - - UE Next Of Kin Unknown Unavailable JAXON CELESTINO Next Of Kin [address] [place] [address] GREG MARCUS [address] [place] [address] [phone] CELESTINO URRUTIA ECON [address] [place] [phone] Care Team Providers Care Pantograph Operator Name Role Phone Maribel AU Unavailable Unavailable SYMENOW, G CHRISTOPHER PA Unavailable Unavailable SYMENOW, G CHRISTOPHER PA Unavailable Unavailable SYMENOW, G CHRISTOPHER PA Unavailable Unavailable SYMENOW, G CHRISTOPHER PA Unavailable Unavailable SYMENOW, G CHRISTOPHER PA Unavailable Unavailable SYMENOW, G CHRISTOPHER PA Unavailable Unavailable SYMENOW, G CHRISTOPHER PA Unavailable Unavailable SYMENOW, G CHRISTOPHER PA Unavailable Unavailable SYMENOW, G CHRISTOPHER PA Unavailable Unavailable SYMENOW, G CHRISTOPHER PA Unavailable Unavailable SYMENOW, G CHRISTOPHER PA Unavailable Unavailable SYMENOW, G CHRISTOPHER PA Unavailable Unavailable SYMENOW, G CHRISTOPHER PA Unavailable Unavailable SYMENOW, G CHRISTOPHER PA Unavailable Unavailable SYMENOW, G CHRISTOPHER PA Unavailable Unavailable SYMENOW, G CHRISTOPHER PA Unavailable Unavailable Garza, W Po RPA-C Unavailable Unavailable Garza, W Po RPA-C Unavailable Unavailable Garza, W Po RPA-C Unavailable Unavailable Garza, W Po RPA-C Unavailable Unavailable Garza, W Po RPA-C Unavailable Unavailable Garza, W Po RPA-C Unavailable Unavailable Garza, W Po RPA-C Unavailable Unavailable Garza, W Po RPA-C Unavailable Unavailable Garza, W Po RPA-C Unavailable Unavailable Garza, W Po RPA-C Unavailable Unavailable Garza, W Po RPA-C Unavailable Unavailable Garza, W Po RPA-C Unavailable Unavailable Garza, W Po RPA-C Unavailable Unavailable Garza, W Po RPA-C Unavailable Unavailable Garza, W Po RPA-C Unavailable Unavailable Garza, W Po RPA-C Unavailable Unavailable MCELHERAN, GIA PA Unavailable Unavailable MCELHERAN, GIA PA Unavailable Unavailable MCELHERAN, GIA PA Unavailable Unavailable MCELHERAN, GIA PA Unavailable Unavailable MCELHERAN, GIA PA Unavailable Unavailable MCELHERAN, GIA PA Unavailable Unavailable MCELHERAN, GIA PA Unavailable Unavailable MCELHERAN, GIA PA Unavailable Unavailable MCELHERAN, GIA PA Unavailable Unavailable MCELHERAN, GIA PA Unavailable Unavailable MCELHERAN, GIA PA Unavailable Unavailable MCELHERAN, GIA PA Unavailable Unavailable MCELHERAN, GIA PA Unavailable Unavailable MCELHERAN, GIA PA Unavailable Unavailable MCELHERAN, GIA PA Unavailable Unavailable MCELHERAN, GIA PA Unavailable Unavailable MCELHERAN, GIA PA Unavailable Unavailable MCELHERAN, GIA PA Unavailable Unavailable MCELHERAN, GIA PA Unavailable Unavailable MCELHERAN, GIA PA Unavailable Unavailable MCELHERAN, IGA PA Unavailable Unavailable MCELHERAN, GIA PA Unavailable Unavailable MCELHERAN, GIA PA Unavailable Unavailable MCELHERAN, GIA PA Unavailable Unavailable MCELHERAN, GIA PA Unavailable Unavailable MCELHERAN, GIA PA Unavailable Unavailable MCELHERAN, GIA PA Unavailable Unavailable MCELHERAN, GIA PA Unavailable Unavailable Shrestha, E Brooklynn Unavailable Unavailable Shrestha, E Brooklynn Unavailable Unavailable Shrestha, E Brooklynn Unavailable Unavailable Shrestha, E Brooklynn Unavailable Unavailable Shrestha, E Brooklynn Unavailable Unavailable Shrestha, E Brooklynn Unavailable Unavailable Shrestha, E Brooklynn Unavailable Unavailable Shrestha, E Brooklynn Unavailable Unavailable Shrestha, E Brooklynn Unavailable Unavailable Shrestha, E Brooklynn Unavailable Unavailable Shrestha, E Brooklynn Unavailable Unavailable Shrestha, E Brooklynn Unavailable Unavailable Shrestha, E Brooklynn Unavailable Unavailable Shrestha, E Brooklynn Unavailable Unavailable Shrestha, E Rbooklynn Unavailable Unavailable Shrestha, E Brooklynn Unavailable Unavailable Shrestha, E Brooklynn Unavailable Unavailable SeanSwapna Unavailable BEBA, LOREE JAYDA PA Unavailable Unavailable BEBA, LOREE JAYDA PA Unavailable Unavailable BEBA, LOREE JAYDA PA Unavailable Unavailable BEBA, LOREE JAYDA PA Unavailable Unavailable BEBA, LOREE JAYDA PA Unavailable Unavailable BEBA, LOREE JAYDA PA Unavailable Unavailable BEBA, LOREE JAYDA PA Unavailable Unavailable BEBA, LOREE JAYDA PA Unavailable Unavailable BEBA, LOREE JAYDA PA Unavailable Unavailable BEBA, LOREE JAYDA PA Unavailable Unavailable BEBA, LOREE JAYDA PA Unavailable Unavailable BEBA, LOREE JAYDA PA Unavailable Unavailable BEBA, LOREE JAYDA PA Unavailable Unavailable BEBA, LOREE JAYDA PA Unavailable Unavailable BEBA, LOREE JAYDA PA Unavailable Unavailable BEBA, LOREE JAYDA PA Unavailable Unavailable BEBA, LOREE JAYDA PA Unavailable Unavailable BEBA, LOREE JAYDA PA Unavailable Unavailable BEBA, LOREE JAYDA PA Unavailable Unavailable BEBA, LOREE JAYDA PA Unavailable Unavailable BEBA, LOREE JAYDA PA Unavailable Unavailable Dibartolo, J Katelyn BUSINESS SEGMENT MANAGER Unavailable Unavailable Dibartolo, J Katelyn BUSINESS SEGMENT MANAGER Unavailable Unavailable Dibartolo, J Katelyn BUSINESS SEGMENT MANAGER Unavailable Unavailable Dibartolo, J Katelyn BUSINESS SEGMENT MANAGER Unavailable Unavailable Dibartolo, J Katelyn BUSINESS SEGMENT MANAGER Unavailable Unavailable Dibartolo, J Katelyn BUSINESS SEGMENT MANAGER Unavailable Unavailable Dibartolo, J Katelyn BUSINESS SEGMENT MANAGER Unavailable Unavailable Dibartolo, J Katelyn BUSINESS SEGMENT MANAGER Unavailable Unavailable Dibartolo, J Katelyn BUSINESS SEGMENT MANAGER Unavailable Unavailable Ann, M Aviva PA-C Unavailable Unavailable Ann, M Aviva PA-C Unavailable Unavailable Ann, M Aviva PA-C Unavailable Unavailable Ann, M Aviva PA-C Unavailable Unavailable Ann, M Aviva PA-C Unavailable Unavailable Ann, M Aviva PA-C Unavailable Unavailable Ann, M Aviva PA-C Unavailable Unavailable Ann, M Aviva PA-C Unavailable Unavailable Ann, M Aviva PA-C Unavailable Unavailable Ann, M Aviva PA-C Unavailable Unavailable Ann, M Aviva PA-C Unavailable Unavailable Ann, M Aviva PA-C Unavailable Unavailable Ann, M Aviva PA-C Unavailable Unavailable Ann, M Aviva PA-C Unavailable Unavailable Ann, M Aviva PA-C Unavailable Unavailable Ann, M Aviva PA-C Unavailable Unavailable Ann, M Aviva PA-C Unavailable Unavailable Ann, M Aviva PA-C Unavailable Unavailable Ann, M Aviva PA-C Unavailable Unavailable Ann, M Aviva PA-C Unavailable Unavailable Ann, M Aviva PA-C Unavailable Unavailable Ann, M Aviva PA-C Unavailable Unavailable Ann, M Aviva PA-C Unavailable Unavailable HERNANDES SR, GIA GARCIA MD Unavailable Unavailable HERNANDES SR, GIA GARCIA MD Unavailable Unavailable HERNANDES SR, GIA GARCIA MD Unavailable Unavailable HERNANDES SR, GIA GARCIA MD Unavailable Unavailable HERNANDES SR, GIA GARCIA MD Unavailable Unavailable HERNANDES SR, GIA GARCIA MD Unavailable Unavailable HERNANDES SR, GIA GARCIA MD Unavailable Unavailable HERNANDES SR, GIA GARCIA MD Unavailable Unavailable HERNANDES SR, GIA GARCIA MD Unavailable Unavailable HERNANDES SR, GIA GARCIA MD Unavailable Unavailable HERNANDES SR, GIA GARCIA MD Unavailable Unavailable HERNANDES SR, GIA GARCIA MD Unavailable Unavailable HERNANDES SR, GIA GARCIA MD Unavailable Unavailable HERNANDES SR, GIA GARCIA MD Unavailable Unavailable HERNANDES SR, GIA GARCIA MD Unavailable Unavailable HERNANDES SR, GIA GARCIA MD Unavailable Unavailable HERNANDES SR, GIA GARCIA MD Unavailable Unavailable HERNANDES SR, GIA GARCIA MD Unavailable Unavailable HERNANDES SR, GIA GARCIA MD Unavailable Unavailable HERNANDES SR, GIA GARCIA MD Unavailable Unavailable HERNANDES SR, GIA GARCIA MD Unavailable Unavailable HERNANDES SR, GIA GARCIA MD Unavailable Unavailable HERNANDES SR, GIA GARCIA MD Unavailable Unavailable HERNANDES SR, GIA GARCIA MD Unavailable Unavailable HERNANDES SR, GIA GARCIA MD Unavailable Unavailable HERNANDES SR, GIA GARCIA MD Unavailable Unavailable HERNANDES SR, GIA GARCIA MD Unavailable Unavailable HERNANDES SR, GIA GARCIA MD Unavailable Unavailable HERNANDES SR, GIA GARCIA MD Unavailable Unavailable HERNANDES SR, GIA GARCIA MD Unavailable Unavailable HERNANDES SR, GIA GARCIA MD Unavailable Unavailable HERNANDES SR, GIA GARCIA MD Unavailable Unavailable HERNANDES SR, GIA GARCIA MD Unavailable Unavailable HERNANDES SR, GIA GARCIA MD Unavailable Unavailable HERNANDES SR, GIA GARCIA MD Unavailable Unavailable HERNANDES SR, GIA GARCIA MD Unavailable Unavailable HERNANDES SR, GIA GARCIA MD Unavailable Unavailable HERNANDES SR, GIA GARCIA MD Unavailable Unavailable HERNANDES SR, GIA GARCIA MD Unavailable Unavailable HERNANDES SR, GIA GARCIA MD Unavailable Unavailable HERNANDES SR, GIA GARCIA MD Unavailable Unavailable HERNANDES SR, GIA GARCIA MD Unavailable Unavailable HERNANDES SR, GIA GARCIA MD Unavailable Unavailable HERNANDES SR, GIA GARCIA MD Unavailable Unavailable HERNANDES SR, GIA GARCIA MD Unavailable Unavailable HERNANDES SR, GIA GARCIA MD Unavailable Unavailable HERNANDES SR, GIA GARCIA MD Unavailable Unavailable HERNANDES SR, GIA GARCIA MD Unavailable Unavailable HERNANDES SR, GIA GARCIA MD Unavailable Unavailable HERNANDES SR, GIA GARCIA MD Unavailable Unavailable HERNANDES SR, GIA GARCIA MD Unavailable Unavailable HERNANDES SR, GIA GARCIA MD Unavailable Unavailable HERNANDES SR, GIA GARCIA MD Unavailable Unavailable HERNANDES SR, GIA GARCIA MD Unavailable Unavailable Cha, Carrillo Chung MD Unavailable Unavailable Cha, Carrillo Chung MD Unavailable Unavailable Cha, Carrillo Chung MD Unavailable Unavailable Cha, Carrillo Chung MD Unavailable Unavailable Cha, Carrillo Chung MD Unavailable Unavailable Cha, Carrillo Chung MD Unavailable Unavailable Cha, Carrillo Chnug MD Unavailable Unavailable Cha, Carrillo Chung MD Unavailable Unavailable Cha, Carrillo Chung MD Unavailable Unavailable Cha, Carrillo Chung MD Unavailable Unavailable Cha, Carrillo Chung MD Unavailable Unavailable Cha, Carrillo Chung MD Unavailable Unavailable Cha, Carrillo Chung MD Unavailable Unavailable Cha, Carrillo Chung MD Unavailable Unavailable Cha, Carrillo Chung MD Unavailable Unavailable Cha, Carrillo Chung MD Unavailable Unavailable Cha, Carrillo Chung MD Unavailable Unavailable Cha, Carrillo Chung MD Unavailable Unavailable Cha, Carrillo Chung MD Unavailable Unavailable Cha, Carrillo Chung MD Unavailable Unavailable Cha, Carrillo Chung MD Unavailable Unavailable Cha, Carrillo Chung MD Unavailable Unavailable Cha, Carrillo Chung MD Unavailable Unavailable Cha, Carrillo Chung MD Unavailable Unavailable Cha, Carrillo Chung MD Unavailable Unavailable Cha, D Sheldon MD Unavailable Unavailable Carrillo Cha MD Unavailable Unavailable Carrillo Cha MD Unavailable Unavailable Carrillo Cha MD Unavailable Unavailable Carrillo Cha MD Unavailable Unavailable Carrillo Cha MD Unavailable Unavailable Carrillo Cha MD Unavailable Unavailable Carrillo Cha MD Unavailable Unavailable Carrillo Cha MD Unavailable Unavailable Carrillo Cha MD Unavailable Unavailable Carrillo Cha MD Unavailable Unavailable Carrillo Cha MD Unavailable Unavailable Carrillo Cha MD Unavailable Unavailable Carrillo Cha MD Unavailable Unavailable Carrillo Cha MD Unavailable Unavailable Carrillo Cha MD Unavailable Unavailable Carrillo Cha MD Unavailable Unavailable Carrillo Cha MD Unavailable Unavailable Carrillo Cha MD Unavailable Unavailable Carrillo Cha MD Unavailable Unavailable Carrillo Cha MD Unavailable Unavailable Carrillo Cha MD Unavailable Unavailable Carrillo Cha MD Unavailable Unavailable Carrillo Cha MD Unavailable Unavailable Carrillo Cha MD Unavailable Unavailable Carrillo hCa MD Unavailable Unavailable Carrillo Cha MD Unavailable Unavailable Carrillo Cha MD Unavailable Unavailable Carrillo Cha MD Unavailable Unavailable Carrillo Cha MD Unavailable Unavailable Carrillo Cha MD Unavailable Unavailable Carrillo Cha MD Unavailable Unavailable Carrillo Cha MD Unavailable Unavailable Carrillo Cha MD Unavailable Unavailable Carrillo Cha MD Unavailable Unavailable Carrillo Cha MD Unavailable Unavailable Carrillo Cha MD Unavailable Unavailable Carrillo Cha MD Unavailable Unavailable Carrillo Cha MD Unavailable Unavailable Carrillo Cha MD Unavailable Unavailable Carrillo Cha MD Unavailable Unavailable Carrillo Cha MD Unavailable Unavailable Carrillo Cha MD Unavailable Unavailable Carrillo Cha MD Unavailable Unavailable Carrillo Cha MD Unavailable Unavailable Carrillo Cha MD Unavailable Unavailable Carrillo Cha MD Unavailable Unavailable Carrillo Cha MD Unavailable Unavailable Carrillo Cha MD Unavailable Unavailable Carrillo Cha MD Unavailable Unavailable Carrillo Cha MD Unavailable Unavailable Carrillo Cha MD Unavailable Unavailable Carrillo Cha MD Unavailable Unavailable Carrillo Cha MD Unavailable Unavailable Carrillo Cha MD Unavailable Unavailable Carrillo Cha MD Unavailable Unavailable Carrillo Cha MD Unavailable Unavailable Carrillo Cha MD Unavailable Unavailable Carrillo Cha MD Unavailable Unavailable Carrillo Cha MD Unavailable Unavailable Carrillo Cha MD Unavailable Unavailable Carrillo Cha MD Unavailable Unavailable Carrillo Cha MD Unavailable Unavailable Carrillo Cha MD Unavailable Unavailable CLIFFORDJOON MARY Unavailable Unavailable PADDEN, HAILEY CLINICAL FELLOW Unavailable Unavailable PADDEN, HAILEY CLINICAL FELLOW Unavailable Unavailable PADDEN, HAILEY CLINICAL FELLOW Unavailable Unavailable PADDEN, HAILEY CLINICAL FELLOW Unavailable Unavailable PADDEN, HAILEY CLINICAL FELLOW Unavailable Unavailable PADDEN, HAILEY CLINICAL FELLOW Unavailable Unavailable PADDEN, HAILEY CLINICAL FELLOW Unavailable Unavailable PADDEN, HAILEY CLINICAL FELLOW Unavailable Unavailable PADDEN, HAILEY CLINICAL FELLOW Unavailable Unavailable PADDEN, HAILEY CLINICAL FELLOW Unavailable Unavailable PADDEN, HAILEY CLINICAL FELLOW Unavailable Unavailable PADDEN, HAILEY CLINICAL FELLOW Unavailable Unavailable PADDEN, HAILEY CLINICAL FELLOW Unavailable Unavailable PADDEN, HAILEY CLINICAL FELLOW Unavailable Unavailable PADDEN, HAILEY CLINICAL FELLOW Unavailable Unavailable PADDEN, HAILEY CLINICAL FELLOW Unavailable Unavailable PADDEN, HAILEY CLINICAL FELLOW Unavailable Unavailable PADDEN, HAILEY CLINICAL FELLOW Unavailable Unavailable PADDEN, HAILEY CLINICAL FELLOW Unavailable Unavailable Rydberg, Za PA Unavailable Unavailable Rydberg, Za PA Unavailable Unavailable Rydberg, Za PA Unavailable Unavailable Rydberg, Za PA Unavailable Unavailable Rydberg, Za PA Unavailable Unavailable Rydberg, Za PA Unavailable Unavailable Rydberg, Za PA Unavailable Unavailable Rydberg, Za PA Unavailable Unavailable Rydberg, Za PA Unavailable Unavailable Rydberg, Za PA Unavailable Unavailable Rydberg, Za PA Unavailable Unavailable Rydberg, Za PA Unavailable Unavailable Rydberg, Za PA Unavailable Unavailable Rydberg, Za PA Unavailable Unavailable Rydberg, Za PA Unavailable Unavailable Rydberg, Za PA Unavailable Unavailable Rydberg, Za PA Unavailable Unavailable Rydberg, Za PA Unavailable Unavailable Rydberg, Za PA Unavailable Unavailable Rydberg, Za PA Unavailable Unavailable Rydberg, Za PA Unavailable Unavailable Rydberg, Za PA Unavailable Unavailable Re-disclosure Warning The records that you are about to access may contain information from federally-assisted alcohol or drug abuse programs. If such information is present, then the following federally mandated warning applies: This information has been disclosed to you from records protected by federal confidentiality rules (42 CFR part 2). The federal rules prohibit you from making any further disclosure of this information unless further disclosure is expressly permitted by the written consent of the person to whom it pertains or as otherwise permitted by 42 CFR part 2. A general authorization for the release of medical or other information is NOT sufficient for this purpose. The Federal rules restrict any use of the information to criminally investigate or prosecute any alcohol or drug abuse patient.The records that you are about to access may contain highly sensitive health information, the redisclosure of which is protected by Article 27-F of the [facility] Public Health law. If you continue you may have access to information: Regarding HIV / AIDS; Provided by facilities licensed or operated by the [facility] Office of Mental Health; or Provided by the [facility] Office for People With Developmental Disabilities. If such information is present, then the following [facility] mandated warning applies: This information has been disclosed to you from confidential records which are protected by state law. State law prohibits you from making any further disclosure of this information without the specific written consent of the person to whom it pertains, or as otherwise permitted by law. Any unauthorized further disclosure in violation of state law may result in a fine or intermediate sentence or both. A general authorization for the release of medical or other information is NOT sufficient authorization for further disc losure. Allergies and Adverse Reactions Type Description Substance Reaction Status Data Source(s ) toradol toradol toradol rash Active eCW1 ([facility]) toradol toradol toradol rash Active eCW1 ([facility]) Family History Family Member Name Family Member Gender Family Member Status Date o f Status Description Data Source(s) Unknown Male Problem [facility] ([facility]) Encounters Encounter Providers Location Date Indications Data Source(s ) Outpatient Attender: GIA HASSAN Physical Therapy 06/25/2020 04:00:00 PM EST [facility] ([facility]) Outpatient Attender: Brooklynn Schofield 06/23/2020 07:40:00 AM EST [facility] ([facility]) Outpatient Attender: Aviva Juarez PA-C 06/21/2020 12:40 :00 PM EST [facility] Outpatient [facility] 06/21/2020 12:00:00 AM EST eCW1 ([facility]Note 3[facility] Outpatient [facility] 06/21/2020 12:00:00 AM EST eCW1 ([facility][Note 3]) Outpatient [facility] 2020 12:00:00 AM EST eCW1 ([facility][Note 3]) Outpatient [facility] 06/14/2020 12:00:00 AM EST eCW1 ([facility][Note 3]) Outpatient Attender: Brooklynn Schofield 06/09/2020 07:40:00 AM EST [facility] ([facility]) Outpatient Attender: GIA HASSAN Physical Therapy 06/02/2020 02:45:00 PM EST [facility] ([facility]) Unknown [address] [facility] [address] 05/31/2020 12:00:00 AM EST eCW1 ([facility]) Outpatient [facility] 05/27/2020 12:00:00 AM EST eCW1 ([facility]) Outpatient [facility] 05/23/2020 12:00:00 AM EST eCW1 ([facility]) Outpatient [facility] 05/21/2020 12:00:00 AM EST eCW1 ([facility]) Outpatient Attender: Brooklynn Schofield 05/20/2020 12:20:00 PM EST [facility] ([facility]) Outpatient [facility] 05/04/2020 12:00:00 AM EST eCW1 ([facility]) Outpatient [facility] 05/04/2020 12:00:00 AM EST eCW1 ([facility]) Outpatient Attender: Za HASSAN 04/22/2020 02:57:00 PM EST [facility] Outpatient [facility] 04/22/2020 12:00:00 AM EST eCW1 ([facility]) Outpatient [facility] 03/26/2020 12:00:00 AM EDT eCW1 ([facility]) Outpatient [facility] 03/25/2020 12:00:00 AM EDT eCW1 ([facility]) Outpatient Attender: Brooklynn Schofield 03/24/2020 03:20:00 PM EDT [facility] ([facility]) Outpatient [facility] 03/24/2020 12:00:00 AM EDT eCW1 ([facility]) Outpatient Attender: JOSE HERNANDES SRReferrer: JOSE Kim SR 03/17/2020 11:00:00 AM EDT [facility] Outpatient [facility] 03/17/2020 12:00:00 AM EDT eCW1 ([facility]) Outpatient Attender: JOSE HERNANDES SRReferrer: JOSE Kim SR 03/15/2020 01:30:00 PM EDT - 03/15/2020 01:30:00 PM EDT [facility] 03/11/2020 12:00:00 AM EDT eCW1 ([facility]) Outpatient [facility] 03/10/2020 12:00:00 AM EDT eCW1 ([facility][Note 3]) Outpatient [facility] 03/10/2020 12:00:00 AM EDT eCW1 ([facility]) Outpatient Attender: JOSE HERNANDES SRReferrer: JOSE Kim SR 03/09/2020 01:59:00 PM EDT - 03/09/2020 01:59:00 PM EDT [facility] Outpatient [facility] 03/09/2020 12:00:00 AM EDT eCW1 ([facility]) Outpatient [facility] 03/09/2020 12:00:00 AM EDT eCW1 ([facility]) Outpatient [facility] 03/03/2020 12:00:00 AM EDT eCW1 ([facility]) Outpatient Attender: Sheldon Cha MD FP 02/20/2020 11:35:00 AM EDT [facility] Outpatient [facility] 02/18/2020 12:00:00 AM EDT eCW1 ([facility]) Outpatient Attender: Sheldon Cha MD FP 11/18/2019 07:50:56 PM EDT [facility] Outpatient Attender: Sheldon Cha MD FP 11/18/2019 03:23:01 PM EDT [facility] Outpatient 10/16/2019 06:34:00 AM EDT [facility] 10/16/2019 12:00:00 AM EDT eCW1 ([facility]) [facility] 10/14/2019 12:00:00 AM EDT eCW1 ([facility]) Outpatient Attender: Sheldon Cha MD FP 10/06/2019 03:00:04 PM EDT [facility] 10/06/2019 12:00:00 AM EDT eCW1 ([facility]) Outpatient 10/03/2019 06:03:00 AM EDT [facility] 10/03/2019 12:00:00 AM EDT eCW1 ([facility]) Outpatient Attender: Sheldon Cha MD FP 10/02/2019 11:10:00 AM EDT [facility] 09/30/2019 12:00:00 AM EDT eCW1 ([facility]) [facility] 09/30/2019 12:00:00 AM EDT eCW1 ([facility]) [facility] 09/30/2019 12:00:00 AM EDT eCW1 ([facility]) Outpatient Attender: Sheldon Cha MD FP 09/25/2019 10:07:01 AM EDT [facility] EN[facility] 09/25/2019 12:00:00 AM EDT eCW1 ([facility]) [facility] 09/24/2019 12:00:00 AM EDT [facility]CW1 [facility] Clinic) Outpatient Attender: Sheldon Cha MD FP 09/23/2019 12:58:00 PM EDT [facility] C ENTER 09/23/2019 12:00:00 AM EDT eCW1 ([facility]) Outpatient Attender: Sheldon Cha MD FP 09/18/2019 10:24:33 AM EDT [facility] Outpatient Attender: Sheldon Cha MD FP 09/17/2019 03:11:01 PM EDT [facility] Outpatient Attender: Sheldon Cha MD FP 09/17/2019 10:38:01 AM EDT [facility] C ENTER 09/17/2019 12:00:00 AM EDT eCW1 ([facility]) Outpatient Attender: Sheldon Cha MD FP 09/12/2019 10:18:00 AM EDT [facility] Outpatient Attender: Sheldon Cha MD FP 09/12/2019 08:47:01 AM EDT [facility] C ENTER 09/11/2019 12:00:00 AM EDT eCW1 ([facility]) Outpatient Attender: JOSE HERNANDES SR 09/03/2019 10:00:00 AM EDT [facility] C ENTER 09/03/2019 12:00:00 AM EDT eCW1 ([facility]) [facility] C ENTER 09/01/2019 12:00:00 AM EDT eCW1 ([facility]) [facility] C ENTER 08/28/2019 12:00:00 AM EDT eCW1 ([facility]) [facility] C ENTER 08/26/2019 12:00:00 AM EDT eCW1 ([facility]) [facility] C ENTER 08/26/2019 12:00:00 AM EDT eCW1 ([facility]) [facility] C ENTER 08/19/2019 12:00:00 AM EDT eCW1 ([facility]) [facility] C ENTER 08/19/2019 12:00:00 AM EDT eCW1 ([facility]) Outpatient Attender: JOSE HERNANDES SR 08/18/2019 10:00:00 AM EDT [facility] C ENTER 08/15/2019 12:00:00 AM EST eCW1 ([facility]) [facility] C ENTER 08/12/2019 12:00:00 AM EST eCW1 ([facility]) Outpatient Attender: Sheldon CHAVIS 07/30/2019 11:31:01 AM EST [facility] Outpatient Attender: JOSE HERNANDES SR 07/25/2019 07:31:00 AM EST [facility] C ENTER 07/25/2019 12:00:00 AM EST eCW1 ([facility]) Outpatient Attender: Brooklynn Schofield 07/24/2019 08:00:00 AM EST [facility] ([facility]) Extended Individual Psychotherapy - 45 min Attender: Liz Estrada [facility] 07/23/2019 03:00:00 AM EST - 07/23/2019 03:00:00 AM EST [facility] ([facility]) Attender: Swapna Estrada 07/23/2019 12:00:00 AM EST [facility] ([facility]) Outpatient Attender: Sheldon Cha MD FP 07/22/2019 04:24:02 PM [facility] Outpatient Attender: Sheldon Cha MD FP 07/22/2019 12:33:01 PM [facility] [place] 07/22/2019 12:00:00 AM EST eCW1 ([facility]) [facility] ENTER 07/18/2019 12:00:00 AM EST eCW1 ([facility]Note 3[facility] ENTER 07/14/2019 12:00:00 AM EST eCW1 ([facility]) Outpatient Attender: Sheldon Cha MD FP 06/24/2019 10:09:01 AM [facility] Outpatient Attender: Sheldon Cha MD FP 06/24/2019 09:35:02 AM [facility] Outpatient Attender: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 SELF PAY ONLY [id number] SP [id number] ANSI-Medicaid [id number] ANSI-Medicaid [id number] ANSI-Commercial [id number] SELF PAY UNAVAILABLE UNAVAILA BLE [facility]HAD CARE MEDICAID [id number] S [id number] [facility] COMMUNITY PLAN [facility] [id number] SP [id number] [facility] COMMUNITY PLAN [facility] [id number] SP [id number] [place] [id number] 18 [id number] Managed Care - Community Plan [facility] P [id number] S [id number] Managed Care - Community Plan [facility] P [id number] S [id number] Medicaid P [id number] S [id number] Managed Care [facility] P [id number] S [id number] [facility] O [id number] S [id number] [facility] [id number] SP [id number] [place] O [id number] O [id number] SELF PAY SP [id number] S [id number] FA[facility] [id number] SP [id number] 701 [place] Medicaid/CHP/FHP Commercial [id number] Self [id number] [place] Medigap Part B [id number] Self [id number] [place] Medicaid/CHP/FHP Commercial [id number] Self [id number] FAHAD [id number] SP [id number] [place] Medig[place] Part B Self [place] Medicaid/CHP/FHP Commercial Medicaid Self Medicaid [place] O [id number] S [id number] FAHAD [id number] SP [id number] Problems, Conditions, and Diagnoses Code Display Name Description Problem Type Effective Dates Data Source(s) F17.200 32808126 Tobacco dependence Problem 06/21/2020 12:00: 00 AM EST eCW1 ([facility][Note 3]) H93.12 [id number] Left-sided tinnitus Problem 04/22/2020 12 :00:00 AM EST eCW1 ([facility][Note 3]) F32.3 [id number] Major depression with psychotic features Problem 09/18/2019 12:00:00 AM EDT eCW1 ([facility] tim) F32.3 437996344 Major depression with psychotic features Problem 09/18/2019 12:00:00 AM EDT eCW1 ([facility] tim) F41.9 [id number] Anxiety Problem 07/22/2019 12:00:00 AM ES T eCW1 ([facility][Note 3]) F32.9 [id number] Depression, unspecified depression type P roblem 07/22/2019 12:00:00 AM EST eCW1 ([facility] tim) F32.9 84346924 Depression, unspecified depression type P roblem 07/22/2019 12:00:00 AM EST eCW1 ([facility] tim) G89.29 80351904 Other chronic pain Problem 06/23/2019 12:00: 00 AM EST eCW1 ([facility][Note 3]) G89.29 [id number] Other chronic pain Problem 06/23/2019 12:00: 00 AM EST eCW1 ([facility][Note 3]) 233258304 Chronic hepatitis C Chronic hepatitis C Problem 0 2019 12:00:00 AM EST MEDENT ([facility]) Z53.20 Procedure and treatment not carried out because of patient's decision for unspecified reasons PROC/TRTMT NOT CRD OUT BEC PT DECISION FOR UNSP RE Diagnosis 06/21/2020 12:40:00 PM [facility] Z71.6 Tobacco abuse counseling TOBACCO ABUSE COUNSELING Diag nosis 06/21/2020 12:40:00 PM [facility] Z13.220 Encounter for screening for lipoid disor ders ENCOUNTER FOR SCREENING FOR LIPOID DISORDERS Diagnosis 06/21/2020 12:40:00 PM [facility] l Z13.29 Encounter for screening for other suspec veena endocrine disorder ENCOUNTER FOR SCREENING FOR OTH SUSPECTED ENDOCRIN Diagnosis 06/21/2020 12:40:00 PM [facility] S82.92XD Unspecified fracture of left lower leg, subsequent encounter for closed fracture with routine healing UNSP FRACTURE OF L LOW LEG, SUBS FOR DOLORES S FX W ROU Diagnosis 06/21/2020 12:40:[facility] H93.12 Tinnitus, left ear TINNITUS, LEFT EAR Diagnosis 04/2021 12:40:00 PM [facility] 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 CONVERSION DISORDER WITH SEIZURES OR CONVULSIONS Diagnosis 06/21/2020 12:40:00 PM [facility] G89.29 Other chronic pain OTHER CHRONIC PAIN Diagnosis 04/2021 12:40:00 PM [facility] F17.200 Nicotine dependence, unspecified, uncomp licated NICOTINE DEPENDENCE, UNSPECIFIED, UNCOMPLICATED Diagnosis 06/21/2020 12:40:00 PM [facility] F41.9 Anxiety disorder, unspecified ANXIETY DISORDER, UNSPEC IFIED Diagnosis 06/21/2020 12:40:00 PM [facility] F32.3 Major depressive disorder, single episod e, severe with psychotic features MAJOR DEPRESSV DISORD, SINGLE EPSD, SEVERE W PSYCH Diagnosis 04/2021 12:40:00 PM [facility] Z00.00 Encounter for general adult medical examination without abnormal findings ENCNTR FOR GENERAL ADULT MEDICAL EXAM W/O ABNORMAL FINDINGS Diagnosis 06/21/2020 12:40:00 PM [facility] N60.02 Solitary cyst of left breast SOLITARY CYST OF LEFT RAMILA AST Diagnosis 03/17/2020 11:30:00 AM [facility] N60.01 Solitary cyst of right breast SOLITARY CYST OF RIGHT B REAST Diagnosis 03/17/2020 11:30:00 AM [facility] Z12.31 Encounter for screening mammogram for ma lignant neoplasm of breast ENCNTR SCREEN MAMMOGRAM FOR MALIGNANT NEOPLASM OF BREAST Diagnosis 12/2019 11:30:00 AM [facility] R07.9 Chest pain, unspecified CHEST PAIN, UNSPECIFIED Diagno sis 03/09/2020 01:59:00 PM [facility] Z71.89 Other specified counseling OTHER SPECIFIED COUNSELING Diagnosis 09/03/2019 10:00:00 AM [facility] Z02.9 Encounter for administrative examination s, unspecified ENCOUNTER FOR ADMINISTRATIVE EXAMINATIONS, UNSPECI Diagnosis 09/03/2019 10:00:00 AM [facility] Z12.11 Encounter for screening for malignant ne oplasm of colon ENCOUNTER FOR SCREENING FOR MALIGNANT NEOPLASM OF Diagnosis 07/25/2019 07:31:00 AM [facility] R63.5 Abnormal weight gain ABNORMAL WEIGHT GAIN Diagnosis 07/25/2019 07:31:00 AM [facility] F13.10 Sedative, hypnotic or anxiolytic abuse, uncomplicated SEDATIVE, HYPNOTIC OR ANXIOLYTIC ABUSE, UNCOMPLICA Diagnosis 07/25/2019 07:31:00 AM [facility] F14.90 Cocaine use, unspecified, uncomplicated COCAINE USE, UNSPECIFIED, UNCOMPLICATED Diagnosis 07/25/2019 07:31:00 AM [facility] F11.90 Opioid use, unspecified, uncomplicated O PIOID USE, UNSPECIFIED, UNCOMPLICATED Diagnosis 07/25/2019 07:31:00 AM EST [facility] l B37.3 Candidiasis of vulva and vagina CANDIDIASIS OF VULVA A ND VAGINA Diagnosis 06/16/2019 10:26:00 AM [facility] Surgeries/Procedures Procedure Description Date Indications Data Source(s) FLU IMM NO ORD/ADMIN DOC VIVI 09/03/2019 12:00:00 AM ED T eCW1 ([facility][Note 3]) Scrn shavon perf rslts doc 09/03/2019 12:00:00 AM EDT eCW1 ([facility][Note 3]) COLORECTAL CA SCREEN DOC REV 09/03/2019 12:00:00 AM ED T eCW1 ([facility][Note 3]) Screening for clinical depression is doc umented as negative, a follow-up plan is not required 09/03/2019 12:00:00 AM EDT eCW1 ([facility][Note 3]) PT TOBACCO SCREEN RCVD TLK 09/03/2019 12:00:00 AM EDT eCW1 ([facility][Note 3]) Extended Individual Psychotherapy - 45 min 07/23/2019 12:00:00 AM EST - 07/23/2019 12:00:00 AM EST [facility] ([facility]) Extended Individual Psychotherapy - 45 min 0 12:00:00 AM EST [facility] ([facility]) Results ID Date Data Source [id number] 03/24/2020 03:11:00 PM EDT [facility] ([facility]) Name Value Range Interpretation Code Description Data Harika rce(s) Supporting Document(s) Buprenorphine Ur 3 ng/mL [facility] ([facility]) TEST FOR BUPRENORPHINE Buprenorphine Glucu 41 [facility] ([facility]) TEST FOR BUPRENORPHINE Norbuprenorphine Ur 47 ng/mL [facility] ([facility]) TEST FOR BUPRENORPHINE Norbupr Glucuronide 143 [facility] ([facility]) TEST FOR BUPRENORPHINE Naloxone,Urine Laboratory test result ME DENT ([facility]) TEST FOR BUPRENORPHINE ID Date Data Source [id number] 03/24/2020 03:11:00 PM EDT [facility] ([facility]) Name Value Range Interpretation Code Description Data Harika rce(s) Supporting Document(s) Diazepam,Urine Laboratory test result ME DENT ([facility]) TEST FOR BUPRENORPHINE Oxazepam,Urine Laboratory test result ME DENT ([facility]) TEST FOR BUPRENORPHINE Nordiazepam,Urine Laboratory test result [facility] ([facility]) TEST FOR BUPRENORPHINE Temazepam,Urine Laboratory test result M EDENT ([facility]) TEST FOR BUPRENORPHINE Lorazepam,Urine Laboratory test result M EDENT ([facility]) TEST FOR BUPRENORPHINE Alpha Oh Alprazolam 398 MED[facility] ([facility]) TEST FOR BUPRENORPHINE Alprazolam,Urine 517 MED[facility] ([facility]) TEST FOR BUPRENORPHINE Clonazepam,Urine Laboratory test result [facility] ([facility]) TEST FOR BUPRENORPHINE 7 Aminoclonazepam U Laboratory test result [facility] ([facility]) TEST FOR BUPRENORPHINE Midazolam,Urine Laboratory test result M EDENT ([facility]) TEST FOR BUPRENORPHINE Alpha Oh Midazolam Laboratory test result [facility] ([facility]) TEST FOR BUPRENORPHINE Chlordiazepoxide Laboratory test result [facility] ([facility]) TEST FOR BUPRENORPHINE ID Date Data Source [id number] 03/24/2020 03:11:00 PM EDT [facility] ([facility]) Name Value Range Interpretation Code Description Data Harika rce(s) Supporting Document(s) GC Laboratory test result [facility] ([facility]) TEST FOR BUPRENORPHINE Chlamydia trachomatis DNA [Identifier] i n Unspecified specimen by Probe and target amplification method Laboratory test result [facility] ([facility]) TEST FOR BUPRENORPHINE ID Date Data Source [id number] 03/24/2020 03:11:00 PM EDT [facility] ([facility]) Name Value Range Interpretation Code Description Data Harika rce(s) Supporting Document(s) Amphetamines,Urine Laboratory test result [facility] ([facility]) TEST FOR BUPRENORPHINE Barbiturates,Urine Laboratory test result [facility] ([facility]) TEST FOR BUPRENORPHINE Cocaine Metabolites,Urine Laboratory test result [facility] ([facility]) TEST FOR BUPRENORPHINE Benzodiazepines, Urine Laboratory test result Ab normal (applies to non-numeric results) [facility] TEST FOR BUPRENORPHINE Bupernorphrine/Norbu,Urine Laboratory test result Abnormal (applies to non- numeric results) [facility] ([facility]) TEST FOR BUPRENORPHINE Opiates,Urine Laboratory test result MED [facility] ([facility]) TEST FOR BUPRENORPHINE Methadone,Urine Laboratory test result M EDENT ([facility]) TEST FOR BUPRENORPHINE Oxycodone,Urine Laboratory test result M EDENT ([facility]) TEST FOR BUPRENORPHINE Phencyclidine,Urine Laboratory test result [facility] ([facility]) TEST FOR BUPRENORPHINE ID Date Data Source [id number] 03/28/2020 12:50:35 PM EDT [facility] Name Value Range Interpretation Code Description Data Harika rce(s) Supporting Document(s) DIAZEPAM,URINE <20 Laboratory [facility] Unit: ng/mL Cutoff: 20 ng/mL NORDIAZEPAM,URINE <20 Laboratory [facility] Unit: ng/mL Cutoff: 20 ng/mL OXAZEPAM,URINE <20 Laboratory [facility] Unit: ng/mL Cutoff: 20 ng/mL TEMAZEPAM,URINE <20 Laboratory [facility] Unit: ng/mL Cutoff: 20 ng/mL LORAZEPAM,URINE <20 Laboratory [facility] Unit: ng/mL Cutoff: 20 ng/mL ALPRAZOLAM,URINE 517 [facility] Unit: ng/mL Consistent with use of a celia g containing alprazolam, such as Xanax. Cutoff: 5 ng/mL ALPHA OH ALPRAZOLAM 398 Laboratory [place] [facility] Unit: ng/mL Alprazolam metabolite; consi stent with use of a drug containing alprazolam, such as Xanax. Cutoff: 5 ng/mL CLONAZEPAM,URINE <5 Laboratory [facility] Unit: ng/mL Cutoff: 5 ng/mL 7 AMINOCLONAZEPAM U <5 Laboratory [place] [facility] Unit: ng/mL Cutoff: 5 ng/mL MIDAZOLAM,URINE <20 Laboratory [facility] Unit: ng/mL Cutoff: 20 ng/mL CHLORDIAZEPOXIDE <20 Laboratory [facility] Unit: ng/mL Cutoff: 20 ng/mL ALPHA OH MIDAZOLAM <20 Laboratory [place] [facility] Unit: ng/mL Cutoff: 20 ng/mL INTERPRETIV E INFORMATION: Benzodiazepines, Urine, Quantitative Methodology: Quantitative Liquid [...] laboratory. Test developed and characteristics determined by [facility]. See Compliance Statement B: [employer]/CS Performed By: [facility] [address] [place] [address] Security Infrastructure Engineer: Madelyn Avelar MD ID Date Data Source [id number] 03/28/2020 05:53:08 PM EDT Laboratory [facility] Name Value Range Interpretation Code Description Data Harika rce(s) Supporting Document(s) BUPRENORPHINE UR 3 ng/mL [facility] INTERPRETIVE INFORMATION: Buprenorphine and Metabolites, Urine, Quantitative Methodology: Quantitative Liquid [...] be greater than or equal to the cut off to be reported as positive. Interpretive questions should be directed to the laboratory. Test developed and characteristics determined by [facility]. See Compliance Statement B: [employer]/CS NORBUPRENORPHINE UR 47 ng/mL [facility] [place] [facility] BUPRENORPHINE GLUCU 41 [facility] [place] [facility] Unit: ng/mL Consistent with use of a bup renorphine-containing drug. Glucuronide concentrations are semi-quantitative. NORBUPR GLUCURONIDE 143 [facility] [place] [facility] Unit: ng/mL NALOXONE,URINE <100 ng/mL [facility] Performed By: [facility] [address] [place] [address] Security Infrastructure Engineer: Madelyn Avelar MD ID Date Data Source [id number] 03/17/2020 02:01:00 PM EDT [facility] DATE OF EXAMINATION: 03/17/2020 11:11 EDT MAMMO DIAG MARION NO CAD DIAGNOSTIC RIGHT SIDED MAMMOGRAM Area of concern persist on additional images but by sonography was shown torepresent a 0.3 cm cyst. Routine yearly follow-up mammography recommended. IMPRESSION: Routine yearly follow-up mammography recommended. BIRAD CATEGORY 2 - BENIGN FINDINGS, ROUTINE YEARLY MAMMOGRAPHIC FOLLOW-UPRECOMMENDED. DIAGNOSTIC LEFT SIDED MAMMOGRAM Areas of concern persist on additional images but by sonography were shown torepresent simple cysts. Routine yearly follow-up mammography recommended. IMPRESSION: Routine yearly follow-up mammography recommended. BIRAD 2 - Benign Findings, Routine Yearly Mammographic Follow-up recommended. Furthermore, in patients with dense glandular tissue, supplemental imagingmodalities should be considered. 10-15% of cancers are not identified by mammography. This usually occurs whenthe mass is of the same radiographic density as the surrounding breast tissue,emphasizing the importance of breast self examination (BSE) and physicalexamination. A normal mammogram should not delay biopsy if a suspicious mass orabnormal findings are present upon physical examination. Electronically signed in PS360 by: Jama Ward M.D. 03/17/2020 13:55 EDT Name Value Range Interpretation Code Description Data Harika rce(s) Supporting Document(s) ID Date Data Source [id number] 03/17/2020 12:41:00 PM EDT [facility] DATE OF EXAMINATION: 03/17/2020 11:11 EDT BREAST UNILATERAL COMPLETE ULTRASOUND RIGHT BREAST HISTORY: Well-circumscribed density on mammogram Real-time ultrasound imaging was performed utilizing B-mode/linton scale and colorDoppler imaging where applicable. There is a 0.3 cm cyst at the 9:00 position. There are no solid masses or ductalectasia. IMPRESSION: Small cyst at the 9:00 position. It should be emphasized that this examination does not entirely exclude subtlebreast pathology. BIRAD CATEGORY 2- BENIGN FINDINGS, ROUTINE YEARLY FOLLOW-UP RECOMMENDED. Electronically signed in PS360 by: Jama Ward M.D. 03/17/2020 12:35 EDT Name Value Range Interpretation Code Description Data Harika rce(s) Supporting Document(s) ID Date Data Source [id number] 03/17/2020 12:41:00 PM EDT [facility] DATE OF EXAMINATION: 03/17/2020 11:11 EDT BREAST UNILATERAL COMPLETE ULTRASOUND LEFT BREAST HISTORY: Well-circumscribed density of each breast Real-time ultrasound imaging was performed utilizing B-mode/linton scale and colorDoppler imaging where applicable. Several cysts are noted throughout largest at the 7:00 position with someinternal echoes measuring 0.9 cm. There are no solid masses. IMPRESSION: Several cysts are identified. There are no definite solid masses. It should be emphasized that this examination does not entirely exclude subtlebreast pathology. BIRAD CATEGORY 2- BENIGN FINDINGS, ROUTINE YEARLY FOLLOW-UP RECOMMENDED. Electronically signed in PS360 by: Jama Ward M.D. 03/17/2020 12:35 EDT Name Value Range Interpretation Code Description Data Harika rce(s) Supporting Document(s) ID Date Data Source [id number] 03/16/2020 11:55:00 AM EDT [facility] DATE OF EXAMINATION: 03/15/2020 13:50 EDT MAMMO SCREEN BILAT WITH CAD HISTORY: Screening Not provided Comparison is made to prior study dated none. 2-D bilateral digital mammogram in the CC and MLO planes were performed withsupplemental 3-D tomosynthesis of both breasts. The images were analyzed through the latest version of the iCAD computer aideddiagnosis system. The patient states that her last clinical breast examination was not provided. Craniocaudal and oblique lateral views of the breasts were obtained. There is apartially well-circumscribed density in the anterior medial aspect of the left breast as well as one in the anterolateral aspect of the right breast for whichcompression mag straight lateral views as well as sonography is recommended.. There is no dominant mass, suspicious clustered calcification, or architecturaldistortion. IMPRESSION: Partially well-circumscribed density within each breast with above suggestedworkup BIRAD 0 - Incomplete, needs additional imaging evaluation 10-15% of cancers are not identified by mammography. This usually occurs whenthe mass is of the same radiographic density as the surrounding breast tissue,emphasizing the importance of breast self examination (BSE) and physicalexamination. A normal mammogram should not delay biopsy if a suspicious mass orabnormal findings are present upon physical examination. Electronically signed in [id number] by: Jama Ward M.D. 03/16/2020 11:50 EDT Name Value Range Interpretation Code Description Data Harika rce(s) Supporting Document(s) ID Date Data Source [id number] 03/09/2020 03:47:00 PM EDT [facility] DATE OF EXAMINATION: 03/09/2020 15:00 EDT CHEST 2 VIEWS HISTORY: Chest pain TECHNIQUE: PA and lateral radiographs of the chest COMPARISON: 07/03/2018 FINDINGS: No evidence of focal consolidation, pneumothorax or large pleural effusion.Lungs are clear. Mediastinal structures are unremarkable. No aggressive osseouslesions. IMPRESSION: No focal consolidation. Electronically signed in [id number] by: Jama Ward M.D. 03/09/2020 15:42 EDT Name Value Range Interpretation Code Description Data Harika rce(s) Supporting Document(s) ID Date Data Source CHEST 2 VIEWS 03/09/2020 05:36:37 AM EDT eCW1 ([facility]) Name Value Range Interpretation Code Description Data Harika rce(s) Supporting Document(s) CHEST 2 VIEWS eCW1 ([facility]) ID Date Data Source [id number] 07/30/2019 07:38:51 PM EST Laboratory [facility] Name Value Range Interpretation Code Description Data Harika rce(s) Supporting Document(s) BUPRENORPHINE UR 3 ng/mL Laboratory [facility] of [facility] INTERPRETIVE INFORMATION: Buprenorphine and Metabolites, Urine, Quantitative Methodology: Quantitative Liquid [...] be greater than or equal to the cut off to be reported as positive. Interpretive questions should be directed to the laboratory. Test developed and characteristics determined by [facility]. See Compliance Statement B: [employer]/ NORBUPRENORPHINE UR 122 ng/mL Laboratory [place] [facility] BUPRENORPHINE GLUCU 191 Laboratory [place] [facility] Unit: ng/mL Consistent with use of a bup renorphine-containing drug. Glucuronide concentrations are semi-quantitative. NORBUPR GLUCURONIDE 569 Laboratory [place] [facility] Unit: ng/mL NALOXONE,URINE <100 ng/mL Laboratory All iance of [facility] Performed by [facility], [address] [place] [id number] www.[employer], Vish Singh MD, Lab. Director ID Date Data Source [id number] 06/24/2019 09:11:00 AM EST MEDENT ([facility]) Name Value Range Interpretation Code Description Data Harika rce(s) Supporting Document(s) Buprenorphine Ur 20 ng/mL MEDENT ([facility]) TEST FOR BUPRENORPHINE Norbuprenorphine Ur 416 ng/mL MEDENT ([facility]) TEST FOR BUPRENORPHINE Buprenorphine Glucu 764 MEDENT ([facility]) TEST FOR BUPRENORPHINE Norbupr Glucuronide >1000 MEDENT ([facility]) TEST FOR BUPRENORPHINE Naloxone,Urine <100 ng/mL MEDENT ([facility]) TEST FOR BUPRENORPHINE ID Date Data Source [id number] 06/24/2019 09:11:00 AM EST MEDENT ([facility]) Name Value Range Interpretation Code Description Data Harika rce(s) Supporting Document(s) Diazepam,Urine <20 MEDENT ([facility]) TEST FOR BUPRENORPHINE Nordiazepam,Urine <20 MEDENT ([facility]) TEST FOR BUPRENORPHINE Oxazepam,Urine <20 MEDENT ([facility]) TEST FOR BUPRENORPHINE Temazepam,Urine <20 MEDENT ([facility]) TEST FOR BUPRENORPHINE Lorazepam,Urine <20 MEDENT ([facility]) TEST FOR BUPRENORPHINE Alprazolam,Urine 11 MEDENT ([facility]) TEST FOR BUPRENORPHINE Alpha Oh Alprazolam 11 MEDENT ([facility]) TEST FOR BUPRENORPHINE Clonazepam,Urine 107 MEDENT ([facility]) TEST FOR BUPRENORPHINE 7 Aminoclonazepam U >1000 MEDENT ([facility]) TEST FOR BUPRENORPHINE Midazolam,Urine <20 MEDENT ([facility]) TEST FOR BUPRENORPHINE Chlordiazepoxide <20 MEDENT ([facility]) TEST FOR BUPRENORPHINE Alpha Oh Midazolam <20 MEDENT ([facility]) TEST FOR BUPRENORPHINE ID Date Data Source [id number] 06/24/2019 09:11:00 AM EST MEDENT ([facility]) Name Value Range Interpretation Code Description Data Harika rce(s) Supporting Document(s) Amphetamines,Urine NEGATIVE MEDENT ([facility]) TEST FOR BUPRENORPHINE Barbiturates,Urine NEGATIVE MEDENT ([facility]) TEST FOR BUPRENORPHINE Benzodiazepines, Urine POSITIVE Abnormal (applies to non -numeric results) MEDENT ([facility]) TEST FOR BUPRENORPHINE Cocaine Metabolites,Urine NEGATIVE MEDE NT ([facility]) TEST FOR BUPRENORPHINE Bupernorphrine/Norbu,Urine POSITIVE Abnormal (appl ies to non-numeric results) MEDENT ([facility]) TEST FOR BUPRENORPHINE Methadone,Urine NEGATIVE MEDENT ([facility]) TEST FOR BUPRENORPHINE Opiates,Urine NEGATIVE MEDENT ([facility]) TEST FOR BUPRENORPHINE Oxycodone,Urine NEGATIVE MEDENT ([facility]) TEST FOR BUPRENORPHINE Phencyclidine,Urine NEGATIVE MEDENT ([facility]) TEST FOR BUPRENORPHINE ID Date Data Source [id number] 06/29/2019 02:57:57 PM EST Laboratory Al [facility] of [facility] Name Value Range Interpretation Code Description Data Harika rce(s) Supporting Document(s) DIAZEPAM,URINE <20 Laboratory [place] [facility] of [facility] Unit: ng/mL Cutoff: 20 ng/mL NORDIAZEPAM,URINE <20 Laboratory [facility] of [facility] Unit: ng/mL Cutoff: 20 ng/mL OXAZEPAM,URINE <20 Laboratory [place] [facility] of [facility] Unit: ng/mL Cutoff: 20 ng/mL TEMAZEPAM,URINE <20 Laboratory All iance of [facility] Unit: ng/mL Cutoff: 20 ng/mL LORAZEPAM,URINE <20 Laboratory All iance of [facility] Unit: ng/mL Cutoff: 20 ng/mL ALPRAZOLAM,URINE 11 Laboratory [facility] of [facility] Unit: ng/mL Consistent with use of a celia g containing alprazolam, such as Xanax. Cutoff: 5 ng/mL ALPHA OH ALPRAZOLAM 11 Laboratory [place] [facility] Unit: ng/mL Alprazolam metabolite; consi stent with use of a drug containing alprazolam, such as Xanax. Cutoff: 5 ng/mL CLONAZEPAM,URINE 107 Laboratory [facility] of [facility] Unit: ng/mL Consistent with use of a celia g containing clonazepam, such as Klonopin. Cutoff: 5 ng/mL 7 AMINOCLONAZEPAM U >1000 Laboratory [place] [facility] Unit: ng/mL Clonazepam metabolite; consi stent with use of a drug containing clonazepam, such as Klonopin. Cutoff: 5 ng/mL MIDAZOLAM,URINE <20 Laboratory All iance of [facility] Unit: ng/mL Cutoff: 20 ng/mL CHLORDIAZEPOXIDE <20 Laboratory Al li[facility] of [facility] Unit: ng/mL Cutoff: 20 ng/mL ALPHA OH MIDAZOLAM <20 Laboratory [place] [facility] Unit: ng/mL Cutoff: 20 ng/mL INTERPRETIV E INFORMATION: Benzodiazepines, Urine, Quantitative Methodology: Quantitative Liquid [...] laboratory. Test developed and characteristics determined by [facility]. See Compliance Statement B: [employer] Performed by [facility], [address] [place] [id number] www.[employer], Vish Singh MD, Lab. Director ID Date Data Source [id number] 06/29/2019 04:08:00 PM EST Laboratory [facility] of [facility] Name Value Range Interpretation Code Description Data Harika rce(s) Supporting Document(s) BUPRENORPHINE UR 20 ng/mL Laboratory [facility] of [facility] INTERPRETIVE INFORMATION: Buprenorphine and Metabolites, Urine, Quantitative Methodology: Quantitative Liquid [...] be greater than or equal to the cut off to be reported as positive. Interpretive questions should be directed to the laboratory. Test developed and characteristics determined by [facility]. See Compliance Statement B: [employer] NORBUPRENORPHINE UR 416 ng/mL Laboratory [place] [facility] BUPRENORPHINE GLUCU 764 Laboratory [place] [facility] Unit: ng/mL Consistent with use of a bup renorphine-containing drug. Glucuronide concentrations are semi-quantitative. NORBUPR GLUCURONIDE >1000 Laboratory [place] [facility] Unit: ng/mL NALOXONE,URINE <100 ng/mL Laboratory All iance of [facility] Performed by [facility], [address] [place] [address] [place] [address] www.[employer], Vish Singh MD, Lab. Director ID Date Data Source [id number] 2019 09:11:00 AM EST MEDENT ([facility]) Name Value Range Interpretation Code Description Data Harika rce(s) Supporting Document(s) Buprenorphine Ur 6 ng/mL MEDENT ([facility]) INTERPRETIVE INFORMATION: Buprenorphine and Metabolites, Urine, Quantitative Methodology: Quantitative Liquid [...] laboratory. Test developed and characteristics determined by [facility]. See Compliance Statement B: [employer] Norbuprenorphine Ur 674 ng/mL MEDENT ([facility]) TEST FOR BUPRENORPHINE Buprenorphine Glucu 480 MED[facility] ([facility]) Unit: ng/mL Consistent with use of a buprenorphine-containing drug. Glucuronide concentrations are semi-quantitative. Norbupr Glucuronide >1000 [facility] Unit: ng/mL Naloxone,Urine <100 ng/mL MEDENT ([facility]) Performed by [facility], [address] [place] [id number] www.[employer], Vish Singh MD, Lab. Director Unless otherwise specified, testing performed by Laboratory [place] [facility] [employer] [address] [place] [id number] ID Date Data Source [id number] 2019 09:11:00 AM EST [facility] ([facility]) Name Value Range Interpretation Code Description Data Harika rce(s) Supporting Document(s) Diazepam,Urine <20 MEDENT ([facility]) Unit: ng/mL Cutoff: 20 ng/mL Nordiazepam,Urine <20 MED[facility] ([facility] Unit: ng/mL Cutoff: 20 ng/mL Oxazepam,Urine <20 MEDENT ([facility]) Unit: ng/mL Cutoff: 20 ng/mL Temazepam,Urine <20 MED[facility] ([facility]) Unit: ng/mL Cutoff: 20 ng/mL Lorazepam,Urine <20 MED[facility] ([facility]) Unit: ng/mL Cutoff: 20 ng/mL Alprazolam,Urine 681 MEDENT ([facility] Unit: ng/mL Consistent with use of a drug containing alprazolam, such as Xanax. Cutoff: 5 ng/mL Alpha Oh Alprazolam 258 [facility] Unit: ng/mL Alprazolam metabolite; consistent with use of a drug containing alprazolam, such as Xanax. Cutoff: 5 ng/mL Clonazepam,Urine 83 [facility] ([facility] Unit: ng/mL Consistent with use of a drug containing clonazepam, such as Klonopin. Cutoff: 5 ng/mL 7 Aminoclonazepam U >1000 [facility] Unit: ng/mL Clonazepam metabolite; consistent with use of a drug containing clonazepam, such as Klonopin. Cutoff: 5 ng/mL Midazolam,Urine <20 MEDENT ([facility]) Unit: ng/mL Cutoff: 20 ng/mL Chlordiazepoxide <20 MEDENT ([facility]) Unit: ng/mL Cutoff: 20 ng/mL Alpha Oh Midazolam <20 MEDENT ([facility]) Unit: ng/mL Cutoff: 20 ng/mL INTERPRETIVE INFORMATION: [...] laboratory. Test developed and characteristics determined by [facility]. See Compliance Statement B: [employer]/CS Performed by [facility], [address] [place] [id number] www.[employer], Vish Singh MD, Lab. Director Unless otherwise specified, testing performed by [facility] [place] [facility] [employer] [facility] [employer] [address] [place] [id number] ID Date Data Source [id number] 2019 09:11:00 AM EST MEDENT ([facility]) Name Value Range Interpretation Code Description Data Harika rce(s) Supporting Document(s) Amphetamines,Urine NEGATIVE MEDENT ([facility]) TEST FOR BUPRENORPHINE Barbiturates,Urine NEGATIVE MEDENT ([facility]) TEST FOR BUPRENORPHINE Benzodiazepines, Urine POSITIVE Abnormal (applies to non -numeric results) MEDENT ([facility]) TEST FOR BUPRENORPHINE Bupernorphrine/Norbu,Urine POSITIVE Abnormal (appl ies to non-numeric results) MEDENT ([facility]) TEST FOR BUPRENORPHINE Methadone,Urine NEGATIVE MEDENT ([facility]) TEST FOR BUPRENORPHINE Cocaine Metabolites,Urine NEGATIVE MEDE NT ([facility]) TEST FOR BUPRENORPHINE Opiates,Urine NEGATIVE MEDENT ([facility]) TEST FOR BUPRENORPHINE Oxycodone,Urine NEGATIVE MEDENT ([facility]) TEST FOR BUPRENORPHINE Phencyclidine,Urine NEGATIVE MEDENT ([facility]) TEST FOR BUPRENORPHINE ID Date Data Source [id number] 06/21/2019 03:47:16 PM EST Laboratory [facility] of [facility] Name Value Range Interpretation Code Description Data Harika rce(s) Supporting Document(s) DIAZEPAM,URINE <20 Laboratory [facility] an[facility] of [facility] Unit: ng/mL Cutoff: 20 ng/mL NORDIAZEPAM,URINE <20 Laboratory [facility] of [facility] Unit: ng/mL Cutoff: 20 ng/mL OXAZEPAM,URINE <20 Laboratory [facility] an[facility] of [facility] Unit: ng/mL Cutoff: 20 ng/mL TEMAZEPAM,URINE <20 Laboratory All [facility] of [facility] Unit: ng/mL Cutoff: 20 ng/mL LORAZEPAM,URINE <20 Laboratory All [facility] of [facility] Unit: ng/mL Cutoff: 20 ng/mL ALPRAZOLAM,URINE 681 Laboratory [facility] of [facility] Unit: ng/mL Consistent with use of a celia g containing alprazolam, such as Xanax. Cutoff: 5 ng/mL ALPHA OH ALPRAZOLAM 258 Laboratory [place] [facility] Unit: ng/mL Alprazolam metabolite; consi stent with use of a drug containing alprazolam, such as Xanax. Cutoff: 5 ng/mL CLONAZEPAM,URINE 83 Laboratory [facility] of [facility] Unit: ng/mL Consistent with use of a celia g containing clonazepam, such as Klonopin. Cutoff: 5 ng/mL 7 AMINOCLONAZEPAM U >1000 Laboratory [place] [facility] Unit: ng/mL Clonazepam metabolite; consi stent with use of a drug containing clonazepam, such as Klonopin. Cutoff: 5 ng/mL MIDAZOLAM,URINE <20 Laboratory All [facility] of [facility] Unit: ng/mL Cutoff: 20 ng/mL CHLORDIAZEPOXIDE <20 Laboratory [facility] of [facility] Unit: ng/mL Cutoff: 20 ng/mL ALPHA OH MIDAZOLAM <20 Laboratory [place] [facility] Unit: ng/mL Cutoff: 20 ng/mL INTERPRETIV E INFORMATION: Benzodiazepines, Urine, Quantitative Methodology: Quantitative Liquid [...] laboratory. Test developed and characteristics determined by [facility]. See Compliance Statement B: [employer] Performed by [facility], [address] [place] [id number] www.[employer], Vish Singh MD, Lab. Director ID Date Data Source [id number] 06/21/2019 04:29:14 PM EST Laboratory [facility] of [facility] Name Value Range Interpretation Code Description Data Harika rce(s) Supporting Document(s) BUPRENORPHINE UR 6 ng/mL Laboratory [facility] of [facility] INTERPRETIVE INFORMATION: Buprenorphine and Metabolites, Urine, Quantitative Methodology: Quantitative Liquid [...] be greater than or equal to the cut off to be reported as positive. Interpretive questions should be directed to the laboratory. Test developed and characteristics determined by [facility]. See Compliance Statement B: [employer]/CS NORBUPRENORPHINE UR 674 ng/mL Laboratory [place] [facility] BUPRENORPHINE GLUCU 480 Laboratory [place] [facility] Unit: ng/mL Consistent with use of a bup renorphine-containing drug. Glucuronide concentrations are semi-quantitative. NORBUPR GLUCURONIDE >1000 Laboratory [place] [facility] Unit: ng/mL NALOXONE,URINE <100 ng/mL Laboratory All [facility]ance of [facility] Performed by [facility], [address] [place] [address] [place] [address] www.[employer], Vish Singh MD, Lab. Director Procedure Social History Code Duration Value Status Description Data Source(s ) Smoking 06/21/2020 12:00:00 AM EST Current Smoker completed Curre nt Smoker eCW1 ([facility][Note 3]) Smoking 06/21/2020 12:00:00 AM EST Current Smoker completed Curre nt Smoker eCW1 ([facility][Note 3]) Smoking 04/22/2020 12:00:00 AM EST Current Smoker completed Curre nt Smoker eCW1 ([facility][Note 3]) Smoking 04/22/2020 12:00:00 AM EST Current Smoker completed Curre nt Smoker eCW1 ([facility][Note 3]) Smoking 04/22/2020 12:00:00 AM EST Current Smoker completed Curre nt Smoker eCW1 ([facility][Note 3]) Smoking 04/22/2020 12:00:00 AM EST Current Smoker completed Curre nt Smoker eCW1 ([facility][Note 3]) Smoking 04/22/2020 12:00:00 AM EST Current Smoker completed Curre nt Smoker eCW1 ([facility][Note 3]) Smoking 04/22/2020 12:00:00 AM EST Current Smoker completed Curre nt Smoker eCW1 ([facility][Note 3]) Smoking 04/22/2020 12:00:00 AM EST Current Smoker completed Curre nt Smoker eCW1 ([facility][Note 3]) Smoking 04/22/2020 12:00:00 AM EST Current Smoker completed Curre nt Smoker eCW1 ([facility][Note 3]) Smoking 03/09/2020 12:00:00 AM EDT Current Smoker completed Curre nt Smoker eCW1 ([facility][Note 3]) Smoking 03/09/2020 12:00:00 AM EDT Current Smoker completed Curre nt Smoker eCW1 ([facility][Note 3]) Smoking 03/09/2020 12:00:00 AM EDT Current Smoker completed Curre nt Smoker eCW1 ([facility][Note 3]) Smoking 03/09/2020 12:00:00 AM EDT Current Smoker completed Curre nt Smoker eCW1 ([facility][Note 3]) Smoking 03/09/2020 12:00:00 AM EDT Current Smoker completed Curre nt Smoker eCW1 ([facility][Note 3]) Smoking 03/09/2020 12:00:00 AM EDT Current Smoker completed Curre nt Smoker eCW1 ([facility][Note 3]) Smoking 03/09/2020 12:00:00 AM EDT Current Smoker completed Curre nt Smoker eCW1 ([facility][Note 3]) Smoking 03/09/2020 12:00:00 AM EDT Current Smoker completed Curre nt Smoker eCW1 ([facility][Note 3]) Smoking 03/09/2020 12:00:00 AM EDT Current Smoker completed Curre nt Smoker eCW1 ([facility][Note 3]) Smoking 10/14/2019 12:00:00 AM EDT Current Smoker completed Curre nt Smoker eCW1 ([facility][Note 3]) Smoking 10/14/2019 12:00:00 AM EDT Current Smoker completed Curre nt Smoker eCW1 ([facility][Note 3]) Smoking 07/23/2019 12:00:00 AM EST Current every day smoker co mpleted Current every day smoker [facility] ([facility]) Vital Signs ID Date Data Source UNK Name Value Range Interpretation Code Description Data Source(s) Body temperature 97.6 [degF] 97.6 [degF] MEDENT ([facility] ) Oxygen saturation in Arterial blood by Pulse oximetry 98 % 98 % eCW1 ([facility][Note 3]) Respiratory rate 18 /min 18 /min eCW1 ([facility]) Heart rate 69 /min 69 /min eCW1 ([facility]) Body temperature 98.6 [degF] 98.6 [degF] eCW1 ( [facility][Note 3]) Body mass index (BMI) [Ratio] 24.74 kg/m2 24.74 kg/m2 eCW1 ([facility][Note 3]) Body weight 158.0 [lb_av] 158.0 [lb_av] eCW1 ([facility]) Body height 67 [in_i] 67 [in_i] eCW1 ([facility]) Body mass index (BMI) [Ratio] 21.9 kg/m2 21.9 k g/m2 MEDENT ([facility] ) Body weight 140.00 [lb_av] 140.00 [lb_av] MEDEN T ([facility] ) Body height 67 [in_i] 67 [in_i] MEDENT ([facility] ) 5'7" Body temperature 96.6 [degF] 96.6 [degF] MEDENT ([facility]) Oxygen saturation in Arterial blood by Pulse oximetry 98 % 98 % eCW1 ([facility][Note 3]) Respiratory rate 18 /min 18 /min eCW1 ([facility]) Heart rate 82 /min 82 /min eCW1 ([facility]) Body temperature 98.2 [degF] 98.2 [degF] eCW1 ( [facility][Note 3]) Body height 67 [in_i] 67 [in_i] eCW1 ([facility]) Body weight 152.00 [lb_av] 152.00 [lb_av] MEDEN T ([facility]) Body temperature 97.2 [degF] 97.2 [degF] MEDENT ([facility]) Respiratory rate 18 /min 18 /min MEDENT ( [facility]) Heart rate 68 /min 68 /min [facility] Diastolic blood pressure 77 mm[Hg] 77 mm[Hg] [facility] Systolic blood pressure 118 mm[Hg] 118 mm[Hg] M EDENT ([facility]) Oxygen saturation in Arterial blood by Pulse oximetry 97 % 97 % eCW1 ([facility][Note 3]) Respiratory rate 18 /min 18 /min eCW1 ([facility]) Heart rate 95 /min 95 /min eCW1 ([facility]) Body temperature 98.0 [degF] 98.0 [degF] eCW1 ( [facility][Note 3]) Body mass index (BMI) [Ratio] 23.74 kg/m2 23.74 kg/m2 eCW1 ([facility][Note 3]) Body weight 151.6 [lb_av] 151.6 [lb_av] eCW1 ([facility]) Body height 67 [in_i] 67 [in_i] eCW1 ([facility]) Deprecated Oxygen saturation in Capillary blood by Oximetry 96 % 96 % eCW1 ([facility][Note 3]) Respiratory rate 18 /min 18 /min eCW1 ([facility]) Heart rate 80 /min 80 /min eCW1 ([facility]) Body temperature 98.5 [degF] 98.5 [degF] eCW1 ( [facility][Note 3]) Body mass index (BMI) [Ratio] 29.22 kg/m2 29.22 kg/m2 eCW1 ([facility][Note 3]) Body weight Measured 186.6 [lb_av] 186.6 [lb_av ] eCW1 ([facility][Note 3]) Body height 67 [in_us] 67 [in_us] eCW1 ([facility]) Body mass index (BMI) [Ratio] 28.9 kg/m2 28.9 k g/m2 MEDENT ([facility]) [place] body weight 135 [lb_av] 135 [lb_av] MEDEN T ([facility]) Oxygen saturation in Arterial blood by Pulse oximetry 98 % 98 % [facility] ([facility]) Body height 67 [in_i] 67 [in_i] MEDENT ([facility]) 5'7" Diastolic blood pressure 78 mm[Hg] 78 mm[Hg] [facility] ([facility]) Systolic blood pressure 120 mm[Hg] 120 mm[Hg] M EDENT ([facility]) Heart rate 75 /min 75 /min [facility] ([facility]) Body weight 184.50 [lb_av] 184.50 [lb_av] MEDEN T ([facility]) Body mass index (BMI) [Ratio] 29.3 kg/m2 29.3 k g/m2 MED[facility] ([facility]) [place] body weight 135 [lb_av] 135 [lb_av] MEDEN T ([facility]) Oxygen saturation in Arterial blood by Pulse oximetry 98 % 98 % MEDENT ([facility]) Body height 67 [in_i] 67 [in_i] [facility] 5'7" Diastolic blood pressure 76 mm[Hg] 76 mm[Hg] [facility]ENT ([facility]) Systolic blood pressure 118 mm[Hg] 118 mm[Hg] M EDENT ([facility]) Heart rate 70 /min 70 /min [facility] ([facility]) Body weight 187.00 [lb_av] 187.00 [lb_av] MEDEN T ([facility]) Body mass index (BMI) [Ratio] 28.3 kg/m2 28.3 k g/m2 [facility] ([facility]) Body height 67 [in_i] 67 [in_i] [facility] ([facility]) 5'7" Diastolic blood pressure 76 mm[Hg] 76 mm[Hg] [facility] ([facility]) Systolic blood pressure 105 mm[Hg] 105 mm[Hg] M EDENT ([facility]) Heart rate 91 /min 91 /min [facility] ([facility]) Body weight 181.00 [lb_av] 181.00 [lb_av] MEDEN T ([facility]) Patient Treatment Plan of Care Planned Activity Planned Date Details Description Data Source (s) gabapentin 600 MG Oral Tablet 06/21/2020 12:00:00 AM EST eCW1 ([facility][Note 3]) gabapentin 600 MG Oral Tablet 06/21/2020 12:00:00 AM EST eCW1 ([facility] [place][Note 3]) Baclofen 10 MG Oral Tablet 03/09/2020 12:00:00 AM EDT eCW1 ([facility][Note 3]) Baclofen 10 MG Oral Tablet 03/09/2020 12:00:00 AM EDT eCW1 ([facility][Note 3]) Baclofen 10 MG Oral Tablet 03/09/2020 12:00:00 AM EDT eCW1 ([facility][Note 3]) Baclofen 10 MG Oral Tablet 03/09/2020 12:00:00 AM EDT eCW1 ([facility][Note 3]) Baclofen 10 MG Oral Tablet 03/09/2020 12:00:00 AM EDT eCW1 ([facility][Note 3]) Baclofen 10 MG Oral Tablet 03/09/2020 12:00:00 AM EDT eCW1 ([facility][Note 3]) Nicotine 4 MG Chewing Gum [Nicorette] 09/03/2019 12:00:00 AM EDT eCW1 ([facility][Note 3]) Hydroxyzine Hydrochloride 25 MG Oral Tablet 08/28/2019 12:00:00 AM EDT eCW1 ([facility][Note 3]) Hydroxyzine Hydrochloride 25 MG Oral Tablet 08/28/2019 12:00:00 AM EDT eCW1 ([facility][Note 3]) Hydroxyzine Hydrochloride 25 MG Oral Tablet 08/28/2019 12:00:00 AM EDT eCW1 ([facility][Note 3]) Hydroxyzine Hydrochloride 25 MG Oral Tablet 08/28/2019 12:00:00 AM EDT eCW1 ([facility][Note 3]) Hydroxyzine Hydrochloride 25 MG Oral Tablet 08/28/2019 12:00:00 AM EDT eCW1 ([facility][Note 3]) Hydroxyzine Hydrochloride 25 MG Oral Tablet 08/28/2019 12:00:00 AM EDT eCW1 ([facility][Note 3]) Hydroxyzine Hydrochloride 25 MG Oral Tablet 08/28/2019 12:00:00 AM EDT eCW1 ([facility][Note 3]) Hydroxyzine Hydrochloride 25 MG Oral Tablet 08/28/2019 12:00:00 AM EDT eCW1 ([facility][Note 3]) Hydroxyzine Hydrochloride 25 MG Oral Tablet 08/28/2019 12:00:00 AM EDT eCW1 ([facility][Note 3]) gabapentin 800 MG Oral Tablet [Neurontin] 08/26/2019 12:00:00 AM ED T eCW1 ([facility][Note 3]) gabapentin 800 MG Oral Tablet [Neurontin] 08/26/2019 12:00:00 AM ED T eCW1 ([facility][Note 3]) gabapentin 800 MG Oral Tablet [Neurontin] 08/26/2019 12:00:00 AM ED T eCW1 ([facility][Note 3]) gabapentin 800 MG Oral Tablet [Neurontin] 08/26/2019 12:00:00 AM ED T eCW1 ([facility][Note 3]) gabapentin 800 MG Oral Tablet [Neurontin] 08/26/2019 12:00:00 AM ED T eCW1 ([facility][Note 3]) gabapentin 800 MG Oral Tablet [Neurontin] 08/26/2019 12:00:00 AM ED T eCW1 ([facility][Note 3]) gabapentin 800 MG Oral Tablet [Neurontin] 08/26/2019 12:00:00 AM ED T eCW1 ([facility][Note 3]) Fluoxetine 20 MG Oral Capsule 07/25/2019 12:00:00 AM EST eCW1 ([facility][Note 3])
[2020-08-03 09:47] LABS: HEMATOCRIT 42.9 % (36.0-47.0); HEMOGLOBIN 14.7 g/dl (12.0-15.5); MEAN CORPUSCULAR HEMOGLOBIN 30.9 pg (27.0-33.0); MEAN CORPUSCULAR HGB CONC 34.3 g/dl (32.0-36.5); MEAN CORPUSCULAR VOLUME 90.1 fl (80.0-96.0); PLATELET COUNT, AUTOMATED 295 10^3/uL (150-450); RED BLOOD COUNT 4.76 10^6/uL (4.00-5.40); WHITE BLOOD COUNT 10.6 10^3/uL (4.0-10.0)
[2020-08-03 10:14] LABS: ACETAMINOPHEN LEVEL < 2.0 UG/ML (10.0-30.0); ALBUMIN 4.2 GM/DL (3.2-5.2); ALT/SGPT 18 U/L (12-78); BILIRUBIN,DIRECT 0.2 MG/DL (0.0-0.2); BILIRUBIN,TOTAL 0.5 MG/DL (0.2-1.0); BLOOD UREA NITROGEN 11 MG/DL (7-18); CALCIUM LEVEL 9.3 MG/DL (8.5-10.1); CARBON DIOXIDE LEVEL 24 MEQ/L (21-32); CHLORIDE LEVEL 102 MEQ/L (98-107); ETHYL ALCOHOL (ETHANOL) < 0.003 % (0.000-0.010); GLOMERULAR FILTRATION RATE 55.5 (>51); GLUCOSE, FASTING 112 MG/DL (70-100); SALICYLATE LEVEL 5.8 MG/DL (5.0-30.0); SODIUM LEVEL 137 MEQ/L (136-145); THYROID STIMULATING HORMONE 0.862 uIU/ML (0.358-3.740); TOTAL PROTEIN 8.1 GM/DL (6.4-8.2)
[2020-08-03] MEDS ORDERED: NICOTINE 21MG/24HR 1 EA TRANSDERMAL TD ONE (11:00)
[2020-08-03 13:32] LABS: AMPHETAMINES LEVEL URINE NEGATIVE (NEGATIVE); BARBITURATES URINE NEGATIVE (NEGATIVE); BENZODIAZEPINES URINE NEGATIVE (NEGATIVE); CANNABINOIDS URINE NEGATIVE (NEGATIVE); COCAINE METABOLITE URINE NEGATIVE (NEGATIVE); METHADONE URINE NEGATIVE (NEGATIVE); OPIATES URINE NEGATIVE (NEGATIVE); PHENCYCLIDINE URINE NEGATIVE (NEGATIVE)
[2020-08-03] MEDS ORDERED: LORazepam 2 MG TAB PO STA (14:41)
[2020-08-03] MEDS ORDERED: MOM 30ML SUSPENSION UDC PO PRN (15:15)
[2020-08-03] MEDS ORDERED: MAALOX 30 ML SUSP *UDC PO PRN (15:15)
[2020-08-03] MEDS ORDERED: ACETAMINOPHEN TAB 650MG DOSE (2X325MG) PO PRN (15:15)
--- OUTSIDE RECORDS SUMMARY | 2020-08-03 15:49 | CCD ---
Author Author [facility] Organization [facility] Address Unknown Phone Unavailable Support Name Relationship Address Phone Celestinojessie Urrutia Next Of Kin Unknown STEPHANI DUMAS Next Of Kin [address] [place] [address] UNE, UNEMPLOYED Next Of Kin Unknown Unavailable UNE Next Of Kin Unknown Unavailable CAYUGA, RECOVERY PROG ADDICTION Next Of Kin [address] [place] [address] ANNY RAINEY Next Of Kin Unknown ROSENDA MARCUS Next Of Kin [id number] [place] [address] 0 [place] [address] Sheldon Cha MD Next Of Kin [address] [place], [place] [id number] GREG MARCUS Next Of Kin [id number] [place] [address] [place] [address] Britney Carter MD Next Of Kin [address] [place] [address] [phone] Stephanie Delacruz Next Of Kin [address] [place] [phone] UN Next Of Kin Unknown Unavailable None, Pt Per Next Of Kin - -, - - - NO, ONE Next Of Kin Unknown UNEMPLOYED Next Of Kin - -, - - UE Next Of Kin Unknown Unavailable JAXON CELESTINO Next Of Kin [address] [place] [address] GREG MARCUS E[address] [place] [address] [phone] CELESTINO URRUTIA ECON [address] [place] [phone] Care Team Providers Care Engraver Wood Name Role Phone Maribel AU Unavailable Unavailable [...] Unavailable BEBA, LOREE JAYDA PA Unavailable Unavailable BBEA, LOREE JAYDA PA Unavailable Unavailable BEBA, LOREE [...] JAYDA PA Unavailable Unavailable Dibartolo, J Katelyn MOBILE DISC JOCKEY Unavailable Unavailable Dibartolo, J Katelyn MOBILE DISC JOCKEY Unavailable Unavailable Dibartolo, J Katelyn MOBILE DISC JOCKEY Unavailable Unavailable Dibartolo, J Katelyn MOBILE DISC JOCKEY Unavailable Unavailable Dibartolo, J Katelyn MOBILE DISC JOCKEY Unavailable Unavailable Dibartolo, J Katelyn MOBILE DISC JOCKEY Unavailable Unavailable Dibartolo, J Katelyn MOBILE DISC JOCKEY Unavailable Unavailable Dibartolo, J Katelyn MOBILE DISC JOCKEY Unavailable Unavailable Dibartolo, J Katelyn MOBILE DISC JOCKEY Unavailable Unavailable Ann, M Aviva PA-C Unavailable [...] Unavailable Cha, Carrillo Chung MD Unavailable Unavailable Carrillo Cha MD Unavailable [...] Unavailable Unavailable Carrillo Cha MD Unavailable Unavailable Carrilol Cha MD Unavailable Unavailable Carrillo Cha MD Unavailable Unavailable Carrillo Cha MD Unavailable Unavailable Carrillo Cha MD Unavailable Unavailable Carrillo Cha MD Unavailable Unavailable Carrillo Cha MD Unavailable Unavailable Carrillo Cha MD Unavailable Unavailable Carrillo Cha MD Unavailable Unavailable CLIFFORD, JOON MARY Unavailable Unavailable PADDEN, HAILEY DIGITAL MEDIA INTERN Unavailable Unavailable PADDEN, HAILEY DIGITAL MEDIA INTERN Unavailable Unavailable PADDEN, HAILEY DIGITAL MEDIA INTERN Unavailable Unavailable PADDEN, HAILEY DIGITAL MEDIA INTERN Unavailable Unavailable PADDEN, HAILEY DIGITAL MEDIA INTERN Unavailable Unavailable PADDEN, HAILEY DIGITAL MEDIA INTERN Unavailable Unavailable PADDEN, HAILEY DIGITAL MEDIA INTERN Unavailable Unavailable PADDEN, HAILEY DIGITAL MEDIA INTERN Unavailable Unavailable PADDEN, HAILEY DIGITAL MEDIA INTERN Unavailable Unavailable PADDEN, HAILEY DIGITAL MEDIA INTERN Unavailable Unavailable PADDEN, HAILEY DIGITAL MEDIA INTERN Unavailable Unavailable PADDEN, HAILEY DIGITAL MEDIA INTERN Unavailable Unavailable PADDEN, HAILEY DIGITAL MEDIA INTERN Unavailable Unavailable PADDEN, HAILEY DIGITAL MEDIA INTERN Unavailable Unavailable PADDEN, HAILEY DIGITAL MEDIA INTERN Unavailable Unavailable PADDEN, HAILEY DIGITAL MEDIA INTERN Unavailable Unavailable PADDEN, HAILEY DIGITAL MEDIA INTERN Unavailable Unavailable PADDEN, HAILEY DIGITAL MEDIA INTERN Unavailable Unavailable PADDEN, HAILEY DIGITAL MEDIA INTERN Unavailable Unavailable Rydberg, Za PA Unavailable Unavailable [...] is protected by Article 27-F of the [facility] Public Health law. If you continue you may have access to information: Regarding HIV / AIDS; Provided by facilities licensed or operated by the [facility] Office of Mental Health; or Provided by the [facility] Office for People With Developmental Disabilities. If such information is present, then the following [facility] mandated warning applies: This information has [...] law may result in a fine or fdc sentence or both. A general authorization for the release of medical or other information is NOT sufficient authorization for further disc losure. Allergies and Adverse Reactions Type Description Substance Reaction Status Data Source(s ) toradol toradol toradol rash Active eCW1 ([facility]) toradol toradol toradol rash Active eCW1 ([facility]) Family History Family Member Name Family Member Gender Family Member Status Date o f Status Description Data Source(s) Unknown Male Problem MEDENT ([facility]) Encounters Encounter Providers Location Date Indications Data Source(s ) Outpatient Attender: GIA HASSAN Physical Therapy 06/25/2020 04:00:00 PM EST MEDENT ([facility]) Outpatient Attender: Brooklynn Schofield 06/23/2020 07:40:00 AM EST MEDENT ([facility]) Outpatient Attender: Aviva Juarez PA-C 06/21/2020 12:40 :00 PM EST [facility] Outpatient [facility] 06/21/2020 12:00:00 AM EST eCW1 ([facility]) Outpatient [facility] 06/21/2020 12:00:00 AM EST eCW1 ([facility]) Outpatient [facility] 2020 12:00:00 AM EST eCW1 ([facility]) Outpatient [facility] 06/14/2020 12:00:00 AM EST eCW1 ([facility]) Outpatient Attender: Brooklynn Schofield 06/09/2020 07:40:00 AM EST [facility] ([facility]) Outpatient Attender: GIA HASSAN Physical Therapy 06/02/2020 02:45:00 PM EST MEDENT ([facility]) [place] [address] [facility] [address] 05/31/2020 12:00:00 AM EST eCW1 ([facility]) Outpatient [facility] 05/27/2020 12:00:00 AM EST eCW1 ([facility]) Outpatient [facility] 05/23/2020 12:00:00 AM EST eCW1 ([facility]) Outpatient [facility] 05/21/2020 12:00:00 AM EST eCW1 ([facility]) Outpatient Attender: Brooklynn Schofield 05/20/2020 12:20:00 PM EST MED[facility] ([facility]) Outpatient [facility] 05/04/2020 12:00:00 AM EST eCW1 ([facility]) Outpatient [facility] 05/04/2020 12:00:00 AM EST eCW1 ([facility]) Outpatient Attender: Za HASSAN 04/22/2020 02:57:00 PM EST [facility] Outpatient [facility] 04/22/2020 12:00:00 AM EST eCW1 ([facility]) Outpatient [facility] 03/26/2020 12:00:00 AM EDT eCW1 ([facility]) Outpatient [facility] 03/25/2020 12:00:00 AM EDT eCW1 ([facility]) Outpatient Attender: Brooklynn Schofield 03/24/2020 03:20:00 PM EDT [facility] ([facility]) Outpatient [facility] 03/24/2020 12:00:00 AM EDT eCW1 ([facility]) Outpatient Attender: JOSE HERNANDES SRReferrer: JOSE Kim SR 03/17/2020 11:00:00 AM EDT [facility] Outpatient [facility] 03/17/2020 12:00:00 AM EDT eCW1 ([facility]) Outpatient Attender: JOSE HERNANDES SRReferrer: JOSE Kim SR 03/15/2020 01:30:00 PM EDT - 03/15/2020 01:30:[address] [facility] Outpatient [facility] 03/11/2020 12:00:00 AM EDT eCW1 ([facility]) Outpatient [facility] 03/10/2020 12:00:00 AM EDT eCW1 ([facility]) Outpatient [facility] 03/10/2020 12:00:00 AM EDT eCW1 ([facility]) Outpatient Attender: JOSE HERNANDES SRReferrer: JOSE Kim SR 03/09/2020 01:59:00 PM EDT - 03/09/2020 01:59:00 PM EDT [facility] Outpatient [facility] 03/09/2020 12:00:00 AM EDT eCW1 ([facility]) Outpatient [facility] 03/09/2020 12:00:00 AM EDT eCW1 ([facility]) Outpatient [facility] 03/03/2020 12:00:00 AM EDT eCW1 ([facility]) Outpatient Attender: Sheldon Cha MD FP 02/20/2020 11:35:00 AM EDT [facility] Outpatient [facility] 02/18/2020 12:00:00 AM EDT eCW1 ([facility]) Outpatient Attender: Sheldon Cha MD FP 11/18/2019 07:50:56 PM EDT [facility] Outpatient Attender: Sheldon Cha MD FP 11/18/2019 03:23:01 PM EDT [facility] Outpatient 10/16/2019 06:34:00 AM EDT [facility] 10/16/2019 12:00:00 AM EDT eCW1 ([facility]) [facility] 10/14/2019 12:00:00 AM EDT eCW1 ([facility]) Outpatient Attender: Sheldon Cha MD FP 10/06/2019 03:00:[address] [facility] 10/06/2019 12:00:00 AM EDT eCW1 ([facility]) Outpatient 10/03/2019 06:03:00 AM EDT [facility] 10/03/2019 12:00:00 AM EDT eCW1 ([facility]) Outpatient Attender: Sheldon Cha MD FP 10/02/2019 11:10:00 AM EDT [facility] 09/30/2019 12:00:00 AM EDT eCW1 ([facility]) [place] [facility] 09/30/2019 12:00:00 AM EDT eCW1 ([facility]) [facility] 09/30/2019 12:00:00 AM EDT eCW1 ([facility]) Outpatient Attender: Sheldon Cha MD FP 09/25/2019 10:07:[address] [facility] 09/25/2019 12:00:00 AM EDT eCW1 ([facility]) [facility] 09/24/2019 12:00:00 AM EDT eCW1 ([facility]) Outpatient Attender: Sheldon Cha MD FP 09/23/2019 12:58:[address] [facility] ENTER 09/23/2019 12:00:00 AM EDT eCW1 ([facility]) Outpatient Attender: Sheldon Cha MD FP 09/18/2019 10:24:33 AM EDT [facility] Outpatient Attender: Sheldon Cha MD FP 09/17/2019 03:11:01 PM EDT [facility] Outpatient Attender: Sheldon Cha MD FP 09/17/2019 10:38:[address] [facility] 09/17/2019 12:00:00 AM EDT eCW1 ([facility]) Outpatient Attender: Sheldon Cha MD FP 09/12/2019 10:18:00 AM EDT [facility] Outpatient Attender: Sheldon Cha MD FP 09/12/2019 08:47:[address] [facility] 09/11/2019 12:00:00 AM EDT eCW1 ([facility]) Outpatient Attender: JOSE HERNANDES SR 09/03/2019 10:00:00 AM EDT [facility] 09/03/2019 12:00:00 AM EDT eCW1 ([facility]) [facility] 09/01/2019 12:00:00 AM EDT eCW1 ([facility]) [facility] 08/28/2019 12:00:00 AM EDT eCW1 ([facility]) [facility] 08/26/2019 12:00:00 AM EDT eCW1 ([facility]) [facility] 08/26/2019 12:00:00 AM EDT eCW1 ([facility]) [facility] 08/19/2019 12:00:00 AM EDT eCW1 ([facility]) [facility] 08/19/2019 12:00:00 AM EDT eCW1 ([facility]) Outpatient Attender: JOSE HERNANDES SR 08/18/2019 10:00:00 AM EDT [facility] 08/15/2019 12:00:00 AM EST eCW1 ([facility]) [facility] 08/12/2019 12:00:00 AM EST eCW1 ([facility]) Outpatient Attender: Sheldon CHAVIS 07/30/2019 11:31:01 AM EST [facility] Outpatient Attender: JOSE HERNANDES SR 07/25/2019 07:31:00 AM EST [facility] 07/25/2019 12:00:00 AM EST eCW1 ([facility]) Outpatient Attender: Brooklynn Schofield 07/24/2019 08:00:00 AM EST MED[facility] ([facility]) Extended Individual Psychotherapy - 45 min Attender: Liz Estrada [facility] 07/23/2019 03:00:00 AM EST - 07/23/2019 03:00:00 AM EST [facility] ([facility]) Attender: Swapna Estrada 07/23/2019 12:00:00 AM EST [facility] ([facility]) Outpatient Attender: Sheldon Cha MD FP 07/22/2019 04:24:02 PM [facility] Outpatient Attender: Sheldon Cha MD FP 07/22/2019 12:33:01 PM [facility] ENTER 07/22/2019 12:00:00 AM EST eCW1 ([facility]) [facility] 07/18/2019 12:00:00 AM EST eCW1 ([facility]) [facility] 07/14/2019 12:00:00 AM EST eCW1 ([facility]) Outpatient Attender: Sheldon Cha MD FP 06/24/2019 10:09:01 AM [facility] Outpatient Attender: Sheldon Cha MD FP 06/24/2019 09:35:02 AM [facility] Outpatient Attender: HAILEY Schofield 06/24/2019 08:00:0 0 AM EST [facility] ([facility]) [facility] 06/23/2019 12:00:00 AM EST eCW1 ([facility]) Outpatient Attender: Sheldon Cha MD FP 2019 10:43:00 AM [facility] Outpatient Attender: HAILEY Schofield 2019 09:00:0 0 AM EST [facility] ([facility]) Outpatient Attender: JOSE HERNANDES SR 06/16/2019 10:26:00 AM EST [facility] 06/16/2019 12:00:00 AM EST eCW1 ([facility]) Outpatient Attender: JOSE HERNANDES SR 05/07/2019 01:30:00 PM [facility] Outpatient Attender: JOSE HERNANDES SR 04/24/2019 09:56:00 AM [facility] Outpatient Attender: Katelyn GREENP 02/05/2019 07:39:00 AM EDT ENCNTR FOR GENERAL ADULT MEDICAL EXAM W/O ABNORMAL [facility] ENCNTR FOR GENERAL ADULT MEDICAL EXAM W/ O ABNORMAL Emergency Attender: SARA HASSAN EMERGENCY ROOM- ER 07/04/2018 04:52:00 PM EST - 07/04/2018 06:26:00 PM [facility] Emergency Attender: SARA HASSAN EMERGENCY ROOM- ER 07/03/2018 04:06:00 PM EST - 07/03/2018 04:57:00 PM [facility] Emergency Attender: Po WHARTON 01:15:00 PM EST - 05/25/2018 03:22:00 PM [facility] Emergency Attender: MARY CLIFFORD EMERGENCY ROOM-ER 2017 06:33:00 AM EDT - 01/17/2018 09:33:00 AM [facility] Emergency Attender: JAYDA HASSAN 02:10:00 AM EDT - 12/26/2017 02:56:00 AM [facility] Emergency Attender: JAYDA HASSAN EMERGENCY ROOM-ER 10/19/2017 03:48:00 PM EDT - 10/19/2017 05:55:00 PM [facility] Medications Medication Brand Name Start Date Product [...] 07/07/2020 12:00:00 AM EST ORAL active MEDENT ([facility]) 8 mg 07/07/2020 12:00:00 AM [...] 06/25/2020 12:00:00 AM EST ORAL active MEDENT ([facility]) 8 mg 06/23/2020 12:00:00 AM EST tablet, [...] {tablet} active Ga bapentin 600 MG eCW1 ([facility]) 600 mg 06/21/2020 12:00:00 AM EST tablet 270 TAKE ONE TABLET BY MOUTH THREE TIMES A DAY TAKE ONE TABLET BY MOUTH THREE TIMES A DAY SOLD: 06/21/2020 [facility] gabapentin 600 MG Oral Tablet Gabapentin 600 MG Gabapentin 6 00 MG 06/21/2020 12:00:00 AM EST 1.0 {tablet} active Ga bapentin 600 MG eCW1 ([facility]) Buprenorphine 8 MG Sublingual Tablet Buprenorphine HCL 12:00:00 AM EST active MEDENT ([facility]) 8 mg 06/09/2020 12:00:00 AM EST tablet, sublingual [address] THREE TABLETS UNDER THE TONGUE EVERY DAY DIRECTED MAXIMUM DAILY DOSE = THREE TABLETS PLACE THREE TABLETS UNDER THE TONGUE EVERY DAY DIRECTED MAXIMUM DAILY DOSE = THREE TABLETS SOLD: 06/09/2020 [facility] tizanidine 4 MG Oral Capsule Tizanidine HCL 06/08/2020 12:00:00 AM EST ORAL completed MEDENT ([facility] tizanidine 4 MG Oral Tablet TIZANIDINE HCL [...] [Medrol] Medrol 12:00:00 AM EST completed MEDENT ([facility]) 500 mg 05/31/2020 12:00:00 AM [...] 05/20/2020 12:00:00 AM EST SUBLINGUAL completed MEDENT ([facility]) Hydroxyzine Hydrochloride 25 MG Oral Tablet Hydroxyzine HCL 03/31/2020 12:00:00 AM EDT ORAL active MEDENT ([facility]) Fluoxetine 20 MG Oral Capsule Fluoxetine HCL 03/31/2020 12:00:00 AM E DT ORAL active MEDENT ([facility]) Baclofen 10 MG Oral Tablet Baclofen 10 MG 03/09/2020 12:00:00 AM ED T 1.0 {tablet_with_food_or_milk} active Baclo fen 10 MG eCW1 ([facility]) Baclofen 10 MG Oral Tablet Baclofen 10 MG 03/09/2020 12:00:00 AM ED T 1.0 {tablet_with_food_or_milk} active Baclo fen 10 MG eCW1 ([facility]) Baclofen 10 MG Oral Tablet Baclofen 10 MG 03/09/2020 12:00:00 AM ED T 1.0 {tablet_with_food_or_milk} active Baclo fen 10 MG eCW1 ([facility]) Baclofen 10 MG Oral Tablet Baclofen 10 MG 03/09/2020 12:00:00 AM ED T 1.0 {tablet_with_food_or_milk} active Baclo fen 10 MG eCW1 ([facility]) Baclofen 10 MG Oral Tablet Baclofen 10 MG 03/09/2020 12:00:00 AM ED T 1.0 {tablet_with_food_or_milk} active Baclo fen 10 MG eCW1 ([facility]) Baclofen 10 MG Oral Tablet Baclofen 10 MG 03/09/2020 12:00:00 AM ED T 1.0 {tablet_with_food_or_milk} active Baclo fen 10 MG eCW1 ([facility]) Baclofen 10 MG Oral Tablet Baclofen 10 MG 03/09/2020 12:00:00 AM ED T 1.0 {tablet_with_food_or_milk} active Baclo fen 10 MG eCW1 ([facility]) Baclofen 10 MG Oral Tablet Baclofen 10 MG 03/09/2020 12:00:00 AM ED T 1.0 {tablet_with_food_or_milk} active Baclo fen 10 MG eCW1 ([facility]) gabapentin 800 MG Oral Tablet GABAPENTIN 03/09/2020 [...] {tablet_with_food_or_milk} active Baclo fen 10 MG eCW1 ([facility]) 20 mg 02/19/2020 12:00:00 AM EDT capsule [...] piece for 30 minute as needed eCW1 ([facility]) Hydroxyzine Hydrochloride 25 MG Oral Tablet HydrOXYzin e HCl 25 MG HydrOXYzine HCl 25 MG 08/28/2019 12:00:00 AM EDT 1.0 {tablet_as_needed} active HydrOXYzine HCl 25 MG eCW1 ([facility]) Hydroxyzine Hydrochloride 25 MG Oral Tablet HydrOXYzin e HCl 25 MG HydrOXYzine HCl 25 MG 08/28/2019 12:00:00 AM EDT 1.0 {tablet_as_needed} active HydrOXYzine HCl 25 MG eCW1 ([facility]) Hydroxyzine Hydrochloride 25 MG Oral Tablet HydrOXYzin e HCl 25 MG HydrOXYzine HCl 25 MG 08/28/2019 12:00:00 AM EDT 1.0 {tablet_as_needed} active HydrOXYzine HCl 25 MG eCW1 ([facility]) Hydroxyzine Hydrochloride 25 MG Oral Tablet HydrOXYzin e HCl 25 MG HydrOXYzine HCl 25 MG 08/28/2019 12:00:00 AM EDT 1.0 {tablet_as_needed} active HydrOXYzine HCl 25 MG eCW1 ([facility]) Hydroxyzine Hydrochloride 25 MG Oral Tablet HydrOXYzin e HCl 25 MG HydrOXYzine HCl 25 MG 08/28/2019 12:00:00 AM EDT 1.0 {tablet_as_needed} active HydrOXYzine HCl 25 MG eCW1 ([facility]) Hydroxyzine Hydrochloride 25 MG Oral Tablet HydrOXYzin e HCl 25 MG HydrOXYzine HCl 25 MG 08/28/2019 12:00:00 AM EDT 1.0 {tablet_as_needed} active HydrOXYzine HCl 25 MG eCW1 ([facility]) Hydroxyzine Hydrochloride 25 MG Oral Tablet HydrOXYzin e HCl 25 MG HydrOXYzine HCl 25 MG 08/28/2019 12:00:00 AM EDT 1.0 {tablet_as_needed} active HydrOXYzine HCl 25 MG eCW1 ([facility]) Hydroxyzine Hydrochloride 25 MG Oral Tablet HydrOXYzin e HCl 25 MG HydrOXYzine HCl 25 MG 08/28/2019 12:00:00 AM EDT 1.0 {tablet_as_needed} active HydrOXYzine HCl 25 MG eCW1 ([facility]) Hydroxyzine Hydrochloride 25 MG Oral Tablet HydrOXYzin e HCl 25 MG HydrOXYzine HCl 25 MG 08/28/2019 12:00:00 AM EDT 1.0 {tablet_as_needed} active HydrOXYzine HCl 25 MG eCW1 ([facility]) Hydroxyzine Hydrochloride 25 MG Oral Tablet HydrOXYzin e HCl 25 MG HydrOXYzine HCl 25 MG 08/28/2019 12:00:00 AM EDT active 1 tablet as needed eCW1 ([facility]) Hydroxyzine Hydrochloride 25 MG Oral Tablet HydrOXYzin e HCl 25 MG HydrOXYzine HCl 25 MG 08/28/2019 12:00:00 AM EDT 1.0 {tablet_as_needed} active HydrOXYzine HCl 25 MG eCW1 ([facility]) Hydroxyzine Hydrochloride 25 MG Oral Tablet HydrOXYzin e HCl 25 MG HydrOXYzine HCl 25 MG 08/28/2019 12:00:00 AM EDT 1.0 {tablet_as_needed} active HydrOXYzine HCl 25 MG [facility]CW1 ([facility]) gabapentin 800 MG Oral Tablet [Neurontin] Neurontin 800 MG N eurontin 800 MG 08/26/2019 12:00:00 AM EDT 1.0 {tablet} active Neurontin 800 MG eCW1 ([facility]) gabapentin 800 MG Oral Tablet [Neurontin] Neurontin 800 MG N eurontin 800 MG 08/26/2019 12:00:00 AM EDT 1.0 {tablet} active Neurontin 800 MG eCW1 ([facility]) gabapentin 800 MG Oral Tablet [Neurontin] Neurontin 800 MG N eurontin 800 MG 08/26/2019 12:00:00 AM EDT 1.0 {tablet} active Neurontin 800 MG eCW1 ([facility]) gabapentin 800 MG Oral Tablet [Neurontin] Neurontin 800 MG N eurontin 800 MG 08/26/2019 12:00:00 AM EDT 1.0 {tablet} active Neurontin 800 MG eCW1 ([facility]) gabapentin 800 MG Oral Tablet [Neurontin] Neurontin 800 MG N eurontin 800 MG 08/26/2019 12:00:00 AM EDT 1.0 {tablet} active Neurontin 800 MG eCW1 ([facility]) gabapentin 800 MG Oral Tablet [Neurontin] Neurontin 800 MG N eurontin 800 MG 08/26/2019 12:00:00 AM EDT 1.0 {tablet} active Neurontin 800 MG eCW1 ([facility]) gabapentin 800 MG Oral Tablet [Neurontin] Neurontin 800 MG N eurontin 800 MG 08/26/2019 12:00:00 AM EDT 1.0 {tablet} active Neurontin 800 MG eCW1 ([facility]) gabapentin 800 MG Oral Tablet [Neurontin] Neurontin 800 MG N eurontin 800 MG 08/26/2019 12:00:00 AM EDT 1.0 {tablet} active Neurontin 800 MG eCW1 ([facility]) gabapentin 800 MG Oral Tablet [Neurontin] Neurontin 800 MG N eurontin 800 MG 08/26/2019 12:00:00 AM EDT 1.0 {tablet} active Neurontin 800 MG eCW1 ([facility]) gabapentin 800 MG Oral Tablet [Neurontin] Neurontin 800 MG N eurontin 800 MG 08/26/2019 12:00:00 AM EDT active 1 tablet eCW1 ([facility]) gabapentin 800 MG Oral Tablet [Neurontin] Neurontin 800 MG N eurontin 800 MG 08/26/2019 12:00:00 AM EDT 1.0 {tablet} active Neurontin 800 MG eCW1 ([facility]) gabapentin 800 MG Oral Tablet [Neurontin] Neurontin 800 MG N eurontin 800 MG 08/26/2019 12:00:00 AM EDT active 1 tablet eCW1 ([facility]) gabapentin 800 MG Oral Tablet [Neurontin] Neurontin 800 MG N eurontin 800 MG 08/26/2019 12:00:00 AM EDT 1.0 {tablet} active Neurontin 800 MG eCW1 ([facility]) gabapentin 800 MG Oral Tablet [Neurontin] Neurontin 800 MG N eurontin 800 MG 08/26/2019 12:00:00 AM EDT 1.0 {tablet} active Neurontin 800 MG eCW1 ([facility]) gabapentin 800 MG Oral Tablet [Neurontin] Neurontin 800 MG N eurontin 800 MG 08/26/2019 12:00:00 AM EDT 1.0 {tablet} active Neurontin 800 MG eCW1 ([facility]) gabapentin 800 MG Oral Tablet [Neurontin] Neurontin 800 MG N eurontin 800 MG 08/26/2019 12:00:00 AM EDT active 1 tablet eCW1 ([facility]) gabapentin 800 MG Oral Tablet [Neurontin] Neurontin 800 MG N eurontin 800 MG 08/26/2019 12:00:00 AM EDT 1.0 {tablet} active Neurontin 800 MG eCW1 ([facility]) gabapentin 800 MG Oral Tablet [Neurontin] Neurontin 800 MG N eurontin 800 MG 08/26/2019 12:00:00 AM EDT 1.0 {tablet} active Neurontin 800 MG eCW1 ([facility]) gabapentin 800 MG Oral Tablet [Neurontin] Neurontin 800 MG N eurontin 800 MG 08/26/2019 12:00:00 AM EDT 1.0 {tablet} active Neurontin 800 MG eCW1 ([facility]) gabapentin 800 MG Oral Tablet [Neurontin] Neurontin 800 MG N eurontin 800 MG 08/26/2019 12:00:00 AM EDT 1.0 {tablet} active Neurontin 800 MG eCW1 ([facility]) gabapentin 800 MG Oral Tablet [Neurontin] Neurontin 800 MG N eurontin 800 MG 08/26/2019 12:00:00 AM EDT active 1 tablet eCW1 ([facility]) gabapentin 800 MG Oral Tablet [Neurontin] Neurontin 800 MG N eurontin 800 MG 08/26/2019 12:00:00 AM EDT 1.0 {tablet} active Neurontin 800 MG eCW1 ([facility]) gabapentin 800 MG Oral Tablet [Neurontin] Neurontin 800 MG N eurontin 800 MG 08/26/2019 12:00:00 AM EDT 1.0 {tablet} active Neurontin 800 MG eCW1 ([facility]) Fluoxetine 20 MG Oral Capsule Fluoxetine HCl 20 MG Fluoxetin e HCl 20 MG 07/25/2019 12:00:00 AM EST active 1 capsule eCW1 ([facility]) Fluoxetine 20 MG Oral Capsule Fluoxetine HCl 20 MG Fluoxetin e HCl 20 MG 07/25/2019 12:00:00 AM EST active 1 capsule eCW1 ([facility]) Insurance Providers Payer name Policy type / Coverage type Policy ID Covered alliance party ID Covered alliance party's relationship to hernandez Policy Hernandez Plan Information [facility] [id number] SP [id number] [facility] MEDICAID [id number] S [id number] [facility](MCAID) O [id number] S [id number] [facility] MEDICAID [id number] S [id number] [facility] MEDICAID [id number] S [id number] [place] [id number] S [id number] [place] [id number] SP [id number] Managed Care - [facility] Community Plan P [id number] S [id number] Medicaid S [id number] S [id number] [facility] POLY [id number] SP [id number] [facility] [id number] SP [id number] [facility] [id number] SP [id number] MEDICAID [id number] SP [id number] UNHC COMMUNITY PLAN MCDHMO [id number] SP [id number] UNHC COMMUNITY PLAN MCDHMO [id number] SP [id number] UNHC COMMUNITY PLAN XIX [id number] 18 [id number] [facility] [id number] SELF [id number] MEDICAID M [id number] S [id number] MEDICAID [id number] [facility] [id number] SELF [id number] [facility] [id number] [place] [id number] MEDICAID [id number] SELF [id number] MEDICAID [id number] SELF [id number] ANSI-Medicaid [id number] ANSI-Medicaid [id number] ANSI-Commercial [id number]-67gw-6ve4-[id number]-28fn-1um3-[id number] ANSI-Medicaid [id number] ANSI-Medicaid [id number] ANSI-Commercial [id number]-[id number]-[id number] [facility] Health Maintenance Organization [place] [id number] Self [id number] ANSI-Commercial [id number]-ee89-6896-11ph-[id number] [id number]-rj73-5256-28uu-[id number] ANSI-Medicaid [id number] ANSI-Medicaid [id number] ANSI-Medicaid [id number] ANSI-Commercial [id number]-7k3p-[id number]-6g5l-[id number] ANSI-Medicaid [id number] ANSI-Medicaid [id number] ANSI-Medicaid [id number] ANSI-Commercial 198hz2jy-093g-4kn6-r6z8-tc53y3v9j907 493ay8cz-930s-0mk6-y9q0-yy99e4g3p561 ANSI-Medicaid [id number] ANSI-Commercial [id number]-6m74-6569-[id number] [id number]-3o44-1700-[id number] ANSI-Medicaid [id number] ANSI-Medicaid [id number] ANSI-Commercial [id number]-[id number] 9y0gzq59-44fm-[id number] ANSI-Medicaid [id number] [facility] PLAN XIX [id number] 18 [id number] ANSI-Medicaid [id number] ANSI-Medicaid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 Harika rce(s) Supporting Document(s) DIAZEPAM,URINE <20 [facility] Unit: ng/mL Cutoff: 20 ng/mL NORDIAZEPAM,URINE <20 [facility] Unit: ng/mL Cutoff: 20 ng/mL OXAZEPAM,URINE <20 [facility] Unit: ng/mL Cutoff: 20 ng/mL TEMAZEPAM,URINE <20 [facility] Unit: ng/mL Cutoff: 20 ng/mL LORAZEPAM,URINE <20 [facility] Unit: ng/mL Cutoff: 20 ng/mL ALPRAZOLAM,URINE 11 [facility] Unit: ng/mL Consistent with use of a celia g containing alprazolam, such as Xanax. Cutoff: 5 ng/mL ALPHA OH ALPRAZOLAM 11 [facility] Unit: ng/mL Alprazolam metabolite; consi stent with use of a drug containing alprazolam, such as Xanax. Cutoff: 5 ng/mL CLONAZEPAM,URINE 107 [facility] Unit: ng/mL Consistent with use of a celia g containing clonazepam, such as Klonopin. Cutoff: 5 ng/mL 7 AMINOCLONAZEPAM U >1000 Laboratory [facility] Unit: ng/mL Clonazepam metabolite; consi stent with use of a drug containing clonazepam, such as Klonopin. Cutoff: 5 ng/mL MIDAZOLAM,URINE <20 [facility] Unit: ng/mL Cutoff: 20 ng/mL CHLORDIAZEPOXIDE <20 [facility] Unit: ng/mL Cutoff: 20 ng/mL ALPHA OH MIDAZOLAM <20 [facility] Unit: ng/mL Cutoff: 20 ng/mL INTERPRETIV E [...] laboratory. Test developed and characteristics determined by [employer]. See Compliance Statement B: [employer]/CS Performed by [facility], [address] [place] [id number] www.[employer], Vish Singh MD, Lab. Director ID Date Data Source [id number] 06/29/2019 04:08:00 PM EST [facility] Name Value Range Interpretation Code Description Data Harika rce(s) Supporting Document(s) BUPRENORPHINE UR 20 ng/mL [facility] INTERPRETIVE INFORMATION: Buprenorphine and Metabolites, Urine, Quantitative [...] laboratory. Test developed and characteristics determined by [employer]. See Compliance Statement B: [employer] NORBUPRENORPHINE UR 416 ng/mL [facility] BUPRENORPHINE GLUCU 764 [facility] Unit: ng/mL Consistent with use of a bup renorphine-containing drug. Glucuronide concentrations are semi-quantitative. NORBUPR GLUCURONIDE >1000 Laboratory [facility] Unit: ng/mL NALOXONE,URINE <100 ng/mL [facility] Performed by [facility], [address] [place] [address] [place] [address] www.[employer], Vish Singh MD, Lab. Director ID Date Data Source [id number] 2019 09:11:00 AM EST [facility] ([facility]) Name Value Range Interpretation Code Description Data Harika rce(s) Supporting Document(s) Buprenorphine Ur 6 ng/mL [facility] ([facility]) INTERPRETIVE INFORMATION: Buprenorphine and Metabolites, Urine, Quantitative [...] laboratory. Test developed and characteristics determined by [employer]. See Compliance Statement B: [employer] Norbuprenorphine Ur 674 ng/mL [facility] ([facility]) TEST FOR BUPRENORPHINE Buprenorphine Glucu 480 [facility] ([facility]) Unit: ng/mL Consistent with use of a buprenorphine-containing drug. Glucuronide concentrations are semi-quantitative. Norbupr Glucuronide >1000 [facility] ([facility]) Unit: ng/mL Naloxone,Urine <100 ng/mL [facility] ([facility]) Performed by [facility], [address] [place] [id number] www.[employer], Vish Singh MD, Lab. Director Unless otherwise specified, testing performed by [facility] [employer] [address] [place] [id number] ID Date Data Source [id number] 2019 09:11:00 AM EST [facility] ([facility]) Name Value Range Interpretation Code Description Data Harika rce(s) Supporting Document(s) Diazepam,Urine <20 [facility] ([facility]) Unit: ng/mL Cutoff: 20 ng/mL Nordiazepam,Urine <20 [facility] ([facility]) Unit: ng/mL Cutoff: 20 ng/mL Oxazepam,Urine <20 [facility] ([facility]) Unit: ng/mL Cutoff: 20 ng/mL Temazepam,Urine <20 [facility] ([facility]) Unit: ng/mL Cutoff: 20 ng/mL Lorazepam,Urine <20 [facility] ([facility]) Unit: ng/mL Cutoff: 20 ng/mL Alprazolam,Urine 681 [facility] ([facility] Unit: ng/mL Consistent with use of a drug containing alprazolam, such as Xanax. Cutoff: 5 ng/mL Alpha Oh Alprazolam 258 [facility] ([facility]) Unit: ng/mL Alprazolam metabolite; consistent with use of a drug containing alprazolam, such as Xanax. Cutoff: 5 ng/mL Clonazepam,Urine 83 [facility] ([facility]) Unit: ng/mL Consistent with use of a drug containing clonazepam, such as Klonopin. Cutoff: 5 ng/mL 7 Aminoclonazepam U >1000 [facility] ([facility]) Unit: ng/mL Clonazepam metabolite; consistent with use of a drug containing clonazepam, such as Klonopin. Cutoff: 5 ng/mL Midazolam,Urine <20 [facility] ([facility]) Unit: ng/mL Cutoff: 20 ng/mL Chlordiazepoxide <20 [facility] ([facility]) Unit: ng/mL Cutoff: 20 ng/mL Alpha Oh Midazolam <20 [facility] ([facility]) Unit: ng/mL Cutoff: 20 ng/mL [...] laboratory. Test developed and characteristics determined by [employer]. See Compliance Statement B: [employer]/CS Performed by [facility], [address] [place] [id number] www.[employer], Vish Singh MD, Lab. Director Unless otherwise specified, testing performed by [facility] [employer] [address] [place] [address] ID Date Data Source [id number] 2019 09:11:00 AM EST [facility] ([facility]) Name Value Range Interpretation Code Description Data Harika rce(s) Supporting Document(s) Amphetamines,Urine NEGATIVE [facility] ([facility]) TEST FOR BUPRENORPHINE Barbiturates,Urine NEGATIVE [facility] ([facility]) TEST FOR BUPRENORPHINE Benzodiazepines, Urine POSITIVE Abnormal (applies to non -numeric results) [facility] ([facility]) TEST FOR BUPRENORPHINE Bupernorphrine/Norbu,Urine POSITIVE Abnormal (appl ies to non-numeric results) [facility] ([facility]) TEST FOR BUPRENORPHINE Methadone,Urine NEGATIVE [facility] ([facility]) TEST FOR BUPRENORPHINE Cocaine Metabolites,Urine NEGATIVE MEDE NT ([facility]) TEST FOR BUPRENORPHINE Opiates,Urine NEGATIVE [facility] ([facility]) TEST FOR BUPRENORPHINE Oxycodone,Urine NEGATIVE [facility] ([facility]) TEST FOR BUPRENORPHINE Phencyclidine,Urine NEGATIVE [facility] ([facility]) TEST FOR BUPRENORPHINE ID Date Data Source [id number] 06/21/2019 03:47:16 PM EST [facility] Name Value Range Interpretation Code Description Data Harika rce(s) Supporting Document(s) DIAZEPAM,URINE <20 [facility] Unit: ng/mL Cutoff: 20 ng/mL NORDIAZEPAM,URINE <20 [facility] Unit: ng/mL Cutoff: 20 ng/mL OXAZEPAM,URINE <20 [facility] Unit: ng/mL Cutoff: 20 ng/mL TEMAZEPAM,URINE <20 [facility] Unit: ng/mL Cutoff: 20 ng/mL LORAZEPAM,URINE <20 [facility] Unit: ng/mL Cutoff: 20 ng/mL ALPRAZOLAM,URINE 681 [facility] Unit: ng/mL Consistent with use of a celia g containing alprazolam, such as Xanax. Cutoff: 5 ng/mL ALPHA OH ALPRAZOLAM 258 [facility] Unit: ng/mL Alprazolam metabolite; consi stent with use of a drug containing alprazolam, such as Xanax. Cutoff: 5 ng/mL CLONAZEPAM,URINE 83 [facility] Unit: ng/mL Consistent with use of a celia g containing clonazepam, such as Klonopin. Cutoff: 5 ng/mL 7 AMINOCLONAZEPAM U >1000 [facility] Unit: ng/mL Clonazepam metabolite; consi stent with use of a drug containing clonazepam, such as Klonopin. Cutoff: 5 ng/mL MIDAZOLAM,URINE <20 [facility] Unit: ng/mL Cutoff: 20 ng/mL CHLORDIAZEPOXIDE <20 [facility] Unit: ng/mL Cutoff: 20 ng/mL ALPHA OH MIDAZOLAM <20 [facility] Unit: ng/mL Cutoff: 20 ng/mL INTERPRETIV E [...] laboratory. Test developed and characteristics determined by [employer]. See Compliance Statement B: [employer] Performed by [facility], [address] [place] [id number] www.[employer], Vish Singh MD, Lab. Director ID Date Data Source [id number] 06/21/2019 04:29:14 PM EST [facility] Name Value Range Interpretation Code Description Data Harika rce(s) Supporting Document(s) BUPRENORPHINE UR 6 ng/mL [facility] INTERPRETIVE INFORMATION: Buprenorphine and Metabolites, Urine, Quantitative [...] laboratory. Test developed and characteristics determined by [employer]. See Compliance Statement B: [employer]/CS NORBUPRENORPHINE UR 674 ng/mL [facility] BUPRENORPHINE GLUCU 480 [facility] Unit: ng/mL Consistent with use of a bup renorphine-containing drug. Glucuronide concentrations are semi-quantitative. NORBUPR GLUCURONIDE >1000 [facility] Unit: ng/mL NALOXONE,URINE <100 ng/mL Laboratory [facility] Performed by [facility], [address] [place] [address] [place] [address] www.[employer], Vish Singh MD, Lab. Director Procedure Social History Code Duration Value Status Description Data Source(s ) Smoking 06/21/2020 12:00:00 AM EST Current Smoker completed Curre nt Smoker eCW1 ([facility]) Smoking 06/21/2020 12:00:00 AM EST Current Smoker completed Curre nt Smoker eCW1 ([facility]) Smoking 04/22/2020 12:00:00 AM EST Current Smoker completed Curre nt Smoker eCW1 ([facility]) Smoking 04/22/2020 12:00:00 AM EST Current Smoker completed Curre nt Smoker eCW1 ([facility]) Smoking 04/22/2020 12:00:00 AM EST Current Smoker completed Curre nt Smoker eCW1 ([facility]) Smoking 04/22/2020 12:00:00 AM EST Current Smoker completed Curre nt Smoker eCW1 ([facility]) Smoking 04/22/2020 12:00:00 AM EST Current Smoker completed Curre nt Smoker eCW1 ([facility]) Smoking 04/22/2020 12:00:00 AM EST Current Smoker completed Curre nt Smoker eCW1 ([facility]) Smoking 04/22/2020 12:00:00 AM EST Current Smoker completed Curre nt Smoker eCW1 ([facility]) Smoking 04/22/2020 12:00:00 AM EST Current Smoker completed Curre nt Smoker eCW1 ([facility]) Smoking 03/09/2020 12:00:00 AM EDT Current Smoker completed Curre nt Smoker eCW1 ([facility]) Smoking 03/09/2020 12:00:00 AM EDT Current Smoker completed Curre nt Smoker eCW1 ([facility]) Smoking 03/09/2020 12:00:00 AM EDT Current Smoker completed Curre nt Smoker eCW1 ([facility]) Smoking 03/09/2020 12:00:00 AM EDT Current Smoker completed Curre nt Smoker eCW1 ([facility]) Smoking 03/09/2020 12:00:00 AM EDT Current Smoker completed Curre nt Smoker eCW1 ([facility]) Smoking 03/09/2020 12:00:00 AM EDT Current Smoker completed Curre nt Smoker eCW1 ([facility]) Smoking 03/09/2020 12:00:00 AM EDT Current Smoker completed Curre nt Smoker eCW1 ([facility]) Smoking 03/09/2020 12:00:00 AM EDT Current Smoker completed Curre nt Smoker eCW1 ([facility]) Smoking 03/09/2020 12:00:00 AM EDT Current Smoker completed Curre nt Smoker eCW1 ([facility]) Smoking 10/14/2019 12:00:00 AM EDT Current Smoker completed Curre nt Smoker eCW1 ([facility]) Smoking 10/14/2019 12:00:00 AM EDT Current Smoker completed Curre nt Smoker eCW1 ([facility]) Smoking 07/23/2019 12:00:00 AM EST Current every day smoker co mpleted Current every day smoker [facility] ([facility]) Vital Signs ID Date Data Source UNK Name Value Range Interpretation Code Description Data Source(s) Body temperature 97.6 [degF] 97.6 [degF] [facility] ([facility] ) Oxygen saturation in Arterial blood by Pulse oximetry 98 % 98 % eCW1 ([facility]) Respiratory rate 18 /min 18 /min eCW1 ([facility]) Heart rate 69 /min 69 /min eCW1 ([facility]) Body temperature 98.6 [degF] 98.6 [degF] eCW1 ( [facility]) Body mass index (BMI) [Ratio] 24.74 kg/m2 24.74 kg/m2 eCW1 ([facility]) Body weight 158.0 [lb_av] 158.0 [lb_av] eCW1 ([facility]) Body height 67 [in_i] 67 [in_i] eCW1 ([facility]) Body mass index (BMI) [Ratio] 21.9 kg/m2 21.9 k g/m2 MEDENT ([facility] ) Body weight 140.00 [lb_av] 140.00 [lb_av] MEDEN T ([facility] ) Body height 67 [in_i] 67 [in_i] MEDENT ([facility] ) 5'7" Body temperature 96.6 [degF] 96.6 [degF] MEDENT ([facility]) Oxygen saturation in Arterial blood by Pulse oximetry 98 % 98 % eCW1 ([facility]) Respiratory rate 18 /min 18 /min eCW1 ([facility]) Heart rate 82 /min 82 /min eCW1 ([facility]) Body temperature 98.2 [degF] 98.2 [degF] eCW1 ( [facility]) Body height 67 [in_i] 67 [in_i] eCW1 ([facility]) Body weight 152.00 [lb_av] 152.00 [lb_av] MEDEN T ([facility]) Body temperature 97.2 [degF] 97.2 [degF] MEDENT ([facility]) Respiratory rate 18 /min 18 /min MEDENT ( [facility]) Heart rate 68 /min 68 /min [facility] ([facility]) Diastolic blood pressure 77 mm[Hg] 77 [facility]Hg[facility] Systolic blood pressure 118 mm[Hg] 118 mm[Hg] M EDENT ([facility]) Oxygen saturation in Arterial blood by Pulse oximetry 97 % 97 % eCW1 ([facility]) Respiratory rate 18 /min 18 /min eCW1 ([facility]) Heart rate 95 /min 95 /min eCW1 ([facility]) Body temperature 98.0 [degF] 98.0 [degF] eCW1 ( [facility]) Body mass index (BMI) [Ratio] 23.74 kg/m2 23.74 kg/m2 eCW1 ([facility]) Body weight 151.6 [lb_av] 151.6 [lb_av] eCW1 ([facility]) Body height 67 [in_i] 67 [in_i] eCW1 ([facility]) Deprecated Oxygen saturation in Capillary blood by Oximetry 96 % 96 % eCW1 ([facility]) Respiratory rate 18 /min 18 /min eCW1 ([facility]) Heart rate 80 /min 80 /min eCW1 ([facility] [place]) Body temperature 98.5 [degF] 98.5 [degF] eCW1 ( [facility]) Body mass index (BMI) [Ratio] 29.22 kg/m2 29.22 kg/m2 eCW1 ([facility]) Body weight Measured 186.6 [lb_av] 186.6 [lb_av ] eCW1 ([facility]) Body height 67 [in_us] 67 [in_us] eCW1 ([facility]) Body mass index (BMI) [Ratio] 28.9 kg/m2 28.9 k g/m2 MEDENT ([facility]) [place] body weight 135 [lb_av] 135 [lb_av] MEDEN [...] k g/m2 MEDENT ([facility]) [place] body weight 135 [lb_av] 135 [lb_av] MEDEN [...] Oral Tablet 06/21/2020 12:00:00 AM EST eCW1 ([facility]) gabapentin 600 MG Oral Tablet 06/21/2020 12:00:00 AM EST eCW1 ([facility]) Baclofen 10 MG Oral Tablet 03/09/2020 12:00:00 AM EDT eCW1 ([facility]) Baclofen 10 MG Oral Tablet 03/09/2020 12:00:00 AM EDT eCW1 ([facility]) Baclofen 10 MG Oral Tablet 03/09/2020 12:00:00 AM EDT eCW1 ([facility]) Baclofen 10 MG Oral Tablet 03/09/2020 12:00:00 AM EDT eCW1 ([facility]) Baclofen 10 MG Oral Tablet 03/09/2020 12:00:00 AM EDT eCW1 ([facility]) Baclofen 10 MG Oral Tablet 03/09/2020 12:00:00 AM EDT eCW1 ([facility]) Nicotine 4 MG Chewing Gum [Nicorette] 09/03/2019 12:00:00 AM EDT eCW1 ([facility]) Hydroxyzine Hydrochloride 25 MG Oral Tablet 08/28/2019 12:00:00 AM EDT eCW1 ([facility]) Hydroxyzine Hydrochloride 25 MG Oral Tablet 08/28/2019 12:00:00 AM EDT eCW1 ([facility]) Hydroxyzine Hydrochloride 25 MG Oral Tablet 08/28/2019 12:00:00 AM EDT eCW1 ([facility]) Hydroxyzine Hydrochloride 25 MG Oral Tablet 08/28/2019 12:00:00 AM EDT eCW1 ([facility]) Hydroxyzine Hydrochloride 25 MG Oral Tablet 08/28/2019 12:00:00 AM EDT eCW1 ([facility]) Hydroxyzine Hydrochloride 25 MG Oral Tablet 08/28/2019 12:00:00 AM EDT eCW1 ([facility]) Hydroxyzine Hydrochloride 25 MG Oral Tablet 08/28/2019 12:00:00 AM EDT eCW1 ([facility]) Hydroxyzine Hydrochloride 25 MG Oral Tablet 08/28/2019 12:00:00 AM EDT eCW1 ([facility]) Hydroxyzine Hydrochloride 25 MG Oral Tablet 08/28/2019 12:00:00 AM EDT eCW1 ([facility]) gabapentin 800 MG Oral Tablet [Neurontin] 08/26/2019 12:00:00 AM ED T eCW1 ([facility]) gabapentin 800 MG Oral Tablet [Neurontin] 08/26/2019 12:00:00 AM ED T eCW1 ([facility]) gabapentin 800 MG Oral Tablet [Neurontin] 08/26/2019 12:00:00 AM ED T eCW1 ([facility]) gabapentin 800 MG Oral Tablet [Neurontin] 08/26/2019 12:00:00 AM ED T eCW1 ([facility]) gabapentin 800 MG Oral Tablet [Neurontin] 08/26/2019 12:00:00 AM ED T eCW1 ([facility]) gabapentin 800 MG Oral Tablet [Neurontin] 08/26/2019 12:00:00 AM ED T eCW1 ([facility]) gabapentin 800 MG Oral Tablet [Neurontin] 08/26/2019 12:00:00 AM ED T eCW1 ([facility]) Fluoxetine 20 MG Oral Capsule 07/25/2019 12:00:00 AM EST eCW1 ([facility])
[2020-08-03] MEDS: LORazepam 2 MG TAB PO PRN (20:22)
[2020-08-03] MEDS: OLANZapine 5 MG TAB PO PRN (21:51)
[2020-08-03 22:09] VITALS: BP 116/59
[2020-08-03] MEDS: diphenhydrAMINE 50MG CAP PO PRN (23:00)
[2020-08-04] MEDS: LORazepam 2 MG TAB PO PRN ×4 (01:32→22:35)
[2020-08-04] MEDS: traZODone 50 MG TAB PO PRN ×2 (01:55→20:18)
[2020-08-04] MEDS ORDERED: BUPRENORPHINE/NALOXONE 8-2MG SUBLINGUAL TABLET(SUBOXONE) SL SCH (09:00)
[2020-08-04] MEDS: hydrOXYzine 25 MG TAB PO SCH ×3 (10:40→20:18)
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
[2020-08-04] MEDS: BUPRENORPHINE/NALOXONE 8-2MG SUBLINGUAL TABLET(SUBOXONE) SL SCH (12:31)
[2020-08-04] MEDS: OLANZapine 5 MG TAB PO PRN (13:48)
[2020-08-04] MEDS ORDERED: OLANZapine ORAL DISINTEGRATING TAB 5MG PO ONE (15:25)
[2020-08-04] MEDS: diphenhydrAMINE 50MG CAP PO PRN ×2 (15:29→22:35)
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
[2020-08-04] MEDS ORDERED: OLANZapine 5 MG TAB PO SCH (21:00)
[2020-08-05] MEDS: BUPRENORPHINE/NALOXONE 8-2MG SUBLINGUAL TABLET(SUBOXONE) SL SCH (09:00)
[2020-08-05] MEDS: hydrOXYzine 25 MG TAB PO SCH ×3 (09:00→20:19)
--- NOTE | 2020-08-05 13:58 | MHIPNPDOC ---
[facility] Progress Note Progress Note DATE OF SERVICE: 08/05/20 HISTORY: 50-year-old female with long history of drug use admitted in a psychotic state. VITAL SIGNS: See below. NEW TEST RESULTS: Toxicology negative. CURRENT MEDICATIONS: See below. MENTAL STATUS EXAMINATION: Patient is a 50-year old female, who is still psychotic tearful and labile. Speech: Is garbled. Language skills are, intact. Thought processes including:, Loose in denial. Thought content: Wanting to go home and unable to explain what happened. Abstract reasoning, and computation: Poor Description of associations: Loose. Description of abnormal or psychotic thoughts:, Poor insight, was responding to internal stimuli yesterday. Judgment: Poor. Insight: Poor. Orientation: 3. Recent and remote memory: Disturbed. Recent memory. Attention span and concentration: Poor. Language: Intact. Fund of knowledge: Limited. Mood: Labile. Affect:, Congruent. DIAGNOSES: 1. Atypical psychosis. 2.. History of drug abuse. 3. None. ASSESSMENT:. Patient still psychotic with little insight and understanding, and extremely labile MANAGEMENT PLAN:. Continue to increase Zyprexa. TIME SPENT: 35 minutes. Vital Signs Vital Signs Date Time Temp Pulse Resp B/P (MAP) Pulse Ox O2 Delivery O2 Flow Rate FiO2 08/03/20 22:09 97.7 84 20 116/59 (78) 96 Room Air Current Medications Current Medications Medications (Trade) Dose Ordered Sig/Romel Route PRN Reason Start Time Stop Time Status Last Admin Dose Admin Acetaminophen (Tylenol Tab) 650 mg Q6HP PRN PO HEADACHE or DISCOMFORT 08/03/20 15:15 Al Hydrox/Mg Hydrox/Simethicone (Mylanta) 30 ml Q4HP PRN PO HEARTBURN/INDIGESTION 08/03/20 15:15 Buprenorphine/ Naloxone (Suboxone 8/2mg) 1 tab DAILY SL 08/04/20 09:00 08/04/20 12:31 Buprenorphine/ Naloxone (Suboxone 8/2mg) 3 tab DAILY SL 08/04/20 09:00 Cancel Diphenhydramine HCl (Benadryl) 50 mg Q4HP PRN PO agitation 08/03/20 15:15 08/04/20 22:35 Home Med (Med Rec Complete!) ASDIRECTED XX 08/03/20 15:30 08/03/20 15:34 DC Hydroxyzine HCl (Atarax) 25 mg TID PO 08/04/20 11:00 08/04/20 20:18 Lorazepam (Ativan) 2 mg Q4HP PRN PO agitation 08/03/20 15:15 08/04/20 22:35 Lorazepam (Ativan) 2 mg STAT STAT PO 08/03/20 14:41 08/04/20 10:34 DC 08/03/20 14:48 Magnesium Hydroxide (Milk Of Magnesia) 30 ml DAILYPRN PRN PO CONSTIPATION 08/03/20 15:15 Olanzapine (ZyPREXA) 5 mg Q4HP PRN PO agitation 08/03/20 15:15 08/04/20 13:48 Olanzapine (ZyPREXA) 5 mg QHS PO 08/04/20 21:00 08/05/20 13:25 DC 08/04/20 20:18 Olanzapine (ZyPREXA) 10 mg QHS PO 08/05/20 21:00 Trazodone HCl (Desyrel) 50 mg QHSP PRN PO INSOMNIA 08/03/20 15:15 08/04/20 20:18 Allergies Coded Allergies: tramadol (Verified Allergy, Mild, RASH, 07/14/19) YARELY SALAZAR MD Aug 05, 2020 13:58
[2020-08-05] MEDS ORDERED: NICOTINE POLACRILEX 2 MG GUM PO PRN (14:00)
[2020-08-05] MEDS: OLANZapine 5 MG TAB PO PRN (16:58)
[2020-08-05] MEDS: diphenhydrAMINE 50MG CAP PO PRN (16:58)
[2020-08-05 19:04] VITALS: BP 139/76
[2020-08-05] MEDS: NICOTINE POLACRILEX 2 MG GUM PO PRN (20:18)
[2020-08-05] MEDS: LORazepam 2 MG TAB PO PRN (20:19)
[2020-08-05] MEDS: OLANZapine 5 MG TAB PO SCH (20:19)
[2020-08-06 05:57] VITALS: BP 134/72
[2020-08-06] MEDS: BUPRENORPHINE/NALOXONE 8-2MG SUBLINGUAL TABLET(SUBOXONE) SL SCH (09:07)
[2020-08-06] MEDS: hydrOXYzine 25 MG TAB PO SCH ×3 (09:07→21:25)
[2020-08-06] MEDS: NICOTINE POLACRILEX 2 MG GUM PO PRN ×2 (09:09→14:19)
[2020-08-06 17:24] VITALS: BP 143/79
[2020-08-06] MEDS: traZODone 50 MG TAB PO PRN (21:25)
[2020-08-06] MEDS: OLANZapine 5 MG TAB PO SCH (21:25)
[2020-08-07 06:00] VITALS: BP 140/69
[2020-08-07] MEDS: hydrOXYzine 25 MG TAB PO SCH ×3 (09:27→22:06)
[2020-08-07] MEDS: BUPRENORPHINE/NALOXONE 8-2MG SUBLINGUAL TABLET(SUBOXONE) SL SCH (09:28)
[2020-08-07] MEDS: NICOTINE POLACRILEX 2 MG GUM PO PRN ×3 (09:45→18:39)
--- NOTE | 2020-08-07 14:21 | MHIPNPDOC ---
[facility] Progress Note Progress Note DATE OF SERVICE: 08/06/20 HISTORY: 50-year-old female admitted with psychotic thought, hallucinations, disorganization, hallucinations, which were visual and auditory. VITAL SIGNS: See below. NEW TEST RESULTS: None. CURRENT MEDICATIONS: See below. MENTAL STATUS EXAMINATION: Patient is a 50-year old female, who is, mildly improving after disruptive, disorganized thought and behavior. Speech: Is rapid. Slurring Language skills are intact. Thought processes including: Yelling, responding to internal stimuli. Thought content: Frightened. Abstract reasoning, and computation: Unable to abstract. Description of associations: Loose associations. Description of abnormal or psychotic thoughts: As above. Judgment:, Poor. Insight:, Poor. Orientation: 3. Recent and remote memory: Cannot be measured. Attention span and concentration: Poor. Language:, Disorganized. Fund of knowledge: Full. Mood: Fearful. Affect:, Labile. DIAGNOSES: 1. Brief psychotic episode. 2., Rule out drug use. 3. None. ASSESSMENT: 50-year-old female with acute psychotic episode MANAGEMENT PLAN:. Continue neuroleptic medications. TIME SPENT: 30 minutes. Vital Signs Vital Signs Date Time Temp Pulse Resp B/P (MAP) Pulse Ox O2 Delivery O2 Flow Rate FiO2 08/07/20 06:00 98.9 62 16 140/69 (92) 97 Room Air Current Medications Current Medications Medications (Trade) Dose Ordered Sig/Romel Route PRN Reason Start Time Stop Time Status Last Admin Dose Admin Acetaminophen (Tylenol Tab) 650 mg Q6HP PRN PO HEADACHE or DISCOMFORT 08/03/20 15:15 Al Hydrox/Mg Hydrox/Simethicone (Mylanta) 30 ml Q4HP PRN PO HEARTBURN/INDIGESTION 08/03/20 15:15 Buprenorphine/ Naloxone (Suboxone 8/2mg) 1 tab DAILY SL 08/04/20 09:00 08/07/20 09:28 Buprenorphine/ Naloxone (Suboxone 8/2mg) 3 tab DAILY SL 08/04/20 09:00 Cancel Diphenhydramine HCl (Benadryl) 50 mg Q4HP PRN PO agitation 08/03/20 15:15 08/05/20 16:58 Home Med (Med Rec Complete!) ASDIRECTED XX 08/03/20 15:30 08/03/20 15:34 DC Hydroxyzine HCl (Atarax) 25 mg TID PO 08/04/20 11:00 08/07/20 09:27 Lorazepam (Ativan) 2 mg Q4HP PRN PO agitation 08/03/20 15:15 08/05/20 20:19 Lorazepam (Ativan) 2 mg STAT STAT PO 08/03/20 14:41 08/04/20 10:34 DC 08/03/20 14:48 Magnesium Hydroxide (Milk Of Magnesia) 30 ml DAILYPRN PRN PO CONSTIPATION 08/03/20 15:15 Nicotine (Nicorette) 2 mg Q4HP PRN PO NICOTINE WITHDRAWAL 08/05/20 17:55 08/07/20 13:46 Nicotine (Nicorette) 4 mg Q4HP PRN PO NICOTINE WITHDRAWAL 08/05/20 14:00 08/05/20 17:54 DC 08/05/20 14:10 Olanzapine (ZyPREXA) 5 mg Q4HP PRN PO agitation 08/03/20 15:15 08/05/20 16:58 Olanzapine (ZyPREXA) 5 mg QHS PO 08/04/20 21:00 08/05/20 13:25 DC 08/04/20 20:18 Olanzapine (ZyPREXA) 10 mg QHS PO 08/05/20 21:00 08/06/20 21:25 Trazodone HCl (Desyrel) 50 mg QHSP PRN PO INSOMNIA 08/03/20 15:15 08/06/20 21:25 Allergies Coded Allergies: tramadol (Verified Allergy, Mild, RASH, 07/14/19) YARELY SALAZAR MD Aug 07, 2020 14:20
--- NOTE | 2020-08-07 14:24 | MHIPNPDOC ---
[facility] Progress Note Progress Note DATE OF SERVICE: 08/07/20 HISTORY: 50-year-old female with acute psychotic episode, significantly improved today. VITAL SIGNS: See below. NEW TEST RESULTS: None. CURRENT MEDICATIONS: See below. MENTAL STATUS EXAMINATION: Patient is a 50-year old female, who is. No longer demonstrating psychotic thought or speech. Speech: Is normal. Language skills are intact. Thought processes including: Focused on discharge. Thought content:, As above. Abstract reasoning, and computation: Able to abstract. Description of associations:. No loose associations. Description of abnormal or psychotic thoughts:. No abnormal or psychotic thought today. Judgment:. Improved. Insight:. Fair. Orientation: 3. Recent and remote memory: Intact. Attention span and concentration: Adequate. Language: No difficulty. Fund of knowledge:. Full Mood: Euthymic. Affect: And brighter. DIAGNOSES: 1. Brief psychotic episode. 2. Suboxone maintenance. 3., None. ASSESSMENT:. Patient denies acute drug use but had brief psychotic episode that has responded to medication MANAGEMENT PLAN:. Continue medication begin to assess for discharge. TIME SPENT: minutes. Vital Signs Vital Signs Date Time Temp Pulse Resp B/P (MAP) Pulse Ox O2 Delivery O2 Flow Rate FiO2 08/07/20 06:00 98.9 62 16 140/69 (92) 97 Room Air Current Medications Current Medications Medications (Trade) Dose Ordered Sig/Romel Route PRN Reason Start Time Stop Time Status Last Admin Dose Admin Acetaminophen (Tylenol Tab) 650 mg Q6HP PRN PO HEADACHE or DISCOMFORT 08/03/20 15:15 Al Hydrox/Mg Hydrox/Simethicone (Mylanta) 30 ml Q4HP PRN PO HEARTBURN/INDIGESTION 08/03/20 15:15 Buprenorphine/ Naloxone (Suboxone 8/2mg) 1 tab DAILY SL 08/04/20 09:00 08/07/20 09:28 Buprenorphine/ Naloxone (Suboxone 8/2mg) 3 tab DAILY SL 08/04/20 09:00 Cancel Diphenhydramine HCl (Benadryl) 50 mg Q4HP PRN PO agitation 08/03/20 15:15 08/05/20 16:58 Home Med (Med Rec Complete!) ASDIRECTED XX 08/03/20 15:30 08/03/20 15:34 DC Hydroxyzine HCl (Atarax) 25 mg TID PO 2/24/21 11:00 08/07/20 09:27 Lorazepam (Ativan) 2 mg Q4HP PRN PO agitation 08/03/20 15:15 08/05/20 20:19 Lorazepam (Ativan) 2 mg STAT STAT PO 08/03/20 14:41 08/04/20 10:34 DC 08/03/20 14:48 Magnesium Hydroxide (Milk Of Magnesia) 30 ml DAILYPRN PRN PO CONSTIPATION 08/03/20 15:15 Nicotine (Nicorette) 2 mg Q4HP PRN PO NICOTINE WITHDRAWAL 08/05/20 17:55 08/07/20 13:46 Nicotine (Nicorette) 4 mg Q4HP PRN PO NICOTINE WITHDRAWAL 08/05/20 14:00 08/05/20 17:54 DC 08/05/20 14:10 Olanzapine (ZyPREXA) 5 mg Q4HP PRN PO agitation 08/03/20 15:15 08/05/20 16:58 Olanzapine (ZyPREXA) 5 mg QHS PO 08/04/20 21:00 08/05/20 13:25 DC 08/04/20 20:18 Olanzapine (ZyPREXA) 10 mg QHS PO 08/05/20 21:00 08/06/20 21:25 Trazodone HCl (Desyrel) 50 mg QHSP PRN PO INSOMNIA 08/03/20 15:15 08/06/20 21:25 Allergies Coded Allergies: tramadol (Verified Allergy, Mild, RASH, 07/14/19) YARELY SALAZAR MD Aug 07, 2020 14:24
[2020-08-07 16:40] VITALS: BP 116/71
[2020-08-07] MEDS: OLANZapine 5 MG TAB PO SCH (22:06)
[2020-08-08 05:56] VITALS: BP 135/66
[2020-08-08] MEDS: hydrOXYzine 25 MG TAB PO SCH ×3 (08:29→21:45)
--- NOTE | 2020-08-08 08:46 | MHIPNPDOC ---
[facility] Progress Note Progress Note DATE OF SERVICE: 08/08/20 HISTORY: 50-year-old female who experienced acute psychotic episode. VITAL SIGNS: See below. NEW TEST RESULTS: None. CURRENT MEDICATIONS: See below. MENTAL STATUS EXAMINATION: Patient is a 50-year old female, who is, continuing to deny drug use which led to psychotic episode. Speech: Is. Normal. Language skills are intact. Thought processes including:. No gross abnormalities. Thought content: As above. Abstract reasoning, and computation:. Able to abstract. Description of associations:. No loose associations. Description of abnormal or psychotic thoughts:. No abnormal or psychotic thought. At this time. Judgment: Improving. Insight: Limited. Orientation: 3. Recent and remote memory: Intact. Attention span and concentration: Intact. Language:. No abnormalities. Fund of knowledge: Reasonable. Mood: Good. Affect: bright. DIAGNOSES: 1. Acute psychotic episode. 2. None. 3. None. ASSESSMENT: As above MANAGEMENT PLAN:, Patient is improved and discharge planning will ensue. TIME SPENT: 30 minutes. Vital Signs Vital Signs Date Time Temp Pulse Resp B/P (MAP) Pulse Ox O2 Delivery O2 Flow Rate FiO2 08/08/20 05:56 96.8 64 16 135/66 (89) 98 Room Air Current Medications Current Medications Medications (Trade) Dose Ordered Sig/Romel Route PRN Reason Start Time Stop Time Status Last Admin Dose Admin Acetaminophen (Tylenol Tab) 650 mg Q6HP PRN PO HEADACHE or DISCOMFORT 08/03/20 15:15 Al Hydrox/Mg Hydrox/Simethicone (Mylanta) 30 ml Q4HP PRN PO HEARTBURN/INDIGESTION 08/03/20 15:15 Buprenorphine/ Naloxone (Suboxone 8/2mg) 1 tab DAILY SL 08/04/20 09:00 08/07/20 09:28 Buprenorphine/ Naloxone (Suboxone 8/2mg) 3 tab DAILY SL 08/04/20 09:00 Cancel Diphenhydramine HCl (Benadryl) 50 mg Q4HP PRN PO agitation 08/03/20 15:15 08/05/20 16:58 Home Med (Med Rec Complete!) ASDIRECTED XX 08/03/20 15:30 08/03/20 15:34 DC Hydroxyzine HCl (Atarax) 25 mg TID PO 08/04/20 11:00 08/08/20 08:29 Lorazepam (Ativan) 2 mg Q4HP PRN PO agitation 08/03/20 15:15 08/05/20 20:19 Lorazepam (Ativan) 2 mg STAT STAT PO 08/03/20 14:41 08/04/20 10:34 DC 08/03/20 14:48 Magnesium Hydroxide (Milk Of Magnesia) 30 ml DAILYPRN PRN PO CONSTIPATION 08/03/20 15:15 Nicotine (Nicorette) 2 mg Q4HP PRN PO NICOTINE WITHDRAWAL 08/05/20 17:55 08/07/20 18:39 Nicotine (Nicorette) 4 mg Q4HP PRN PO NICOTINE WITHDRAWAL 08/05/20 14:00 08/05/20 17:54 DC 08/05/20 14:10 Olanzapine (ZyPREXA) 5 mg Q4HP PRN PO agitation 08/03/20 15:15 08/05/20 16:58 Olanzapine (ZyPREXA) 5 mg QHS PO 08/04/20 21:00 08/05/20 13:25 DC 08/04/20 20:18 Olanzapine (ZyPREXA) 10 mg QHS PO 08/05/20 21:00 08/07/20 22:06 Trazodone HCl (Desyrel) 50 mg QHSP PRN PO INSOMNIA 08/03/20 15:15 08/06/20 21:25 Allergies Coded Allergies: tramadol (Verified Allergy, Mild, RASH, 07/14/19) YARELY SALAZAR MD Aug 08, 2020 08:46
[2020-08-08] MEDS: BUPRENORPHINE/NALOXONE 8-2MG SUBLINGUAL TABLET(SUBOXONE) SL SCH (09:49)
[2020-08-08] MEDS: NICOTINE POLACRILEX 2 MG GUM PO PRN (15:41)
[2020-08-08 18:33] VITALS: BP 131/75
[2020-08-08] MEDS: OLANZapine 5 MG TAB PO SCH (21:45)
[2020-08-09 06:42] VITALS: BP 140/74
[2020-08-09] MEDS ORDERED: TRAZ-252 PO (08:03)
[2020-08-09] MEDS ORDERED: HYDR-3363 PO (08:03)
[2020-08-09] MEDS ORDERED: OLAN5TAB PO (08:03)
[2020-08-09] MEDS: hydrOXYzine 25 MG TAB PO SCH (09:17)
[2020-08-09] MEDS: BUPRENORPHINE/NALOXONE 8-2MG SUBLINGUAL TABLET(SUBOXONE) SL SCH (09:28)
[2020-08-09] MEDS: NICOTINE POLACRILEX 2 MG GUM PO PRN (09:48)
--- NOTE | 2020-08-09 16:33 | MHDSPDOC ---
[facility] Discharge Summary Discharge Summary DATE OF ADMISSION: Aug 03, 2020 at 15:13 DATE OF DISCHARGE: Aug 09, 2020 at 10:45 DISCHARGE DIAGNOSES: 1. Acute psychotic episode, possibly related to drug use. 2., Opiate addiction treated with Suboxone. REASON FOR ADMISSION:, Psychotic, disorganized, paranoid, agitated CONSULTANTS INVOLVED:, None TREATMENT AND PROGRESS ON THE UNIT :. Patient cleared a small dose of Zyprexa was used. Patient stopped hallucinating and stopped being agitated HOSPITAL COURSE: Psychosis resolved DISCHARGE ASSESSMENT:. The patient denied most likely her presentation was due to drug use. Not picked up on the tox screen MENTAL STATUS EXAMINATION ON DISCHARGE: Patient is a -year old female, who is . Speech is . Language skills are . Thought processes including: . Thought content: . Abstract reasoning, and computation: . Description of associations: . Description of abnormal or psychotic thoughts: . Judgment: . Insight: . Orientation to . Recent and remote memory: . Attention span and concentration: . Language: . Fund of knowledge: . Mood: . Affect: . MEDICATIONS ON DISCHARGE: - for . - for . - for . PLAN/FOLLOWUP ARRANGEMENTS: . The amount of time spent in the coordination of care for this patient was approximately minutes. Vital Signs/I&Os Vital Signs Date Time Temp Pulse Resp B/P (MAP) Pulse Ox O2 Delivery O2 Flow Rate FiO2 08/09/20 06:42 98.4 61 16 140/74 (96) 98 Room Air Laboratory Data Microbiology Microbiology 08/03/20 Respiratory Virus Panel (PCR) ([facility]) - Final, Complete Medications Scheduled Hydroxyzine HCl (Hydroxyzine HCl) 25 Mg Tablet, 25 MG PO TID for anxiety, #30 Olanzapine (Olanzapine) 5 Mg Tablet, 10 MG PO QHS for Psychotic thought, #10 Scheduled PRN Trazodone HCl (Trazodone HCl) 50 Mg Tablet, 50 MG PO QHSP PRN for INSOMNIA, #10 Allergies Coded Allergies: tramadol (Verified Allergy, Mild, RASH, 07/14/19) YARELY SALAZAR MD Aug 09, 2020 16:33
== END 2020-08-09 10:45 | disposition home or self-care (01) | DRG 760 ==
LOC: M ED 08:24 → M ED INP 15:13 → M PSY 21:09
PROVIDERS: ADMIT Psychiatry & Neurology Child & Adolescent Psychiatry; ATTEND Psychiatry & Neurology Child & Adolescent Psychiatry
DX: F22 Delusional disorders (principal); G40.909 Epilepsy, unspecified, not intractable, without status epilepticus; F41.9 Anxiety disorder, unspecified; Z88.8 Allergy status to other drugs, medicaments and biological substances; J45.909 Unspecified asthma, uncomplicated; M54.5 Low back pain; L40.8 Other psoriasis

== ENCOUNTER 2021-02-20 19:35 | Inpatient (IN) | payer MEDICAID ==
[~2021-02-20] VITALS: Ht 167.6 cm; Wt 72.1 kg
[~2021-02-20 19:35] MED LIST changes: -CLIN150C15 PO; +CLIN150C17 PO; +GABA-283 PO; -GABA-845 PO; +OLAN1TAB16 PO
[2021-02-20] MEDS ORDERED: GABA800T4 (20:01)
--- NOTE | 2021-02-20 20:20 | ECGEPIP ---
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
[2021-02-20] MEDS ORDERED: NS 1,000 ML IV SCH (20:25)
[2021-02-20 20:30] LABS: BASO % 0.3 % (0.0-1.0); EOS # 0.4 10^3/uL (0.0-0.5); EOS % 3.8 % (0.0-3.0); HEMATOCRIT 40.2 % (36.0-47.0); HEMOGLOBIN 13.5 g/dl (12.0-15.5); LYMPH # 2.5 10^3/uL (1.5-5.0); LYMPH % 27.3 % (24.0-44.0); MEAN CORPUSCULAR HEMOGLOBIN 30.9 pg (27.0-33.0); MEAN CORPUSCULAR HGB CONC 33.6 g/dl (32.0-36.5); MONO # 0.7 10^3/uL (0.0-0.8); MONO % 7.4 % (2.0-8.0); NEUTROPHILS # 5.6 10^3/uL (1.5-8.5); NEUTROPHILS % 60.9 % (36.0-66.0); PLATELET COUNT, AUTOMATED 249 10^3/uL (150-450); RED BLOOD COUNT 4.37 10^6/uL (4.00-5.40); WHITE BLOOD COUNT 9.2 10^3/uL (4.0-10.0)
[2021-02-20] MEDS ORDERED: MULTIVITAMIN -ADULT INJECTION 10 ML, THIAMINE INJection 100 MG, FOLIC ACID 1 MG in NS 1... IV ONE (20:30)
[2021-02-20 21:07] LABS: ACETAMINOPHEN LEVEL < 2.0 UG/ML (10.0-30.0); ALBUMIN 3.8 GM/DL (3.2-5.2); ALT/SGPT 20 U/L (12-78); BILIRUBIN,DIRECT < 0.1 MG/DL (0.0-0.2); BILIRUBIN,TOTAL 0.2 MG/DL (0.2-1.0); BLOOD UREA NITROGEN 18 MG/DL (7-18); CALCIUM LEVEL 9.2 MG/DL (8.5-10.1); CARBON DIOXIDE LEVEL 28 MEQ/L (21-32); CHLORIDE LEVEL 104 MEQ/L (98-107); CK-MB VALUE MASS 2.6 NG/ML (<3.6); CPK CREATINE PHOSPHOKINASE 329 U/L (26-192); CREATININE FOR GFR 0.97 MG/DL (0.55-1.30); ETHYL ALCOHOL (ETHANOL) < 0.003 % (0.000-0.010); GLOMERULAR FILTRATION RATE > 60.0 (>51); GLUCOSE, FASTING 126 MG/DL (70-100); MB/CK RELATIVE INDEX 0.79 (< OR =4); POTASSIUM SERUM 3.9 MEQ/L (3.5-5.1); SALICYLATE LEVEL < 1.7 MG/DL (5.0-30.0); SODIUM LEVEL 140 MEQ/L (136-145); THYROID STIMULATING HORMONE 0.524 uIU/ML (0.358-3.740); TOTAL PROTEIN 7.9 GM/DL (6.4-8.2); TROPONIN I < 0.02 NG/ML (< 0.10)
--- NOTE | 2021-02-20 22:00 | REPVR ---
PROCEDURE INFORMATION: Exam: CT Head Without Contrast Exam date and time: 02/20/2021 8:38 PM Age: 50 years old Clinical indication: Pain; Headache; Additional info: Altered mental status TECHNIQUE: Imaging protocol: Computed tomography of the head without contrast. Radiation optimization: All CT scans at this facility use at least one of these dose optimization techniques: automated exposure control; mA and/or kV adjustment per patient size (includes targeted exams where dose is matched to clinical indication); or iterative reconstruction. COMPARISON: CT Head without contrast 09/24/2019 10:40 PM FINDINGS: Brain: No CT evidence of acute intracranial hemorrhage or acute territorial infarction. No significant mass effect or midline shift. Basal cisterns patent. Cerebral ventricles: Normal in size and configuration. Paranasal sinuses: Minimal ethmoid mucosal thickening. Mastoid air cells: Grossly unremarkable. Bones/joints: No acute osseous abnormality. Soft tissues: Grossly unremarkable. IMPRESSION: 1. No CT evidence of acute intracranial pathology. 2. Additional findings, as above. Electronically signed by: Lazaro Chance On 02/20/2021 22:00:00 PM
--- NOTE | 2021-02-20 22:06 | REPVR ---
PROCEDURE INFORMATION: Exam: XR Chest Exam date and time: 02/20/2021 8:56 PM Age: 50 years old Clinical indication: Other: Altered mental status TECHNIQUE: Imaging protocol: XR of the chest. Views: 1 view. COMPARISON: CR PORTABLE CHEST X-RAY 10/04/2019 3:48 PM FINDINGS: Lungs: Streaky opacities at the lung bases, likely secondary to atelectasis and/or scarring. No consolidation. Pleural spaces: Unremarkable. No pleural effusion. No pneumothorax. Heart/Mediastinum: Mild cardiomegaly. Bones/joints: Unremarkable. IMPRESSION: No acute radiographic findings. Electronically signed by: Lazaro Chance On 02/20/2021 22:06:02 PM
[2021-02-20 22:52] LABS: AMPHETAMINES LEVEL URINE NEGATIVE (NEGATIVE); BARBITURATES URINE NEGATIVE (NEGATIVE); BENZODIAZEPINES URINE POSITIVE (NEGATIVE); CANNABINOIDS URINE NEGATIVE (NEGATIVE); COCAINE METABOLITE URINE NEGATIVE (NEGATIVE); METHADONE URINE NEGATIVE (NEGATIVE); OPIATES URINE NEGATIVE (NEGATIVE); PHENCYCLIDINE URINE NEGATIVE (NEGATIVE)
[2021-02-20] MEDS ORDERED: HOME MED LIST COMPLETE! XX SCH (23:25)
[2021-02-20] MEDS ORDERED: D5W/0.9% SODIUM CHLORIDE 1,000 ML IV SCH (23:50)
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
[2021-02-21 00:25] LABS: RSV AMPLIFICATION NEGATIVE (NEGATIVE)
[2021-02-21] MEDS ORDERED: NS 1,000 ML IV ONE (01:55)
[2021-02-21 03:16] VITALS: BP 150/77
--- NOTE | 2021-02-21 04:00 | DS.PDOC ---
Discharge Summary General Date of Admission Feb 20, 2021 at 23:47 Date of Discharge Feb 20 2021 345AM Attending Physician: DAISY AGUAYO MD Discharge Summary PROCEDURES PERFORMED DURING STAY: [None]. ADMITTING DIAGNOSES: 1. Metabolic Encephalopathy 2 UTI ? 3 Hypotension DISCHARGE DIAGNOSES: 1. UTI COMPLICATIONS/CHIEF COMPLAINT: Encephalopathy. HISTORY OF PRESENT ILLNESS / HOSPITAL COURSE : Per HPI The history was obtained via chart review, and d/w and RN Wallace the patient was too confused to provide any meaningful history. was released from detention 2 days ago. Today her mother called EMS because the patient appeared to be high and fell out of bed. At the time of my assessment the patient was intermittently arousable, asked where we were, couldnt remember what happened earlier on today and didnt know the date. She was admitted primarily for metabolic encephalopathy and developed hypotension prior to transfer to the medical floor. At about 330AM her encephalopathy resolved and she insisted on leaving AMA. She signed the AMA form and verbalized understanding the risks of leaving including but not limited to . DISCHARGE MEDICATIONS: Please see below. ALLERGIES: Please see below. PHYSICAL EXAMINATION ON DISCHARGE: VITAL SIGNS: Please see below. GENERAL: alert / calm / NAD NEUROLOGICAL EXAMINATION: speech not dysarthric MSK: gait normal LABORATORY DATA: Please see below. IMAGING: see H&P DISCHARGE PLAN: left AMA TIME SPENT ON DISCHARGE: 5 minutes. Vital Signs/I&Os Vital Signs Date Time Temp Pulse Resp B/P (MAP) Pulse Ox O2 Delivery O2 Flow Rate FiO2 02/21/21 03:16 150/77 (101) 02/21/21 03:15 87 99 02/21/21 01:00 18 02/20/21 21:30 Nasal Cannula 1.0 02/20/21 20:36 97.3 Laboratory Data Labs 24H Laboratory Tests 2 02/20/21 20:10: Bedside Glucose (Misc Panel) 140H 02/20/21 20:20: Immature Granulocyte % (Auto) 0.3, Neutrophils (%) (Auto) 60.9, Lymphocytes (%) (Auto) 27.3, Monocytes (%) (Auto) 7.4, Eosinophils (%) (Auto) 3.8H, Basophils (%) (Auto) 0.3, Neutrophils # (Auto) 5.6, Lymphocytes # (Auto) 2.5, Monocytes # (Auto) 0.7, Eosinophils # (Auto) 0.4, Basophils # (Auto) 0.0, Nucleated Red Blood Cells % (auto) 0.0, Anion Gap 8, Glomerular Filtration Rate > 60.0, Calcium Level 9.2, Total Bilirubin 0.2, Direct Bilirubin < 0.1, Aspartate Amino Transf (AST/SGOT) 14, Alanine Aminotransferase (ALT/SGPT) 20, Alkaline Phosphatase 91, Total Creatine Kinase 329H, Creatine Kinase MB 2.6, Creatine Kinase MB Relative Index 0.79, Troponin I < 0.02, Total Protein 7.9, Albumin 3.8, Albumin/Globulin Ratio 0.9L, Thyroid Stimulating Hormone (TSH) 0.524, Salicylates Level < 1.7L, Acetaminophen Level < 2.0L, Ethyl Alcohol Level < 0.003 02/20/21 20:23: POC Glucose (Misc Panel) 132H, POC Sodium (Misc Panel) 140, POC Potassium (Misc Panel) 3.8, POC Chloride (Misc Panel) 103, POC Total CO2 (Misc Panel) 27.0, POC Blood Urea Nitrogen (Misc Panel 18, POC Ionized Calcium (Misc Panel) 5.1, POC Creatinine (Misc Panel) 0.9, POC Hematocrit (Misc Panel) 41.0 02/20/21 22:13: Urine Opiates Screen NEGATIVE, Urine Methadone Screen NEGATIVE, Urine Barbiturates Screen NEGATIVE, Urine Phencyclidine Screen NEGATIVE, Urine Amphetamines Screen NEGATIVE, Urine Benzodiazepines Screen POSITIVEH, Urine Cocaine Metabolite Screen NEGATIVE, Urine Cannabinoids Screen NEGATIVE 02/20/21 22:14: Urine Color YELLOW, Urine Appearance CLOUDYH, Urine pH 5.0, Urine Specific [place] 1.035, Urine Protein 1+H, Urine Glucose (UA) NEGATIVE, Urine Ketones NEGATIVE, Urine Blood 1+H, Urine Nitrite NEGATIVE, Urine Bilirubin NEGATIVE, U rine Urobilinogen 0.2, Urine Leukocyte Esterase 1+H, Urine WBC (Auto) 5H, Urine RBC (Auto) 9H, Urine Hyaline Casts (Auto) 0, Urine Bacteria (Auto) NEGATIVE, Urine Squamous Epithelial Cells 6, Urine Mucus (Auto) SMALL, Urine Sperm (Auto) 02/20/21 23:39: Coronavirus (COVID-19)(PCR) NEGATIVE, Influenza Type A (RT-PCR) NEGATIVE, Influenza Type B (RT-PCR) NEGATIVE, Respiratory Syncytial Virus (PCR) NEGATIVE 02/21/21 01:16: Ammonia 31 02/21/21 02:48: Lactic Acid Level 1.4, Total Creatine Kinase 365H CBC/BMP Laboratory Tests 02/20/21 20:20 FSBS Laboratory Tests Test 02/20/21 20:10 Range/Units Bedside Glucose (Misc Panel) 140 70-105 MG/DL Microbiology Microbiology 02/21/21 Blood Culture, Received Pending 02/20/21 Urine Culture, Received Pending Discharge Medications Unable to Obtain Active Prescriptions or Reported Meds Allergies Coded Allergies: tramadol (Verified Allergy, Mild, RASH, 07/14/19) DAISY AGUAYO MD Feb 21, 2021 04:00
[2021-02-21] MEDS ORDERED: D5W/0.9% SODIUM CHLORIDE 1,000 ML IV SCH (06:00)
[2021-02-21] MEDS ORDERED: ENOXAPARIN 40MG/0.4ML SYRINGE (J1650 PER 10MG) SC SCH (09:00)
== END 2021-02-21 03:46 | disposition left against medical advice (07) | DRG 52 ==
LOC: M ED 19:35 → M ED INP 23:47 → OBSVTOIN 02-21 02:19
PROVIDERS: ADMIT Internal Medicine; ATTEND Internal Medicine
DX: G93.41 Metabolic encephalopathy (principal); I95.9 Hypotension, unspecified; N39.0 Urinary tract infection, site not specified; Z88.8 Allergy status to other drugs, medicaments and biological substances; J45.909 Unspecified asthma, uncomplicated; M54.5 Low back pain; L40.8 Other psoriasis; F32.9 Major depressive disorder, single episode, unspecified; F41.9 Anxiety disorder, unspecified; G40.909 Epilepsy, unspecified, not intractable, without status epilepticus

== ENCOUNTER → 2021-04-05 | Outpatient (CLI) | payer MEDICAID ==
[~2021-04-05] MED LIST changes: +GABA800T4
[2021-04-05 13:15] LABS: BASO % 0.5 % (0.0-1.0); EOS # 0.2 10^3/uL (0.0-0.5); EOS % 3.2 % (0.0-3.0); HEMATOCRIT 39.3 % (36.0-47.0); HEMOGLOBIN 13.1 g/dl (12.0-15.5); LYMPH % 17.6 % (24.0-44.0); MEAN CORPUSCULAR HEMOGLOBIN 30.1 pg (27.0-33.0); MEAN CORPUSCULAR HGB CONC 33.3 g/dl (32.0-36.5); MEAN CORPUSCULAR VOLUME 90.3 fl (80.0-96.0); MONO # 0.6 10^3/uL (0.0-0.8); MONO % 10.8 % (2.0-8.0); NEUTROPHILS % 67.4 % (36.0-66.0); PLATELET COUNT, AUTOMATED 267 10^3/uL (150-450); RED BLOOD COUNT 4.35 10^6/uL (4.00-5.40); WHITE BLOOD COUNT 5.9 10^3/uL (4.0-10.0)
[2021-04-05 22:02] LABS: ALBUMIN 3.5 GM/DL (3.2-5.2); ALT/SGPT 23 U/L (12-78); BILIRUBIN,TOTAL 0.2 MG/DL (0.2-1.0); BLOOD UREA NITROGEN 3 MG/DL (7-18); CARBON DIOXIDE LEVEL 25 MEQ/L (21-32); CHLORIDE LEVEL 107 MEQ/L (98-107); CREATININE FOR GFR 0.89 MG/DL (0.55-1.30); GLOMERULAR FILTRATION RATE > 60.0 (>51); GLUCOSE, FASTING 153 MG/DL (70-100); HEPATITIS B SURFACE ANTIBODY NEGATIVE (POSITIVE); HEPATITIS B SURFACE ANTIGEN NEGATIVE (NEGATIVE); HIV 1&2 SCREEN CENTAUR NEGATIVE (NEGATIVE); POTASSIUM SERUM 4.2 MEQ/L (3.5-5.1); SODIUM LEVEL 138 MEQ/L (136-145); TOTAL PROTEIN 7.5 GM/DL (6.4-8.2)
[2021-04-05 22:03] LABS: HEPATITIS C VIRUS ABY INDEX > 11.0 INDEX (<0.8)
[2021-04-06 14:09] LABS: HEPATITIS C QUANTITATION HCV Not Detected IU/mL (.)
== END ==
LOC: M LAB 12:41
DX: Z00.00 Encounter for general adult medical examination without abnormal findings (principal); F11.20 Opioid dependence, uncomplicated; B18.2 Chronic viral hepatitis C; Z20.2 Contact with and (suspected) exposure to infections with a predominantly sexual mode of transmission; Z20.5 Contact with and (suspected) exposure to viral hepatitis

== ENCOUNTER 2021-05-24 16:28 | Emergency (ER) | payer MEDICAID ==
[~2021-05-24] VITALS: Ht 170.2 cm; Wt 89.4 kg
[2021-05-24] MEDS ORDERED: BUPR8SUB (17:03)
[2021-05-24] MEDS ORDERED: CLON0.5T2 (17:03)
[2021-05-24] MEDS ORDERED: GABA800T4 (17:03)
[2021-05-24] MEDS ORDERED: OMEP1CAP93 (17:03)
[2021-05-24] MEDS ORDERED: ELIQ5TAB (17:03)
[2021-05-24] MEDS ORDERED: ISOVUE-370 76% 100ML VIAL As Ordered ONE (18:04)
[2021-05-24 18:13] LABS: HEMATOCRIT 40.9 % (36.0-47.0); HEMOGLOBIN 13.5 g/dl (12.0-15.5); MEAN CORPUSCULAR HEMOGLOBIN 29.5 pg (27.0-33.0); MEAN CORPUSCULAR VOLUME 89.5 fl (80.0-96.0); PLATELET COUNT, AUTOMATED 296 10^3/uL (150-450); RED BLOOD COUNT 4.57 10^6/uL (4.00-5.40); WHITE BLOOD COUNT 7.8 10^3/uL (4.0-10.0)
[2021-05-24 18:25] LABS: INR 1.11; PROTHROMBIN TIME 14.8 SECONDS (12.7-14.5)
[2021-05-24 18:26] LABS: PARTIAL THROMBOPLASTIN TIME 32.3 SECONDS (25.9-37.0)
[2021-05-24] MEDS ORDERED: PERCOCET 5MG/325MG TAB PO ONE (18:45)
[2021-05-24] MEDS ORDERED: NICO1KIT TOP (20:24)
[2021-05-24 20:31] VITALS: BP 120/56
--- NOTE | 2021-05-25 05:56 | ECGEPIP ---
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
--- NOTE | 2021-05-25 10:39 | REP ---
INDICATION: hemoptysis, recent pe COMPARISON: None. TECHNIQUE: CT angiography of the chest after the intravenous administration of 75 cc Isovue 370. FINDINGS: There is excellent visualization of the pulmonary arterial vasculature. There is a subtle focal filling defects seen in right lower lobe pulmonary arteries. There is no mediastinal or hilar adenopathy. There are no pleural or pericardial effusions. The imaged upper abdomen and imaged osseous structures are within normal limits. A 1 cm sized nodular density is potential in the left breast. CT cannot effectively evaluate breast tissue. IMPRESSION: 1. Evidence of a pulmonary embolism in the right lower lobe, however, since the history given to me is recent PE I cannot state with certainty whether this represents an acute embolus or a chronic embolus. 2. Possible left breast nodule. This needs clinical evaluation and mammography if necessary. <Electronically signed by Ephraim Diaz > 05/25/21 0091
== END 2021-05-24 20:47 | disposition home or self-care (01) ==
LOC: M ED 16:28
DX: I26.99 Other pulmonary embolism without acute cor pulmonale (principal); R07.9 Chest pain, unspecified; F17.200 Nicotine dependence, unspecified, uncomplicated; Z79.01 Long term (current) use of anticoagulants; Z79.899 Other long term (current) drug therapy
CPT/HCPCS: 36415; 71275; 80047; 85027; 85610; 85730; 93005; 99284; Q9967

== ENCOUNTER 2021-11-05 15:44 | Emergency (ER) | payer MEDICAID, OTHER ==
[~2021-11-05] VITALS: Ht 170.2 cm; Wt 81.8 kg
[~2021-11-05 15:44] MED LIST changes: +ELIQ5TAB PO; +FLUO-96 PO; -FLUO20CA20 PO; +NICO1KIT TOP; +NICO4GUM41 PO; +OLAN2.5T25 PO; +OMEP1CAP93 PO
[2021-11-05 15:45] VITALS: BP 141/64
[2021-11-05] MEDS ORDERED: CLON1TAB17 PO (17:40)
== END 2021-11-05 18:40 | disposition home or self-care (01) ==
LOC: M ED 15:44
DX: Z76.0 Encounter for issue of repeat prescription (principal); F41.9 Anxiety disorder, unspecified; J45.909 Unspecified asthma, uncomplicated; G40.909 Epilepsy, unspecified, not intractable, without status epilepticus; Z86.718 Personal history of other venous thrombosis and embolism; Z88.5 Allergy status to narcotic agent; F17.210 Nicotine dependence, cigarettes, uncomplicated

== ENCOUNTER 2021-11-14 19:46 | Emergency (ER) | payer OTHER ==
[~2021-11-14] VITALS: Ht 170.2 cm; Wt 83.1 kg
[2021-11-14 19:47] VITALS: BP 131/66
[2021-11-14] MEDS ORDERED: GABA800T4 PO (20:00)
== END 2021-11-15 00:42 | disposition home or self-care (01) ==
LOC: M ED 19:46
DX: M25.511 Pain in right shoulder (principal); M25.512 Pain in left shoulder; W01.0XXA Fall on same level from slipping, tripping and stumbling without subsequent striking against object, initial encounter; F41.9 Anxiety disorder, unspecified; F17.200 Nicotine dependence, unspecified, uncomplicated; Z88.5 Allergy status to narcotic agent; Z79.01 Long term (current) use of anticoagulants; Z79.899 Other long term (current) drug therapy; Y99.9 Unspecified external cause status

== ENCOUNTER 2021-11-15 09:34 | Emergency (ER) | payer OTHER ==
[~2021-11-15] VITALS: Ht 170.2 cm; Wt 82.7 kg
[2021-11-15 12:27] VITALS: BP 125/78
== END 2021-11-15 12:33 | disposition home or self-care (01) ==
LOC: M ED 09:34
DX: Z76.0 Encounter for issue of repeat prescription (principal); F41.9 Anxiety disorder, unspecified; J45.909 Unspecified asthma, uncomplicated; F17.200 Nicotine dependence, unspecified, uncomplicated; Z88.5 Allergy status to narcotic agent

== ENCOUNTER 2022-01-31 13:15 | Emergency (ER) | payer OTHER ==
[~2022-01-31] VITALS: Ht 170.2 cm; Wt 77.3 kg
[2022-01-31 13:15] VITALS: BP 122/75
== END 2022-01-31 16:47 | disposition home or self-care (01) ==
LOC: M ED 13:15
DX: F41.9 Anxiety disorder, unspecified (principal); G40.911 Epilepsy, unspecified, intractable, with status epilepticus; F17.200 Nicotine dependence, unspecified, uncomplicated; Z88.5 Allergy status to narcotic agent; Z79.01 Long term (current) use of anticoagulants; Z79.899 Other long term (current) drug therapy

== ENCOUNTER → 2022-04-13 | Outpatient (CLI) | payer OTHER | LOC: M WHC 14:23 | PROVIDERS: ATTEND Nurse Practitioner Family | DX: Z12.31 Encounter for screening mammogram for malignant neoplasm of breast (principal); N63.24 Unspecified lump in the left breast, lower inner quadrant ==

== ENCOUNTER → 2022-04-26 | Outpatient (CLI) | payer OTHER ==
[~2022-04-26] MED LIST changes: +METH10CO3 PO
== END ==
LOC: M PLAIMG 10:59
PROVIDERS: ATTEND Nurse Practitioner Family
DX: R15.9 Full incontinence of feces (principal)

== ENCOUNTER → 2022-05-25 | Outpatient (CLI) | payer OTHER, MEDICAID ==
[~2022-05-25] MED LIST changes: +[UNRECOGNIZED DRUG - CODE] PO
== END ==
LOC: M LABSMTC 11:26
PROVIDERS: ATTEND Anesthesiology
DX: Z01.812 Encounter for preprocedural laboratory examination (principal); Z11.52 Encounter for screening for COVID-19

== ENCOUNTER 2022-05-30 08:44 | Day surgery (SDC) | payer MEDICAID, OTHER ==
[~2022-05-30] VITALS: Ht 170.2 cm; Wt 81.6 kg
[~2022-05-30 08:44] MED LIST changes: +ACETAMINOPHEN 1000MG 100ML IV BAG As Ordered ONE; +HEPARIN SOD (PORCINE) 5000UNITS/ML 1ML VIAL/SYRINGE SQ ONE; +LIDOCAINE 2% 100MG/5ML SDV (FOR ANES.) As Ordered ONE; +MIDAZOLAM INJ 2MG/2ML VIAL (J2250 PER 1MG) As Ordered ONE; +ONDANSETRON 4MG 2ML VIAL As Ordered ONE; +ceFAZolin SOD 2 GM in IV 1 EA IV ONE; +fentaNYL 100 MCG/2 ML INJECTION As Ordered ONE; +propofoL 200 MG/20 ML VIAL As Ordered ONE
[2022-05-30] MEDS ORDERED: LR 1,000 ML IV SCH ×2 (09:15→11:35)
[2022-05-30] MEDS ORDERED: SCOPOLAMINE 1MG TRANSDERMAL PATCH TOP ONE (09:15)
[2022-05-30] MEDS ORDERED: BUPIVACAINE HCL 0.25% 10ML VIAL As Ordered ONE (09:50)
[2022-05-30] MEDS ORDERED: BUPIVACAINE LIPOSOME/PF 1.3% 20ML VIAL (13.3MG/ML)(EXPAREL) As Ordered ONE (09:50)
[2022-05-30] MEDS ORDERED: ACETAMINOPHEN 1000MG 100ML IV BAG As Ordered ONE (10:18)
[2022-05-30] MEDS ORDERED: ePHEDrine SULFATE 25 MG/5 ML(5MG/ML) SYRINGE As Ordered ONE (10:41)
[2022-05-30] MEDS ORDERED: ONDANSETRON 4MG 2ML VIAL IV PRN (11:35)
[2022-05-30] MEDS ORDERED: HYDROMORPHONE HCL 0.5 MG/ 0.5 ML SYRINGE (J1170 PER 1) IV PRN (11:35)
[2022-05-30] MEDS ORDERED: oxyCODONE 5MG TAB PO PRN ×2 (11:35→15:40)
[2022-05-30] MEDS ORDERED: fentaNYL 100 MCG/2 ML INJECTION IV PRN (11:35)
[2022-05-30] MEDS ORDERED: ACETAMINOPHEN TAB 650MG DOSE (2X325MG) PO ONE (14:50)
[2022-05-30 15:40] VITALS: BP 167/76
[2022-05-30] MEDS ORDERED: OXYC-517 PO (16:04)
== END 2022-05-30 15:45 | disposition home or self-care (01) ==
LOC: M SDC 08:44
PROVIDERS: ATTEND Surgery
DX: N60.12 Diffuse cystic mastopathy of left breast (principal); D24.2 Benign neoplasm of left breast; B18.2 Chronic viral hepatitis C; Z86.711 Personal history of pulmonary embolism; Z79.01 Long term (current) use of anticoagulants; F11.11 Opioid abuse, in remission; F10.11 Alcohol abuse, in remission; Z79.891 Long term (current) use of opiate analgesic; G40.909 Epilepsy, unspecified, not intractable, without status epilepticus; F41.9 Anxiety disorder, unspecified; F32.A Depression, unspecified; F17.210 Nicotine dependence, cigarettes, uncomplicated; L40.9 Psoriasis, unspecified; L72.3 Sebaceous cyst; K21.9 Gastro-esophageal reflux disease without esophagitis; Z88.8 Allergy status to other drugs, medicaments and biological substances
CPT/HCPCS: 19125; 36415; 76942; 81025; 86850; 86900; 86901; 88305; A4648; C9290; J0131; J0690; J1100; J1644; J2250; J2405; J3010

== ENCOUNTER → 2022-07-26 | Outpatient (CLI) | payer MEDICAID ==
[~2022-07-26] MED LIST changes: -ACETAMINOPHEN 1000MG 100ML IV BAG As Ordered ONE; -HEPARIN SOD (PORCINE) 5000UNITS/ML 1ML VIAL/SYRINGE SQ ONE; -LIDOCAINE 2% 100MG/5ML SDV (FOR ANES.) As Ordered ONE; -MIDAZOLAM INJ 2MG/2ML VIAL (J2250 PER 1MG) As Ordered ONE; -ONDANSETRON 4MG 2ML VIAL As Ordered ONE; +OXYC-517 PO; -ceFAZolin SOD 2 GM in IV 1 EA IV ONE; -fentaNYL 100 MCG/2 ML INJECTION As Ordered ONE; -propofoL 200 MG/20 ML VIAL As Ordered ONE
== END ==
LOC: M OUTALCOH 07:31
PROVIDERS: ATTEND Psychiatry & Neurology Psychiatry
DX: F10.10 Alcohol abuse, uncomplicated (principal)

== ENCOUNTER → 2022-07-27 | Outpatient (REF) | payer MEDICAID | LOC: M SFHCWAGY 17:22 | PROVIDERS: ATTEND Nurse Practitioner Family | DX: Z12.4 Encounter for screening for malignant neoplasm of cervix (principal) ==

== ENCOUNTER 2022-08-02 11:05 | Outpatient (RCR) | payer MEDICAID | END 2022-08-08 | LOC: M OUTALCOH 11:05 | PROVIDERS: ATTEND Psychiatry & Neurology Psychiatry | DX: Z03.89 Encounter for observation for other suspected diseases and conditions ruled out (principal); Z72.0 Tobacco use ==

== ENCOUNTER 2022-08-29 09:00 | Outpatient (RCR) | payer MEDICAID | END 2022-09-08 | LOC: M OUTALCOH 09:00 | PROVIDERS: ATTEND Psychiatry & Neurology Psychiatry | DX: F11.20 Opioid dependence, uncomplicated (principal); Z72.0 Tobacco use ==

== ENCOUNTER 2022-09-23 13:03 | Emergency (ER) | payer OTHER, MEDICAID ==
[~2022-09-23] VITALS: Ht 170.2 cm; Wt 77.9 kg
[2022-09-23 13:04] VITALS: BP 136/63
[2022-09-23] MEDS ORDERED: METOCLOPRAMIDE INJ 10MG/2ML VIAL IV ONE (15:00)
[2022-09-23] MEDS ORDERED: NS 1,000 ML IV ONE (15:00)
[2022-09-23 15:27] LABS: APPEARANCE, URINE CLEAR (CLEAR); BACTERIA, URINE AUTO NEGATIVE (NEGATIVE); BILIRUBIN, URINE AUTO NEGATIVE (NEGATIVE); BLOOD, URINE BLOOD NEGATIVE (NEGATIVE); COLOR, URINE STRAW (YELLOW); GLUCOSE, URINE (UA) AUTO NEGATIVE (NEGATIVE); KETONE, URINE AUTO NEGATIVE (NEGATIVE); LEUKOCYTE ESTERASE, URINE AUTO NEGATIVE (NEGATIVE); NITRITE, URINE AUTO NEGATIVE (NEGATIVE); PROTEIN, URINE AUTO NEGATIVE (NEGATIVE); RBC, URINE AUTO 0 /HPF (0-3); SPECIFIC GRAVITY URINE AUTO 1.002 (1.002-1.035); SQUAMOUS EPITHELIAL CELL UR AU 0 /HPF (0-6); UROBILINOGEN, URINE AUTO 0.2 mg/dL (0.0-2.0); WBC, URINE AUTO 0 /HPF (0-3)
[2022-09-23 15:42] LABS: BASO % 0.5 % (0.0-1.0); EOS # 0.1 10^3/uL (0.0-0.5); EOS % 1.4 % (0.0-3.0); HEMATOCRIT 44.1 % (36.0-47.0); HEMOGLOBIN 15.2 g/dl (12.0-15.5); LYMPH # 1.7 10^3/uL (1.5-5.0); LYMPH % 21.5 % (24.0-44.0); MEAN CORPUSCULAR HEMOGLOBIN 30.6 pg (27.0-33.0); MEAN CORPUSCULAR HGB CONC 34.5 g/dl (32.0-36.5); MEAN CORPUSCULAR VOLUME 88.9 fl (80.0-96.0); MONO # 0.4 10^3/uL (0.0-0.8); MONO % 5.3 % (2.0-8.0); NEUTROPHILS # 5.5 10^3/uL (1.5-8.5); PLATELET COUNT, AUTOMATED 244 10^3/uL (150-450); RED BLOOD COUNT 4.96 10^6/uL (4.00-5.40); WHITE BLOOD COUNT 7.7 10^3/uL (4.0-10.0)
[2022-09-23 15:56] LABS: AMPHETAMINES LEVEL URINE NEGATIVE (NEGATIVE); BARBITURATES URINE NEGATIVE (NEGATIVE); BENZODIAZEPINES URINE NEGATIVE (NEGATIVE); CANNABINOIDS URINE NEGATIVE (NEGATIVE); COCAINE METABOLITE URINE NEGATIVE (NEGATIVE); METHADONE URINE NEGATIVE (NEGATIVE); OPIATES URINE NEGATIVE (NEGATIVE); PHENCYCLIDINE URINE NEGATIVE (NEGATIVE)
[2022-09-23 16:10] LABS: ERYTHROCYTE SEDIMENTATION RATE 50 mm/hr (0-30)
[2022-09-23 16:13] LABS: ALBUMIN 3.9 G/DL (3.2-5.2); ALKALINE PHOSPHATASE 102 U/L (46-116); ALT/SGPT 22 U/L (7.0-40); AST/SGOT 36 U/L (<34); BILIRUBIN,TOTAL 0.2 MG/DL (0.3-1.2); BLOOD UREA NITROGEN 6 MG/DL (9-23); CALCIUM LEVEL 9.5 MG/DL (8.5-10.1); CARBON DIOXIDE LEVEL 27 MMOL/L (20-31); CHLORIDE LEVEL 104 MMOL/L (98-107); CREATININE FOR GFR 0.86 MG/DL (0.55-1.30); GLOMERULAR FILTRATION RATE > 60.0 (>51); GLUCOSE, FASTING 99 MG/DL (60-100); LIPASE 40 U/L (12-53); SODIUM LEVEL 138 MMOL/L (136-145); TOTAL PROTEIN 7.9 G/DL (5.7-8.2)
[2022-09-23] MEDS ORDERED: ACETAMINOPHEN 325 MG TAB PO ONE (16:15)
== END 2022-09-23 17:03 | disposition left against medical advice (07) ==
LOC: M ED 13:03
DX: R51.9 Headache, unspecified (principal); F41.9 Anxiety disorder, unspecified; F17.200 Nicotine dependence, unspecified, uncomplicated; Z88.6 Allergy status to analgesic agent; Z88.8 Allergy status to other drugs, medicaments and biological substances; Z53.9 Procedure and treatment not carried out, unspecified reason
CPT/HCPCS: 70450; 80053; 80307; 81001; 83690; 85025; 85652; 96361; 96374; 99283; J2765

== ENCOUNTER 2022-09-25 12:43 | Inpatient (IN) | payer MEDICAID, OTHER ==
[~2022-09-25] VITALS: Ht 170.2 cm; Wt 68.2 kg
[2022-09-25 13:54] LABS: HEMATOCRIT 42.8 % (36.0-47.0); HEMOGLOBIN 14.3 g/dl (12.0-15.5); MEAN CORPUSCULAR HEMOGLOBIN 29.9 pg (27.0-33.0); MEAN CORPUSCULAR HGB CONC 33.4 g/dl (32.0-36.5); MEAN CORPUSCULAR VOLUME 89.4 fl (80.0-96.0); PLATELET COUNT, AUTOMATED 224 10^3/uL (150-450); RED BLOOD COUNT 4.79 10^6/uL (4.00-5.40); WHITE BLOOD COUNT 7.3 10^3/uL (4.0-10.0)
[2022-09-25 14:13] LABS: ETHYL ALCOHOL (ETHANOL) 0.003 % (0.000-0.010)
[2022-09-25 14:15] LABS: ACETAMINOPHEN LEVEL < 2.0 UG/ML (10.0-20.0); SALICYLATE LEVEL < 3.0 MG/DL (<30)
[2022-09-25 14:21] LABS: ALBUMIN 3.7 G/DL (3.2-5.2); ALKALINE PHOSPHATASE 97 U/L (46-116); ALT/SGPT 11 U/L (7.0-40); AST/SGOT 16 U/L (<34); BILIRUBIN,DIRECT 0.1 MG/DL (<0.4); BILIRUBIN,TOTAL 0.3 MG/DL (0.3-1.2); BLOOD UREA NITROGEN 7 MG/DL (9-23); CARBON DIOXIDE LEVEL 25 MMOL/L (20-31); CHLORIDE LEVEL 109 MMOL/L (98-107); GLOMERULAR FILTRATION RATE > 60.0 (>51); GLUCOSE, FASTING 102 MG/DL (60-100); POTASSIUM SERUM 3.8 MMOL/L (3.5-5.1); SODIUM LEVEL 139 MMOL/L (136-145); THYROID STIMULATING HORMONE 0.241 uIU/ML (0.55-4.78); TOTAL PROTEIN 7.6 G/DL (5.7-8.2)
[2022-09-25 14:24] LABS: AMPHETAMINES LEVEL URINE NEGATIVE (NEGATIVE); CANNABINOIDS URINE NEGATIVE (NEGATIVE); PHENCYCLIDINE URINE NEGATIVE (NEGATIVE)
[2022-09-25 14:25] LABS: BARBITURATES URINE NEGATIVE (NEGATIVE); COCAINE METABOLITE URINE NEGATIVE (NEGATIVE); METHADONE URINE NEGATIVE (NEGATIVE); OPIATES URINE NEGATIVE (NEGATIVE)
[2022-09-25 14:34] LABS: BENZODIAZEPINES URINE POSITIVE (NEGATIVE)
[2022-09-25] MEDS ORDERED: traZODone 50 MG TAB PO ONE (21:45)
[2022-09-25] MEDS ORDERED: CLON1TAB8 PO (23:05)
[2022-09-25] MEDS ORDERED: GABA800T4 PO (23:05)
[2022-09-25] MEDS ORDERED: HOME MED LIST COMPLETE! XX SCH (23:05)
[2022-09-25] MEDS ORDERED: NICO4GUM40 BUC (23:05)
[2022-09-26] MEDS ORDERED: ONDANSETRON 4MG ORAL DISINTEGRATING TAB PO ONE (08:00)
[2022-09-26] MEDS ORDERED: GABAPENTIN 400MG CAP PO SCH (09:00)
[2022-09-26] MEDS: NICOTINE 21MG/24HR 1 EA TRANSDERMAL TD SCH (09:00)
[2022-09-26] MEDS ORDERED: NICOTINE POLACRILEX 2 MG GUM PO ONE (09:55)
[2022-09-26] MEDS ORDERED: BUPR8SUB SL (10:11)
[2022-09-26] MEDS ORDERED: PREG100C PO (10:11)
[2022-09-26] MEDS ORDERED: MOM 30ML SUSPENSION UDC PO PRN (14:05)
[2022-09-26] MEDS ORDERED: ACETAMINOPHEN TAB 650MG DOSE (2X325MG) PO PRN (14:05)
[2022-09-26] MEDS ORDERED: MAALOX 30 ML SUSP *UDC PO PRN (14:05)
[2022-09-26] MEDS ORDERED: IBUPROFEN 400MG TAB PO PRN (14:05)
[2022-09-26] MEDS ORDERED: diphenhydrAMINE 25MG CAP PO PRN (14:05)
[2022-09-26] MEDS: PREGABALIN 100 MG CAP (LYRICA) PO SCH ×2 (14:45→22:34)
[2022-09-26] MEDS: BUPRENORPHINE HCL 8MG SUBINGUAL TABLET SL SCH ×2 (16:00→22:41)
[2022-09-26 16:24] VITALS: BP 107/58
[2022-09-26] MEDS: NICOTINE POLACRILEX 2 MG GUM PO PRN (17:36)
[2022-09-26] MEDS: GABAPENTIN 400MG CAP PO SCH (22:35)
[2022-09-27 06:32] VITALS: BP 125/61
[2022-09-27] MEDS: PREGABALIN 100 MG CAP (LYRICA) PO SCH (08:24)
[2022-09-27] MEDS: BUPRENORPHINE HCL 8MG SUBINGUAL TABLET SL SCH ×3 (08:24→15:56)
[2022-09-27] MEDS: GABAPENTIN 400MG CAP PO SCH ×2 (08:24→19:59)
[2022-09-27] MEDS: NICOTINE 21MG/24HR 1 EA TRANSDERMAL TD SCH (08:27)
[2022-09-27 10:39] LABS: FREE T4 1.04 NG/DL (0.89-1.76); THYROID STIMULATING HORMONE 0.688 uIU/ML (0.55-4.78)
[2022-09-27] MEDS ORDERED: LORazepam 2 MG TAB PO PRN (11:25)
[2022-09-27] MEDS: THIAMINE 100 MG TAB PO SCH ×2 (12:26→19:59)
[2022-09-27] MEDS: MULTIVITAMINS/MINERALS THERAP 1 TAB PO SCH (12:27)
[2022-09-27] MEDS: FOLIC ACID 1MG TAB PO SCH (12:27)
[2022-09-27] MEDS: ESCITALOPRAM OXALATE 5MG TABLET (LEXAPRO) PO SCH (12:28)
[2022-09-27 13:00] VITALS: BP 108/67
[2022-09-27 16:14] VITALS: BP 144/60
[2022-09-27 16:19] VITALS: BP 144/66
[2022-09-27] MEDS: NICOTINE POLACRILEX 2 MG GUM PO PRN (18:16)
[2022-09-27] MEDS: traZODone 50 MG TAB PO PRN (19:59)
[2022-09-28 06:00] VITALS: BP 116/66
[2022-09-28 06:47] VITALS: BP 116/56
[2022-09-28] MEDS: BUPRENORPHINE HCL 8MG SUBINGUAL TABLET SL SCH ×4 (07:50→16:00)
[2022-09-28 07:53] LABS: CHOLESTEROL RISK RATIO 4.34 (<5); HDL CHOLESTEROL 35.2 MG/DL (>40); LDL CHOLESTEROL 65.8 MG/DL (<100); NON-HDL-C 117.8 MG/DL
[2022-09-28] MEDS: FOLIC ACID 1MG TAB PO SCH (08:39)
[2022-09-28] MEDS: MULTIVITAMINS/MINERALS THERAP 1 TAB PO SCH (08:39)
[2022-09-28] MEDS: THIAMINE 100 MG TAB PO SCH ×2 (08:39→20:52)
[2022-09-28] MEDS: GABAPENTIN 400MG CAP PO SCH ×2 (08:39→20:52)
[2022-09-28] MEDS: ESCITALOPRAM OXALATE 5MG TABLET (LEXAPRO) PO SCH (08:39)
[2022-09-28] MEDS: NICOTINE 21MG/24HR 1 EA TRANSDERMAL TD SCH (08:41)
[2022-09-28] MEDS ORDERED: LOPERAMIDE 2 MG CAPLET PO PRN (10:10)
[2022-09-28] MEDS ORDERED: ONDANSETRON 4MG TAB PO PRN (10:10)
[2022-09-28 13:56] VITALS: BP 114/64
[2022-09-28] MEDS: OLANZapine 5 MG TAB PO PRN (15:28)
[2022-09-28] MEDS: NICOTINE POLACRILEX 2 MG GUM PO PRN (15:29)
[2022-09-28 15:49] VITALS: BP 114/64
[2022-09-28] MEDS: traZODone 50 MG TAB PO PRN (20:52)
[2022-09-28 21:45] VITALS: BP 141/81
[2022-09-29 06:48] VITALS: BP 132/60
[2022-09-29 07:51] VITALS: BP 135/77
[2022-09-29] MEDS: BUPRENORPHINE HCL 8MG SUBINGUAL TABLET SL SCH ×2 (08:00→11:07)
[2022-09-29] MEDS: GABAPENTIN 400MG CAP PO SCH (08:11)
[2022-09-29] MEDS: ESCITALOPRAM OXALATE 5MG TABLET (LEXAPRO) PO SCH (08:11)
[2022-09-29] MEDS: THIAMINE 100 MG TAB PO SCH (08:11)
[2022-09-29] MEDS: FOLIC ACID 1MG TAB PO SCH (08:11)
[2022-09-29] MEDS: MULTIVITAMINS/MINERALS THERAP 1 TAB PO SCH (08:11)
[2022-09-29] MEDS: NICOTINE 21MG/24HR 1 EA TRANSDERMAL TD SCH (08:12)
[2022-09-29] MEDS: OLANZapine 5 MG TAB PO PRN (11:28)
[2022-09-29] MEDS ORDERED: GABA800T4 PO (11:36)
[2022-09-29] MEDS ORDERED: ABIL1TAB11 PO (11:37)
[2022-09-29] MEDS ORDERED: TRAZ-252 PO (11:37)
[2022-09-29] MEDS ORDERED: LEXA5TAB13 PO (11:37)
== END 2022-09-29 12:32 | disposition home or self-care (01) | DRG 751 ==
LOC: M ED 12:43 → M ED INP 09-26 14:03 → M PSY 09-26 16:15
PROVIDERS: ADMIT Psychiatry & Neurology Psychiatry; ATTEND Student in an Organized Health Care Education/Training Program
DX: F29 Unspecified psychosis not due to a substance or known physiological condition (principal); R45.851 Suicidal ideations; R00.1 Bradycardia, unspecified; Z79.899 Other long term (current) drug therapy; Z88.8 Allergy status to other drugs, medicaments and biological substances; Z20.822 Contact with and (suspected) exposure to COVID-19; F41.9 Anxiety disorder, unspecified; Z86.718 Personal history of other venous thrombosis and embolism; Z86.711 Personal history of pulmonary embolism

== ENCOUNTER 2022-10-03 10:00 | Outpatient (RCR) | payer MEDICAID ==
[~2022-10-03 10:00] MED LIST changes: +LEXA5TAB13 PO; +NICO4GUM40 BUC; +PREG100C PO
== END 2022-10-08 ==
LOC: M OUTALCOH 10:00
PROVIDERS: ATTEND Psychiatry & Neurology Psychiatry
DX: F11.20 Opioid dependence, uncomplicated (principal); Z72.0 Tobacco use

== ENCOUNTER 2022-10-04 21:22 | Emergency (ER) | payer MEDICAID, OTHER ==
[~2022-10-04] VITALS: Ht 170.2 cm; Wt 77.2 kg
[2022-10-04] MEDS ORDERED: NS 1,000 ML IV ONE (21:55)
[2022-10-04 22:12] LABS: BASO % 0.3 % (0.0-1.0); EOS # 0.2 10^3/uL (0.0-0.5); EOS % 1.5 % (0.0-3.0); HEMOGLOBIN 13.2 g/dl (12.0-15.5); LYMPH # 2.3 10^3/uL (1.5-5.0); LYMPH % 22.2 % (24.0-44.0); MEAN CORPUSCULAR VOLUME 90.9 fl (80.0-96.0); MONO # 0.6 10^3/uL (0.0-0.8); MONO % 6.2 % (2.0-8.0); NEUTROPHILS # 7.2 10^3/uL (1.5-8.5); NEUTROPHILS % 69.4 % (36.0-66.0); PLATELET COUNT, AUTOMATED 223 10^3/uL (150-450); WHITE BLOOD COUNT 10.3 10^3/uL (4.0-10.0)
[2022-10-04 22:40] LABS: ETHYL ALCOHOL (ETHANOL) < 0.003 % (0.000-0.010)
[2022-10-04 22:42] LABS: CPK CREATINE PHOSPHOKINASE 154 U/L (34-145); SALICYLATE LEVEL < 3.0 MG/DL (<30)
[2022-10-04 22:43] LABS: ACETAMINOPHEN LEVEL < 2.0 UG/ML (10.0-20.0); ALBUMIN 3.3 G/DL (3.2-5.2); ALKALINE PHOSPHATASE 96 U/L (46-116); ALT/SGPT 27 U/L (7.0-40); AST/SGOT 23 U/L (<34); BILIRUBIN,DIRECT < 0.1 MG/DL (<0.4); BILIRUBIN,TOTAL 0.2 MG/DL (0.3-1.2); BLOOD UREA NITROGEN 7 MG/DL (9-23); CALCIUM LEVEL 8.2 MG/DL (8.5-10.1); CARBON DIOXIDE LEVEL 28 MMOL/L (20-31); CHLORIDE LEVEL 104 MMOL/L (98-107); CREATININE FOR GFR 0.81 MG/DL (0.55-1.30); GLOMERULAR FILTRATION RATE > 60.0 (>51); GLUCOSE, FASTING 112 MG/DL (60-100); POTASSIUM SERUM 3.8 MMOL/L (3.5-5.1); SODIUM LEVEL 138 MMOL/L (136-145); TOTAL PROTEIN 6.8 G/DL (5.7-8.2)
[2022-10-04 22:45] LABS: THYROID STIMULATING HORMONE 1.353 uIU/ML (0.55-4.78)
[2022-10-04 23:10] VITALS: BP 110/64
== END 2022-10-04 23:34 | disposition home or self-care (01) ==
LOC: M ED 21:22 → EDBD 21:22 → M ED 23:34
DX: F19.10 Other psychoactive substance abuse, uncomplicated (principal); F17.200 Nicotine dependence, unspecified, uncomplicated; Z88.5 Allergy status to narcotic agent; Z88.8 Allergy status to other drugs, medicaments and biological substances; Z79.811 Long term (current) use of aromatase inhibitors; Z79.891 Long term (current) use of opiate analgesic; Z79.899 Other long term (current) drug therapy

== ENCOUNTER 2022-12-05 18:27 | Emergency (ER) | payer OTHER ==
[~2022-12-05] VITALS: Ht 170.2 cm; Wt 78.3 kg
[2022-12-05 18:27] VITALS: BP 145/65; TEMP 97.5; O2SAT 95
[2022-12-05] MEDS ORDERED: CLINDAMYCIN 150MG CAPSULE PO ONE (20:40)
[2022-12-05] MEDS ORDERED: HYDR-3363 PO (20:48)
[2022-12-05] MEDS ORDERED: CLEO300C2 PO (20:48)
[2022-12-05] MEDS ORDERED: GABA800T4 PO (20:49)
== END 2022-12-05 20:55 | disposition home or self-care (01) ==
LOC: M ED 18:27
DX: B86 Scabies (principal); L03.90 Cellulitis, unspecified; Z76.0 Encounter for issue of repeat prescription; G40.909 Epilepsy, unspecified, not intractable, without status epilepticus; Z88.5 Allergy status to narcotic agent; Z88.6 Allergy status to analgesic agent; Z79.891 Long term (current) use of opiate analgesic; Z79.899 Other long term (current) drug therapy

== ENCOUNTER → 2023-02-06 | Outpatient (REF) | payer OTHER ==
[~2023-02-06] MED LIST changes: +CLEO300C2 PO; -GABA-283 PO; +GABA-284 PO
[2023-02-06 18:47] LABS: FREE T4 1.06 NG/DL (0.89-1.76); THYROID STIMULATING HORMONE 0.576 uIU/ML (0.55-4.78)
== END ==
LOC: M LAB REF 17:12
PROVIDERS: ATTEND Pediatrics
DX: R89.1 Abnormal level of hormones in specimens from other organs, systems and tissues (principal)

== ENCOUNTER → 2023-02-07 | Outpatient (CLI) | payer OTHER ==
[2023-02-07 17:38] LABS: HEMATOCRIT 41.1 % (36.0-47.0); HEMOGLOBIN 13.8 g/dl (12.0-15.5); MEAN CORPUSCULAR HEMOGLOBIN 30.3 pg (27.0-33.0); MEAN CORPUSCULAR HGB CONC 33.6 g/dl (32.0-36.5); MEAN CORPUSCULAR VOLUME 90.1 fl (80.0-96.0); PLATELET COUNT, AUTOMATED 260 10^3/uL (150-450); RED BLOOD COUNT 4.56 10^6/uL (4.00-5.40); WHITE BLOOD COUNT 7.8 10^3/uL (4.0-10.0)
[2023-02-07 18:06] LABS: HCG, SERUM QUALITATIVE NEGATIVE (NEGATIVE)
[2023-02-07 18:33] LABS: HIV 1&2 SCREEN NEGATIVE (NEGATIVE)
[2023-02-07 18:43] LABS: ALBUMIN 3.5 G/DL (3.2-5.2); ALKALINE PHOSPHATASE 90 U/L (46-116); ALT/SGPT 11 U/L (7.0-40); AST/SGOT 10 U/L (<34); BILIRUBIN,TOTAL 0.2 MG/DL (0.3-1.2); BLOOD UREA NITROGEN < 5 MG/DL (9-23); CALCIUM LEVEL 9.1 MG/DL (8.5-10.1); CARBON DIOXIDE LEVEL 28 MMOL/L (20-31); CHLORIDE LEVEL 106 MMOL/L (98-107); CREATININE FOR GFR 0.71 MG/DL (0.55-1.30); GLOMERULAR FILTRATION RATE > 60.0 (>51); GLUCOSE, FASTING 90 MG/DL (60-100); POTASSIUM SERUM 4.1 MMOL/L (3.5-5.1); SODIUM LEVEL 139 MMOL/L (136-145); TOTAL PROTEIN 7.3 G/DL (5.7-8.2)
[2023-02-07 18:45] LABS: HEPATITIS C VIRUS ABY INDEX > 11.00 INDEX (<0.8)
== END ==
LOC: M LAB 16:40
PROVIDERS: ATTEND Family Medicine
DX: F11.20 Opioid dependence, uncomplicated (principal)

== ENCOUNTER 2023-08-03 11:39 | Emergency (ER) | payer OTHER ==
[~2023-08-03] VITALS: Ht 170.2 cm; Wt 86.4 kg
[~2023-08-03 11:39] MED LIST changes: -PREG100C PO; +PREG100C2 PO; -PREG150C; +PREG150C2; +[UNRECOGNIZED DRUG - CODE] PO; -[UNRECOGNIZED DRUG - CODE] PO
[2023-08-03] MEDS ORDERED: FAMOTIDINE 20MG/2ML VIAL IVP ONE (13:45)
[2023-08-03] MEDS ORDERED: ACETAMINOPHEN *IV* 1,000 MG in IV 1 EA IV ONE (13:45)
[2023-08-03] MEDS ORDERED: diphenhydrAMINE 50MG/ML VIAL IV STA (13:45)
[2023-08-03] MEDS: CEPHALEXIN 500 MG CAP PO ONE (14:15)
[2023-08-03] MEDS ORDERED: KETOROLAC 30 MG/ML 1ML VIAL IV ONE (15:20)
[2023-08-03] MEDS: diphenhydrAMINE 50MG CAP PO ONE (15:33)
[2023-08-03] MEDS ORDERED: PEPC1TAB5 PO (15:34)
[2023-08-03] MEDS ORDERED: CEPH500C PO (15:34)
[2023-08-03] MEDS ORDERED: KETO10TAB PO (15:34)
[2023-08-03] MEDS: FAMOTIDINE 20 MG TAB PO ONE (15:34)
[2023-08-03] MEDS ORDERED: BENA25CA4 PO (15:34)
[2023-08-03] MEDS: KETOROLAC 30 MG/ML 1ML VIAL IM ONE (15:35)
[2023-08-03] MEDS: LIDOCAINE 5% (LIDODERM) PATCH TD ONE (15:35)
[2023-08-03 15:51] VITALS: BP 159/79; TEMP 97.5; O2SAT 96
== END 2023-08-03 15:53 | disposition home or self-care (01) ==
LOC: M ED 11:39
DX: T78.40XA Allergy, unspecified, initial encounter (principal); L03.221 Cellulitis of neck; M51.36 Other intervertebral disc degeneration, lumbar region; F32.A Depression, unspecified; F41.9 Anxiety disorder, unspecified; F17.200 Nicotine dependence, unspecified, uncomplicated; Z72.89 Other problems related to lifestyle; Z88.5 Allergy status to narcotic agent; Z88.8 Allergy status to other drugs, medicaments and biological substances; Z86.718 Personal history of other venous thrombosis and embolism; Z79.01 Long term (current) use of anticoagulants; Z79.891 Long term (current) use of opiate analgesic; Z79.899 Other long term (current) drug therapy; Z79.1 Long term (current) use of non-steroidal anti-inflammatories (NSAID)
CPT/HCPCS: 71046; 72131; 93005; 96372; 99284; J1885

== ENCOUNTER 2023-11-27 16:49 | Inpatient (IN) | payer MEDICAID, OTHER ==
[~2023-11-27] VITALS: Ht 162.6 cm; Wt 80.6 kg
[~2023-11-27 16:49] MED LIST changes: +BENA25CA4 PO; +CEPH500C PO; +FLUO-365 PO; -FLUO20CA22 PO; +KETO10TAB PO; -KLON1TAB PO; +KLON1TAB13 PO; +PEPC1TAB5 PO
[2023-11-27 17:27] LABS: VENOUS BASE EXCESS -3.2 (-2.0-2.0); VENOUS HCO3 21.6 MMOL/L (23.0-27.0); VENOUS O2 SATURATION 80.6 % (60.0-80.0); VENOUS PARTIAL PRESSURE O2 47.1 mmHg (30.0-50.0); VENOUS PH 7.372 UNITS (7.330-7.430); VENOUS STANDARD HCO3 21.4 MMOL/L; VENOUS TOTAL CO2 22.7 MMOL/L (24.0-28.0)
[2023-11-27 17:30] LABS: BASO % 0.4 % (0.0-1.0); EOS % 0.1 % (0.0-3.0); HEMATOCRIT 46.7 % (36.0-47.0); HEMOGLOBIN 16.1 g/dl (12.0-15.5); LYMPH # 1.4 10^3/uL (1.5-5.0); LYMPH % 12.7 % (24.0-44.0); MEAN CORPUSCULAR HEMOGLOBIN 29.9 pg (27.0-33.0); MEAN CORPUSCULAR HGB CONC 34.5 g/dl (32.0-36.5); MEAN CORPUSCULAR VOLUME 86.8 fl (80.0-96.0); MONO # 0.6 10^3/uL (0.0-0.8); MONO % 5.6 % (2.0-8.0); NEUTROPHILS # 8.8 10^3/uL (1.5-8.5); NEUTROPHILS % 80.8 % (36.0-66.0); PLATELET COUNT, AUTOMATED 323 10^3/uL (150-450); RED BLOOD COUNT 5.38 10^6/uL (4.00-5.40); WHITE BLOOD COUNT 10.9 10^3/uL (4.0-10.0)
[2023-11-27 17:52] LABS: ETHYL ALCOHOL (ETHANOL) < 0.003 % (0.000-0.010)
[2023-11-27 17:53] LABS: SALICYLATE LEVEL < 3.0 MG/DL (<30)
[2023-11-27 17:57] LABS: THYROID STIMULATING HORMONE 1.169 uIU/ML (0.55-4.78)
[2023-11-27 17:59] LABS: ALBUMIN 4.7 G/DL (3.2-5.2); ALKALINE PHOSPHATASE 102 U/L (46-116); ALT/SGPT 21 U/L (7.0-40); AST/SGOT 37 U/L (<34); BILIRUBIN,DIRECT 0.2 MG/DL (<0.4); BILIRUBIN,TOTAL 0.8 MG/DL (0.3-1.2); BLOOD UREA NITROGEN 20 MG/DL (9-23); CALCIUM LEVEL 10.5 MG/DL (8.5-10.1); CARBON DIOXIDE LEVEL 22 MMOL/L (20-31); CHLORIDE LEVEL 102 MMOL/L (98-107); CREATININE FOR GFR 1.07 MG/DL (0.55-1.30); GLOMERULAR FILTRATION RATE 56.7 (>51); GLUCOSE, FASTING 174 MG/DL (60-100); POTASSIUM SERUM 4.9 MMOL/L (3.5-5.1); SODIUM LEVEL 137 MMOL/L (136-145); TOTAL PROTEIN 8.7 G/DL (5.7-8.2)
[2023-11-27] MEDS: NS 1,000 ML IV ONE (18:11)
[2023-11-27 18:13] LABS: OSMOLALITY SERUM 305 MOSM/KG (275-295)
[2023-11-27 18:26] LABS: CPK CREATINE PHOSPHOKINASE 132 U/L (34-145)
[2023-11-27 19:07] LABS: AMPHETAMINES LEVEL URINE NEGATIVE (NEGATIVE); BARBITURATES URINE NEGATIVE (NEGATIVE); BENZODIAZEPINES URINE NEGATIVE (NEGATIVE); CANNABINOIDS URINE NEGATIVE (NEGATIVE); COCAINE METABOLITE URINE NEGATIVE (NEGATIVE); METHADONE URINE NEGATIVE (NEGATIVE); OPIATES URINE NEGATIVE (NEGATIVE); PHENCYCLIDINE URINE NEGATIVE (NEGATIVE)
[2023-11-27] MEDS ORDERED: LORazepam 2 MG/ML 1ML VIAL As Ordered ONE (23:21)
[2023-11-27] MEDS: LORazepam 2 MG/ML 1ML VIAL IV STA (23:26)
[2023-11-28] MEDS ORDERED: MIDAZOLAM INJ 2MG/2ML VIAL IV STA (03:55)
[2023-11-28] MEDS: MIDAZOLAM 5MG/ML 1ML VIAL IM ONE (04:08)
[2023-11-28 05:53] LABS: BLOOD UREA NITROGEN 19 MG/DL (9-23); CALCIUM LEVEL 9.7 MG/DL (8.5-10.1); CARBON DIOXIDE LEVEL 24 MMOL/L (20-31); CHLORIDE LEVEL 102 MMOL/L (98-107); CREATININE FOR GFR 0.76 MG/DL (0.55-1.30); GLOMERULAR FILTRATION RATE > 60.0 (>51); GLUCOSE, FASTING 107 MG/DL (60-100); SODIUM LEVEL 135 MMOL/L (136-145)
[2023-11-28] MEDS ORDERED: BUPR8SUB SL (10:24)
[2023-11-28] MEDS ORDERED: ADDE30TA PO (10:27)
[2023-11-28] MEDS ORDERED: LORA1TAB23 PO (10:27)
[2023-11-28] MEDS ORDERED: ZOLP10TA2 PO (10:27)
[2023-11-28] MEDS ORDERED: JARD1TAB PO (10:27)
[2023-11-28] MEDS ORDERED: VRAY3CAP PO (10:27)
[2023-11-28] MEDS ORDERED: BACL10TA2 PO (10:27)
[2023-11-28] MEDS ORDERED: HOME MED LIST COMPLETE! XX SCH (10:30)
[2023-11-28] MEDS ORDERED: IBUPROFEN 400MG TAB PO PRN (14:25)
[2023-11-28] MEDS ORDERED: ACETAMINOPHEN TAB 650MG DOSE (2X325MG) PO PRN (14:25)
[2023-11-28] MEDS ORDERED: MAALOX 30 ML SUSP *UDC PO PRN (14:25)
[2023-11-28] MEDS ORDERED: MOM 30ML SUSPENSION UDC PO PRN (14:25)
[2023-11-28] MEDS ORDERED: OLANZapine ORAL DISINTEGRATING TAB 5MG PO PRN (14:25)
[2023-11-28] MEDS ORDERED: traZODone 50 MG TAB PO PRN (14:25)
[2023-11-28] MEDS ORDERED: diphenhydrAMINE 25MG CAP PO PRN (14:25)
[2023-11-28 15:23] VITALS: TEMP 97.8
[2023-11-29 06:22] VITALS: BP 159/70; TEMP 97.8; O2SAT 97
[2023-11-29] MEDS ORDERED: THIAMINE 100 MG TAB PO SCH (09:00)
[2023-11-29] MEDS ORDERED: MULTIVITAMINS/MINERALS THERAP 1 TAB PO SCH (09:00)
[2023-11-29] MEDS ORDERED: FOLIC ACID 1MG TAB PO SCH (09:00)
[2023-11-29] MEDS ORDERED: LORazepam 2 MG TAB PO PRN (14:40)
[2023-11-29] MEDS ORDERED: NICOTINE POLACRILEX 2 MG GUM PO PRN (14:45)
[2023-11-29] MEDS ORDERED: PILL CUTTER 1 EACH XX PRN (14:55)
[2023-11-29] MEDS ORDERED: GABAPENTIN 300 MG CAP PO SCH (16:00)
[2023-11-29 16:20] VITALS: BP 84/46; O2SAT 88
[2023-11-29] MEDS ORDERED: LORazepam 2 MG/ML 1ML VIAL IV STA ×2 (16:28)
[2023-11-29] MEDS ORDERED: levETIRAcetam INJection 1,000 MG in D5W 100 ML IV ONE (16:30)
[2023-11-29] MEDS ORDERED: ISOVUE-370 76% 100ML VIAL As Ordered ONE (16:44)
[2023-11-29] MEDS ORDERED: PHENYLephrine 500MCG 5ML (100MCG/ML) SYRINGE ONE (16:49)
[2023-11-29] MEDS ORDERED: propofoL 200 MG/20 ML VIAL ONE (16:49)
[2023-11-29] MEDS ORDERED: SUCCINYLCHOLINE 100MG/5ML SYRINGE ONE (16:49)
[2023-11-29 17:06] LABS: BASO # 0.1 10^3/uL (0.0-0.2); BASO % 0.4 % (0.0-1.0); EOS % 0.3 % (0.0-3.0); HEMATOCRIT 43.8 % (36.0-47.0); HEMOGLOBIN 14.5 g/dl (12.0-15.5); LYMPH # 1.7 10^3/uL (1.5-5.0); LYMPH % 14.7 % (24.0-44.0); MEAN CORPUSCULAR HEMOGLOBIN 30.2 pg (27.0-33.0); MEAN CORPUSCULAR HGB CONC 33.1 g/dl (32.0-36.5); MEAN CORPUSCULAR VOLUME 91.3 fl (80.0-96.0); MONO # 0.8 10^3/uL (0.0-0.8); MONO % 7.1 % (2.0-8.0); NEUTROPHILS % 76.8 % (36.0-66.0); PLATELET COUNT, AUTOMATED 311 10^3/uL (150-450); WHITE BLOOD COUNT 11.7 10^3/uL (4.0-10.0)
[2023-11-29 17:32] LABS: CK-MB VALUE MASS 1.9 NG/ML (<3.6)
[2023-11-29 17:34] LABS: CPK CREATINE PHOSPHOKINASE 160 U/L (34-145); MB/CK RELATIVE INDEX 1.18 (< OR =4)
[2023-11-29 17:36] LABS: ALBUMIN 3.9 G/DL (3.2-5.2); ALKALINE PHOSPHATASE 101 U/L (46-116); ALT/SGPT 25 U/L (7.0-40); AST/SGOT 24 U/L (<34); BILIRUBIN,TOTAL 0.5 MG/DL (0.3-1.2); BLOOD UREA NITROGEN 17 MG/DL (9-23); CALCIUM LEVEL 9.8 MG/DL (8.5-10.1); CARBON DIOXIDE LEVEL 16 MMOL/L (20-31); CHLORIDE LEVEL 105 MMOL/L (98-107); CREATININE FOR GFR 0.79 MG/DL (0.55-1.30); GLOMERULAR FILTRATION RATE > 60.0 (>51); GLUCOSE, FASTING 170 MG/DL (60-100); POTASSIUM SERUM 3.9 MMOL/L (3.5-5.1); SODIUM LEVEL 141 MMOL/L (136-145); TOTAL PROTEIN 7.5 G/DL (5.7-8.2)
[2023-11-29] MEDS ORDERED: traZODone 100 MG TAB PO SCH (21:00)
[2023-11-29] MEDS ORDERED: BUPRENORPHINE HCL 8MG SUBINGUAL TABLET SL SCH (21:00)
[2023-11-30] MEDS ORDERED: BUPRENORPHINE HCL 8MG SUBINGUAL TABLET SL SCH (09:00)
[2023-11-30] MEDS ORDERED: DAPAGLIFLOZIN PROPANEDIOL 10MG TABLET (FARXIGA) PO SCH (09:00)
== END 2023-11-29 16:50 | disposition short-term general hospital (02) | DRG 751 ==
LOC: M ED 16:49 → M ED INP 11-28 14:24 → M PSY 11-28 15:26
PROVIDERS: ADMIT Student in an Organized Health Care Education/Training Program; ATTEND Student in an Organized Health Care Education/Training Program
DX: F29 Unspecified psychosis not due to a substance or known physiological condition (principal); G40.909 Epilepsy, unspecified, not intractable, without status epilepticus; F41.1 Generalized anxiety disorder; Z79.899 Other long term (current) drug therapy; Z88.8 Allergy status to other drugs, medicaments and biological substances; F90.9 Attention-deficit hyperactivity disorder, unspecified type; F17.200 Nicotine dependence, unspecified, uncomplicated; Z62.810 Personal history of physical and sexual abuse in childhood

== ENCOUNTER 2023-11-29 15:05 | Inpatient (IN) | payer OTHER ==
[2023-11-29] VITALS (19 sets, daily range): BP systolic 102–146; BP diastolic 58–72; TEMP 98.8; O2SAT 95–100
[~2023-11-29] VITALS: Ht 162.6 cm; Wt 80.4 kg
[~2023-11-29 15:05] MED LIST changes: +ADDE30TA PO; +BACL10TA2 PO; +JARD1TAB PO; +LORA1TAB23 PO; +VRAY3CAP PO; +ZOLP10TA2 PO
[2023-11-29] MEDS: propofoL 1,000 MG in IV 1 EA IV SCH (17:05)
[2023-11-29] MEDS ORDERED: PROPOFOL 1,000 MG/100 ML VIAL As Ordered ONE (17:07)
[2023-11-29] MEDS ORDERED: NOREPINEPHRINE 4MG IN D5 250ML 4 MG in IV 1 EA IV SCH (17:10)
[2023-11-29] MEDS ORDERED: HOME MED LIST COMPLETE! XX SCH (17:40)
[2023-11-29] MEDS ORDERED: clonazePAM 1 MG TAB PO PRN (17:45)
[2023-11-29] MEDS: NS 1,000 ML IV SCH (19:13)
[2023-11-29] MEDS: MIDAZOLAM 100MG/100ML-0.9%NACL 100 MG in IV 1 EA IV SCH (19:41)
[2023-11-29] MEDS: BUPRENORPHINE HCL 8MG SUBINGUAL TABLET SL SCH (20:30)
[2023-11-29] MEDS: GABAPENTIN 300 MG CAP PO SCH (20:47)
[2023-11-29] MEDS: LORazepam 1 MG TAB PO SCH (20:47)
[2023-11-29] MEDS: BACLOFEN 10 MG TAB PO SCH (20:47)
[2023-11-29] MEDS: MULTIVITAMIN -ADULT INJECTION 10 ML, THIAMINE INJection 100 MG, FOLIC ACID 1 MG in NS 1... IV ONE (21:14)
[2023-11-29 21:55] LABS: VENOUS BASE EXCESS 0.1 (-2.0-2.0); VENOUS HCO3 23.5 MMOL/L (23.0-27.0); VENOUS O2 SATURATION 98.3 % (60.0-80.0); VENOUS PARTIAL PRESSURE CO2 34.6 mmHg (38.0-50.0); VENOUS PH 7.449 UNITS (7.330-7.430); VENOUS STANDARD HCO3 24.6 MMOL/L; VENOUS TOTAL CO2 24.5 MMOL/L (24.0-28.0)
[2023-11-30] VITALS (28 sets, daily range): BP systolic 92–139; BP diastolic 55–66; TEMP 97.2–98.3; O2SAT 87–98
[2023-11-30 05:25] LABS: ALBUMIN 3.4 G/DL (3.2-5.2); ALKALINE PHOSPHATASE 86 U/L (46-116); ALT/SGPT 18 U/L (7.0-40); AST/SGOT 18 U/L (<34); BILIRUBIN,TOTAL 0.5 MG/DL (0.3-1.2); BLOOD UREA NITROGEN 13 MG/DL (9-23); CALCIUM LEVEL 8.6 MG/DL (8.5-10.1); CARBON DIOXIDE LEVEL 25 MMOL/L (20-31); CHLORIDE LEVEL 108 MMOL/L (98-107); CREATININE FOR GFR 0.66 MG/DL (0.55-1.30); GLOMERULAR FILTRATION RATE > 60.0 (>51); GLUCOSE, FASTING 87 MG/DL (60-100); MAGNESIUM LEVEL 2.2 MG/DL (1.8-2.4); POTASSIUM SERUM 3.2 MMOL/L (3.5-5.1); SODIUM LEVEL 141 MMOL/L (136-145); TOTAL PROTEIN 6.5 G/DL (5.7-8.2)
[2023-11-30] MEDS: KCL 10MEQ/100ML SWI (KRUN) 10 MEQ in IV 1 EA IV SCH ×2 (05:45→08:50)
[2023-11-30] MEDS: CARIPRAZINE 3MG CAPSULE (VRAYLAR) PO SCH (08:52)
[2023-11-30] MEDS: PANTOPRAZOLE 40MG VIAL IV SCH (08:53)
[2023-11-30] MEDS: ENOXAPARIN 40MG/0.4ML SYRINGE (J1650 PER 10MG) SC SCH (08:53)
[2023-11-30] MEDS: BUPRENORPHINE HCL 8MG SUBINGUAL TABLET SL SCH (09:00)
[2023-12-01] VITALS (10 sets, daily range): BP systolic 116–147; BP diastolic 59–78; TEMP 97–98.8; O2SAT 91–95
[2023-12-01 05:58] LABS: ALBUMIN 3.1 G/DL (3.2-5.2); ALKALINE PHOSPHATASE 90 U/L (46-116); ALT/SGPT 17 U/L (7.0-40); AST/SGOT 17 U/L (<34); BILIRUBIN,TOTAL 0.8 MG/DL (0.3-1.2); BLOOD UREA NITROGEN 7 MG/DL (9-23); CALCIUM LEVEL 8.9 MG/DL (8.5-10.1); CARBON DIOXIDE LEVEL 25 MMOL/L (20-31); CHLORIDE LEVEL 108 MMOL/L (98-107); CREATININE FOR GFR 0.65 MG/DL (0.55-1.30); GLOMERULAR FILTRATION RATE > 60.0 (>51); GLUCOSE, FASTING 94 MG/DL (60-100); MAGNESIUM LEVEL 1.9 MG/DL (1.8-2.4); PHOSPHORUS LEVEL 2.7 MG/DL (2.5-4.9); POTASSIUM SERUM 3.2 MMOL/L (3.5-5.1); SODIUM LEVEL 142 MMOL/L (136-145); TOTAL PROTEIN 6.2 G/DL (5.7-8.2)
[2023-12-01] MEDS: POTASSIUM CHLORIDE 10MEQ SR TABLET PO SCH (09:31)
[2023-12-01] MEDS: ADDERALL 5 MG TAB PO SCH (09:35)
[2023-12-01] MEDS: APIXABAN 5 MG TAB (ELIQUIS) PO SCH (20:18)
[2023-12-02] MEDS: DEXTROMETHORPHAN 60MG/10ML SUSP 90ML BTL(DELSYM) PO PRN (01:10)
[2023-12-02 04:00] VITALS: BP 112/66; TEMP 97.7; O2SAT 93
[2023-12-02 12:12] VITALS: BP 133/70; TEMP 97.9; O2SAT 95
== END 2023-12-02 13:15 | disposition left against medical advice (07) | DRG 53 ==
LOC: M ICU 15:05 → M MS5PR 12-01 14:58
PROVIDERS: ADMIT Internal Medicine Pulmonary Disease; ATTEND Internal Medicine
DX: G40.801 Other epilepsy, not intractable, with status epilepticus (principal); Z88.8 Allergy status to other drugs, medicaments and biological substances; Z79.899 Other long term (current) drug therapy; F29 Unspecified psychosis not due to a substance or known physiological condition; F90.9 Attention-deficit hyperactivity disorder, unspecified type; F41.1 Generalized anxiety disorder; F17.200 Nicotine dependence, unspecified, uncomplicated; F14.90 Cocaine use, unspecified, uncomplicated; F11.90 Opioid use, unspecified, uncomplicated; Z62.810 Personal history of physical and sexual abuse in childhood; I27.82 Chronic pulmonary embolism; E87.6 Hypokalemia; J96.00 Acute respiratory failure, unspecified whether with hypoxia or hypercapnia; E07.9 Disorder of thyroid, unspecified

== ENCOUNTER 2023-12-31 13:51 | Emergency (ER) | payer MEDICAID, OTHER, SELFPAY ==
[~2023-12-31] VITALS: Ht 170.2 cm; Wt 78.5 kg
[2023-12-31 13:52] VITALS: BP 121/77; TEMP 97.1; O2SAT 97
== END 2023-12-31 14:10 | disposition left against medical advice (07) ==
LOC: M ED 13:51
DX: Z53.21 Procedure and treatment not carried out due to patient leaving prior to being seen by health care provider (principal)

== ENCOUNTER → 2023-12-31 | Outpatient (CLI) | payer MEDICAID, OTHER ==
[2023-12-31 14:18] LABS: HEMOGLOBIN 12.7 g/dl (12.0-15.5); MEAN CORPUSCULAR HEMOGLOBIN 30.5 pg (27.0-33.0); MEAN CORPUSCULAR HGB CONC 33.4 g/dl (32.0-36.5); MEAN CORPUSCULAR VOLUME 91.1 fl (80.0-96.0); PLATELET COUNT, AUTOMATED 259 10^3/uL (150-450); RED BLOOD COUNT 4.17 10^6/uL (4.00-5.40); WHITE BLOOD COUNT 7.4 10^3/uL (4.0-10.0)
[2023-12-31 14:41] LABS: AMPHETAMINES LEVEL URINE NEGATIVE (NEGATIVE); BARBITURATES URINE NEGATIVE (NEGATIVE); COCAINE METABOLITE URINE NEGATIVE (NEGATIVE)
[2023-12-31 14:42] LABS: CANNABINOIDS URINE NEGATIVE (NEGATIVE); METHADONE URINE NEGATIVE (NEGATIVE); OPIATES URINE NEGATIVE (NEGATIVE); PHENCYCLIDINE URINE NEGATIVE (NEGATIVE)
[2023-12-31 14:43] LABS: BENZODIAZEPINES URINE POSITIVE (NEGATIVE)
[2023-12-31 14:44] LABS: ALBUMIN 3.3 G/DL (3.2-5.2); ALKALINE PHOSPHATASE 92 U/L (46-116); ALT/SGPT 16 U/L (7.0-40); AST/SGOT 16 U/L (<34); BILIRUBIN,TOTAL 0.3 MG/DL (0.3-1.2); BLOOD UREA NITROGEN 5 MG/DL (9-23); CALCIUM LEVEL 9.3 MG/DL (8.5-10.1); CARBON DIOXIDE LEVEL 27 MMOL/L (20-31); CHLORIDE LEVEL 108 MMOL/L (98-107); CREATININE FOR GFR 0.63 MG/DL (0.55-1.30); GLOMERULAR FILTRATION RATE > 60.0 (>51); GLUCOSE, FASTING 116 MG/DL (60-100); POTASSIUM SERUM 3.9 MMOL/L (3.5-5.1); SODIUM LEVEL 140 MMOL/L (136-145); TOTAL PROTEIN 6.8 G/DL (5.7-8.2)
== END ==
LOC: M LAB 12:56
PROVIDERS: ATTEND Family Medicine Addiction Medicine
DX: L29.9 Pruritus, unspecified (principal)

== ENCOUNTER → 2024-01-02 | Outpatient (CLI) | payer MEDICAID | LOC: M OUTALCOH 08:33 | PROVIDERS: ATTEND Psychiatry & Neurology Psychiatry | DX: F11.20 Opioid dependence, uncomplicated (principal); F15.10 Other stimulant abuse, uncomplicated; F17.200 Nicotine dependence, unspecified, uncomplicated ==

== ENCOUNTER 2024-01-03 18:08 | Emergency (ER) | payer MEDICAID, OTHER ==
[~2024-01-03] VITALS: Ht 170.2 cm; Wt 78.0 kg
[2024-01-04 06:01] VITALS: BP 189/84; TEMP 97.6; O2SAT 98
[2024-01-04] MEDS: MUPIROCIN 2% OINT 22 GM TUBE TOP ONE (06:15)
[2024-01-04] MEDS ORDERED: ELIM5CRE2 TOP (06:19)
[2024-01-04] MEDS ORDERED: HYDR-3363 PO (06:19)
[2024-01-04] MEDS ORDERED: MUPI30CR TOP (06:19)
== END 2024-01-04 06:49 | disposition home or self-care (01) ==
LOC: M ED 18:08
DX: L29.9 Pruritus, unspecified (principal); F22 Delusional disorders; B19.20 Unspecified viral hepatitis C without hepatic coma; F41.9 Anxiety disorder, unspecified; F17.210 Nicotine dependence, cigarettes, uncomplicated; F20.9 Schizophrenia, unspecified; Z88.8 Allergy status to other drugs, medicaments and biological substances; Z79.2 Long term (current) use of antibiotics; Z79.899 Other long term (current) drug therapy

== ENCOUNTER 2024-02-05 09:42 | Outpatient (RCR) | payer OTHER ==
[~2024-02-05 09:42] MED LIST changes: +ELIM5CRE2 TOP; +GABA-1490 PO; +GABA-1635; +GABA-1635 PO; -GABA600T4 PO; -GABA800T4; -GABA800T4 PO; +MUPI30CR TOP
== END 2024-02-09 ==
LOC: M OUTALCOH 09:42
PROVIDERS: ATTEND Psychiatry & Neurology Psychiatry
DX: F11.20 Opioid dependence, uncomplicated (principal); Z72.0 Tobacco use
CPT/HCPCS: G0397 ×2

== ENCOUNTER 2024-02-13 13:19 | Inpatient (IN) | payer MEDICAID ==
[~2024-02-13] VITALS: Ht 167.6 cm; Wt 72.7 kg
[2024-02-13 14:47] LABS: HEMATOCRIT 42.2 % (36.0-47.0); HEMOGLOBIN 14.1 g/dl (12.0-15.5); MEAN CORPUSCULAR HEMOGLOBIN 30.5 pg (27.0-33.0); MEAN CORPUSCULAR HGB CONC 33.4 g/dl (32.0-36.5); MEAN CORPUSCULAR VOLUME 91.3 fl (80.0-96.0); PLATELET COUNT, AUTOMATED 286 10^3/uL (150-450); RED BLOOD COUNT 4.62 10^6/uL (4.00-5.40); WHITE BLOOD COUNT 9.6 10^3/uL (4.0-10.0)
[2024-02-13 15:17] LABS: ETHYL ALCOHOL (ETHANOL) < 0.003 % (0.000-0.010)
[2024-02-13 15:19] LABS: ALBUMIN 4.1 G/DL (3.2-5.2); ALKALINE PHOSPHATASE 90 U/L (46-116); ALT/SGPT 16 U/L (7.0-40); AST/SGOT 18 U/L (<34); BILIRUBIN,DIRECT 0.2 MG/DL (<0.4); BILIRUBIN,TOTAL 0.5 MG/DL (0.3-1.2); BLOOD UREA NITROGEN 16 MG/DL (9-23); CARBON DIOXIDE LEVEL 28 MMOL/L (20-31); CHLORIDE LEVEL 106 MMOL/L (98-107); CREATININE FOR GFR 0.86 MG/DL (0.55-1.30); GLOMERULAR FILTRATION RATE > 60.0 (>51); GLUCOSE, FASTING 101 MG/DL (60-100); POTASSIUM SERUM 3.6 MMOL/L (3.5-5.1); SALICYLATE LEVEL < 3.0 MG/DL (<30); SODIUM LEVEL 140 MMOL/L (136-145); TOTAL PROTEIN 7.8 G/DL (5.7-8.2)
[2024-02-13 15:21] LABS: THYROID STIMULATING HORMONE 1.203 uIU/ML (0.55-4.78)
[2024-02-13] MEDS ORDERED: PREG100C2 PO (15:41)
[2024-02-13] MEDS ORDERED: HOME MED LIST COMPLETE! XX SCH (15:45)
[2024-02-13 18:07] LABS: BARBITURATES URINE NEGATIVE (NEGATIVE); CANNABINOIDS URINE NEGATIVE (NEGATIVE); COCAINE METABOLITE URINE NEGATIVE (NEGATIVE); METHADONE URINE NEGATIVE (NEGATIVE); OPIATES URINE NEGATIVE (NEGATIVE); PHENCYCLIDINE URINE NEGATIVE (NEGATIVE)
[2024-02-13 18:13] LABS: AMPHETAMINES LEVEL URINE POSITIVE (NEGATIVE); BENZODIAZEPINES URINE POSITIVE (NEGATIVE)
[2024-02-13] MEDS ORDERED: MAALOX 30 ML SUSP *UDC PO PRN (18:35)
[2024-02-13] MEDS ORDERED: traZODone 50 MG TAB PO PRN (18:35)
[2024-02-13] MEDS ORDERED: diphenhydrAMINE 25MG CAP PO PRN (18:35)
[2024-02-13] MEDS ORDERED: ACETAMINOPHEN TAB 650MG DOSE (2X325MG) PO PRN (18:35)
[2024-02-13] MEDS ORDERED: IBUPROFEN 400MG TAB PO PRN (18:35)
[2024-02-13] MEDS ORDERED: MOM 30ML SUSPENSION UDC PO PRN (18:35)
[2024-02-13] MEDS: PREGABALIN 100 MG CAP (LYRICA) PO SCH (19:10)
[2024-02-13] MEDS: clonazePAM 1 MG TAB PO SCH (19:10)
[2024-02-13] MEDS ORDERED: BUPRENORPHINE/NALOXONE 8-2MG SUBLINGUAL TABLET(SUBOXONE) SL SCH (21:00)
[2024-02-13] MEDS: BUPRENORPHINE HCL 8MG SUBINGUAL TABLET SL SCH (21:10)
[2024-02-13 22:00] VITALS: BP 109/68; TEMP 97.9; O2SAT 95
[2024-02-14] MEDS: UNRESOLVED CLARIFICATION ENTRY XX SCH (00:01)
[2024-02-14 06:10] VITALS: BP 110/58; TEMP 97.1; O2SAT 96
[2024-02-14] MEDS ORDERED: ADDERALL 5 MG TAB PO SCH (07:00)
[2024-02-14] MEDS ORDERED: BUPRENORPHINE/NALOXONE 8-2MG SUBLINGUAL TABLET(SUBOXONE) SL SCH (09:00)
[2024-02-14] MEDS ORDERED: BUPRENORPHINE HCL 8MG SUBINGUAL TABLET SL SCH (09:00)
[2024-02-14] MEDS ORDERED: JARDIANCE 10MG TABLET (PATIENT'S OWN MED) PO SCH (09:00)
[2024-02-14] MEDS: BACLOFEN 10 MG TAB PO SCH (09:00)
[2024-02-14] MEDS: JARDIANCE 10 MG PO SCH (09:16)
[2024-02-14] MEDS ORDERED: clonazePAM 1 MG TAB PO PRN (10:30)
[2024-02-14] MEDS: GABAPENTIN 300 MG CAP PO SCH (11:41)
[2024-02-14] MEDS: BUPRENORPHINE HCL 8MG SUBINGUAL TABLET SL SCH ×2 (11:41→21:00)
[2024-02-14] MEDS: PREGABALIN 100 MG CAP (LYRICA) PO SCH (11:42)
[2024-02-14 15:16] VITALS: BP 96/56; TEMP 98.2; O2SAT 99
[2024-02-14] MEDS: zolPIDEM TARTRATE 5 MG TAB PO SCH (21:00)
[2024-02-15 06:24] VITALS: BP 120/59; TEMP 97.2; O2SAT 96
[2024-02-15] MEDS ORDERED: BACL10TA2 PO (08:33)
[2024-02-15] MEDS ORDERED: NEUR600T PO (08:33)
== END 2024-02-15 12:08 | disposition home or self-care (01) | DRG 751 ==
LOC: M ED 13:19 → M ED INP 18:31 → M PSY 21:28
PROVIDERS: ADMIT Psychiatry & Neurology Psychiatry; ATTEND Psychiatry & Neurology Psychiatry
DX: F29 Unspecified psychosis not due to a substance or known physiological condition (principal); F32.A Depression, unspecified; F41.9 Anxiety disorder, unspecified; F17.200 Nicotine dependence, unspecified, uncomplicated; Z91.51 Personal history of suicidal behavior; Z79.899 Other long term (current) drug therapy; Z88.8 Allergy status to other drugs, medicaments and biological substances; Z56.0 Unemployment, unspecified

== ENCOUNTER 2024-03-05 13:52 | Outpatient (RCR) | payer MEDICAID | END 2024-03-10 | LOC: M OUTALCOH 13:52 | PROVIDERS: ATTEND Psychiatry & Neurology Psychiatry | DX: F11.20 Opioid dependence, uncomplicated (principal); F15.10 Other stimulant abuse, uncomplicated; F17.200 Nicotine dependence, unspecified, uncomplicated ==

== ENCOUNTER 2024-04-08 10:00 | Outpatient (RCR) | payer MEDICAID ==
[~2024-04-08 10:00] MED LIST changes: +GABA-1172; -GABA-282; -OLAN2.5T25 PO; +OLAN2.5T53 PO
== END 2024-04-10 ==
LOC: M OUTALCOH 10:00
PROVIDERS: ATTEND Psychiatry & Neurology Psychiatry
DX: F11.20 Opioid dependence, uncomplicated (principal); F15.10 Other stimulant abuse, uncomplicated; F17.200 Nicotine dependence, unspecified, uncomplicated

== ENCOUNTER 2024-05-06 09:00 | Outpatient (RCR) | payer MEDICAID | END 2024-05-10 | LOC: M OUTALCOH 09:00 | PROVIDERS: ATTEND Psychiatry & Neurology Psychiatry | DX: F11.20 Opioid dependence, uncomplicated (principal); F15.10 Other stimulant abuse, uncomplicated; F17.200 Nicotine dependence, unspecified, uncomplicated ==

== ENCOUNTER 2024-05-24 11:53 | Inpatient (IN) | payer MEDICAID, OTHER ==
[~2024-05-24] VITALS: Ht 167.6 cm; Wt 68.5 kg
[2024-05-24 12:46] LABS: HEMATOCRIT 42.2 % (36.0-47.0); HEMOGLOBIN 14.4 g/dl (12.0-15.5); MEAN CORPUSCULAR HEMOGLOBIN 30.8 pg (27.0-33.0); MEAN CORPUSCULAR HGB CONC 34.1 g/dl (32.0-36.5); MEAN CORPUSCULAR VOLUME 90.2 fl (80.0-96.0); PLATELET COUNT, AUTOMATED 231 10^3/uL (150-450); RED BLOOD COUNT 4.68 10^6/uL (4.00-5.40)
[2024-05-24 13:08] LABS: ETHYL ALCOHOL (ETHANOL) 0.004 % (0.000-0.010)
[2024-05-24 13:10] LABS: SALICYLATE LEVEL < 3.0 MG/DL (<30)
[2024-05-24 13:12] LABS: THYROID STIMULATING HORMONE 0.585 uIU/ML (0.55-4.78)
[2024-05-24 13:19] LABS: ALBUMIN 3.3 G/DL (3.2-5.2); ALKALINE PHOSPHATASE 88 U/L (35-104); ALT/SGPT 13 U/L (7.0-40); AST/SGOT 10 U/L (<34); BILIRUBIN,DIRECT < 0.1 MG/DL (<0.4); BILIRUBIN,TOTAL 0.2 MG/DL (0.3-1.2); BLOOD UREA NITROGEN < 5 MG/DL (9-23); CALCIUM LEVEL 9.7 MG/DL (8.5-10.1); CARBON DIOXIDE LEVEL 24 MMOL/L (20-31); CHLORIDE LEVEL 112 MMOL/L (98-107); GLOMERULAR FILTRATION RATE > 60.0 (>51); GLUCOSE, FASTING 132 MG/DL (60-100); POTASSIUM SERUM 3.6 MMOL/L (3.5-5.1); SODIUM LEVEL 145 MMOL/L (136-145); TOTAL PROTEIN 6.9 G/DL (5.7-8.2)
[2024-05-24 13:32] LABS: AMPHETAMINES LEVEL URINE NEGATIVE (NEGATIVE); BARBITURATES URINE NEGATIVE (NEGATIVE); CANNABINOIDS URINE NEGATIVE (NEGATIVE); COCAINE METABOLITE URINE NEGATIVE (NEGATIVE); METHADONE URINE NEGATIVE (NEGATIVE); OPIATES URINE NEGATIVE (NEGATIVE); PHENCYCLIDINE URINE NEGATIVE (NEGATIVE)
[2024-05-24 13:33] LABS: BENZODIAZEPINES URINE POSITIVE (NEGATIVE)
[2024-05-24] MEDS ORDERED: traZODone 50 MG TAB PO PRN (15:30)
[2024-05-24] MEDS ORDERED: MOM 30ML SUSPENSION UDC PO PRN (15:30)
[2024-05-24] MEDS ORDERED: ACETAMINOPHEN 325 MG TAB PO PRN (15:30)
[2024-05-24] MEDS ORDERED: IBUPROFEN 400MG TAB PO PRN (15:30)
[2024-05-24] MEDS ORDERED: CLON2TAB14 PO (15:49)
[2024-05-24] MEDS ORDERED: HOME MED LIST COMPLETE! XX SCH (15:50)
[2024-05-24 16:07] VITALS: BP 110/66; TEMP 97.6; O2SAT 97
[2024-05-24] MEDS: diphenhydrAMINE 25MG CAP PO PRN (18:00)
[2024-05-24] MEDS: zolPIDEM TARTRATE 5 MG TAB PO PRN (20:41)
[2024-05-24] MEDS: clonazePAM 1 MG TAB PO SCH (20:41)
[2024-05-24] MEDS: BACLOFEN 10 MG TAB PO SCH (20:41)
[2024-05-24] MEDS: PREGABALIN 100 MG CAP (LYRICA) PO SCH (20:41)
[2024-05-25 06:50] VITALS: BP 123/65; TEMP 97.1; O2SAT 99
[2024-05-25] MEDS ORDERED: NICOTINE POLACRILEX 2 MG GUM PO PRN (13:10)
[2024-05-25] MEDS: NICOTINE POLACRILEX 2 MG GUM PO ONE (13:24)
[2024-05-25] MEDS: NICOTINE POLACRILEX 2 MG GUM PO PRN (18:09)
[2024-05-26 06:47] VITALS: BP 150/90; TEMP 97.7; O2SAT 97
[2024-05-26 17:05] VITALS: BP 106/56; TEMP 98.9; O2SAT 96
[2024-05-26 17:54] VITALS: BP 133/70; TEMP 97.4; O2SAT 96
[2024-05-27 15:57] VITALS: BP 110/72; TEMP 96.9; O2SAT 96
[2024-05-28 06:39] VITALS: BP 132/62; TEMP 97.9; O2SAT 98
[2024-05-29 06:46] VITALS: BP 120/57; TEMP 97.3; O2SAT 98
[2024-05-29] MEDS: BACLOFEN 10 MG TAB PO PRN (17:13)
[2024-05-29] MEDS ORDERED: HALO5TAB33 PO (17:45)
[2024-05-30 06:27] VITALS: BP 119/60; TEMP 97.1; O2SAT 97
[2024-05-30] MEDS: MAALOX 30 ML SUSP *UDC PO PRN (07:24)
[2024-05-30] MEDS ORDERED: CLON1TAB8 PO (12:03)
[2024-05-30] MEDS ORDERED: AMBI10TA PO (12:03)
[2024-05-30] MEDS ORDERED: PREG100CA PO (12:03)
== END 2024-05-30 11:19 | disposition home or self-care (01) | DRG 751 ==
LOC: M ED 11:53 → M ED INP 15:26 → M PSY 16:10
PROVIDERS: ADMIT Psychiatry & Neurology Psychiatry; ATTEND Psychiatry & Neurology Psychiatry
DX: F29 Unspecified psychosis not due to a substance or known physiological condition (principal); F32.A Depression, unspecified; F41.9 Anxiety disorder, unspecified; Z79.899 Other long term (current) drug therapy; Z88.5 Allergy status to narcotic agent; Z88.8 Allergy status to other drugs, medicaments and biological substances; F19.159 Other psychoactive substance abuse with psychoactive substance-induced psychotic disorder, unspecified

== ENCOUNTER 2024-06-06 10:32 | Outpatient (RCR) | payer MEDICAID ==
[~2024-06-06 10:32] MED LIST changes: +AMBI10TA PO; +CLON2TAB14 PO; +HALO5TAB33 PO
== END 2024-06-10 ==
LOC: M OUTALCOH 10:32
PROVIDERS: ATTEND Psychiatry & Neurology Psychiatry
DX: F11.20 Opioid dependence, uncomplicated (principal); F15.10 Other stimulant abuse, uncomplicated; F17.200 Nicotine dependence, unspecified, uncomplicated

== ENCOUNTER 2024-07-02 05:59 | Inpatient (IN) | payer MEDICAID, OTHER ==
[~2024-07-02] VITALS: Ht 167.6 cm; Wt 81.6 kg
[2024-07-02 07:36] LABS: HEMATOCRIT 40.8 % (36.0-47.0); HEMOGLOBIN 13.9 g/dl (12.0-15.5); MEAN CORPUSCULAR HEMOGLOBIN 30.9 pg (27.0-33.0); MEAN CORPUSCULAR HGB CONC 34.1 g/dl (32.0-36.5); MEAN CORPUSCULAR VOLUME 90.7 fl (80.0-96.0); PLATELET COUNT, AUTOMATED 262 10^3/uL (150-450); WHITE BLOOD COUNT 13.3 10^3/uL (4.0-10.0)
[2024-07-02 08:06] LABS: BARBITURATES URINE NEGATIVE (NEGATIVE); CANNABINOIDS URINE NEGATIVE (NEGATIVE); COCAINE METABOLITE URINE NEGATIVE (NEGATIVE); METHADONE URINE NEGATIVE (NEGATIVE); OPIATES URINE NEGATIVE (NEGATIVE); PHENCYCLIDINE URINE NEGATIVE (NEGATIVE)
[2024-07-02 08:09] LABS: HCG, SERUM QUALITATIVE NEGATIVE (NEGATIVE)
[2024-07-02 08:12] LABS: AMPHETAMINES LEVEL URINE POSITIVE (NEGATIVE); BENZODIAZEPINES URINE POSITIVE (NEGATIVE)
[2024-07-02 08:15] LABS: ETHYL ALCOHOL (ETHANOL) < 0.003 % (0.000-0.010)
[2024-07-02 08:16] LABS: SALICYLATE LEVEL < 3.0 MG/DL (<30)
[2024-07-02 08:30] LABS: ALBUMIN 3.9 G/DL (3.2-5.2); ALKALINE PHOSPHATASE 88 U/L (35-104); ALT/SGPT 16 U/L (7.0-40); AST/SGOT 38 U/L (<34); BILIRUBIN,DIRECT 0.2 MG/DL (<0.4); BILIRUBIN,TOTAL 0.5 MG/DL (0.3-1.2); BLOOD UREA NITROGEN 19 MG/DL (9-23); CALCIUM LEVEL 9.3 MG/DL (8.5-10.1); CARBON DIOXIDE LEVEL 20 MMOL/L (20-31); CHLORIDE LEVEL 108 MMOL/L (98-107); CREATININE FOR GFR 0.99 MG/DL (0.55-1.30); GLOMERULAR FILTRATION RATE > 60.0 (>51); GLUCOSE, FASTING 97 MG/DL (60-100); POTASSIUM SERUM 4.3 MMOL/L (3.5-5.1); SODIUM LEVEL 142 MMOL/L (136-145); THYROID STIMULATING HORMONE 0.379 uIU/ML (0.55-4.78); TOTAL PROTEIN 7.8 G/DL (5.7-8.2)
[2024-07-02] MEDS: LORazepam 2 MG TAB PO STA (09:44)
[2024-07-02] MEDS ORDERED: CLON2TAB7 PO (11:55)
[2024-07-02] MEDS ORDERED: HOME MED LIST COMPLETE! XX SCH (12:00)
[2024-07-02 15:27] VITALS: BP 112/63; TEMP 97.8; O2SAT 99
[2024-07-02] MEDS: clonazePAM 1 MG TAB PO SCH (16:05)
[2024-07-02] MEDS: BACLOFEN 10 MG TAB PO SCH (16:05)
[2024-07-02] MEDS: PREGABALIN 100 MG CAP (LYRICA) PO SCH (16:05)
[2024-07-02] MEDS ORDERED: MOM 30ML SUSPENSION UDC PO PRN (17:25)
[2024-07-02] MEDS ORDERED: ACETAMINOPHEN 325 MG TAB PO PRN (17:25)
[2024-07-02] MEDS ORDERED: SODIUM CHLORIDE NASAL 0.65% SPRAY BTL (OCEAN) PRN (17:25)
[2024-07-02] MEDS ORDERED: MAALOX 30 ML SUSP *UDC PO PRN (17:25)
[2024-07-02] MEDS ORDERED: IBUPROFEN 400MG TAB PO PRN (17:25)
[2024-07-02] MEDS: CETIRIZINE (ZyrTEC) 10 MG TAB PO ONE (17:31)
[2024-07-02] MEDS ORDERED: PILL CUTTER 1 EACH XX PRN (17:40)
[2024-07-03 06:23] VITALS: BP 114/62; TEMP 97.2; O2SAT 99
[2024-07-03] MEDS: NICOTINE 14 MG/24 HR TRANSDERMAL TD SCH (09:00)
[2024-07-03] MEDS ORDERED: ISOVUE-370 76% 100ML VIAL As Ordered ONE (13:59)
[2024-07-05] MEDS: traZODone 50 MG TAB PO PRN (20:27)
[2024-07-05] MEDS: NICOTINE POLACRILEX 2 MG GUM PO PRN (20:28)
[2024-07-05] MEDS: diphenhydrAMINE 25MG CAP PO PRN (20:28)
[2024-07-06 06:37] VITALS: BP 108/56; TEMP 97.6; O2SAT 97
[2024-07-07 06:36] VITALS: BP 117/62; TEMP 97; O2SAT 96
== END 2024-07-07 14:26 | disposition home or self-care (01) | DRG 751 ==
LOC: M ED 05:59 → M ED INP 14:10 → M PSY 15:33
PROVIDERS: ADMIT Psychiatry & Neurology Psychiatry; ATTEND Psychiatry & Neurology Psychiatry
DX: F23 Brief psychotic disorder (principal); I27.82 Chronic pulmonary embolism; F41.1 Generalized anxiety disorder; R45.850 Homicidal ideations; G40.909 Epilepsy, unspecified, not intractable, without status epilepticus; F32.5 Major depressive disorder, single episode, in full remission; Z79.899 Other long term (current) drug therapy; F17.200 Nicotine dependence, unspecified, uncomplicated; F10.10 Alcohol abuse, uncomplicated; F15.90 Other stimulant use, unspecified, uncomplicated; F14.90 Cocaine use, unspecified, uncomplicated; Z88.8 Allergy status to other drugs, medicaments and biological substances

== ENCOUNTER 2024-07-02 11:00 | Outpatient (RCR) | payer MEDICAID ==
[2024-07-02] MEDS ORDERED: CLON2TAB7 PO (11:55)
== END 2024-07-11 ==
LOC: M OUTALCOH 11:00
PROVIDERS: ATTEND Psychiatry & Neurology Psychiatry
DX: F11.20 Opioid dependence, uncomplicated (principal); Z72.0 Tobacco use

== ENCOUNTER 2024-07-13 23:22 | Emergency (ER) | payer MEDICAID, OTHER ==
[~2024-07-13] VITALS: Ht 167.6 cm; Wt 68.7 kg
[2024-07-14 00:38] LABS: HEMATOCRIT 41.2 % (36.0-47.0); HEMOGLOBIN 14.1 g/dl (12.0-15.5); MEAN CORPUSCULAR HEMOGLOBIN 31.1 pg (27.0-33.0); MEAN CORPUSCULAR HGB CONC 34.2 g/dl (32.0-36.5); MEAN CORPUSCULAR VOLUME 90.7 fl (80.0-96.0); PLATELET COUNT, AUTOMATED 296 10^3/uL (150-450); RED BLOOD COUNT 4.54 10^6/uL (4.00-5.40); WHITE BLOOD COUNT 10.5 10^3/uL (4.0-10.0)
[2024-07-14 00:46] LABS: BARBITURATES URINE NEGATIVE (NEGATIVE); CANNABINOIDS URINE NEGATIVE (NEGATIVE); COCAINE METABOLITE URINE NEGATIVE (NEGATIVE); METHADONE URINE NEGATIVE (NEGATIVE); OPIATES URINE NEGATIVE (NEGATIVE); PHENCYCLIDINE URINE NEGATIVE (NEGATIVE)
[2024-07-14 00:49] LABS: AMPHETAMINES LEVEL URINE POSITIVE (NEGATIVE); BENZODIAZEPINES URINE POSITIVE (NEGATIVE)
[2024-07-14 01:14] LABS: ETHYL ALCOHOL (ETHANOL) 0.003 % (0.000-0.010)
[2024-07-14 01:15] LABS: SALICYLATE LEVEL < 3.0 MG/DL (<30)
[2024-07-14 01:16] LABS: ALKALINE PHOSPHATASE 94 U/L (35-104); ALT/SGPT 18 U/L (7.0-40); AST/SGOT 19 U/L (<34); BILIRUBIN,DIRECT 0.1 MG/DL (<0.4); BILIRUBIN,TOTAL 0.4 MG/DL (0.3-1.2); BLOOD UREA NITROGEN 7 MG/DL (9-23); CALCIUM LEVEL 9.5 MG/DL (8.5-10.1); CARBON DIOXIDE LEVEL 28 MMOL/L (20-31); CHLORIDE LEVEL 105 MMOL/L (98-107); CREATININE FOR GFR 0.83 MG/DL (0.55-1.30); GLOMERULAR FILTRATION RATE > 60.0 (>51); GLUCOSE, FASTING 119 MG/DL (60-100); POTASSIUM SERUM 3.8 MMOL/L (3.5-5.1); SODIUM LEVEL 139 MMOL/L (136-145); TOTAL PROTEIN 8.1 G/DL (5.7-8.2)
[2024-07-14 01:29] LABS: HCG, SERUM QUALITATIVE NEGATIVE (NEGATIVE)
[2024-07-14] MEDS ORDERED: OLANZapine INTRAMUSCULAR 10MG VIAL IM ONE (02:10)
[2024-07-14] MEDS: OLANZapine 10 MG TAB PO ONE (02:33)
[2024-07-14] MEDS ORDERED: PREGABALIN 100 MG CAP (LYRICA) PO SCH (09:00)
[2024-07-14] MEDS ORDERED: BUPRENORPHINE/NALOXONE 8-2MG SUBLINGUAL TABLET(SUBOXONE) SL SCH ×2 (09:00→21:00)
[2024-07-14] MEDS ORDERED: BUPRENORPHINE HCL 8MG SUBINGUAL TABLET SL SCH ×2 (09:00→21:00)
[2024-07-14] MEDS ORDERED: BUPR8SUB PO (09:20)
[2024-07-14] MEDS ORDERED: zolPIDEM TARTRATE 5 MG TAB PO PRN (09:45)
[2024-07-14] MEDS ORDERED: BACLOFEN 10 MG TAB PO PRN (09:45)
[2024-07-14] MEDS ORDERED: clonazePAM 1 MG TAB PO PRN (09:45)
[2024-07-14] MEDS ORDERED: HOME MED LIST COMPLETE! XX SCH (10:20)
[2024-07-14] MEDS: ADDERALL 5 MG TAB PO SCH (10:23)
[2024-07-14 13:13] VITALS: BP 137/81; TEMP 96.5; O2SAT 98
[2024-07-14] MEDS ORDERED: ADDERALL 5 MG TAB PO SCH (21:00)
== END 2024-07-14 13:16 | disposition home or self-care (01) ==
LOC: M ED 23:22
DX: F23 Brief psychotic disorder (principal); F15.10 Other stimulant abuse, uncomplicated; F90.9 Attention-deficit hyperactivity disorder, unspecified type; G40.909 Epilepsy, unspecified, not intractable, without status epilepticus; F17.200 Nicotine dependence, unspecified, uncomplicated; F19.10 Other psychoactive substance abuse, uncomplicated; Z79.899 Other long term (current) drug therapy; Z88.5 Allergy status to narcotic agent; Z88.8 Allergy status to other drugs, medicaments and biological substances

== ENCOUNTER 2024-07-21 10:06 | Outpatient (RCR) | payer MEDICAID ==
[~2024-07-21 10:06] MED LIST changes: +BUPR8SUB PO; -ELIM5CRE2 TOP; +PERM60CR8 TOP
== END 2024-08-08 ==
LOC: M OUTALCOH 10:06
PROVIDERS: ATTEND Psychiatry & Neurology Psychiatry
DX: F11.20 Opioid dependence, uncomplicated (principal); Z72.0 Tobacco use

== ENCOUNTER 2024-07-24 20:41 | Emergency (ER) | payer MEDICAID, OTHER ==
[~2024-07-24] VITALS: Ht 170.2 cm; Wt 69.8 kg
[2024-07-24 22:42] LABS: BASO # 0.1 10^3/uL (0.0-0.2); BASO % 0.5 % (0.0-1.0); EOS # 0.1 10^3/uL (0.0-0.5); EOS % 1.4 % (0.0-3.0); HEMATOCRIT 42.9 % (36.0-47.0); HEMOGLOBIN 14.5 g/dl (12.0-15.5); LYMPH # 2.9 10^3/uL (1.5-5.0); LYMPH % 30.7 % (24.0-44.0); MEAN CORPUSCULAR HGB CONC 33.8 g/dl (32.0-36.5); MEAN CORPUSCULAR VOLUME 91.9 fl (80.0-96.0); MONO # 0.6 10^3/uL (0.0-0.8); MONO % 6.5 % (2.0-8.0); NEUTROPHILS # 5.8 10^3/uL (1.5-8.5); NEUTROPHILS % 60.7 % (36.0-66.0); PLATELET COUNT, AUTOMATED 335 10^3/uL (150-450); RED BLOOD COUNT 4.67 10^6/uL (4.00-5.40); WHITE BLOOD COUNT 9.6 10^3/uL (4.0-10.0)
[2024-07-24 22:54] LABS: INR 0.95; PARTIAL THROMBOPLASTIN TIME 25.6 SECONDS (24.8-34.2); PROTHROMBIN TIME 12.9 SECONDS (12.5-14.5)
[2024-07-24 23:10] LABS: AMPHETAMINES LEVEL URINE NEGATIVE (NEGATIVE); BARBITURATES URINE NEGATIVE (NEGATIVE); BENZODIAZEPINES URINE NEGATIVE (NEGATIVE); CANNABINOIDS URINE NEGATIVE (NEGATIVE); COCAINE METABOLITE URINE NEGATIVE (NEGATIVE); METHADONE URINE NEGATIVE (NEGATIVE); OPIATES URINE NEGATIVE (NEGATIVE); PHENCYCLIDINE URINE NEGATIVE (NEGATIVE)
[2024-07-24 23:13] LABS: ALBUMIN 3.7 G/DL (3.2-5.2); ALKALINE PHOSPHATASE 77 U/L (35-104); ALT/SGPT 16 U/L (7.0-40); AST/SGOT 19 U/L (<34); BILIRUBIN,TOTAL 0.3 MG/DL (0.3-1.2); BLOOD UREA NITROGEN 13 MG/DL (9-23); CALCIUM LEVEL 9.7 MG/DL (8.5-10.1); CARBON DIOXIDE LEVEL 27 MMOL/L (20-31); CHLORIDE LEVEL 102 MMOL/L (98-107); CREATININE FOR GFR 0.69 MG/DL (0.55-1.30); GLOMERULAR FILTRATION RATE > 60.0 (>51); GLUCOSE, FASTING 104 MG/DL (60-100); POTASSIUM SERUM 4.1 MMOL/L (3.5-5.1); SODIUM LEVEL 139 MMOL/L (136-145); TOTAL PROTEIN 7.8 G/DL (5.7-8.2)
[2024-07-25 00:52] VITALS: BP 108/55; TEMP 97.9; O2SAT 98
[2024-07-25 01:12] LABS: RSV AMPLIFICATION NEGATIVE (NEGATIVE)
== END 2024-07-25 01:48 | disposition home or self-care (01) ==
LOC: M ED 20:41
DX: R19.7 Diarrhea, unspecified (principal); Z88.5 Allergy status to narcotic agent; Z88.8 Allergy status to other drugs, medicaments and biological substances; Z79.899 Other long term (current) drug therapy

== ENCOUNTER 2024-08-04 07:57 | Inpatient (IN) | payer MEDICAID, OTHER ==
[~2024-08-04] VITALS: Ht 167.6 cm; Wt 77.8 kg
[2024-08-04 09:03] LABS: HEMOGLOBIN 15.6 g/dl (12.0-15.5); MEAN CORPUSCULAR HEMOGLOBIN 31.7 pg (27.0-33.0); MEAN CORPUSCULAR HGB CONC 34.7 g/dl (32.0-36.5); MEAN CORPUSCULAR VOLUME 91.5 fl (80.0-96.0); PLATELET COUNT, AUTOMATED 314 10^3/uL (150-450); RED BLOOD COUNT 4.92 10^6/uL (4.00-5.40)
[2024-08-04 09:19] LABS: ETHYL ALCOHOL (ETHANOL) < 0.003 % (0.000-0.010)
[2024-08-04 09:20] LABS: ALBUMIN 3.9 G/DL (3.2-5.2); ALKALINE PHOSPHATASE 81 U/L (35-104); ALT/SGPT 10 U/L (7.0-40); AST/SGOT 9 U/L (<34); BILIRUBIN,DIRECT 0.1 MG/DL (<0.4); BILIRUBIN,TOTAL 0.4 MG/DL (0.3-1.2); BLOOD UREA NITROGEN 10 MG/DL (9-23); CALCIUM LEVEL 9.8 MG/DL (8.5-10.1); CARBON DIOXIDE LEVEL 25 MMOL/L (20-31); CHLORIDE LEVEL 106 MMOL/L (98-107); CREATININE FOR GFR 0.72 MG/DL (0.55-1.30); GLOMERULAR FILTRATION RATE > 60.0 (>51); GLUCOSE, FASTING 107 MG/DL (60-100); POTASSIUM SERUM 3.9 MMOL/L (3.5-5.1); SALICYLATE LEVEL < 3.0 MG/DL (<30); SODIUM LEVEL 139 MMOL/L (136-145); TOTAL PROTEIN 7.7 G/DL (5.7-8.2)
[2024-08-04 09:23] LABS: THYROID STIMULATING HORMONE 0.689 uIU/ML (0.55-4.78)
[2024-08-04 09:28] LABS: BARBITURATES URINE NEGATIVE (NEGATIVE); BENZODIAZEPINES URINE NEGATIVE (NEGATIVE); CANNABINOIDS URINE NEGATIVE (NEGATIVE); COCAINE METABOLITE URINE NEGATIVE (NEGATIVE); METHADONE URINE NEGATIVE (NEGATIVE); OPIATES URINE NEGATIVE (NEGATIVE); PHENCYCLIDINE URINE NEGATIVE (NEGATIVE)
[2024-08-04 09:43] LABS: AMPHETAMINES LEVEL URINE NEGATIVE (NEGATIVE)
[2024-08-04] MEDS ORDERED: HOME MED LIST COMPLETE! XX SCH (10:25)
[2024-08-04] MEDS ORDERED: IBUPROFEN 400MG TAB PO PRN (16:55)
[2024-08-04] MEDS ORDERED: ACETAMINOPHEN 325 MG TAB PO PRN (16:55)
[2024-08-04] MEDS: PREGABALIN 100 MG CAP (LYRICA) PO SCH (17:06)
[2024-08-04] MEDS: clonazePAM 1 MG TAB PO SCH (17:06)
[2024-08-04] MEDS: traZODone 50 MG TAB PO PRN (20:25)
[2024-08-04] MEDS: clonazePAM 1 MG TAB PO PRN (20:26)
[2024-08-05 06:32] VITALS: BP 98/52; TEMP 97.4; O2SAT 100
[2024-08-05] MEDS: NICOTINE POLACRILEX 2 MG GUM PO PRN (09:05)
[2024-08-05] MEDS: BACLOFEN 10 MG TAB PO SCH ×2 (09:05→20:49)
[2024-08-05 15:13] VITALS: BP 111/68; TEMP 97.1; O2SAT 100
[2024-08-05] MEDS: BUPRENORPHINE HCL 8MG SUBINGUAL TABLET SL SCH (20:50)
[2024-08-06 06:15] VITALS: BP 117/55; TEMP 96.9; O2SAT 97
[2024-08-06] MEDS: BUPRENORPHINE HCL 8MG SUBINGUAL TABLET SL SCH (08:20)
[2024-08-06] MEDS: NICOTINE POLACRILEX 2 MG GUM PO PRN (09:42)
[2024-08-06] MEDS: ADDERALL 5 MG TAB PO SCH (12:09)
[2024-08-06] MEDS: predniSONE 20 MG TAB PO SCH (17:06)
[2024-08-06 18:08] VITALS: BP 115/60; TEMP 97.3
[2024-08-06] MEDS: zolPIDEM TARTRATE 5 MG TAB PO PRN (20:13)
[2024-08-07 05:56] VITALS: BP 121/69; TEMP 97.8; O2SAT 98
[2024-08-07] MEDS ORDERED: ADDERALL 5 MG TAB PO SCH (09:00)
[2024-08-07] MEDS: OLANZapine ORAL DISINTEGRATING TAB 5MG PO PRN (10:52)
[2024-08-07] MEDS: clonazePAM 1 MG TAB PO SCH (12:28)
[2024-08-07 16:44] VITALS: BP 121/76; TEMP 97; O2SAT 98
[2024-08-07] MEDS: zolPIDEM TARTRATE 5 MG TAB PO SCH (20:25)
[2024-08-07] MEDS: OLANZapine 5 MG TAB PO SCH (20:25)
[2024-08-08 06:00] VITALS: BP 116/73; TEMP 97.6; O2SAT 97
[2024-08-08 17:02] VITALS: BP 140/82; TEMP 97.3; O2SAT 99
[2024-08-09 06:33] VITALS: BP 120/80; TEMP 97.4; O2SAT 97
[2024-08-09 15:39] VITALS: BP 134/76; TEMP 97.8; O2SAT 96
[2024-08-10 06:39] VITALS: BP 117/59; TEMP 97.3; O2SAT 97
[2024-08-10 15:27] VITALS: BP 149/88; TEMP 97.3; O2SAT 95
[2024-08-11 06:36] VITALS: BP 135/69; TEMP 98.2; O2SAT 96
[2024-08-11 15:57] VITALS: BP 165/88; TEMP 97.8; O2SAT 96
[2024-08-11] MEDS: BUPRENORPHINE HCL 8MG SUBINGUAL TABLET SL SCH (17:00)
[2024-08-11] MEDS: OLANZapine 5 MG TAB PO SCH (20:47)
[2024-08-12 06:57] VITALS: BP 126/64; TEMP 96.8; O2SAT 96
[2024-08-12] MEDS: ADDERALL 5 MG TAB PO SCH (07:38)
[2024-08-12] MEDS ORDERED: LOPERAMIDE 2 MG CAPLET PO PRN (09:55)
[2024-08-12] MEDS: LOPERAMIDE 2 MG CAPLET PO ONE (10:18)
[2024-08-12] MEDS: PILL CUTTER 1 EACH XX PRN (10:30)
[2024-08-12] MEDS: CALCIUM CARBONATE 500 MG CHEW U/D PO PRN (10:30)
[2024-08-12 15:23] VITALS: BP 142/85; TEMP 97.6; O2SAT 97
[2024-08-13 06:30] VITALS: BP_SYST 110; BP_SYST 115; BP_DIAS 60; BP_DIAS 68; TEMP 97.3; O2SAT 93; O2SAT 96
[2024-08-13 16:33] VITALS: BP 123/64; TEMP 97.9; O2SAT 96
[2024-08-14 06:20] VITALS: BP 112/65; TEMP 96.9; O2SAT 96
[2024-08-14] MEDS: PANTOPRAZOLE 40MG TAB (PROTONIX) PO SCH (13:09)
[2024-08-14 15:26] VITALS: BP 148/73; TEMP 98; O2SAT 100
[2024-08-14 17:37] VITALS: BP 135/65; O2SAT 99
[2024-08-14] MEDS: OLANZapine 5 MG TAB PO SCH (20:14)
[2024-08-15 06:48] VITALS: BP 118/63; TEMP 96.5; O2SAT 97
[2024-08-15 17:22] VITALS: BP 144/80; TEMP 98.3; O2SAT 98
[2024-08-16 06:44] VITALS: BP 120/63; TEMP 97.6; O2SAT 96
[2024-08-16 15:32] VITALS: BP 113/74; TEMP 97.9; O2SAT 96
[2024-08-17 06:33] VITALS: BP 135/77; TEMP 98.1; O2SAT 95
[2024-08-17 15:22] VITALS: BP 118/70; TEMP 98.2; O2SAT 99
[2024-08-18 06:24] VITALS: BP 124/70; TEMP 98.9; O2SAT 95
[2024-08-18] MEDS ORDERED: OLAN1TAB16 PO (11:50)
== END 2024-08-18 14:40 | disposition home or self-care (01) | DRG 754 ==
LOC: M ED 07:57 → M ED INP 13:16 → M PSY 15:50
PROVIDERS: ADMIT Psychiatry & Neurology Psychiatry; ATTEND Psychiatry & Neurology Psychiatry
DX: F32.9 Major depressive disorder, single episode, unspecified (principal); F41.9 Anxiety disorder, unspecified; F23 Brief psychotic disorder; R45.851 Suicidal ideations; Z91.148 Patient's other noncompliance with medication regimen for other reason; Z88.8 Allergy status to other drugs, medicaments and biological substances; Z79.899 Other long term (current) drug therapy; F19.959 Other psychoactive substance use, unspecified with psychoactive substance-induced psychotic disorder, unspecified

== ENCOUNTER 2024-08-23 21:03 | Emergency (ER) | payer MEDICAID, OTHER ==
[~2024-08-23] VITALS: Ht 170.2 cm; Wt 59.0 kg
[2024-08-23] MEDS: KETOROLAC 30 MG/ML 1ML VIAL IV ONE (23:18)
[2024-08-23 23:28] LABS: BASO % 0.2 % (0.0-1.0); EOS # 0.2 10^3/uL (0.0-0.5); EOS % 1.2 % (0.0-3.0); HEMATOCRIT 32.6 % (36.0-47.0); HEMOGLOBIN 11.1 g/dl (12.0-15.5); LYMPH # 1.7 10^3/uL (1.5-5.0); LYMPH % 13.9 % (24.0-44.0); MEAN CORPUSCULAR HEMOGLOBIN 31.3 pg (27.0-33.0); MEAN CORPUSCULAR VOLUME 91.8 fl (80.0-96.0); MONO # 0.6 10^3/uL (0.0-0.8); MONO % 4.5 % (2.0-8.0); NEUTROPHILS # 9.8 10^3/uL (1.5-8.5); NEUTROPHILS % 79.6 % (36.0-66.0); PLATELET COUNT, AUTOMATED 314 10^3/uL (150-450); RED BLOOD COUNT 3.55 10^6/uL (4.00-5.40); WHITE BLOOD COUNT 12.3 10^3/uL (4.0-10.0)
[2024-08-24 00:29] LABS: ALBUMIN 2.6 G/DL (3.2-5.2); ALKALINE PHOSPHATASE 73 U/L (35-104); ALT/SGPT 88 U/L (7.0-40); AST/SGOT 180 U/L (<34); BILIRUBIN,DIRECT < 0.1 MG/DL (<0.4); BILIRUBIN,TOTAL 0.2 MG/DL (0.3-1.2); BLOOD UREA NITROGEN 5 MG/DL (9-23); CALCIUM LEVEL 8.2 MG/DL (8.5-10.1); CARBON DIOXIDE LEVEL 30 MMOL/L (20-31); CHLORIDE LEVEL 98 MMOL/L (98-107); CREATININE FOR GFR 0.59 MG/DL (0.55-1.30); GLOMERULAR FILTRATION RATE > 60.0 (>51); GLUCOSE, FASTING 216 MG/DL (60-100); POTASSIUM SERUM 3.9 MMOL/L (3.5-5.1); SODIUM LEVEL 136 MMOL/L (136-145)
[2024-08-24 01:03] LABS: APPEARANCE, URINE HAZY (CLEAR); BACTERIA, URINE AUTO NEGATIVE (NEGATIVE); BILIRUBIN, URINE AUTO NEGATIVE (NEGATIVE); BLOOD, URINE BLOOD NEGATIVE (NEGATIVE); COLOR, URINE YELLOW (YELLOW); GLUCOSE, URINE (UA) AUTO 2+ mg/dL (NEGATIVE); KETONE, URINE AUTO NEGATIVE (NEGATIVE); LEUKOCYTE ESTERASE, URINE AUTO TRACE (NEGATIVE); MUCUS, URINE SMALL (NEGATIVE); NITRITE, URINE AUTO NEGATIVE (NEGATIVE); PROTEIN, URINE AUTO NEGATIVE (NEGATIVE); RBC, URINE AUTO 2 /HPF (0-3); SPECIFIC GRAVITY URINE AUTO 1.013 (1.002-1.035); SQUAMOUS EPITHELIAL CELL UR AU 9 /HPF (0-6); UROBILINOGEN, URINE AUTO 0.2 mg/dL (0.0-2.0); WBC, URINE AUTO 3 /HPF (0-3)
[2024-08-24] MEDS ORDERED: KETO10TAB PO (01:06)
[2024-08-24 01:13] VITALS: BP 120/75; TEMP 97.1; O2SAT 95
== END 2024-08-24 01:18 | disposition home or self-care (01) ==
LOC: M ED 21:03
DX: M54.50 Low back pain, unspecified (principal); R74.01 Elevation of levels of liver transaminase levels; G40.909 Epilepsy, unspecified, not intractable, without status epilepticus; B19.20 Unspecified viral hepatitis C without hepatic coma; F90.9 Attention-deficit hyperactivity disorder, unspecified type; F19.10 Other psychoactive substance abuse, uncomplicated; Z79.899 Other long term (current) drug therapy; Z88.5 Allergy status to narcotic agent; Z88.8 Allergy status to other drugs, medicaments and biological substances
CPT/HCPCS: 72128; 72131; 80048; 80076; 81001; 83880; 85025; 96374; 99284; J1885

== ENCOUNTER 2024-09-02 09:55 | Outpatient (RCR) | payer MEDICAID | END 2024-09-08 | LOC: M OUTALCOH 09:55 | PROVIDERS: ATTEND Psychiatry & Neurology Psychiatry | DX: F11.20 Opioid dependence, uncomplicated (principal); F15.10 Other stimulant abuse, uncomplicated; F17.200 Nicotine dependence, unspecified, uncomplicated ==

== ENCOUNTER → 2024-09-17 | Outpatient (REF) | payer MEDICAID ==
[2024-09-17 13:32] LABS: HEMOGLOBIN A1c 6.3 % (4.0-6.0)
[2024-09-17 13:40] LABS: TOTAL 25(OH) VITAMIN D 24.3 NG/ML (20.0-100.0)
[2024-09-17 13:55] LABS: ALBUMIN 3.4 G/DL (3.2-5.2); ALKALINE PHOSPHATASE 77 U/L (35-104); ALT/SGPT 11 U/L (7.0-40); AST/SGOT 10 U/L (<34); BILIRUBIN,TOTAL 0.2 MG/DL (0.3-1.2); BLOOD UREA NITROGEN 11 MG/DL (9-23); CALCIUM LEVEL 9.5 MG/DL (8.5-10.1); CARBON DIOXIDE LEVEL 28 MMOL/L (20-31); CHLORIDE LEVEL 106 MMOL/L (98-107); CHOLESTEROL LEVEL 198 MG/DL (<200); CHOLESTEROL RISK RATIO 3.75 (<5); CREATININE FOR GFR 0.65 MG/DL (0.55-1.30); GLOMERULAR FILTRATION RATE > 90.0 (>51); GLUCOSE, FASTING 104 MG/DL (60-100); HDL CHOLESTEROL 52.8 MG/DL (>40); NON-HDL-C 145.2 MG/DL; POTASSIUM SERUM 4.7 MMOL/L (3.5-5.1); SODIUM LEVEL 142 MMOL/L (136-145); THYROID STIMULATING HORMONE 0.843 uIU/ML (0.55-4.78); TOTAL PROTEIN 7.1 G/DL (5.7-8.2); TRIGLYCERIDES LEVEL 101 MG/DL (<150)
== END ==
LOC: M LAB REF 12:16
PROVIDERS: ATTEND Physician Assistant
DX: E11.9 Type 2 diabetes mellitus without complications (principal); E55.9 Vitamin D deficiency, unspecified

== ENCOUNTER 2024-09-18 10:05 | Outpatient (RCR) | payer MEDICAID ==
[~2024-09-18 10:05] MED LIST changes: -AMBI10TA PO; +PREG-35 PO; -PREG100CA PO; +ZOLP-533 PO
[2024-10-05] MEDS ORDERED: OLAN1TAB20 PO (10:26)
== END 2024-10-08 ==
LOC: M OUTALCOH 10:05
PROVIDERS: ATTEND Psychiatry & Neurology Psychiatry
DX: F11.20 Opioid dependence, uncomplicated (principal); Z72.0 Tobacco use

== ENCOUNTER 2024-10-04 22:45 | Inpatient (IN) | payer MEDICAID, OTHER ==
[~2024-10-04] VITALS: Ht 170.2 cm; Wt 75.6 kg
[2024-10-05 00:07] LABS: BARBITURATES URINE NEGATIVE (NEGATIVE); CANNABINOIDS URINE NEGATIVE (NEGATIVE); COCAINE METABOLITE URINE NEGATIVE (NEGATIVE); METHADONE URINE NEGATIVE (NEGATIVE); OPIATES URINE NEGATIVE (NEGATIVE); PHENCYCLIDINE URINE NEGATIVE (NEGATIVE)
[2024-10-05 00:09] LABS: ETHYL ALCOHOL (ETHANOL) < 0.003 % (0.000-0.010)
[2024-10-05 00:10] LABS: AMPHETAMINES LEVEL URINE POSITIVE (NEGATIVE); BENZODIAZEPINES URINE POSITIVE (NEGATIVE)
[2024-10-05 00:11] LABS: ALBUMIN 4.3 G/DL (3.2-5.2); ALKALINE PHOSPHATASE 83 U/L (35-104); ALT/SGPT 16 U/L (7.0-40); AST/SGOT 31 U/L (<34); BILIRUBIN,DIRECT 0.1 MG/DL (<0.4); BILIRUBIN,TOTAL 0.5 MG/DL (0.3-1.2); BLOOD UREA NITROGEN 16 MG/DL (9-23); CALCIUM LEVEL 9.7 MG/DL (8.5-10.1); CARBON DIOXIDE LEVEL 27 MMOL/L (20-31); CHLORIDE LEVEL 102 MMOL/L (98-107); CREATININE FOR GFR 0.86 MG/DL (0.55-1.30); GLOMERULAR FILTRATION RATE 79.2 (>51); GLUCOSE, FASTING 121 MG/DL (60-100); POTASSIUM SERUM 4.4 MMOL/L (3.5-5.1); SALICYLATE LEVEL < 3.0 MG/DL (<30); SODIUM LEVEL 137 MMOL/L (136-145); TOTAL PROTEIN 8.3 G/DL (5.7-8.2)
[2024-10-05 00:12] LABS: HEMATOCRIT 43.1 % (36.0-47.0); HEMOGLOBIN 14.4 g/dl (12.0-15.5); MEAN CORPUSCULAR HEMOGLOBIN 30.1 pg (27.0-33.0); MEAN CORPUSCULAR HGB CONC 33.4 g/dl (32.0-36.5); PLATELET COUNT, AUTOMATED 243 10^3/uL (150-450); RED BLOOD COUNT 4.79 10^6/uL (4.00-5.40); WHITE BLOOD COUNT 12.5 10^3/uL (4.0-10.0)
[2024-10-05 00:13] LABS: THYROID STIMULATING HORMONE 1.938 uIU/ML (0.55-4.78)
[2024-10-05] MEDS: OLANZapine ORAL DISINTEGRATING TAB 5MG PO ONE (03:10)
[2024-10-05] MEDS ORDERED: OLAN1TAB20 PO (10:26)
[2024-10-05] MEDS ORDERED: HOME MED LIST COMPLETE! XX SCH (10:45)
[2024-10-05] MEDS: GABAPENTIN 300 MG CAP PO SCH (11:01)
[2024-10-05] MEDS: BUPRENORPHINE HCL 8MG SUBINGUAL TABLET SL SCH (11:01)
[2024-10-05] MEDS: PREGABALIN 100 MG CAP (LYRICA) PO SCH (11:01)
[2024-10-05] MEDS: ADDERALL 5 MG TAB PO SCH (11:02)
[2024-10-05] MEDS: clonazePAM 1 MG TAB PO PRN (21:25)
[2024-10-05] MEDS: zolPIDEM TARTRATE 5 MG TAB PO PRN (21:25)
[2024-10-06] MEDS: OLANZapine 10 MG TAB PO SCH (09:01)
[2024-10-06] MEDS ORDERED: MAALOX 30 ML SUSP *UDC PO PRN (11:45)
[2024-10-06] MEDS ORDERED: OLANZapine 5 MG TAB PO PRN (11:45)
[2024-10-06] MEDS ORDERED: ACETAMINOPHEN 325 MG TAB PO PRN (11:45)
[2024-10-06] MEDS ORDERED: MOM 30ML SUSPENSION UDC PO PRN (11:45)
[2024-10-06] MEDS: LORazepam 1 MG TAB PO PRN (12:04)
[2024-10-06] MEDS: diphenhydrAMINE 25MG CAP PO PRN (12:04)
[2024-10-06] MEDS: GABAPENTIN 300 MG CAP PO SCH (16:18)
[2024-10-06] MEDS: clonazePAM 1 MG TAB PO PRN (18:14)
[2024-10-06] MEDS: zolPIDEM TARTRATE 5 MG TAB PO SCH (20:09)
[2024-10-06] MEDS: PREGABALIN 100 MG CAP (LYRICA) PO SCH (20:09)
[2024-10-06] MEDS: BUPRENORPHINE HCL 8MG SUBINGUAL TABLET SL SCH (20:33)
[2024-10-06] MEDS ORDERED: ADDERALL 30 MG PO SCH (21:00)
[2024-10-07] MEDS: ADDERALL 5 MG TAB PO SCH (08:01)
[2024-10-07] MEDS: NICOTINE 14 MG/24 HR TRANSDERMAL TD SCH (08:04)
[2024-10-07] MEDS: diphenhydrAMINE 50MG CAP PO STA (08:31)
[2024-10-07] MEDS: LORazepam 2 MG TAB PO STA (08:35)
[2024-10-07 16:02] VITALS: BP 109/57; TEMP 98.5; O2SAT 97
[2024-10-07] MEDS: NICOTINE POLACRILEX 2 MG GUM PO PRN (18:01)
[2024-10-07] MEDS: traZODone 50 MG TAB PO PRN (20:22)
[2024-10-08 15:41] VITALS: BP 142/79; TEMP 97.4; O2SAT 99
[2024-10-09 06:46] VITALS: BP 123/58; TEMP 97; O2SAT 98
== END 2024-10-09 10:30 | disposition home or self-care (01) | DRG 751 ==
LOC: M ED 22:45 → M ED INP 10-06 11:41 → UNDODEPER 10-06 11:58 → M PSY 10-06 13:59
PROVIDERS: ADMIT Internal Medicine; ATTEND Internal Medicine
DX: F29 Unspecified psychosis not due to a substance or known physiological condition (principal); F41.1 Generalized anxiety disorder; R45.851 Suicidal ideations; F90.9 Attention-deficit hyperactivity disorder, unspecified type; M79.661 Pain in right lower leg; F17.210 Nicotine dependence, cigarettes, uncomplicated; Z79.899 Other long term (current) drug therapy; Z88.8 Allergy status to other drugs, medicaments and biological substances; Z62.811 Personal history of psychological abuse in childhood; Z62.810 Personal history of physical and sexual abuse in childhood; Z91.410 Personal history of adult physical and sexual abuse

== ENCOUNTER 2024-10-16 16:18 | Inpatient (IN) | payer OTHER, MEDICAID ==
[~2024-10-16] VITALS: Ht 170.2 cm; Wt 74.6 kg
[~2024-10-16 16:18] MED LIST changes: +MELA5TAB44 PO; -MELA5TAB7 PO; +OLAN1TAB20 PO
[2024-10-16 17:15] LABS: HEMATOCRIT 39.1 % (36.0-47.0); HEMOGLOBIN 13.4 g/dl (12.0-15.5); MEAN CORPUSCULAR HEMOGLOBIN 30.2 pg (27.0-33.0); MEAN CORPUSCULAR HGB CONC 34.3 g/dl (32.0-36.5); MEAN CORPUSCULAR VOLUME 88.1 fl (80.0-96.0); PLATELET COUNT, AUTOMATED 336 10^3/uL (150-450); RED BLOOD COUNT 4.44 10^6/uL (4.00-5.40); WHITE BLOOD COUNT 7.6 10^3/uL (4.0-10.0)
[2024-10-16 17:44] LABS: ETHYL ALCOHOL (ETHANOL) < 0.003 % (0.000-0.010)
[2024-10-16 17:45] LABS: SALICYLATE LEVEL < 3.0 MG/DL (<30)
[2024-10-16 17:46] LABS: ALBUMIN 3.8 G/DL (3.2-5.2); ALKALINE PHOSPHATASE 82 U/L (35-104); ALT/SGPT 17 U/L (7.0-40); AST/SGOT 18 U/L (<34); BILIRUBIN,DIRECT 0.2 MG/DL (<0.4); BILIRUBIN,TOTAL 0.5 MG/DL (0.3-1.2); BLOOD UREA NITROGEN 9 MG/DL (9-23); CALCIUM LEVEL 9.2 MG/DL (8.5-10.1); CARBON DIOXIDE LEVEL 29 MMOL/L (20-31); CHLORIDE LEVEL 105 MMOL/L (98-107); CREATININE FOR GFR 0.64 MG/DL (0.55-1.30); GLOMERULAR FILTRATION RATE > 90.0 (>51); GLUCOSE, FASTING 159 MG/DL (60-100); POTASSIUM SERUM 3.6 MMOL/L (3.5-5.1); SODIUM LEVEL 141 MMOL/L (136-145); TOTAL PROTEIN 7.4 G/DL (5.7-8.2)
[2024-10-16 17:48] LABS: THYROID STIMULATING HORMONE 0.608 uIU/ML (0.55-4.78)
[2024-10-16] MEDS ORDERED: HOME MED LIST COMPLETE! XX SCH (17:55)
[2024-10-16 18:34] LABS: BARBITURATES URINE NEGATIVE (NEGATIVE); CANNABINOIDS URINE NEGATIVE (NEGATIVE); COCAINE METABOLITE URINE NEGATIVE (NEGATIVE); METHADONE URINE NEGATIVE (NEGATIVE); OPIATES URINE NEGATIVE (NEGATIVE); PHENCYCLIDINE URINE NEGATIVE (NEGATIVE)
[2024-10-16 18:36] LABS: AMPHETAMINES LEVEL URINE POSITIVE (NEGATIVE); BENZODIAZEPINES URINE POSITIVE (NEGATIVE)
[2024-10-16] MEDS ORDERED: IBUPROFEN 400MG TAB PO PRN (18:50)
[2024-10-16] MEDS ORDERED: ACETAMINOPHEN 325 MG TAB PO PRN (18:50)
[2024-10-16] MEDS ORDERED: MOM 30ML SUSPENSION UDC PO PRN (18:50)
[2024-10-16] MEDS ORDERED: MAALOX 30 ML SUSP *UDC PO PRN (18:50)
[2024-10-16] MEDS ORDERED: diphenhydrAMINE 25MG CAP PO PRN (18:50)
[2024-10-16] MEDS: clonazePAM 1 MG TAB PO PRN (21:31)
[2024-10-16] MEDS: zolPIDEM TARTRATE 5 MG TAB PO PRN (21:31)
[2024-10-17] MEDS: OLANZapine ORAL DISINTEGRATING TAB 5MG PO PRN (02:58)
[2024-10-17] MEDS: LORazepam 2 MG TAB PO ONE (04:13)
[2024-10-17] MEDS: BUPRENORPHINE HCL 8MG SUBINGUAL TABLET SL SCH (09:00)
[2024-10-17] MEDS ORDERED: DEXTROAMPHETAMINE/AMPHETAMINE 5 MG TAB PO SCH (09:00)
[2024-10-17] MEDS: PREGABALIN 100 MG CAP PO SCH (09:15)
[2024-10-17] MEDS: DEXTROAMPHETAMINE/AMPHETAMINE 5 MG TAB PO SCH (09:15)
[2024-10-17] MEDS: GABAPENTIN 300 MG CAP PO SCH (09:15)
[2024-10-17] MEDS: OLANZapine 10 MG TAB PO SCH (09:15)
[2024-10-17 13:37] VITALS: BP 94/62; TEMP 97.8; O2SAT 98
[2024-10-17 14:08] VITALS: BP 99/68; O2SAT 100
[2024-10-18 06:23] VITALS: BP 100/56; TEMP 97.9; O2SAT 97
[2024-10-18] MEDS: NICOTINE POLACRILEX 2 MG GUM PO PRN (09:40)
[2024-10-18] MEDS: DEXTROAMPHETAMINE/AMPHETAMINE 5 MG TAB PO SCH (13:16)
[2024-10-18] MEDS: traZODone 50 MG TAB PO PRN (21:17)
[2024-10-19 06:24] VITALS: BP 114/66; TEMP 98.1; O2SAT 98
[2024-10-19 15:52] VITALS: BP 132/74; TEMP 97.8; O2SAT 97
[2024-10-19] MEDS: OLANZapine 10 MG TAB PO SCH (20:07)
[2024-10-19] MEDS: clonazePAM 1 MG TAB PO PRN (20:11)
[2024-10-20 06:31] VITALS: BP 118/56; TEMP 97.7; O2SAT 95
[2024-10-20] MEDS: DEXTROAMPHETAMINE/AMPHETAMINE 5 MG TAB PO SCH (08:16)
[2024-10-20 14:43] VITALS: BP 147/82; TEMP 97; O2SAT 98
[2024-10-21 06:35] VITALS: BP 128/70; TEMP 98.1; O2SAT 94
[2024-10-21 15:48] VITALS: BP 134/78; TEMP 97.7; O2SAT 96
[2024-10-21] MEDS ORDERED: OLAN1TAB20 PO (22:59)
[2024-10-22 06:32] VITALS: BP 135/68; TEMP 97; O2SAT 99
== END 2024-10-22 10:54 | disposition home or self-care (01) | DRG 753 ==
LOC: M ED 16:18 → M ED INP 18:48 → M PSY 20:40
PROVIDERS: ADMIT Student in an Organized Health Care Education/Training Program; ATTEND Student in an Organized Health Care Education/Training Program
DX: F31.64 Bipolar disorder, current episode mixed, severe, with psychotic features (principal); Z91.148 Patient's other noncompliance with medication regimen for other reason; R45.851 Suicidal ideations; F41.1 Generalized anxiety disorder; F90.9 Attention-deficit hyperactivity disorder, unspecified type; Z88.8 Allergy status to other drugs, medicaments and biological substances; Z79.899 Other long term (current) drug therapy

== ENCOUNTER 2025-01-17 17:02 | Emergency (ER) | payer MEDICAID, OTHER, SELFPAY ==
[~2025-01-17] VITALS: Ht 170.2 cm; Wt 72.7 kg
[2025-01-17] MEDS ORDERED: CLOB5CR TOP (18:28)
[2025-01-17] MEDS ORDERED: PRED20TA PO (18:28)
[2025-01-17 18:39] VITALS: BP 137/78; TEMP 98; O2SAT 97
[2025-01-17] MEDS: ACETAMINOPHEN 325 MG TAB PO ONE (18:40)
== END 2025-01-17 18:47 | disposition home or self-care (01) ==
LOC: M ED 17:02
DX: L40.3 Pustulosis palmaris et plantaris (principal); F90.9 Attention-deficit hyperactivity disorder, unspecified type; F19.10 Other psychoactive substance abuse, uncomplicated; F41.9 Anxiety disorder, unspecified; F44.5 Conversion disorder with seizures or convulsions; F17.200 Nicotine dependence, unspecified, uncomplicated; Z88.5 Allergy status to narcotic agent; Z88.8 Allergy status to other drugs, medicaments and biological substances; Z79.899 Other long term (current) drug therapy; Z79.52 Long term (current) use of systemic steroids

== ENCOUNTER 2025-03-28 15:18 | Inpatient (IN) | payer MEDICAID, OTHER ==
[~2025-03-28] VITALS: Ht 170.2 cm; Wt 80.1 kg
[~2025-03-28 15:18] MED LIST changes: +CLOB5CR TOP; -IBUP1TAB6 PO; +SFHIBU600 PO; +ZOLP10TA11 PO; -ZOLP10TA2 PO
[2025-03-28 16:21] LABS: PLATELET COUNT, AUTOMATED 453 10^3/uL (150-450)
[2025-03-28 16:51] LABS: ETHYL ALCOHOL (ETHANOL) < 0.003 % (0.000-0.010)
[2025-03-28 16:53] LABS: ALT/SGPT 15 U/L (7.0-40); AST/SGOT 12 U/L (<34); CALCIUM LEVEL 10.1 MG/DL (8.5-10.1); CARBON DIOXIDE LEVEL 23 MMOL/L (20-31); CHLORIDE LEVEL 105 MMOL/L (98-107); CREATININE FOR GFR 0.87 MG/DL (0.55-1.30); GLOMERULAR FILTRATION RATE 78.2 (>51); POTASSIUM SERUM 4.1 MMOL/L (3.5-5.1); SALICYLATE LEVEL < 3.0 MG/DL (<30); SODIUM LEVEL 140 MMOL/L (136-145)
[2025-03-28 17:38] LABS: BARBITURATES URINE NEGATIVE (NEGATIVE); COCAINE METABOLITE URINE NEGATIVE (NEGATIVE); METHADONE URINE NEGATIVE (NEGATIVE)
[2025-03-28 17:39] LABS: CANNABINOIDS URINE NEGATIVE (NEGATIVE); OPIATES URINE NEGATIVE (NEGATIVE); PHENCYCLIDINE URINE NEGATIVE (NEGATIVE)
[2025-03-28 17:53] LABS: AMPHETAMINES LEVEL URINE POSITIVE (NEGATIVE); BENZODIAZEPINES URINE POSITIVE (NEGATIVE)
[2025-03-28] MEDS ORDERED: MAALOX 30 ML SUSP *UDC PO PRN (21:25)
[2025-03-28] MEDS ORDERED: ACETAMINOPHEN 325 MG TAB PO PRN (21:25)
[2025-03-28] MEDS ORDERED: MOM 30 ML SUSPENSION UDC PO PRN (21:25)
[2025-03-28] MEDS ORDERED: IBUPROFEN 400 MG TAB PO PRN (21:25)
[2025-03-28 23:30] VITALS: BP 120/81; TEMP 96.7; O2SAT 95
[2025-03-29] MEDS ORDERED: PROP40TA62 PO (00:05)
[2025-03-29] MEDS ORDERED: LURA60TA PO (00:05)
[2025-03-29] MEDS ORDERED: CLON-952 PO (00:05)
[2025-03-29] MEDS ORDERED: ADDE10TA PO (00:05)
[2025-03-29] MEDS ORDERED: PREG200C2 PO (00:05)
[2025-03-29] MEDS ORDERED: AMIT25TA19 PO (00:05)
[2025-03-29] MEDS ORDERED: MIRT-88 PO (00:09)
[2025-03-29] MEDS ORDERED: HOME MED LIST COMPLETE! XX SCH (00:10)
[2025-03-29 06:31] VITALS: BP 106/58; TEMP 98.1; O2SAT 98
[2025-03-29] MEDS: OLANZapine ORAL DISINTEGRATING TAB 5MG PO PRN (08:47)
[2025-03-29] MEDS: THIAMINE 100 MG TAB PO SCH (09:00)
[2025-03-29] MEDS: MULTIVITAMINS/MINERALS THERAP 1 TAB PO SCH (09:00)
[2025-03-29] MEDS: FOLIC ACID 1 MG TAB PO SCH (09:00)
[2025-03-29 10:15] VITALS: BP 106/58
[2025-03-29] MEDS: chlordiazePOXIDE 25 MG CAP PO SCH (11:58)
[2025-03-29] MEDS: PROPRANOLOL 10 MG TAB PO SCH (15:41)
[2025-03-29] MEDS: PREGABALIN 50 MG CAP PO SCH (16:20)
[2025-03-29 18:30] VITALS: BP 106/58
[2025-03-29] MEDS: OLANZapine 10 MG TAB PO SCH (21:18)
[2025-03-29] MEDS: traZODone 50 MG TAB PO PRN (21:19)
[2025-03-29 22:00] VITALS: BP 120/75
[2025-03-30] VITALS (7 sets, daily range): BP systolic 97–117; BP diastolic 57–80; TEMP 96.9–98.5; O2SAT 97–98
[2025-03-31] VITALS (9 sets, daily range): BP systolic 98–112; BP diastolic 57–72; TEMP 96.8–97.5; O2SAT 95–99
[2025-04-01 02:33] VITALS: BP 100/72; TEMP 97; O2SAT 97
[2025-04-01 06:18] VITALS: BP 115/61; TEMP 96.7; O2SAT 95
[2025-04-01 06:19] VITALS: BP 115/61; TEMP 96.7; O2SAT 98
[2025-04-01 06:20] VITALS: BP 115/61
[2025-04-01 08:33] VITALS: BP 121/80
[2025-04-01] MEDS: chlordiazePOXIDE 25 MG CAP PO SCH (08:58)
[2025-04-01] MEDS: NICOTINE POLACRILEX 2 MG GUM PO PRN (12:18)
[2025-04-01 15:02] VITALS: BP 138/74; TEMP 97; O2SAT 94
[2025-04-02 06:29] VITALS: BP 104/59; TEMP 97.4; O2SAT 96
[2025-04-02 08:36] VITALS: BP 141/81
[2025-04-02 08:40] VITALS: BP 141/81
[2025-04-02] MEDS ORDERED: PROP10TA56 PO (09:29)
[2025-04-02] MEDS ORDERED: TRAZ-252 PO (09:29)
[2025-04-02] MEDS ORDERED: OLAN1TAB20 PO (09:29)
== END 2025-04-02 12:30 | disposition home or self-care (01) | DRG 753 ==
LOC: M ED 15:18 → M ED INP 21:25 → M PSY 23:02
PROVIDERS: ADMIT Student in an Organized Health Care Education/Training Program; ATTEND Student in an Organized Health Care Education/Training Program
DX: F31.64 Bipolar disorder, current episode mixed, severe, with psychotic features (principal); F41.1 Generalized anxiety disorder; F11.20 Opioid dependence, uncomplicated; F41.0 Panic disorder [episodic paroxysmal anxiety]; Z91.148 Patient's other noncompliance with medication regimen for other reason; R45.851 Suicidal ideations; R45.850 Homicidal ideations; Z88.8 Allergy status to other drugs, medicaments and biological substances; R73.9 Hyperglycemia, unspecified; D75.839 Thrombocytosis, unspecified; D72.829 Elevated white blood cell count, unspecified; Z79.899 Other long term (current) drug therapy